=== PATIENT | female | born 1955 | race Caucasian/White ===

== ENCOUNTER 2017-12-15 14:13 | Inpatient (IN) | payer MEDICAID, OTHER ==
[~2017-12-15] VITALS: Ht 162.6 cm; Wt 129.8 kg
[~2017-12-15 14:13] MED LIST: ALBUPOW26 XX; CARI-316 PO; CELE200C PO; GLIP-115 PO; MEDR10TA9 PO; RABE20TA5 PO; SITA25TA3 PO; TRAM50TA2 PO; propranolol PO
[2017-12-15 15:11] LABS: Basophils # (auto) 0 uL; Basophils % (auto) 0.3 % (0.0-2.0); Eosinophils # (auto) 0.2 uL; Eosinophils % (auto) 1.8 % (0.0-7.0); Hematocrit 36.6 % (36.0-46.0); Hemoglobin 11.7 g/dL (12.2-16.2); Lymphocytes # (auto) 1.9 uL; Mean Corpuscular Hemoglobin 28.4 pg (28.0-32.0); Mean Corpuscular Hgb Conc. 31.8 g/dL (32.0-36.0); Mean Corpuscular Volume 89.2 fL (80.0-100.0); Monocytes # (auto) 0.6 uL; Monocytes % (auto) 4.8 % (0.0-12.0); Neutrophils # (auto) 10.1 uL; Neutrophils % (auto) 78.1 % (37.0-80.0); Platelet Count (auto) 350 10^3/uL (140-450); Red Cell Distribution Width 14.6 % (11.8-14.3)
[2017-12-15 15:23] LABS: Alanine Aminotransferase 27 U/L (13-56); Albumin 3.4 g/dL (3.4-5.0); Anion Gap 9 (5-15); Aspartate Aminotransferase 19 U/L (15-37); BUN/Creatinine Ratio 21.9; Blood Urea Nitrogen 23 mg/dL (7-18); Calcium 8.8 mg/dL (8.5-10.1); Carbon Dioxide 28 mmol/L (21-32); Chloride 104 mmol/L (98-107); GFR African American 69 mL/min; GFR Non-African American 57 mL/min; Glucose 236 mg/dL (74-106); INR 0.94 (0.9-1.15); Magnesium 2.2 mg/dL (1.6-2.6); Partial Thromboplastin Time 24.4 sec (23.78-33.04); Potassium 3.9 mmol/L (3.5-5.1); Prothrombin Time 10.1 sec (9.27-12.13); Sodium 141 mmol/L (136-145)
[2017-12-15 15:28] LABS: Alkaline Phosphatase 90 U/L (45-117); Bilirubin, Total 0.5 mg/dL (0.2-1.0); Total Protein 7.6 g/dL (6.4-8.2)
[2017-12-15] MEDS ORDERED: LORazepam 0.5 MG TAB PO PRN (16:15)
[2017-12-15] MEDS ORDERED: SPIRONOLACTONE 25 MG TAB PO ONE (16:15)
[2017-12-15] MEDS ORDERED: TEMAZEPAM 15 MG CAP PO PRN (16:15)
[2017-12-15] MEDS ORDERED: NITROGLYCERIN 0.4 MG SL TAB SL PRN (16:15)
[2017-12-15] MEDS ORDERED: ALBUTEROL SULF 2.5 MG/0.5ML(0.5%) NEB SOLN NEB PRN (16:15)
[2017-12-15] MEDS ORDERED: PROMETHAZINE HCL 25 MG/ML 1ML IV PRN (16:15)
[2017-12-15] MEDS ORDERED: LACTULOSE 20Gm/30ML SOLN PO PRN (16:15)
[2017-12-15] MEDS ORDERED: ACETAMINOPHEN 500 MG TAB PO PRN (16:15)
[2017-12-15] MEDS ORDERED: CARVEDILOL 3.125 MG TAB PO ONE (16:15)
[2017-12-15] MEDS ORDERED: DEXTROSE (50%) 50ML SYRG IV PRN (16:15)
[2017-12-15 16:27] LABS: Urine Bacteria FEW /hpf (None Seen); Urine Blood Negative /uL (Negative); Urine Mucus FEW (None Seen); Urine Specific Gravity 1.026 (1.001-1.035); Urine WBC 5 /hpf (0 - 5)
[2017-12-15] MEDS ORDERED: ENOXAPARIN SOD 40 MG/0.4 ML SYRINGE SC ONE ×2 (16:39→16:40)
[2017-12-15] MEDS: cefTRIAXone 1GM/10ml IVPUSH 10 ML IV SCH (16:55)
[2017-12-15] MEDS: FUROSEMIDE 40 MG/4 ML VIAL IV SCH (16:56)
[2017-12-15] MEDS ORDERED: ENALAPRIL MALEATE 2.5 MG TAB PO ONE (17:00)
[2017-12-15] MEDS: InsuLIN REG 1unit/0.01ml Soln (100units/ml) SC SCH ×2 (17:02→23:43)
[2017-12-15] MEDS: ACCU-CHEK COMFORT CURVE STRIP VI SCH ×2 (17:02→23:41)
[2017-12-15] MEDS: glipiZIDE 5 MG TAB PO SCH (17:02)
[2017-12-15 17:07] LABS: Alcohol, Urine < 3.0 mg/dL (0-5); Amphetamine Screen, Urine NEGATIVE (NEGATIVE); Barbiturate Scree,Urine NEGATIVE (NEGATIVE); Benzodiazephine Screen, Urine NEGATIVE (NEGATIVE); Cannabinoid Screen, Urine NEGATIVE (NEGATIVE); Cocaine Screen, Urine NEGATIVE (NEGATIVE); Opiate Scree,Urine POSITIVE (NEGATIVE); Phencyclidine Screen, Urine NEGATIVE (NEGATIVE)
[2017-12-15] MEDS ORDERED: medroxyPROGESTERone ACETATE 5 MG TAB PO ONE (17:15)
[2017-12-15] MEDS: ASPirin 81 mg TAB PO SCH (17:29)
[2017-12-15] MEDS: ALBUTEROL SULF 2.5 MG/0.5ML(0.5%) NEB SOLN NEB SCH (18:00)
[2017-12-15] MEDS: IPRATROPIUM BROM 0.5 MG/2.5ML INH SOL NEB SCH (18:00)
[2017-12-15] MEDS ORDERED: ASPI81TA27 PO (18:20)
[2017-12-15] MEDS ORDERED: HYDR-531 PO (18:20)
[2017-12-15] MEDS ORDERED: DIGO0.1262 PO (18:20)
[2017-12-15] MEDS ORDERED: FURO40TA PO (18:20)
[2017-12-15] MEDS ORDERED: LISI-275 PO (18:20)
[2017-12-15] MEDS ORDERED: OME20GT GT (18:20)
[2017-12-15] MEDS ORDERED: OME20T PO (18:20)
[2017-12-15] MEDS ORDERED: TICA90TA PO (18:20)
[2017-12-15] MEDS ORDERED: ALBU2TAB4 INH (18:20)
[2017-12-15] MEDS ORDERED: MET50T PO (18:20)
[2017-12-15] MEDS ORDERED: OLOP1DRO2 OP (18:20)
[2017-12-15] MEDS ORDERED: INSLANTI SC (18:20)
[2017-12-15] MEDS ORDERED: AMIO100T3 PO (18:20)
[2017-12-15] MEDS ORDERED: ATOR40TA52 PO (18:20)
[2017-12-15] MEDS ORDERED: NITR0.4S29 SL (18:20)
[2017-12-15] MEDS ORDERED: TIZA4TAB9 PO (18:20)
[2017-12-15] MEDS ORDERED: GABA600T PO (18:20)
[2017-12-15] MEDS ORDERED: CELE100C82 PO (18:20)
[2017-12-15] MEDS ORDERED: LEV100T PO (18:20)
[2017-12-15] MEDS ORDERED: INSUINJ7 IJ (18:20)
[2017-12-15] MEDS ORDERED: POTA10TA51 PO (18:20)
[2017-12-15] MEDS ORDERED: Tizanidine Hydrochloride (Zanaflex) 4 MG PO PRN (18:30)
[2017-12-15] MEDS: HYDROmorphone HCL 2 MG/ML VL IV PRN (21:01)
[2017-12-15 21:14] VITALS: BP 93/59
[2017-12-15 22:00] VITALS: BP 100/61
[2017-12-15] MEDS ORDERED: traMADol HCL 50 MG TAB PO SCH (22:00)
[2017-12-15] MEDS: CARVEDILOL 12.5 MG TAB PO SCH (22:00)
[2017-12-15] MEDS: TICAGRELOR 90 MG TAB PO SCH (22:21)
[2017-12-15] MEDS: GABAPENTIN 300 MG CAP PO SCH (22:21)
[2017-12-15] MEDS: HYDROcodone-ACET 5/325MG TAB PO PRN (22:21)
[2017-12-15 23:00] VITALS: BP 100/61
[2017-12-15] MEDS: SODIUM CHLOR 0.9% PF (SALINE LOCK) 10ML VIAL/SYR IV SCH (23:38)
[2017-12-15] MEDS: AMIODARONE HCL 200 MG TAB PO SCH (23:39)
[2017-12-15] MEDS: INSULIN LANTUS (GLARGINE) 1 /0.01ml (100units/ml) SC SCH (23:42)
[2017-12-16] VITALS (7 sets, daily range): BP systolic 104–118; BP diastolic 49–63
[2017-12-16] MEDS: IPRATROPIUM BROM 0.5 MG/2.5ML INH SOL NEB SCH ×4 (00:08→19:09)
[2017-12-16] MEDS: ALBUTEROL SULF 2.5 MG/0.5ML(0.5%) NEB SOLN NEB SCH ×4 (00:08→19:09)
[2017-12-16] MEDS: FUROSEMIDE 40 MG/4 ML VIAL IV SCH ×2 (05:33→22:30)
[2017-12-16] MEDS: GABAPENTIN 300 MG CAP PO SCH ×3 (05:34→22:32)
[2017-12-16] MEDS: HYDROcodone-ACET 5/325MG TAB PO PRN ×2 (05:34→13:47)
[2017-12-16] MEDS: SODIUM CHLOR 0.9% PF (SALINE LOCK) 10ML VIAL/SYR IV SCH ×3 (05:35→22:35)
[2017-12-16] MEDS: ACCU-CHEK COMFORT CURVE STRIP VI SCH ×4 (05:35→22:00)
[2017-12-16 05:47] LABS: Basophils # (auto) 0 uL; Basophils % (auto) 0.6 % (0.0-2.0); Eosinophils # (auto) 0.2 uL; Eosinophils % (auto) 2.1 % (0.0-7.0); Hemoglobin 10.2 g/dL (12.2-16.2); Lymphocytes # (auto) 2.2 uL; Lymphocytes % (auto) 25.3 % (10.0-50.0); Mean Corpuscular Hemoglobin 28.4 pg (28.0-32.0); Mean Corpuscular Volume 88.5 fL (80.0-100.0); Monocytes # (auto) 0.6 uL; Monocytes % (auto) 6.9 % (0.0-12.0); Neutrophils # (auto) 5.6 uL; Neutrophils % (auto) 65.1 % (37.0-80.0); Platelet Count (auto) 268 10^3/uL (140-450); Red Blood Cells 3.61 10^6/uL (4.0-5.20); Red Cell Distribution Width 14.5 % (11.8-14.3); White Blood Cell 8.6 10^3/uL (4.4-10.8)
[2017-12-16 06:06] LABS: Albumin 2.9 g/dL (3.4-5.0); BUN/Creatinine Ratio 22.2; Bilirubin, Total 0.7 mg/dL (0.2-1.0); Calcium 8.7 mg/dL (8.5-10.1); Potassium 3.8 mmol/L (3.5-5.1); Total Protein 6.4 g/dL (6.4-8.2)
[2017-12-16] MEDS: InsuLIN REG 1unit/0.01ml Soln (100units/ml) SC SCH ×4 (06:53→22:00)
[2017-12-16] MEDS ORDERED: OPTISON 3ml Vial for INJ IV ONE ×2 (09:00)
[2017-12-16] MEDS: cefTRIAXone 1GM/10ml IVPUSH 10 ML IV SCH (09:53)
[2017-12-16] MEDS: ENOXAPARIN SOD 40 MG/0.4 ML SYRINGE SC SCH (09:53)
[2017-12-16] MEDS: LEVOTHYROXINE SODIUM 50 MCG TAB PO SCH (09:55)
[2017-12-16] MEDS: LISINOPRIL 5 MG TAB PO SCH (09:56)
[2017-12-16] MEDS: glipiZIDE 5 MG TAB PO SCH ×2 (09:56→17:39)
[2017-12-16] MEDS: SPIRONOLACTONE 25 MG TAB PO SCH (09:56)
[2017-12-16] MEDS: PANTOPRAZOLE 40 MG TAB PO SCH (09:56)
[2017-12-16] MEDS: ASPirin 81 mg TAB PO SCH (09:56)
[2017-12-16] MEDS: CARVEDILOL 12.5 MG TAB PO SCH ×2 (09:56→22:33)
[2017-12-16] MEDS: AMIODARONE HCL 200 MG TAB PO SCH ×2 (09:57→22:32)
[2017-12-16] MEDS: POTASSIUM CHL 20 Meq TABLET PO SCH (09:57)
[2017-12-16] MEDS: DIGOXIN 0.125 MG TAB PO SCH (09:57)
[2017-12-16] MEDS ORDERED: Sitagliptin Phosphate (Januvia) 25 MG TABLET PO SCH (10:00)
[2017-12-16] MEDS ORDERED: CARISOPRODOL 350 MG TAB PO SCH (10:00)
[2017-12-16] MEDS ORDERED: ENALAPRIL MALEATE 2.5 MG TAB PO SCH (10:00)
[2017-12-16] MEDS: OLOPATADINE HCL 0.1% OP SCH (10:00)
[2017-12-16] MEDS ORDERED: medroxyPROGESTERone ACETATE 5 MG TAB PO SCH (10:00)
[2017-12-16] MEDS: TICAGRELOR 90 MG TAB PO SCH ×2 (10:00→22:43)
[2017-12-16] MEDS ORDERED: METOLAZONE 5 MG TAB PO ONE (15:30)
[2017-12-16] MEDS: ATORVASTATIN 20 MG TAB PO SCH ×2 (17:40→22:33)
[2017-12-16] MEDS ORDERED: CELECOXIB 100 MG CAP PO SCH (22:00)
[2017-12-16] MEDS: INSULIN LANTUS (GLARGINE) 1 /0.01ml (100units/ml) SC SCH (22:00)
[2017-12-17] MEDS: ALBUTEROL SULF 2.5 MG/0.5ML(0.5%) NEB SOLN NEB SCH ×3 (00:32→11:28)
[2017-12-17] MEDS: IPRATROPIUM BROM 0.5 MG/2.5ML INH SOL NEB SCH ×3 (00:32→11:28)
[2017-12-17] MEDS: HYDROmorphone HCL 2 MG/ML VL IV PRN (04:16)
[2017-12-17 06:21] LABS: Basophils # (auto) 0 uL; Basophils % (auto) 0.4 % (0.0-2.0); Eosinophils # (auto) 0.1 uL; Eosinophils % (auto) 1.8 % (0.0-7.0); Hematocrit 30.8 % (36.0-46.0); Hemoglobin 10.2 g/dL (12.2-16.2); Lymphocytes # (auto) 1.4 uL; Lymphocytes % (auto) 17.7 % (10.0-50.0); Mean Corpuscular Hemoglobin 29.1 pg (28.0-32.0); Mean Corpuscular Hgb Conc. 33.1 g/dL (32.0-36.0); Mean Corpuscular Volume 87.9 fL (80.0-100.0); Monocytes # (auto) 0.5 uL; Monocytes % (auto) 6.8 % (0.0-12.0); Neutrophils # (auto) 5.9 uL; Neutrophils % (auto) 73.3 % (37.0-80.0); Platelet Count (auto) 275 10^3/uL (140-450); Red Cell Distribution Width 14.5 % (11.8-14.3); White Blood Cell 8.1 10^3/uL (4.4-10.8)
[2017-12-17] MEDS: ACCU-CHEK COMFORT CURVE STRIP VI SCH ×2 (06:27→11:30)
[2017-12-17] MEDS: SODIUM CHLOR 0.9% PF (SALINE LOCK) 10ML VIAL/SYR IV SCH ×2 (06:29→14:11)
[2017-12-17] MEDS: GABAPENTIN 300 MG CAP PO SCH ×2 (06:40→14:11)
[2017-12-17 06:41] LABS: Albumin 2.8 g/dL (3.4-5.0); Calcium 8.5 mg/dL (8.5-10.1); Potassium 3.5 mmol/L (3.5-5.1)
[2017-12-17] MEDS: FUROSEMIDE 40 MG/4 ML VIAL IV SCH ×2 (06:42→14:11)
[2017-12-17 06:44] LABS: Bilirubin, Total 0.7 mg/dL (0.2-1.0); Total Protein 6.6 g/dL (6.4-8.2)
[2017-12-17] MEDS: InsuLIN REG 1unit/0.01ml Soln (100units/ml) SC SCH ×2 (06:45→11:30)
[2017-12-17] MEDS: LEVOTHYROXINE SODIUM 50 MCG TAB PO SCH (06:49)
[2017-12-17 08:43] VITALS: BP 111/66
[2017-12-17] MEDS: glipiZIDE 5 MG TAB PO SCH (08:53)
[2017-12-17] MEDS: cefTRIAXone 1GM/10ml IVPUSH 10 ML IV SCH (08:53)
[2017-12-17] MEDS: OLOPATADINE HCL 0.1% OP SCH (10:00)
[2017-12-17] MEDS: TICAGRELOR 90 MG TAB PO SCH (10:09)
[2017-12-17] MEDS: DIGOXIN 0.125 MG TAB PO SCH (10:09)
[2017-12-17] MEDS: AMIODARONE HCL 200 MG TAB PO SCH (10:09)
[2017-12-17] MEDS: POTASSIUM CHL 20 Meq TABLET PO SCH (10:10)
[2017-12-17] MEDS: ENOXAPARIN SOD 40 MG/0.4 ML SYRINGE SC SCH (10:10)
[2017-12-17] MEDS: SPIRONOLACTONE 25 MG TAB PO SCH (10:10)
[2017-12-17] MEDS: PANTOPRAZOLE 40 MG TAB PO SCH (10:10)
[2017-12-17] MEDS: ASPirin 81 mg TAB PO SCH (10:10)
[2017-12-17] MEDS: CARVEDILOL 12.5 MG TAB PO SCH (10:11)
[2017-12-17] MEDS: LISINOPRIL 5 MG TAB PO SCH (10:11)
[2017-12-17 12:00] VITALS: BP 104/64
[2017-12-17 13:00] VITALS: BP 104/64
[2017-12-17] MEDS: HYDROcodone-ACET 5/325MG TAB PO PRN (14:28)
== END 2017-12-17 14:52 | disposition home or self-care (01) | DRG 194 ==
LOC: ER 14:13 → TELE 14:14 → TELE-EAST 21:24
PROVIDERS: ADMIT Internal Medicine; ATTEND Internal Medicine
DX: I11.0 Hypertensive heart disease with heart failure (principal); J80 Acute respiratory distress syndrome; R65.10 Systemic inflammatory response syndrome (SIRS) of non-infectious origin without acute organ dysfunction; Z99.81 Dependence on supplemental oxygen; E11.65 Type 2 diabetes mellitus with hyperglycemia; Z68.42 Body mass index [BMI] 45.0-49.9, adult; J44.1 Chronic obstructive pulmonary disease with (acute) exacerbation; I50.43 Acute on chronic combined systolic (congestive) and diastolic (congestive) heart failure; E66.01 Morbid (severe) obesity due to excess calories; K59.00 Constipation, unspecified; G47.00 Insomnia, unspecified; D72.829 Elevated white blood cell count, unspecified; F41.9 Anxiety disorder, unspecified; I25.10 Atherosclerotic heart disease of native coronary artery without angina pectoris; E78.5 Hyperlipidemia, unspecified; M06.9 Rheumatoid arthritis, unspecified; D64.9 Anemia, unspecified; Z82.49 Family history of ischemic heart disease and other diseases of the circulatory system; Z95.5 Presence of coronary angioplasty implant and graft; Z88.6 Allergy status to analgesic agent; Z91.041 Radiographic dye allergy status; Z88.5 Allergy status to narcotic agent; Z88.8 Allergy status to other drugs, medicaments and biological substances; Z91.018 Allergy to other foods; Z79.899 Other long term (current) drug therapy
CPT/HCPCS: 36415; 71045; 80053; 80061; 80307; 81001; 82550; 82962; 83036; 83735; 83880; 84443; 84484; 85025; 85379; 85610; 85652; 85730; 86141; 93005; 93306; 94640; 94761; 96372; 96374; 96375; J1815; Q9956

== ENCOUNTER 2017-12-20 00:14 | Emergency (ER) | payer MEDICAID ==
[~2017-12-20] VITALS: Ht 160 cm; Wt 95.3 kg
[~2017-12-20 00:14] MED LIST changes: +ALBU2TAB4 INH; -ALBUPOW26 XX; +AMIO100T3 PO; +ASPI81TA27 PO; +ATOR40TA52 PO; -CARI-316 PO; +CELE100C82 PO; -CELE200C PO; +DIGO0.1262 PO; +FURO40TA PO; +GABA600T PO; -GLIP-115 PO; +HYDR-531 PO; +INSLANTI SC; +INSUINJ7 IJ; +LEV100T PO; +LISI-275 PO; -MEDR10TA9 PO; +MET50T PO; +NITR0.4S29 SL; +OLOP1DRO2 OP; +OME20GT GT; +OME20T PO; +POTA10TA51 PO; -RABE20TA5 PO; -SITA25TA3 PO; +TICA90TA PO; +TIZA4TAB9 PO; -TRAM50TA2 PO; -propranolol PO
[2017-12-20 01:51] LABS: Alanine Aminotransferase 27 U/L (13-56); Albumin 3.3 g/dL (3.4-5.0); Anion Gap 14 (5-15); Aspartate Aminotransferase 24 U/L (15-37); BUN/Creatinine Ratio 14.2; Blood Urea Nitrogen 24 mg/dL (7-18); Calcium 8.9 mg/dL (8.5-10.1); Carbon Dioxide 27 mmol/L (21-32); Chloride 93 mmol/L (98-107); GFR African American 40 mL/min; GFR Non-African American 33 mL/min; Glucose 183 mg/dL (74-106); Sodium 134 mmol/L (136-145)
[2017-12-20 01:53] LABS: Basophils # (auto) 0.1 uL; Basophils % (auto) 0.5 % (0.0-2.0); Eosinophils # (auto) 0.2 uL; Eosinophils % (auto) 1.8 % (0.0-7.0); Hemoglobin 11.1 g/dL (12.2-16.2); Lymphocytes # (auto) 2.2 uL; Lymphocytes % (auto) 19.3 % (10.0-50.0); Mean Corpuscular Hemoglobin 28.5 pg (28.0-32.0); Mean Corpuscular Hgb Conc. 32.8 g/dL (32.0-36.0); Mean Corpuscular Volume 86.9 fL (80.0-100.0); Monocytes # (auto) 0.9 uL; Monocytes % (auto) 7.5 % (0.0-12.0); Neutrophils # (auto) 8.1 uL; Neutrophils % (auto) 70.9 % (37.0-80.0); Platelet Count (auto) 344 10^3/uL (140-450); Red Blood Cells 3.91 10^6/uL (4.0-5.20); Red Cell Distribution Width 14.4 % (11.8-14.3); White Blood Cell 11.5 10^3/uL (4.4-10.8)
[2017-12-20 01:56] LABS: Alkaline Phosphatase 72 U/L (45-117); Bilirubin, Total 0.6 mg/dL (0.2-1.0); Total Protein 7.1 g/dL (6.4-8.2)
[2017-12-20 01:57] LABS: INR 0.99 (0.9-1.15); Prothrombin Time 10.6 sec (9.27-12.13)
[2017-12-20] MEDS ORDERED: KETOROLAC TROMETH 30 MG/ML 1ML VIAL IV ONE (02:30)
[2017-12-20 05:58] VITALS: BP 98/59
== END 2017-12-20 06:30 | disposition home or self-care (01) ==
LOC: EDBD 00:14 → ER 00:14
DX: S43.402A Unspecified sprain of left shoulder joint, initial encounter (principal); S00.03XA Contusion of scalp, initial encounter; R55 Syncope and collapse; E11.9 Type 2 diabetes mellitus without complications; I11.0 Hypertensive heart disease with heart failure; I50.9 Heart failure, unspecified; I25.10 Atherosclerotic heart disease of native coronary artery without angina pectoris; Z95.0 Presence of cardiac pacemaker; W19.XXXA Unspecified fall, initial encounter; Y93.01 Activity, walking, marching and hiking; Y92.89 Other specified places as the place of occurrence of the external cause; Y99.8 Other external cause status
CPT/HCPCS: 36415; 70450; 71045; 73030; 80053; 83880; 84484; 85025; 85379; 85610; 85730; 96374; 99285; J1885; 93005

== ENCOUNTER 2018-04-07 16:38 | Inpatient (IN) | payer MEDICAID ==
[~2018-04-07] VITALS: Ht 162.6 cm; Wt 136.4 kg
[2018-04-07] MEDS: FUROSEMIDE 40 MG/4 ML VIAL IV ONE ×2 (17:15→18:52)
[2018-04-07 18:47] LABS: Basophils # (auto) 0 uL; Basophils % (auto) 0.5 % (0.0-2.0); Eosinophils # (auto) 0.1 uL; Eosinophils % (auto) 1.7 % (0.0-7.0); Hematocrit 33.6 % (36.0-46.0); Hemoglobin 10.4 g/dL (12.2-16.2); Lymphocytes # (auto) 1.4 uL; Lymphocytes % (auto) 15.9 % (10.0-50.0); Mean Corpuscular Hemoglobin 22.9 pg (28.0-32.0); Mean Corpuscular Volume 73.9 fL (80.0-100.0); Monocytes # (auto) 0.7 uL; Monocytes % (auto) 8.5 % (0.0-12.0); Neutrophils # (auto) 6.4 uL; Neutrophils % (auto) 73.4 % (37.0-80.0); Platelet Count (auto) 386 10^3/uL (140-450); Red Blood Cells 4.55 10^6/uL (4.0-5.20); Red Cell Distribution Width 17.7 % (11.8-14.3); White Blood Cell 8.7 10^3/uL (4.4-10.8)
[2018-04-07 18:55] LABS: Urine Bacteria FEW /hpf (None Seen); Urine Blood Negative /uL (Negative); Urine Hyaline Cast FEW /lpf (0 - 2); Urine Specific Gravity 1.011 (1.001-1.035); Urine WBC 1 /hpf (0 - 5)
[2018-04-07 18:56] LABS: INR 1.1 (0.9-1.15); Prothrombin Time 11.7 sec (9.27-12.13)
[2018-04-07 19:03] LABS: Alanine Aminotransferase 15 U/L (13-56); Albumin 3.3 g/dL (3.4-5.0); Anion Gap 8 (5-15); Aspartate Aminotransferase 10 U/L (15-37); BUN/Creatinine Ratio 9.8; Blood Urea Nitrogen 10 mg/dL (7-18); Calcium 8.4 mg/dL (8.5-10.1); Carbon Dioxide 33 mmol/L (21-32); Chloride 98 mmol/L (98-107); GFR African American 71 mL/min; GFR Non-African American 59 mL/min; Glucose 147 mg/dL (74-106); Magnesium 2.4 mg/dL (1.6-2.6); Potassium 3.3 mmol/L (3.5-5.1); Sodium 139 mmol/L (136-145)
[2018-04-07 19:10] LABS: Alkaline Phosphatase 88 U/L (45-117); Bilirubin, Total 0.6 mg/dL (0.2-1.0); Total Protein 7.4 g/dL (6.4-8.2)
[2018-04-07] MEDS ORDERED: FUROSEMIDE 40 MG/4 ML VIAL IV ONE (19:30)
[2018-04-07] MEDS ORDERED: POTASSIUM CHL 20 Meq TABLET PO ONE (19:45)
[2018-04-07] MEDS ORDERED: ACETAMINOPHEN 500 MG TAB PO PRN (22:30)
[2018-04-07] MEDS ORDERED: SPIRONOLACTONE 25 MG TAB PO ONE (22:30)
[2018-04-07] MEDS ORDERED: ONDANSETRON HCL 4 MG/2 ML VIAL IV PRN (22:30)
[2018-04-07] MEDS ORDERED: FUROSEMIDE 20 MG/2 ML VIAL IV ONE (22:30)
[2018-04-07] MEDS ORDERED: LORazepam 0.5 MG TAB PO PRN (22:45)
[2018-04-07] MEDS ORDERED: DEXTROSE (50%) 50ML SYRG IV PRN (23:00)
[2018-04-07] MEDS ORDERED: cefTRIAXone 1GM/10ml IVPUSH 10 ML IV ONE (23:00)
[2018-04-07 23:57] VITALS: BP 110/82
[2018-04-08] VITALS (10 sets, daily range): BP systolic 99–131; BP diastolic 62–82
[2018-04-08] MEDS: ALBUTEROL SULF 2.5 MG/0.5ML(0.5%) NEB SOLN NEB PRN ×3 (00:25→22:23)
[2018-04-08] MEDS: IPRATROPIUM BROM 0.5 MG/2.5ML INH SOL NEB PRN ×3 (00:25→22:23)
[2018-04-08] MEDS: HYDROcodone-ACET 5/325MG TAB PO PRN ×2 (01:12→12:30)
[2018-04-08 06:01] LABS: Lymphocytes # (auto) 1.4 uL; Monocytes # (auto) 0.7 uL
[2018-04-08 06:04] LABS: Basophils # (auto) 0.1 uL; Basophils % (auto) 1.2 % (0.0-2.0); Eosinophils # (auto) 0.2 uL; Eosinophils % (auto) 1.9 % (0.0-7.0); Hematocrit 33.4 % (36.0-46.0); Hemoglobin 10.3 g/dL (12.2-16.2); Lymphocytes % (auto) 15.9 % (10.0-50.0); Mean Corpuscular Hgb Conc. 30.8 g/dL (32.0-36.0); Mean Corpuscular Volume 74.3 fL (80.0-100.0); Monocytes % (auto) 8.4 % (0.0-12.0); Neutrophils # (auto) 6.4 uL; Neutrophils % (auto) 72.6 % (37.0-80.0); Platelet Count (auto) 380 10^3/uL (140-450); Red Cell Distribution Width 18.1 % (11.8-14.3); White Blood Cell 8.8 10^3/uL (4.4-10.8)
[2018-04-08 06:09] LABS: Mean Corpuscular Hemoglobin 23.2 pg (28.0-32.0)
[2018-04-08 06:17] LABS: BUN/Creatinine Ratio 9.6; Calcium 8.6 mg/dL (8.5-10.1); Potassium 3.4 mmol/L (3.5-5.1)
[2018-04-08] MEDS: InsuLIN REG 1unit/0.01ml Soln (100units/ml) SC SCH ×4 (06:22→21:40)
[2018-04-08] MEDS: LEVOTHYROXINE SODIUM 50 MCG TAB PO SCH (06:22)
[2018-04-08] MEDS: ACCU-CHEK COMFORT CURVE STRIP VI SCH ×4 (06:22→21:40)
[2018-04-08] MEDS: FUROSEMIDE 40 MG/4 ML VIAL IV SCH ×3 (06:22→21:22)
[2018-04-08] MEDS: GABAPENTIN 300 MG CAP PO SCH ×2 (09:24→21:22)
[2018-04-08] MEDS: CLOPIDOGREL BISULFATE 75 MG TAB PO SCH (09:24)
[2018-04-08] MEDS: ASPirin-EC 81 mg tab PO SCH (09:24)
[2018-04-08] MEDS: SPIRONOLACTONE 25 MG TAB PO SCH (09:25)
[2018-04-08] MEDS: cefTRIAXone 1GM/10ml IVPUSH 10 ML IV SCH (09:27)
[2018-04-08] MEDS: AZITHROMYCIN 500MG/ 250ML 250 ML IV SCH (09:28)
[2018-04-08] MEDS ORDERED: MAGNESIUM CITRATE SOLUTION 300 ML BTL PO ONE (16:15)
[2018-04-08] MEDS: traMADol HCL 50 MG TAB PO PRN (18:18)
[2018-04-08] MEDS: LIDOCAINE 5% TOPICAL PATCH TOP SCH (18:18)
[2018-04-08] MEDS ORDERED: ATORVASTATIN 20 MG TAB PO SCH (22:00)
[2018-04-09] MEDS: HYDROcodone-ACET 5/325MG TAB PO PRN ×2 (00:10→07:00)
[2018-04-09 05:31] VITALS: BP 125/80
[2018-04-09] MEDS: FUROSEMIDE 40 MG/4 ML VIAL IV SCH ×3 (06:00→14:00)
[2018-04-09] MEDS: ACCU-CHEK COMFORT CURVE STRIP VI SCH ×3 (06:17→18:31)
[2018-04-09] MEDS: LEVOTHYROXINE SODIUM 50 MCG TAB PO SCH (06:17)
[2018-04-09] MEDS: InsuLIN REG 1unit/0.01ml Soln (100units/ml) SC SCH ×3 (07:00→18:31)
[2018-04-09 08:56] VITALS: BP 132/83
[2018-04-09] MEDS: cefTRIAXone 1GM/10ml IVPUSH 10 ML IV SCH (09:00)
[2018-04-09] MEDS: CLOPIDOGREL BISULFATE 75 MG TAB PO SCH (09:42)
[2018-04-09] MEDS: SPIRONOLACTONE 25 MG TAB PO SCH (09:43)
[2018-04-09] MEDS: ASPirin-EC 81 mg tab PO SCH (09:43)
[2018-04-09] MEDS: GABAPENTIN 300 MG CAP PO SCH (09:43)
[2018-04-09] MEDS: AZITHROMYCIN 500MG/ 250ML 250 ML IV SCH (10:00)
[2018-04-09] MEDS: traMADol HCL 50 MG TAB PO PRN (11:43)
[2018-04-09 13:00] VITALS: BP 115/77
[2018-04-09 17:10] VITALS: BP 133/76
[2018-04-09 17:40] VITALS: BP 114/72
[2018-04-09] MEDS: LIDOCAINE 5% TOPICAL PATCH TOP SCH (18:00)
== END 2018-04-09 19:03 | disposition home or self-care (01) | DRG 194 ==
LOC: EDBD 16:38 → ER 16:40 → TELE 16:41 → TELE-WESTW 23:11
PROVIDERS: ADMIT Nurse Practitioner Family; ATTEND Internal Medicine
DX: I11.0 Hypertensive heart disease with heart failure (principal); J18.9 Pneumonia, unspecified organism; Z99.81 Dependence on supplemental oxygen; Z68.43 Body mass index [BMI] 50.0-59.9, adult; E44.1 Mild protein-calorie malnutrition; I50.33 Acute on chronic diastolic (congestive) heart failure; J44.9 Chronic obstructive pulmonary disease, unspecified; E11.9 Type 2 diabetes mellitus without complications; E66.9 Obesity, unspecified; F32.9 Major depressive disorder, single episode, unspecified; E87.6 Hypokalemia; F41.9 Anxiety disorder, unspecified; R09.02 Hypoxemia; E78.5 Hyperlipidemia, unspecified; I25.10 Atherosclerotic heart disease of native coronary artery without angina pectoris; Z79.4 Long term (current) use of insulin; Z82.49 Family history of ischemic heart disease and other diseases of the circulatory system; Z80.1 Family history of malignant neoplasm of trachea, bronchus and lung; Z88.5 Allergy status to narcotic agent; Z88.8 Allergy status to other drugs, medicaments and biological substances; Z91.018 Allergy to other foods
CPT/HCPCS: 36415; 71045; 80048; 80053; 81001; 82962; 83036; 83735; 83880; 84443; 84484; 85025; 85379; 85610; 85730; 93005; 94640; 94761; 96365; 96375; 96376; J0696; J1815; J2405

== ENCOUNTER 2019-05-27 17:09 | Emergency (ER) | payer MEDICARE, MEDICAID ==
[~2019-05-27] VITALS: Ht 172.7 cm; Wt 99.8 kg
[~2019-05-27 17:09] MED LIST changes: +ASPI-404 PO; -ASPI81TA27 PO; +FURO1TAB31 PO; -FURO40TA PO; -OLOP1DRO2 OP; +OLOP1DRO5 OP
[2019-05-27 17:20] VITALS: BP 149/68
[2019-05-27 18:02] LABS: Basophils # (auto) 0 uL; Basophils % (auto) 0.3 % (0.0-2.0); Eosinophils % (auto) 8.4 % (0.0-7.0); Hematocrit 37.9 % (36.0-46.0); Hemoglobin 12.6 g/dL (12.2-16.2); Lymphocytes # (auto) 1.7 uL; Lymphocytes % (auto) 13.5 % (10.0-50.0); Mean Corpuscular Hemoglobin 28.7 pg (28.0-32.0); Mean Corpuscular Hgb Conc. 33.2 g/dL (32.0-36.0); Mean Corpuscular Volume 86.5 fL (80.0-100.0); Monocytes # (auto) 0.3 uL; Monocytes % (auto) 2.7 % (0.0-12.0); Neutrophils # (auto) 9.2 uL; Neutrophils % (auto) 75.1 % (37.0-80.0); Platelet Count (auto) 396 10^3/uL (140-450); Red Blood Cells 4.39 10^6/uL (4.0-5.20); Red Cell Distribution Width 15.1 % (11.8-14.3); White Blood Cell 12.2 10^3/uL (4.4-10.8)
[2019-05-27 18:08] LABS: Albumin 3.3 g/dL (3.4-5.0); BUN/Creatinine Ratio 16.5; Calcium 9.3 mg/dL (8.5-10.1); Potassium 3.7 mmol/L (3.5-5.1)
[2019-05-27 18:10] LABS: Bilirubin, Total 0.4 mg/dL (0.2-1.0); Total Protein 7.9 g/dL (6.4-8.2)
[2019-05-27 20:20] LABS: INR 1.03 (0.9-1.15); Partial Thromboplastin Time 27.4 sec (23.64-32.05)
[2019-05-27 20:24] LABS: Urine Bacteria NONE SEEN /hpf (None Seen); Urine Blood Negative /uL (Negative); Urine Hyaline Cast MOD /lpf (0 - 2); Urine Mucus FEW (None Seen); Urine Specific Gravity 1.011 (1.001-1.035); Urine WBC 4 /hpf (0 - 5)
== END 2019-05-27 21:34 | disposition home or self-care (01) ==
LOC: EDBD 17:09 → ER 17:34
DX: N39.0 Urinary tract infection, site not specified (principal); K59.00 Constipation, unspecified; I11.0 Hypertensive heart disease with heart failure; I50.9 Heart failure, unspecified; J44.9 Chronic obstructive pulmonary disease, unspecified; E11.9 Type 2 diabetes mellitus without complications; E78.5 Hyperlipidemia, unspecified; I25.2 Old myocardial infarction; Z95.0 Presence of cardiac pacemaker; Z88.6 Allergy status to analgesic agent; Z88.8 Allergy status to other drugs, medicaments and biological substances; Z79.82 Long term (current) use of aspirin; Z79.4 Long term (current) use of insulin; Z79.899 Other long term (current) drug therapy
CPT/HCPCS: 36415; 71045; 74176; 80053; 81001; 85025; 85610; 85730; 93005

== ENCOUNTER 2019-07-04 12:14 | Emergency (ER) | payer MEDICARE, MEDICAID ==
[~2019-07-04] VITALS: Ht 162.6 cm; Wt 110.2 kg
[2019-07-04] MEDS ORDERED: SODIUM CHLORIDE 0.9% 1,000 ML IV ONE (13:32)
[2019-07-04 14:02] LABS: Basophils # (auto) 0.1 uL; Eosinophils # (auto) 0.3 uL; Eosinophils % (auto) 3.1 % (0.0-7.0); Hematocrit 35.1 % (36.0-46.0); Hemoglobin 11.4 g/dL (12.2-16.2); Lymphocytes # (auto) 1.9 uL; Lymphocytes % (auto) 21.4 % (10.0-50.0); Mean Corpuscular Hemoglobin 28.6 pg (28.0-32.0); Mean Corpuscular Hgb Conc. 32.5 g/dL (32.0-36.0); Monocytes # (auto) 0.7 uL; Monocytes % (auto) 7.9 % (0.0-12.0); Neutrophils # (auto) 5.8 uL; Neutrophils % (auto) 66.6 % (37.0-80.0); Platelet Count (auto) 365 10^3/uL (140-450); Red Blood Cells 3.99 10^6/uL (4.0-5.20); Red Cell Distribution Width 15.4 % (11.8-14.3); White Blood Cell 8.7 10^3/uL (4.4-10.8)
[2019-07-04 14:09] LABS: Albumin 3.6 g/dL (3.4-5.0); BUN/Creatinine Ratio 19.7; Calcium 8.6 mg/dL (8.5-10.1); Potassium 4.9 mmol/L (3.5-5.1)
[2019-07-04 14:19] LABS: Bilirubin, Total 0.5 mg/dL (0.2-1.0); Total Protein 7.7 g/dL (6.4-8.2)
[2019-07-04 14:35] VITALS: BP 90/52
[2019-07-04 15:14] LABS: Urine Bacteria FEW /hpf (None Seen); Urine Blood Negative /uL (Negative); Urine Mucus FEW (None Seen); Urine Specific Gravity 1.008 (1.001-1.035); Urine WBC 4 /hpf (0 - 5)
== END 2019-07-04 17:58 | disposition home or self-care (01) ==
LOC: ER 12:19
DX: G43.909 Migraine, unspecified, not intractable, without status migrainosus (principal); E11.21 Type 2 diabetes mellitus with diabetic nephropathy; E11.65 Type 2 diabetes mellitus with hyperglycemia; N39.0 Urinary tract infection, site not specified; Z98.61 Coronary angioplasty status; I48.91 Unspecified atrial fibrillation; I11.0 Hypertensive heart disease with heart failure; I50.9 Heart failure, unspecified; J44.9 Chronic obstructive pulmonary disease, unspecified; K21.9 Gastro-esophageal reflux disease without esophagitis; E78.5 Hyperlipidemia, unspecified; I25.2 Old myocardial infarction; E07.9 Disorder of thyroid, unspecified
CPT/HCPCS: 36415; 70450; 71046; 80053; 81001; 82962; 83735; 83880; 84443; 85025; 96360; 96361; 99284; J7030

== ENCOUNTER 2019-11-24 14:00 | Inpatient (IN) | payer MEDICARE, MEDICAID ==
[~2019-11-24] VITALS: Ht 162.6 cm; Wt 116.1 kg
[~2019-11-24 14:00] MED LIST changes: +DIGO0.12 PO; -DIGO0.1262 PO
[2019-11-24] MEDS ORDERED: SODIUM CHLORIDE 0.9% 1,000 ML IV ONE (14:08)
[2019-11-24] MEDS ORDERED: ASPirin 81 mg TAB PO ONE (14:15)
[2019-11-24 14:26] LABS: Basophils # (auto) 0 10 ^3/uL (0-0.2); Basophils % (auto) 0.4 % (0.0-2.0); Eosinophils # (auto) 0.1 10 ^3/uL (0-0.8); Eosinophils % (auto) 1.5 % (0.0-7.0); Hematocrit 38.6 % (36.0-46.0); Hemoglobin 12.3 g/dL (12.2-16.2); Lymphocytes # (auto) 1.7 10 ^3/uL (0.4-5.4); Lymphocytes % (auto) 17.3 % (10.0-50.0); Mean Corpuscular Hemoglobin 26.4 pg (28.0-32.0); Mean Corpuscular Hgb Conc. 31.8 g/dL (32.0-36.0); Mean Corpuscular Volume 83.2 fL (80.0-100.0); Monocytes # (auto) 0.8 10 ^3/uL (0-1.3); Monocytes % (auto) 7.8 % (0.0-12.0); Neutrophils # (auto) 7.1 10 ^3/uL (1.6-8.6); Nucleated Red Blood Cells % 0.1 %; Platelet Count (auto) 351 10^3/uL (140-450); Red Blood Cells 4.64 10^6/uL (4.0-5.20); Red Cell Distribution Width 15.5 % (11.8-14.3); White Blood Cell 9.7 10^3/uL (4.4-10.8)
[2019-11-24 14:46] LABS: Albumin 3.4 g/dL (3.4-5.0); Anion Gap 7 (5-15); Blood Urea Nitrogen 24 mg/dL (7-18); Calcium 8.8 mg/dL (8.5-10.1); Carbon Dioxide 32 mmol/L (21-32); Chloride 98 mmol/L (98-107); Glucose 365 mg/dL (74-106); Magnesium 2.2 mg/dL (1.6-2.6); Potassium 4.1 mmol/L (3.5-5.1); Sodium 137 mmol/L (136-145)
[2019-11-24 14:52] LABS: Alanine Aminotransferase 17 U/L (13-56); Alkaline Phosphatase 117 U/L (45-117); Aspartate Aminotransferase 12 U/L (15-37); BUN/Creatinine Ratio 19.2; Bilirubin, Total 0.6 mg/dL (0.2-1.0); GFR African American 56 mL/min; GFR Non-African American 46 mL/min; Total Protein 7.9 g/dL (6.4-8.2)
[2019-11-24] MEDS ORDERED: NITROGLYCERIN 0.4 MG SL TAB SL PRN ×2 (15:30→16:15)
[2019-11-24] MEDS ORDERED: MORPHINE SULF INJ 2 MG/ML SYRINGE 1ML IV PRN ×3 (15:30→16:15)
[2019-11-24] MEDS ORDERED: DEXTROSE (50%) 50ML SYRG IV PRN (16:15)
[2019-11-24] MEDS ORDERED: LORazepam 0.5 MG TAB PO PRN (16:15)
[2019-11-24] MEDS ORDERED: DOCUSATE SOD 100 MG CAP PO PRN (16:15)
[2019-11-24] MEDS ORDERED: ALUM & MAG HYDROX-SIMETH LIQ(MAALOX) 30 ML PO PRN (16:15)
[2019-11-24] MEDS ORDERED: FUROSEMIDE 20 MG/2 ML VIAL IV ONE (16:15)
[2019-11-24] MEDS ORDERED: METOCLOPRAMIDE HCL 5MG/ml INJ 2ml VIAL IV PRN (16:15)
[2019-11-24] MEDS ORDERED: IPRATROPIUM BROM 0.5 MG/2.5ML INH SOL NEB ONE (16:30)
[2019-11-24] MEDS ORDERED: ALBUTEROL SULF 2.5 MG/0.5ML(0.5%) NEB SOLN NEB ONE (16:30)
[2019-11-24] MEDS ORDERED: IPRATROPIUM BROM 0.5 MG/2.5ML INH SOL NEB PRN (16:30)
[2019-11-24] MEDS ORDERED: ALBUTEROL SULF 2.5 MG/0.5ML(0.5%) NEB SOLN NEB PRN (16:30)
[2019-11-24 16:49] LABS: Cholesterol 115 mg/dL (< 200)
[2019-11-24 16:52] LABS: HDL Cholesterol 32 mg/dL (40-59); LDL Cholesterol 54 mg/dL (< 100); Triglycerides 256 mg/dL (< 150)
--- NOTE | 2019-11-24 17:06 | NUR ---
RECEIVED REPORT FROM ROBEL SANTOS RN
[2019-11-24] MEDS: InsuLIN REG 1unit/0.01ml Soln (100units/ml) SC SCH (17:17)
[2019-11-24] MEDS: INSULIN LISPRO (HUMAN) 100 UNITS/ML ML SC SCH (17:18)
[2019-11-24] MEDS: ACCU-CHEK COMFORT CURVE STRIP VI SCH ×2 (17:18→22:13)
[2019-11-24] MEDS: LACTATED RINGER'S 1,000 ML IV SCH (17:23)
[2019-11-24] MEDS ORDERED: FURO40TA4 PO (18:47)
[2019-11-24] MEDS ORDERED: LEVEMIR SC (18:47)
[2019-11-24] MEDS ORDERED: GABA300C10 PO (18:47)
[2019-11-24] MEDS ORDERED: BACL10TA PO (18:47)
[2019-11-24] MEDS ORDERED: SPIR25TA8 PO (18:47)
[2019-11-24] MEDS ORDERED: INSRTEST IV (18:47)
[2019-11-24] MEDS ORDERED: CARV6.25 PO (18:47)
[2019-11-24] MEDS ORDERED: BIOT50006 PO (18:47)
[2019-11-24] MEDS ORDERED: BUME2TAB5 PO (18:47)
[2019-11-24] MEDS ORDERED: DOCU-94 PO (18:47)
[2019-11-24 18:48] VITALS: BP 112/68
--- NOTE | 2019-11-24 19:22 | NUR ---
ASSESSED PT @ THIS TIME FOR PRN MED NEB TX. PT IS AWAKE AND ALERT AND SITTING UP IN BED. SHE STATES HER BREATHING IS DOING FINE. NO DISTRESS NOTED. CURRENTLY ON 2.5L PER HOME USE, SPO2 96%, HR 95, RR 18 AND BS ARE DIMINISHED T/O. SHE IS AWARE TO CALL IF SHE FEELS SOB.
--- NOTE | 2019-11-24 19:42 | NUR ---
RECEIVED PT FROM DAY RN POC REVIEWED
[2019-11-24 20:26] VITALS: BP 112/68
[2019-11-24] MEDS: HYDROcodone-ACET 10/325MG TAB PO PRN (21:00)
--- NOTE | 2019-11-24 21:30 | NUR ---
pt ambulated to bathroom with walker, pain relieved with med given
[2019-11-24 22:00] VITALS: BP 123/74
[2019-11-24] MEDS ORDERED: INSULIN LANTUS (GLARGINE) 1 /0.01ml (100units/ml) SC SCH (22:00)
[2019-11-24] MEDS ORDERED: InsuLIN REG 1unit/0.01ml Soln (100units/ml) SC SCH (22:00)
[2019-11-24] MEDS: TICAGRELOR 90 MG TAB PO SCH (22:12)
--- NOTE | 2019-11-25 01:03 | NUR ---
pt awoke c/o discomfort, med for pain prior given, will continue to monitor
--- NOTE | 2019-11-25 04:00 | NUR ---
awoke amb to bathroom c/o pain 01/05 in her legs will medicate as ordered
[2019-11-25 05:00] VITALS: BP 129/77
[2019-11-25] MEDS: HYDROcodone-ACET 10/325MG TAB PO PRN (05:00)
[2019-11-25] MEDS: INSULIN LISPRO (HUMAN) 100 UNITS/ML ML SC SCH ×3 (05:43→17:00)
[2019-11-25] MEDS ORDERED: FUROSEMIDE 20 MG/2 ML VIAL IV SCH ×2 (06:00→18:00)
[2019-11-25] MEDS: LACTATED RINGER'S 1,000 ML IV SCH (06:10)
[2019-11-25] MEDS: ACCU-CHEK COMFORT CURVE STRIP VI SCH ×3 (06:15→17:20)
[2019-11-25] MEDS: InsuLIN REG 1unit/0.01ml Soln (100units/ml) SC SCH ×3 (06:17→17:00)
[2019-11-25 06:46] LABS: INR 1.01 (0.9-1.15); Partial Thromboplastin Time 22.7 sec (23.64-32.05)
[2019-11-25 06:52] LABS: Potassium 3.6 mmol/L (3.5-5.1)
--- NOTE | 2019-11-25 06:53 | NUR ---
report given to am nurse poc reviewed
[2019-11-25] MEDS ORDERED: LEVOTHYROXINE SODIUM 25 MCG TAB PO SCH (07:00)
[2019-11-25] MEDS ORDERED: LEVOTHYROXINE SODIUM 100 MCG TAB PO SCH (07:00)
[2019-11-25 07:08] LABS: Albumin 3.4 g/dL (3.4-5.0); BUN/Creatinine Ratio 18.4; Bilirubin, Total 0.7 mg/dL (0.2-1.0); CRP High Sensitivity 0.65 mg/dL (< 0.3); Calcium 9.2 mg/dL (8.5-10.1); Magnesium 2.2 mg/dL (1.6-2.6); Phosphorus 3.2 mg/dL (2.5-4.90); Total Protein 7.8 g/dL (6.4-8.2); Uric Acid 9.3 mg/dL (2.6-6.0)
[2019-11-25 07:09] LABS: Basophils # (auto) 0.1 10 ^3/uL (0-0.2); Basophils % (auto) 0.5 % (0.0-2.0); Eosinophils # (auto) 0.2 10 ^3/uL (0-0.8); Eosinophils % (auto) 1.7 % (0.0-7.0); Hematocrit 36.8 % (36.0-46.0); Hemoglobin 11.9 g/dL (12.2-16.2); Lymphocytes # (auto) 2.4 10 ^3/uL (0.4-5.4); Lymphocytes % (auto) 20.7 % (10.0-50.0); Mean Corpuscular Hgb Conc. 32.4 g/dL (32.0-36.0); Mean Corpuscular Volume 83.4 fL (80.0-100.0); Monocytes # (auto) 0.7 10 ^3/uL (0-1.3); Monocytes % (auto) 5.9 % (0.0-12.0); Neutrophils # (auto) 8.1 10 ^3/uL (1.6-8.6); Neutrophils % (auto) 71.2 % (37.0-80.0); Nucleated Red Blood Cells % 0.1 %; Platelet Count (auto) 327 10^3/uL (140-450); Red Blood Cells 4.41 10^6/uL (4.0-5.20); Red Cell Distribution Width 15.5 % (11.8-14.3); White Blood Cell 11.3 10^3/uL (4.4-10.8)
[2019-11-25 08:00] VITALS: BP 111/58
[2019-11-25] MEDS ORDERED: cefTRIAXone 1GM/50ML D5W 50 ML IV SCH (09:00)
[2019-11-25] MEDS ORDERED: METOPROLOL SUCCINATE XL 50 MG TAB PO SCH (10:00)
[2019-11-25] MEDS ORDERED: OMEPRAZOLE 20MG/10ML ORAL SUSP PO SCH (10:00)
[2019-11-25] MEDS ORDERED: AZITHROMYCIN 500MG/ 250ML 250 ML IV SCH (10:00)
[2019-11-25] MEDS ORDERED: ENOXAPARIN SOD 40 MG/0.4 ML SYRINGE SC SCH (10:00)
[2019-11-25] MEDS ORDERED: LISINOPRIL 5 MG TAB PO SCH (10:00)
[2019-11-25] MEDS ORDERED: ASPirin-EC 81 mg tab PO SCH (10:00)
[2019-11-25] MEDS ORDERED: DIGOXIN 0.125 MG TAB PO SCH (10:00)
[2019-11-25] MEDS: TICAGRELOR 90 MG TAB PO SCH (10:01)
[2019-11-25] MEDS ORDERED: POTASSIUM CHL 20 Meq TABLET PO ONE (10:45)
[2019-11-25] MEDS ORDERED: SPIRONOLACTONE 25 MG TAB PO ONE (10:45)
[2019-11-25] MEDS ORDERED: FUROSEMIDE 40 MG/4 ML VIAL IV ONE (10:45)
[2019-11-25 12:00] VITALS: BP 110/54
--- NOTE | 2019-11-25 13:24 | NUR ---
PATIENT REFUSED BLOOD PRESSURE MEDICATIONS AND DR JOYA NOTIFIED.
[2019-11-25] MEDS ORDERED: GABAPENTIN 300 MG CAP PO SCH (14:00)
[2019-11-25 16:51] VITALS: BP 132/80
--- NOTE | 2019-11-25 18:25 | NUR ---
AMA Note EDUARDO CONDON states they want to leave the hospital Against Medical Advice (AMA). Patient encouraged to stay for further treatment/stabilization. FRANK [employer] notified of patient's wishes. Patient advised of the risks and benefits of leaving AMA. Patient verbalized understanding. Patient encouraged to return to the ER if symptoms do not improve or worsen.
[2019-11-25] MEDS ORDERED: POTASSIUM CHL 20 Meq TABLET PO SCH (22:00)
[2019-11-25] MEDS ORDERED: CARVEDILOL 3.125 MG TAB PO SCH (22:00)
[2019-11-26] MEDS ORDERED: AZITHROMYCIN 250 MG TAB PO SCH (10:00)
[2019-11-26] MEDS ORDERED: SPIRONOLACTONE 25 MG TAB PO SCH (10:00)
[2019-11-26] MEDS ORDERED: SACUBITRIL-VALSARTAN 24mg/26mg TAB PO SCH (10:00)
== END 2019-11-25 18:25 | disposition left against medical advice (07) | DRG 291 ==
LOC: ER 14:00 → TELE 14:01 → TELE-CENTR 17:32
PROVIDERS: ADMIT Hospitalist; ATTEND Hospitalist
DX: I13.0 Hypertensive heart and chronic kidney disease with heart failure and stage 1 through stage 4 chronic kidney disease, or unspecified chronic kidney disease (principal); J18.9 Pneumonia, unspecified organism; N17.0 Acute kidney failure with tubular necrosis; J96.20 Acute and chronic respiratory failure, unspecified whether with hypoxia or hypercapnia; I50.43 Acute on chronic combined systolic (congestive) and diastolic (congestive) heart failure; J44.1 Chronic obstructive pulmonary disease with (acute) exacerbation; J44.0 Chronic obstructive pulmonary disease with (acute) lower respiratory infection; Z68.41 Body mass index [BMI] 40.0-44.9, adult; I24.9 Acute ischemic heart disease, unspecified; I42.9 Cardiomyopathy, unspecified; E66.01 Morbid (severe) obesity due to excess calories; M19.90 Unspecified osteoarthritis, unspecified site; N18.9 Chronic kidney disease, unspecified; Z53.29 Procedure and treatment not carried out because of patient's decision for other reasons; E03.9 Hypothyroidism, unspecified; E11.22 Type 2 diabetes mellitus with diabetic chronic kidney disease; E11.65 Type 2 diabetes mellitus with hyperglycemia; I25.10 Atherosclerotic heart disease of native coronary artery without angina pectoris; I49.5 Sick sinus syndrome; K59.00 Constipation, unspecified; Z79.02 Long term (current) use of antithrombotics/antiplatelets; Z79.4 Long term (current) use of insulin; Z79.82 Long term (current) use of aspirin; Z79.899 Other long term (current) drug therapy; Z80.1 Family history of malignant neoplasm of trachea, bronchus and lung; Z82.49 Family history of ischemic heart disease and other diseases of the circulatory system; Z91.19 Patient's noncompliance with other medical treatment and regimen; Z85.118 Personal history of other malignant neoplasm of bronchus and lung; Z95.0 Presence of cardiac pacemaker; Z95.5 Presence of coronary angioplasty implant and graft; Z96.653 Presence of artificial knee joint, bilateral; G89.29 Other chronic pain; I25.2 Old myocardial infarction
CPT/HCPCS: 36415; 71045; 80053; 80061; 82728; 82962; 83036; 83615; 83735; 83880; 84100; 84484; 84550; 85025; 85045; 85610; 85730; 86141; 87040; 93306; 94640; 96360; 96361; G0378; J0696; J1815

== ENCOUNTER 2021-05-01 14:34 | Inpatient (IN) | payer MEDICARE, MEDICAID ==
[~2021-05-01] VITALS: Ht 162.6 cm; Wt 121.8 kg
[~2021-05-01 14:34] MED LIST changes: -ASPI-404 PO; +ASPI-543 PO; +BACL10TA PO; +BIOT50006 PO; +BUME2TAB5 PO; +CARV6.25 PO; +DOCU-94 PO; -FURO1TAB31 PO; +FURO40TA4 PO; +GABA300C10 PO; -GABA600T PO; -INSLANTI SC; +INSRTEST IV; -INSUINJ7 IJ; +LEVEMIR SC; -LISI-275 PO; -MET50T PO; -OLOP1DRO5 OP; -OME20GT GT; +SPIR25TA8 PO; -TIZA4TAB9 PO
[2021-05-01 15:48] LABS: Basophils # (auto) 0 10 ^3/uL (0-0.2); Basophils % (auto) 0.2 % (0.0-2.0); Eosinophils # (auto) 0 10 ^3/uL (0-0.8); Eosinophils % (auto) 0.3 % (0.0-7.0); Hematocrit 40.9 % (36.0-46.0); Hemoglobin 13.3 g/dL (12.2-16.2); Lymphocytes # (auto) 1.1 10 ^3/uL (0.4-5.4); Lymphocytes % (auto) 6.2 % (10.0-50.0); Mean Corpuscular Hemoglobin 26.3 pg (28.0-32.0); Mean Corpuscular Hgb Conc. 32.5 g/dL (32.0-36.0); Mean Corpuscular Volume 80.8 fL (80.0-100.0); Monocytes # (auto) 1.1 10 ^3/uL (0-1.3); Monocytes % (auto) 6.2 % (0.0-12.0); Neutrophils # (auto) 15.1 10 ^3/uL (1.6-8.6); Neutrophils % (auto) 87.1 % (37.0-80.0); Nucleated Red Blood Cells % 0.1 %; Red Blood Cells 5.06 10^6/uL (4.0-5.20); Red Cell Distribution Width 15.5 % (11.8-14.3); White Blood Cell 17.3 10^3/uL (4.4-10.8)
[2021-05-01 16:19] LABS: INR 1.02 (0.9-1.15); Partial Thromboplastin Time 25.3 sec (23.6-33.0)
[2021-05-01] MEDS ORDERED: ALBUTEROL SULF 2.5 MG/0.5ML(0.5%) NEB SOLN NEB PRN (16:30)
[2021-05-01] MEDS ORDERED: ACETAMINOPHEN 500 MG TAB PO PRN (16:30)
[2021-05-01] MEDS ORDERED: HYDROmorphone HCL 2 MG/ML VL IV ONE (16:30)
[2021-05-01] MEDS ORDERED: MORPHINE SULFATE INJECTION 2 MG/ML SYRG IV PRN (16:30)
[2021-05-01] MEDS ORDERED: ONDANSETRON HCL 4 MG/2 ML VIAL IV PRN (16:30)
[2021-05-01] MEDS ORDERED: ONDANSETRON HCL 4 MG/2 ML VIAL IV ONE (16:30)
[2021-05-01] MEDS ORDERED: NITROGLYCERIN 0.4 MG SL TAB SL PRN (16:30)
[2021-05-01] MEDS ORDERED: IPRATROPIUM BROM 0.5 MG/2.5ML INH SOL NEB PRN (16:30)
[2021-05-01 16:40] LABS: Albumin 3.6 g/dL (3.4-5.0); Anion Gap 10 (5-15); Blood Urea Nitrogen 61 mg/dL (7-18); Calcium 9.1 mg/dL (8.5-10.1); Carbon Dioxide 39 mmol/L (21-32); Chloride 80 mmol/L (98-107); Potassium 3.3 mmol/L (3.5-5.1); Sodium 129 mmol/L (136-145)
[2021-05-01 16:45] LABS: Alanine Aminotransferase 28 U/L (13-56); Alkaline Phosphatase 89 U/L (45-117); Aspartate Aminotransferase 19 U/L (15-37); BUN/Creatinine Ratio 39.6; Bilirubin, Total 0.9 mg/dL (0.2-1.0); GFR African American 44 mL/min; GFR Non-African American 36 mL/min; Total Protein 7.9 g/dL (6.4-8.2)
[2021-05-01 17:21] LABS: Glucose 407 mg/dL (74-106)
[2021-05-01] MEDS ORDERED: InsuLIN REG 1unit/0.01ml Soln (100units/ml) IV ONE (17:30)
[2021-05-01] MEDS ORDERED: DEXTROSE (50%) 50ML SYRG IV PRN (18:45)
[2021-05-01] MEDS: HYDROmorphone HCL 2 MG/ML VL IV PRN (21:51)
[2021-05-01] MEDS: ACCU-CHEK COMFORT CURVE STRIP VI SCH (23:15)
[2021-05-01] MEDS: InsuLIN REG 1unit/0.01ml Soln (100units/ml) SC SCH (23:30)
[2021-05-02] MEDS: HYDROmorphone HCL 2 MG/ML VL IV PRN ×6 (02:01→21:30)
[2021-05-02 02:51] VITALS: BP 121/68
[2021-05-02 03:23] LABS: Urine Bacteria NONE SEEN /hpf (None Seen); Urine Blood 1+ /uL (Negative); Urine Specific Gravity 1.013 (1.001-1.035); Urine WBC 487 /hpf (0 - 5); Urine WBC Clumps PRESENT /hpf (None Seen)
[2021-05-02] MEDS: ACCU-CHEK COMFORT CURVE STRIP VI SCH ×4 (06:38→23:35)
[2021-05-02] MEDS: InsuLIN REG 1unit/0.01ml Soln (100units/ml) SC SCH ×4 (06:43→23:38)
[2021-05-02] MEDS ORDERED: InsuLIN REG 1unit/0.01ml Soln (100units/ml) IV ONE ×2 (09:00→11:44)
[2021-05-02] MEDS: cefTRIAXone 1GM/50ML D5W 50 ML IV SCH (09:00)
[2021-05-02] MEDS ORDERED: BUPIVACAINE HCL 50 ML ONE (09:03)
[2021-05-02] MEDS ORDERED: MIDAZOLAM HCL 2MG/2ML 2ml VIAL (1mg/ml) ONE (09:10)
[2021-05-02] MEDS ORDERED: fentaNYL CITRATE 100 MCG/2 ML VL ONE ×3 (09:10→10:07)
[2021-05-02] MEDS ORDERED: PROPOFOL 10 MG/ML 20 ML IV ONE ×2 (09:23→11:13)
[2021-05-02] MEDS ORDERED: KETAMINE HCL 10 ML ONE (09:41)
[2021-05-02] MEDS: ASPirin 81 mg TAB PO SCH (10:00)
[2021-05-02] MEDS: ENOXAPARIN SOD 40 MG/0.4 ML SYRINGE SC SCH (10:00)
[2021-05-02] MEDS ORDERED: SUCCINYLCHOLINE CHLORIDE 20 MG/ML 10ML VIAL IV ONE (10:18)
[2021-05-02] MEDS ORDERED: ceFAZolin 1GM/50ML 100 ML IV ONE (10:23)
[2021-05-02] MEDS ORDERED: INSULIN LANTUS (GLARGINE) 1 /0.01ml (100units/ml) SC ONE (11:15)
[2021-05-02] MEDS ORDERED: DEXTROSE (50%) 50ML SYRG IV PRN (11:15)
[2021-05-02] MEDS ORDERED: ONDANSETRON HCL 4 MG/2 ML VIAL IV PRN (11:30)
[2021-05-02] MEDS ORDERED: HYDROmorphone HCL 2 MG/ML VL IV PRN (11:30)
[2021-05-02] MEDS: LACTATED RINGER'S 1,000 ML IV SCH ×2 (14:30→21:30)
[2021-05-02] MEDS: HYDROcodone-ACET 5/325MG TAB PO PRN ×2 (14:52→23:55)
[2021-05-02 16:46] VITALS: BP 127/82
[2021-05-02] MEDS: ceFAZolin 1GM/50ML 50 ML IV SCH ×2 (17:29→21:26)
[2021-05-02] MEDS: DOCUSATE SOD 100 MG CAP PO PRN (21:05)
[2021-05-02] MEDS: INSULIN LANTUS (GLARGINE) 1 /0.01ml (100units/ml) SC SCH (21:26)
[2021-05-02 22:00] VITALS: BP 133/75
[2021-05-03] MEDS: HYDROmorphone HCL 2 MG/ML VL IV PRN ×5 (01:56→20:42)
[2021-05-03] MEDS: ceFAZolin 1GM/50ML 50 ML IV SCH (03:44)
[2021-05-03 05:00] VITALS: BP 126/71
[2021-05-03 05:32] LABS: Basophils # (auto) 0 10 ^3/uL (0-0.2); Basophils % (auto) 0.3 % (0.0-2.0); Eosinophils # (auto) 0.2 10 ^3/uL (0-0.8); Eosinophils % (auto) 2.2 % (0.0-7.0); Hematocrit 36.1 % (36.0-46.0); Hemoglobin 11.9 g/dL (12.2-16.2); Lymphocytes # (auto) 1.2 10 ^3/uL (0.4-5.4); Lymphocytes % (auto) 11.6 % (10.0-50.0); Mean Corpuscular Hgb Conc. 33.1 g/dL (32.0-36.0); Mean Corpuscular Volume 81.8 fL (80.0-100.0); Monocytes % (auto) 9.6 % (0.0-12.0); Neutrophils # (auto) 7.7 10 ^3/uL (1.6-8.6); Neutrophils % (auto) 76.3 % (37.0-80.0); Red Blood Cells 4.42 10^6/uL (4.0-5.20); Red Cell Distribution Width 15.8 % (11.8-14.3); White Blood Cell 10.2 10^3/uL (4.4-10.8)
[2021-05-03] MEDS: ACCU-CHEK COMFORT CURVE STRIP VI SCH ×4 (05:37→23:36)
[2021-05-03] MEDS: InsuLIN REG 1unit/0.01ml Soln (100units/ml) SC SCH ×4 (05:39→23:37)
[2021-05-03 05:53] LABS: Potassium 3.4 mmol/L (3.5-5.1)
[2021-05-03 05:59] LABS: Albumin 2.9 g/dL (3.4-5.0); BUN/Creatinine Ratio 27.2; Bilirubin, Total 0.6 mg/dL (0.2-1.0); Total Protein 6.7 g/dL (6.4-8.2)
[2021-05-03] MEDS: INSULIN LANTUS (GLARGINE) 1 /0.01ml (100units/ml) SC SCH ×2 (06:12→21:41)
[2021-05-03 09:00] VITALS: BP 124/64
[2021-05-03] MEDS ORDERED: INSULIN LANTUS (GLARGINE) 1 /0.01ml (100units/ml) SC ONE (10:15)
[2021-05-03] MEDS: ASPirin 81 mg TAB PO SCH (10:26)
[2021-05-03] MEDS: cefTRIAXone 1GM/50ML D5W 50 ML IV SCH (10:26)
[2021-05-03] MEDS: ENOXAPARIN SOD 40 MG/0.4 ML SYRINGE SC SCH (10:27)
[2021-05-03 13:00] VITALS: BP 124/61
[2021-05-03] MEDS: HYDROcodone-ACET 10/325MG TAB PO PRN ×3 (13:04→23:41)
[2021-05-03 16:32] VITALS: BP 122/61
[2021-05-03] MEDS: DOCUSATE SOD 100 MG CAP PO PRN (21:31)
[2021-05-03] MEDS: CARVEDILOL 3.125 MG TAB PO SCH (21:33)
[2021-05-03 22:00] VITALS: BP 119/59
[2021-05-04 05:00] VITALS: BP 113/58
[2021-05-04] MEDS: ACCU-CHEK COMFORT CURVE STRIP VI SCH ×4 (06:07→21:39)
[2021-05-04] MEDS: InsuLIN REG 1unit/0.01ml Soln (100units/ml) SC SCH ×3 (06:17→17:52)
[2021-05-04] MEDS: INSULIN LANTUS (GLARGINE) 1 /0.01ml (100units/ml) SC SCH ×2 (06:31→21:45)
[2021-05-04] MEDS ORDERED: LEVOTHYROXINE SODIUM 50 MCG TAB PO SCH (07:00)
[2021-05-04 07:13] LABS: BUN/Creatinine Ratio 22.6; Calcium 9.2 mg/dL (8.5-10.1); Potassium 3.2 mmol/L (3.5-5.1)
[2021-05-04] MEDS: cefTRIAXone 1GM/50ML D5W 50 ML IV SCH (08:56)
[2021-05-04] MEDS: HYDROmorphone HCL 2 MG/ML VL IV PRN ×3 (08:57→22:18)
[2021-05-04 09:00] VITALS: BP 127/63
[2021-05-04] MEDS ORDERED: POTASSIUM CHL 20 Meq TABLET PO ONE ×2 (09:15→09:30)
[2021-05-04] MEDS ORDERED: acetaZOLAMIDE SODIUM 500 MG VL IV ONE (09:30)
[2021-05-04] MEDS: ENOXAPARIN SOD 40 MG/0.4 ML SYRINGE SC SCH (09:51)
[2021-05-04] MEDS: DOCUSATE SOD 100 MG CAP PO PRN (09:51)
[2021-05-04] MEDS: ASPirin 81 mg TAB PO SCH (09:51)
[2021-05-04] MEDS: AMIODARONE HCL 200 MG TAB PO SCH (09:51)
[2021-05-04] MEDS: CARVEDILOL 3.125 MG TAB PO SCH (09:52)
[2021-05-04] MEDS: HYDROcodone-ACET 10/325MG TAB PO PRN ×2 (11:59→20:30)
[2021-05-04] MEDS ORDERED: LACTULOSE 20Gm/30ML SOLN PO PRN (12:15)
[2021-05-04] MEDS ORDERED: POLYETHYLENE GLYCOL 17 GM PWDR PO ONE (12:15)
[2021-05-04 13:00] VITALS: BP 103/58
[2021-05-04 17:12] VITALS: BP 106/62
[2021-05-04 22:00] VITALS: BP 95/48
[2021-05-04] MEDS ORDERED: ATORVASTATIN 20 MG TAB PO SCH (22:00)
[2021-05-05] MEDS: ACCU-CHEK COMFORT CURVE STRIP VI SCH ×2 (00:11→12:15)
[2021-05-05] MEDS: InsuLIN REG 1unit/0.01ml Soln (100units/ml) SC SCH ×3 (00:12→12:16)
[2021-05-05] MEDS: CARVEDILOL 3.125 MG TAB PO SCH ×2 (00:13→09:52)
[2021-05-05 02:47] VITALS: BP 113/71
[2021-05-05 05:00] VITALS: BP 101/60
[2021-05-05] MEDS: INSULIN LANTUS (GLARGINE) 1 /0.01ml (100units/ml) SC SCH (06:49)
[2021-05-05] MEDS: HYDROmorphone HCL 2 MG/ML VL IV PRN ×2 (06:53→12:05)
[2021-05-05] MEDS ORDERED: LEVOTHYROXINE SODIUM 100 MCG TAB PO SCH (07:00)
[2021-05-05] MEDS ORDERED: LEVOTHYROXINE SODIUM 25 MCG TAB PO SCH (07:00)
[2021-05-05 08:57] VITALS: BP 103/61
[2021-05-05] MEDS: cefTRIAXone 1GM/50ML D5W 50 ML IV SCH (09:51)
[2021-05-05] MEDS: ASPirin 81 mg TAB PO SCH (09:51)
[2021-05-05] MEDS: ENOXAPARIN SOD 40 MG/0.4 ML SYRINGE SC SCH (09:51)
[2021-05-05] MEDS: AMIODARONE HCL 200 MG TAB PO SCH (09:53)
[2021-05-05] MEDS ORDERED: POLYETHYLENE GLYCOL 17 GM PWDR PO SCH (10:00)
[2021-05-05] MEDS ORDERED: DIGOXIN 0.125 MG TAB PO SCH (10:00)
[2021-05-05 12:40] VITALS: BP 131/66
[2021-05-05 13:38] LABS: Potassium 4.2 mmol/L (3.5-5.1)
[2021-05-05 14:02] LABS: Calcium 9.9 mg/dL (8.5-10.1)
[2021-05-05 15:39] VITALS: BP 131/66
[2021-05-05] MEDS: HYDROcodone-ACET 10/325MG TAB PO PRN (16:06)
[2021-05-05 16:35] VITALS: BP 126/89
== END 2021-05-05 16:25 | DRG 492 ==
LOC: ER 14:34 → EDBD 14:34 → TELE 16:38 → CENTRAL 05-02 08:41 → TELE-CENTR 05-02 12:42 → CENTRAL 05-04 12:07
PROVIDERS: ADMIT Nurse Practitioner Acute Care; ATTEND Internal Medicine
PROC: B41F1ZZ Fluoroscopy of Right Lower Extremity Arteries using Low Osmolar Contrast (ICD-10-PCS; 2021-05-02)
PROC: 0QSJ35Z Reposition Right Fibula with External Fixation Device, Percutaneous Approach (ICD-10-PCS; 2021-05-02)
PROC: 0QSG35Z Reposition Right Tibia with External Fixation Device, Percutaneous Approach (ICD-10-PCS; 2021-05-02)
PROC: 0QSL35Z Reposition Right Tarsal with External Fixation Device, Percutaneous Approach (ICD-10-PCS; principal; 2021-05-02 09:24)
DX: S82.851A Displaced trimalleolar fracture of right lower leg, initial encounter for closed fracture (principal); N17.0 Acute kidney failure with tubular necrosis; N39.0 Urinary tract infection, site not specified; Z68.41 Body mass index [BMI] 40.0-44.9, adult; I50.22 Chronic systolic (congestive) heart failure; X50.1XXA Overexertion from prolonged static or awkward postures, initial encounter; I25.10 Atherosclerotic heart disease of native coronary artery without angina pectoris; I25.5 Ischemic cardiomyopathy; J44.9 Chronic obstructive pulmonary disease, unspecified; E66.01 Morbid (severe) obesity due to excess calories; E11.9 Type 2 diabetes mellitus without complications; E78.5 Hyperlipidemia, unspecified; Z20.822 Contact with and (suspected) exposure to COVID-19; I11.0 Hypertensive heart disease with heart failure; Z66 Do not resuscitate; W01.0XXA Fall on same level from slipping, tripping and stumbling without subsequent striking against object, initial encounter; Z79.02 Long term (current) use of antithrombotics/antiplatelets; Z79.899 Other long term (current) drug therapy; Z80.1 Family history of malignant neoplasm of trachea, bronchus and lung; Z82.49 Family history of ischemic heart disease and other diseases of the circulatory system; Z83.3 Family history of diabetes mellitus; Z95.5 Presence of coronary angioplasty implant and graft; Z88.5 Allergy status to narcotic agent; Z88.8 Allergy status to other drugs, medicaments and biological substances; Z91.041 Radiographic dye allergy status; Z91.81 History of falling; Y93.89 Activity, other specified; Y92.89 Other specified places as the place of occurrence of the external cause; S93.439A Sprain of tibiofibular ligament of unspecified ankle, initial encounter
CPT/HCPCS: 36415; 36600; 71045; 73600; 73610; 73700; 76001; 80048; 80053; 81001; 82805; 82962; 83036; 84443; 84484; 85025; 85610; 85730; 86850; 86900; 86901; 87040; 87081; 87086; 87426; 93005; 93306; 96374; 96375; 97110; 97163; 97530; G0378; J0330; J0690; J0696; J1815; J2250; J2405; J2704; J3490

== ENCOUNTER 2021-07-12 05:52 | Inpatient (IN) | payer MEDICARE, MEDICAID ==
[2021-07-11 11:04] LABS: Basophils # (auto) 0.1 10 ^3/uL (0-0.2); Basophils % (auto) 0.7 % (0.0-2.0); Eosinophils # (auto) 0.2 10 ^3/uL (0-0.8); Eosinophils % (auto) 1.8 % (0.0-7.0); Hematocrit 40.3 % (36.0-46.0); Hemoglobin 13.2 g/dL (12.2-16.2); Lymphocytes % (auto) 19.6 % (10.0-50.0); Mean Corpuscular Hemoglobin 27.9 pg (28.0-32.0); Mean Corpuscular Hgb Conc. 32.7 g/dL (32.0-36.0); Mean Corpuscular Volume 85.2 fL (80.0-100.0); Monocytes # (auto) 0.8 10 ^3/uL (0-1.3); Monocytes % (auto) 8.4 % (0.0-12.0); Neutrophils # (auto) 6.9 10 ^3/uL (1.6-8.6); Neutrophils % (auto) 69.5 % (37.0-80.0); Red Blood Cells 4.73 10^6/uL (4.0-5.20); Red Cell Distribution Width 14.4 % (11.8-14.3)
[2021-07-11 11:24] LABS: INR 1.23 (0.9-1.15)
[2021-07-11 11:38] LABS: Urine Bacteria FEW /hpf (None Seen); Urine Blood Negative /uL (Negative); Urine Hyaline Cast FEW /lpf (0 - 2); Urine Specific Gravity 1.015 (1.001-1.035); Urine WBC 2 /hpf (0 - 5)
[2021-07-11 12:03] LABS: Potassium 5.2 mmol/L (3.5-5.1)
[2021-07-11 12:04] LABS: Albumin 3.7 g/dL (3.4-5.0); BUN/Creatinine Ratio 24.8; Bilirubin, Total 0.4 mg/dL (0.2-1.0); Calcium 9.1 mg/dL (8.5-10.1); Total Protein 7.3 g/dL (6.4-8.2)
[~2021-07-12] VITALS: Ht 162.6 cm; Wt 113.0 kg
[~2021-07-12 05:52] MED LIST changes: -ASPI-543 PO; -BACL10TA PO; -BIOT50006 PO; -CELE100C82 PO; -FURO40TA4 PO; -SPIR25TA8 PO; -TICA90TA PO
[2021-07-12] MEDS ORDERED: NEOMYCIN-BACITRACIN-POLYM 15GM TOP OINT TOP ONE (07:04)
[2021-07-12] MEDS ORDERED: CHLORHEXIDINE 4% TOPICAL soln 118ml TOP ONE (07:21)
[2021-07-12] MEDS ORDERED: ceFAZolin 1GM VL ONE (07:26)
[2021-07-12] MEDS ORDERED: InsuLIN REG 1unit/0.01ml Soln (100units/ml) ONE (07:30)
[2021-07-12] MEDS ORDERED: ceFAZolin 1GM/50ML 100 ML IV ONE (07:34)
[2021-07-12] MEDS ORDERED: PROPOFOL 10 MG/ML 20 ML IV ONE ×2 (07:37→08:31)
[2021-07-12] MEDS ORDERED: MIDAZOLAM HCL 2MG/2ML 2ml VIAL (1mg/ml) ONE (07:38)
[2021-07-12] MEDS ORDERED: fentaNYL CITRATE 100 MCG/2 ML VL ONE (07:38)
[2021-07-12] MEDS ORDERED: ONDANSETRON HCL 4 MG/2 ML VIAL ONE (07:47)
[2021-07-12] MEDS ORDERED: LIDOCAINE 2% (LOCAL ANESTH.) PF 5ml SDV ONE (07:47)
[2021-07-12] MEDS ORDERED: ROPIVACAINE 0.5% (5MG/ML) 20ML AMPULE IJ ONE (08:14)
[2021-07-12] MEDS ORDERED: ONDANSETRON HCL 4 MG/2 ML VIAL IV PRN (08:45)
[2021-07-12] MEDS: HYDROmorphone HCL 2 MG/ML VL IV PRN ×4 (09:10→18:19)
[2021-07-12] MEDS ORDERED: DEXTROSE (50%) 50ML SYRG IV PRN ×2 (10:00→13:00)
[2021-07-12] MEDS ORDERED: NITROGLYCERIN 0.4 MG SL TAB SL PRN ×2 (10:00→13:15)
[2021-07-12] MEDS ORDERED: hydrALAZINE HCL 20 MG/ML VL IV PRN (10:00)
[2021-07-12 11:08] LABS: Basophils # (auto) 0 10 ^3/uL (0-0.2); Basophils % (auto) 0.5 % (0.0-2.0); Eosinophils # (auto) 0.1 10 ^3/uL (0-0.8); Eosinophils % (auto) 1.6 % (0.0-7.0); Hematocrit 39.6 % (36.0-46.0); Hemoglobin 12.9 g/dL (12.2-16.2); Mean Corpuscular Hemoglobin 27.7 pg (28.0-32.0); Mean Corpuscular Hgb Conc. 32.6 g/dL (32.0-36.0); Mean Corpuscular Volume 85.2 fL (80.0-100.0); Monocytes # (auto) 0.6 10 ^3/uL (0-1.3); Monocytes % (auto) 8.1 % (0.0-12.0); Neutrophils # (auto) 4.8 10 ^3/uL (1.6-8.6); Neutrophils % (auto) 62.8 % (37.0-80.0); Nucleated Red Blood Cells % 0.1 %; Red Blood Cells 4.65 10^6/uL (4.0-5.20); Red Cell Distribution Width 14.1 % (11.8-14.3); White Blood Cell 7.6 10^3/uL (4.4-10.8)
[2021-07-12 11:29] LABS: INR 1.02 (0.9-1.15); Partial Thromboplastin Time 28.2 sec (23.6-33.0)
[2021-07-12] MEDS ORDERED: InsuLIN REG 1unit/0.01ml Soln (100units/ml) SC SCH ×2 (11:30→22:00)
[2021-07-12] MEDS ORDERED: ACCU-CHEK COMFORT CURVE STRIP VI SCH (11:30)
[2021-07-12 11:48] LABS: Albumin 3.4 g/dL (3.4-5.0); Calcium 9.3 mg/dL (8.5-10.1); Magnesium 3.4 mg/dL (1.6-2.6); Potassium 4.4 mmol/L (3.5-5.1)
[2021-07-12 11:55] LABS: BUN/Creatinine Ratio 24.1; Bilirubin, Total 0.3 mg/dL (0.2-1.0); Phosphorus 4.1 mg/dL (2.5-4.90); Total Protein 7.6 g/dL (6.4-8.2); Uric Acid 8.8 mg/dL (2.6-6.0)
[2021-07-12 13:00] VITALS: BP 123/65
[2021-07-12] MEDS ORDERED: ceFAZolin 1GM/50ML 50 ML IV ONE (13:00)
[2021-07-12] MEDS ORDERED: PANTOPRAZOLE 40 MG/10 ML VIAL INJ IV ONE (13:00)
[2021-07-12] MEDS ORDERED: IPRATROPIUM BROM 0.5 MG/2.5ML INH SOL NEB ONE (13:00)
[2021-07-12] MEDS ORDERED: CALCIUM W/VIT D (600MG/400IU) TAB PO ONE (13:15)
[2021-07-12] MEDS ORDERED: MORPHINE SULFATE INJECTION 2 MG/ML SYRG IV PRN (13:15)
[2021-07-12] MEDS ORDERED: ALUM & MAG HYDROX-SIMETH LIQ(MAALOX) 30 ML PO PRN (13:15)
[2021-07-12] MEDS ORDERED: METOCLOPRAMIDE HCL 5MG/ml INJ 2ml VIAL IV PRN (13:15)
[2021-07-12] MEDS ORDERED: TEMAZEPAM 15 MG CAP PO PRN (13:15)
[2021-07-12] MEDS ORDERED: GABAPENTIN 300 MG CAP PO SCH (14:00)
[2021-07-12 14:05] LABS: Urine Bacteria FEW /hpf (None Seen); Urine Blood Negative /uL (Negative); Urine Hyaline Cast FEW /lpf (0 - 2); Urine Specific Gravity 1.014 (1.001-1.035); Urine WBC 12 /hpf (0 - 5)
[2021-07-12 14:17] LABS: Alcohol, Urine < 3.0 mg/dL (0-10); Amphetamine Screen, Urine NEGATIVE (NEGATIVE); Barbiturate Scree,Urine NEGATIVE (NEGATIVE); Benzodiazephine Screen, Urine POSITIVE (NEGATIVE); Cannabinoid Screen, Urine NEGATIVE (NEGATIVE); Cocaine Screen, Urine NEGATIVE (NEGATIVE); Phencyclidine Screen, Urine NEGATIVE (NEGATIVE)
[2021-07-12] MEDS: DOCUSATE SOD 100 MG CAP PO PRN (14:19)
[2021-07-12] MEDS: HYDROcodone-ACET 5/325MG TAB PO PRN ×2 (14:20→21:16)
[2021-07-12 14:25] LABS: Opiate Scree,Urine POSITIVE (NEGATIVE)
[2021-07-12] MEDS: GABAPENTIN 300 MG CAP PO SCH ×2 (14:31→21:14)
[2021-07-12 17:00] VITALS: BP 120/68
[2021-07-12] MEDS ORDERED: IPRATROPIUM BROM 0.5 MG/2.5ML INH SOL NEB SCH (18:00)
[2021-07-12] MEDS: CALCIUM W/VIT D (600MG/400IU) TAB PO SCH (18:18)
[2021-07-12] MEDS: FUROSEMIDE 40 MG/4 ML VIAL IV SCH (18:18)
[2021-07-12] MEDS: ACCU-CHEK COMFORT CURVE STRIP VI SCH (18:18)
[2021-07-12] MEDS: InsuLIN REG 1unit/0.01ml Soln (100units/ml) SC SCH (18:24)
[2021-07-12] MEDS: ceFAZolin 1GM/50ML 50 ML IV SCH (21:14)
[2021-07-12] MEDS: POTASSIUM CHL 20 Meq TABLET PO SCH (21:14)
[2021-07-12] MEDS ORDERED: ATORVASTATIN 20 MG TAB PO SCH (22:00)
[2021-07-12] MEDS: CARVEDILOL 3.125 MG TAB PO SCH (22:42)
[2021-07-12] MEDS: INSULIN LANTUS (GLARGINE) 1 /0.01ml (100units/ml) SC SCH (22:55)
[2021-07-13] MEDS: ACCU-CHEK COMFORT CURVE STRIP VI SCH ×4 (00:21→18:53)
[2021-07-13] MEDS: HYDROmorphone HCL 2 MG/ML VL IV PRN ×3 (00:34→14:06)
[2021-07-13] MEDS: InsuLIN REG 1unit/0.01ml Soln (100units/ml) SC SCH ×4 (00:35→18:35)
[2021-07-13] MEDS ORDERED: IPRATROPIUM BROM 0.5 MG/2.5ML INH SOL NEB PRN (02:00)
[2021-07-13] MEDS: HYDROcodone-ACET 5/325MG TAB PO PRN ×2 (05:18→11:40)
[2021-07-13] MEDS ORDERED: LEVOTHYROXINE SODIUM 25 MCG TAB PO SCH (07:00)
[2021-07-13] MEDS ORDERED: LEVOTHYROXINE SODIUM 112 MCG TAB PO SCH (07:00)
[2021-07-13] MEDS: ceFAZolin 1GM/50ML 50 ML IV SCH ×2 (07:12→14:04)
[2021-07-13] MEDS: FUROSEMIDE 40 MG/4 ML VIAL IV SCH (07:14)
[2021-07-13] MEDS: INSULIN LANTUS (GLARGINE) 1 /0.01ml (100units/ml) SC SCH (07:36)
[2021-07-13 08:00] VITALS: BP 119/63
[2021-07-13] MEDS: CALCIUM W/VIT D (600MG/400IU) TAB PO SCH ×2 (08:00→18:00)
[2021-07-13] MEDS: CARVEDILOL 3.125 MG TAB PO SCH (09:43)
[2021-07-13] MEDS: GABAPENTIN 300 MG CAP PO SCH (09:45)
[2021-07-13] MEDS: POTASSIUM CHL 20 Meq TABLET PO SCH (09:46)
[2021-07-13] MEDS ORDERED: DIGOXIN 0.125 MG TAB PO SCH (10:00)
[2021-07-13] MEDS ORDERED: SPIRONOLACTONE 25 MG TAB PO SCH (10:00)
[2021-07-13] MEDS ORDERED: ASPirin 81 mg TAB PO SCH (10:00)
[2021-07-13] MEDS ORDERED: PANTOPRAZOLE 40 MG/10 ML VIAL INJ IV SCH (10:00)
[2021-07-13] MEDS ORDERED: ALLOPURINOL 100 MG TAB PO SCH (10:00)
[2021-07-13] MEDS ORDERED: AMIODARONE HCL 200 MG TAB PO SCH (10:00)
[2021-07-13] MEDS ORDERED: CHOLECALCIFEROL (VITD3) 2,000 UNIT CAP/TAB PO SCH (10:00)
[2021-07-13] MEDS ORDERED: BENAZEPRIL HCL 10 MG TAB PO SCH (10:00)
[2021-07-13 10:05] LABS: Basophils # (auto) 0 10 ^3/uL (0-0.2); Basophils % (auto) 0.6 % (0.0-2.0); Eosinophils # (auto) 0.2 10 ^3/uL (0-0.8); Eosinophils % (auto) 2.7 % (0.0-7.0); Hematocrit 37.2 % (36.0-46.0); Hemoglobin 12.3 g/dL (12.2-16.2); Lymphocytes % (auto) 30.1 % (10.0-50.0); Mean Corpuscular Hemoglobin 28.2 pg (28.0-32.0); Mean Corpuscular Volume 85.5 fL (80.0-100.0); Monocytes # (auto) 0.6 10 ^3/uL (0-1.3); Monocytes % (auto) 9.4 % (0.0-12.0); Neutrophils # (auto) 3.9 10 ^3/uL (1.6-8.6); Neutrophils % (auto) 57.2 % (37.0-80.0); Nucleated Red Blood Cells % 0.1 %; Red Blood Cells 4.35 10^6/uL (4.0-5.20); Red Cell Distribution Width 14.1 % (11.8-14.3); White Blood Cell 6.8 10^3/uL (4.4-10.8)
[2021-07-13 10:19] LABS: Partial Thromboplastin Time 26.4 sec (23.6-33.0)
[2021-07-13 10:22] LABS: Albumin 3.2 g/dL (3.4-5.0); Calcium 9.3 mg/dL (8.5-10.1)
[2021-07-13 10:27] LABS: BUN/Creatinine Ratio 21.2; Bilirubin, Total 0.3 mg/dL (0.2-1.0); Total Protein 7.1 g/dL (6.4-8.2)
[2021-07-13] MEDS: DOCUSATE SOD 100 MG CAP PO PRN (11:40)
[2021-07-13 13:00] VITALS: BP 110/59
[2021-07-13 17:55] VITALS: BP 108/60
[2021-07-13] MEDS ORDERED: RIVAROXABAN 10 MG TAB PO SCH (18:00)
== END 2021-07-13 19:07 | DRG 559 ==
LOC: SUR 05:52 → TELE 09:52 → TELE-WESTW 13:09
PROVIDERS: ADMIT Hospitalist; ATTEND Internal Medicine
PROC: 0SPFX5Z Removal of External Fixation Device from Right Ankle Joint, External Approach (ICD-10-PCS; principal; 2021-07-12 07:42)
DX: T84.84XA Pain due to internal orthopedic prosthetic devices, implants and grafts, initial encounter (principal); N17.0 Acute kidney failure with tubular necrosis; I50.43 Acute on chronic combined systolic (congestive) and diastolic (congestive) heart failure; I13.0 Hypertensive heart and chronic kidney disease with heart failure and stage 1 through stage 4 chronic kidney disease, or unspecified chronic kidney disease; N39.0 Urinary tract infection, site not specified; Z68.41 Body mass index [BMI] 40.0-44.9, adult; S82.851A Displaced trimalleolar fracture of right lower leg, initial encounter for closed fracture; N18.31 Chronic kidney disease, stage 3a; E11.40 Type 2 diabetes mellitus with diabetic neuropathy, unspecified; I25.5 Ischemic cardiomyopathy; E66.01 Morbid (severe) obesity due to excess calories; Z20.822 Contact with and (suspected) exposure to COVID-19; L71.9 Rosacea, unspecified; M85.80 Other specified disorders of bone density and structure, unspecified site; E79.0 Hyperuricemia without signs of inflammatory arthritis and tophaceous disease; E03.9 Hypothyroidism, unspecified; E11.22 Type 2 diabetes mellitus with diabetic chronic kidney disease; W18.39XA Other fall on same level, initial encounter; E11.21 Type 2 diabetes mellitus with diabetic nephropathy; E78.5 Hyperlipidemia, unspecified; E87.5 Hyperkalemia; J44.9 Chronic obstructive pulmonary disease, unspecified; Z79.4 Long term (current) use of insulin; Z79.899 Other long term (current) drug therapy; Z80.1 Family history of malignant neoplasm of trachea, bronchus and lung; Z83.3 Family history of diabetes mellitus; Z87.891 Personal history of nicotine dependence; Z95.0 Presence of cardiac pacemaker; Y93.89 Activity, other specified; Y92.89 Other specified places as the place of occurrence of the external cause; Y99.8 Other external cause status
CPT/HCPCS: 36415; 71045; 80053; 80307; 81001; 82306; 82962; 83036; 83735; 83880; 84100; 84443; 84484; 84550; 85025; 85379; 85610; 85730; 87040; 87070; 87075; 87077; 87086; 87186; 87205; 93005; 94640; C9113; G0378; J0690; J1815; J2001; J2250; J2405; J2704

== ENCOUNTER 2021-10-30 15:13 | Inpatient (IN) | payer OTHER, MEDICARE, MEDICAID ==
[~2021-10-30] VITALS: Ht 162.6 cm; Wt 120.5 kg
[2021-10-30 16:58] LABS: Basophils # (auto) 0 10 ^3/uL (0-0.2); Basophils % (auto) 0.3 % (0.0-2.0); Eosinophils # (auto) 0.1 10 ^3/uL (0-0.8); Eosinophils % (auto) 1.1 % (0.0-7.0); Hematocrit 33.7 % (36.0-46.0); Hemoglobin 10.4 g/dL (12.2-16.2); Lymphocytes # (auto) 0.9 10 ^3/uL (0.4-5.4); Mean Corpuscular Hemoglobin 23.4 pg (28.0-32.0); Mean Corpuscular Hgb Conc. 30.8 g/dL (32.0-36.0); Mean Corpuscular Volume 75.9 fL (80.0-100.0); Monocytes # (auto) 0.9 10 ^3/uL (0-1.3); Monocytes % (auto) 7.8 % (0.0-12.0); Neutrophils % (auto) 82.8 % (37.0-80.0); Nucleated Red Blood Cells % 0.1 %; Red Blood Cells 4.44 10^6/uL (4.0-5.20); Red Cell Distribution Width 18.9 % (11.8-14.3); White Blood Cell 10.9 10^3/uL (4.4-10.8)
[2021-10-30 17:12] LABS: INR 1.21 (0.9-1.15); Partial Thromboplastin Time 25.1 sec (23.6-33.0)
[2021-10-30 17:32] LABS: Albumin 3.5 g/dL (3.4-5.0); BUN/Creatinine Ratio 24.1; Calcium 8.9 mg/dL (8.5-10.1); Potassium 3.7 mmol/L (3.5-5.1)
[2021-10-30 17:37] LABS: Bilirubin, Total 0.7 mg/dL (0.2-1.0)
[2021-10-30] MEDS ORDERED: MORPHINE SULFATE 4 MG/ML SYR/VIAL IV PRN (18:00)
[2021-10-30] MEDS ORDERED: AZITHROMYCIN 500MG/ 250ML 250 ML IV ONE (18:15)
[2021-10-30] MEDS ORDERED: cefTRIAXone 1GM/50ML D5W 50 ML IV ONE (18:15)
[2021-10-30] MEDS ORDERED: DEXTROSE (50%) 50ML SYRG IV PRN (18:30)
[2021-10-30 22:00] VITALS: BP 109/74
[2021-10-30] MEDS: CARVEDILOL 3.125 MG TAB PO SCH (22:00)
[2021-10-30] MEDS: InsuLIN REG 1unit/0.01ml Soln (100units/ml) SC SCH (22:00)
[2021-10-30] MEDS: POTASSIUM CHL 10 Meq TABLET PO SCH (23:53)
[2021-10-30] MEDS: ATORVASTATIN 20 MG TAB PO SCH (23:53)
[2021-10-30] MEDS: GABAPENTIN 300 MG CAP PO SCH (23:54)
[2021-10-30] MEDS: ACCU-CHEK COMFORT CURVE STRIP VI SCH (23:54)
[2021-10-31] MEDS: ALBUTEROL SULF 2.5 MG/0.5ML(0.5%) NEB SOLN NEB PRN (02:03)
[2021-10-31] MEDS: IPRATROPIUM BROM 0.5 MG/2.5ML INH SOL NEB PRN ×2 (02:03→19:05)
[2021-10-31 05:00] VITALS: BP 106/55
[2021-10-31 05:05] VITALS: BP 109/74
[2021-10-31] MEDS ORDERED: PNEUMOCOCCAL VACC POLYS 25 MCG/0.5 ML VIAL IM SCH (05:45)
[2021-10-31 06:12] LABS: Basophils # (auto) 0 10 ^3/uL (0-0.2); Basophils % (auto) 0.5 % (0.0-2.0); Eosinophils # (auto) 0.1 10 ^3/uL (0-0.8); Hemoglobin 9.7 g/dL (12.2-16.2); Mean Corpuscular Hemoglobin 23.7 pg (28.0-32.0); Monocytes # (auto) 0.8 10 ^3/uL (0-1.3)
[2021-10-31 06:15] LABS: Eosinophils % (auto) 1.3 % (0.0-7.0); Hematocrit 30.9 % (36.0-46.0); Lymphocytes % (auto) 11.6 % (10.0-50.0); Mean Corpuscular Hgb Conc. 31.3 g/dL (32.0-36.0); Mean Corpuscular Volume 75.7 fL (80.0-100.0); Monocytes % (auto) 8.5 % (0.0-12.0); Neutrophils # (auto) 7.1 10 ^3/uL (1.6-8.6); Neutrophils % (auto) 78.1 % (37.0-80.0); Nucleated Red Blood Cells % 0.1 %; Red Blood Cells 4.09 10^6/uL (4.0-5.20); Red Cell Distribution Width 18.9 % (11.8-14.3)
[2021-10-31 06:27] LABS: Albumin 3.2 g/dL (3.4-5.0); BUN/Creatinine Ratio 24.6; Calcium 9.3 mg/dL (8.5-10.1); Potassium 3.9 mmol/L (3.5-5.1)
[2021-10-31 06:29] LABS: Bilirubin, Total 0.7 mg/dL (0.2-1.0); Total Protein 6.5 g/dL (6.4-8.2)
[2021-10-31] MEDS: InsuLIN REG 1unit/0.01ml Soln (100units/ml) SC SCH ×4 (07:00→21:57)
[2021-10-31] MEDS: ACCU-CHEK COMFORT CURVE STRIP VI SCH ×4 (07:45→21:57)
[2021-10-31] MEDS: LEVOTHYROXINE SODIUM 100 MCG TAB PO SCH (07:46)
[2021-10-31] MEDS: GABAPENTIN 300 MG CAP PO SCH ×4 (07:46→23:17)
[2021-10-31] MEDS: LEVOTHYROXINE SODIUM 25 MCG TAB PO SCH (07:46)
[2021-10-31 08:00] VITALS: BP 126/51
[2021-10-31] MEDS: cefTRIAXone 1GM/50ML D5W 50 ML IV SCH (09:26)
[2021-10-31] MEDS: HYDROcodone-ACET 10/325MG TAB PO PRN (09:27)
[2021-10-31] MEDS: CARVEDILOL 3.125 MG TAB PO SCH ×2 (10:00→22:00)
[2021-10-31] MEDS ORDERED: INFLUENZA QUAD 2021-2022 0.5 ML SYRG IM SCH (10:00)
[2021-10-31] MEDS ORDERED: ENOXAPARIN SOD 40 MG/0.4 ML SYRINGE SC SCH (10:00)
[2021-10-31] MEDS ORDERED: FUROSEMIDE 40 MG/4 ML VIAL IV SCH (10:00)
[2021-10-31 12:00] VITALS: BP 108/74
[2021-10-31] MEDS ORDERED: LORazepam 2MG/ML-1ML VIAL IV PRN (12:15)
[2021-10-31] MEDS: PANTOPRAZOLE 40 MG/10 ML VIAL INJ IV SCH (12:37)
[2021-10-31] MEDS: POTASSIUM CHL 10 Meq TABLET PO SCH ×2 (12:38→22:12)
[2021-10-31] MEDS ORDERED: AMIODARONE HCL 200 MG TAB PO ONE (14:30)
[2021-10-31] MEDS ORDERED: ASPirin 81 mg TAB PO ONE (14:30)
[2021-10-31] MEDS: DIGOXIN 0.125 MG TAB PO SCH (15:15)
[2021-10-31] MEDS: DOBUTamine 1000MCG/ML 250 ML IV SCH (15:22)
[2021-10-31 17:00] VITALS: BP 105/50
[2021-10-31] MEDS: FUROSEMIDE 40 MG/4 ML VIAL IV SCH (17:42)
[2021-10-31] MEDS ORDERED: AZITHROMYCIN 500MG/ 250ML 250 ML IV SCH (18:00)
[2021-10-31] MEDS: ATORVASTATIN 20 MG TAB PO SCH (22:12)
[2021-10-31] MEDS: DOXYCYCLINE 100MG/250ML 250 ML IV SCH (22:14)
[2021-10-31] MEDS: ENOXAPARIN SOD 40 MG/0.4 ML SYRINGE SC SCH (22:14)
[2021-10-31] MEDS: ONDANSETRON HCL 4 MG/2 ML VIAL IV PRN (23:17)
[2021-10-31 23:29] VITALS: BP 116/33
[2021-11-01] VITALS (7 sets, daily range): BP systolic 90–130; BP diastolic 53–62
[2021-11-01] MEDS: DOBUTamine 1000MCG/ML 250 ML IV SCH (05:32)
[2021-11-01] MEDS: FUROSEMIDE 40 MG/4 ML VIAL IV SCH ×2 (06:07→18:10)
[2021-11-01] MEDS: LEVOTHYROXINE SODIUM 100 MCG TAB PO SCH (06:08)
[2021-11-01] MEDS: GABAPENTIN 300 MG CAP PO SCH ×3 (06:08→18:00)
[2021-11-01] MEDS: LEVOTHYROXINE SODIUM 25 MCG TAB PO SCH (06:09)
[2021-11-01] MEDS: InsuLIN REG 1unit/0.01ml Soln (100units/ml) SC SCH ×4 (06:30→22:15)
[2021-11-01] MEDS: ACCU-CHEK COMFORT CURVE STRIP VI SCH ×4 (06:48→22:16)
[2021-11-01] MEDS: PANTOPRAZOLE 40 MG/10 ML VIAL INJ IV SCH (10:03)
[2021-11-01] MEDS: cefTRIAXone 1GM/50ML D5W 50 ML IV SCH (10:03)
[2021-11-01] MEDS: ENOXAPARIN SOD 40 MG/0.4 ML SYRINGE SC SCH ×2 (10:03→22:14)
[2021-11-01] MEDS: DOXYCYCLINE 100MG/250ML 250 ML IV SCH ×2 (10:03→22:11)
[2021-11-01] MEDS: POTASSIUM CHL 10 Meq TABLET PO SCH ×2 (10:08→22:12)
[2021-11-01] MEDS: AMIODARONE HCL 200 MG TAB PO SCH (10:08)
[2021-11-01] MEDS: ASPirin 81 mg TAB PO SCH (10:08)
[2021-11-01] MEDS: DIGOXIN 0.125 MG TAB PO SCH (10:08)
[2021-11-01] MEDS: CARVEDILOL 3.125 MG TAB PO SCH ×2 (10:09→22:13)
[2021-11-01] MEDS: LISINOPRIL 5 MG TAB PO SCH (10:09)
[2021-11-01 10:27] LABS: BUN/Creatinine Ratio 20.2; Potassium 4.2 mmol/L (3.5-5.1)
[2021-11-01] MEDS ORDERED: DIGOXIN (250MCG/ML) 2 ML AMPULE IV ONE (13:45)
[2021-11-01 17:10] LABS: Urine Bacteria NONE SEEN /hpf (None Seen); Urine Blood 2+ /uL (Negative); Urine Hyaline Cast FEW /lpf (0 - 2); Urine Mucus FEW (None Seen); Urine Specific Gravity 1.015 (1.001-1.035); Urine WBC 23 /hpf (0 - 5)
[2021-11-01] MEDS: ATORVASTATIN 20 MG TAB PO SCH (22:12)
[2021-11-02] MEDS: GABAPENTIN 300 MG CAP PO SCH ×5 (01:01→23:49)
[2021-11-02] MEDS: DOBUTamine 1000MCG/ML 250 ML IV SCH ×4 (04:16→22:36)
[2021-11-02 05:00] VITALS: BP 109/49
[2021-11-02 05:59] LABS: BUN/Creatinine Ratio 21.5; Calcium 8.4 mg/dL (8.5-10.1); Potassium 4.2 mmol/L (3.5-5.1)
[2021-11-02] MEDS: InsuLIN REG 1unit/0.01ml Soln (100units/ml) SC SCH ×4 (06:14→22:20)
[2021-11-02] MEDS: ACCU-CHEK COMFORT CURVE STRIP VI SCH ×4 (06:14→22:33)
[2021-11-02] MEDS: LEVOTHYROXINE SODIUM 100 MCG TAB PO SCH (06:20)
[2021-11-02] MEDS: LEVOTHYROXINE SODIUM 25 MCG TAB PO SCH (06:20)
[2021-11-02] MEDS: FUROSEMIDE 40 MG/4 ML VIAL IV SCH ×2 (06:20→18:30)
[2021-11-02 09:00] VITALS: BP 113/54
[2021-11-02] MEDS: cefTRIAXone 1GM/50ML D5W 50 ML IV SCH (10:24)
[2021-11-02] MEDS: DOXYCYCLINE 100MG/250ML 250 ML IV SCH ×2 (10:24→22:32)
[2021-11-02] MEDS: ASPirin 81 mg TAB PO SCH (10:24)
[2021-11-02] MEDS: AMIODARONE HCL 200 MG TAB PO SCH (10:27)
[2021-11-02] MEDS: CARVEDILOL 3.125 MG TAB PO SCH ×2 (10:28→22:00)
[2021-11-02] MEDS: DIGOXIN 0.125 MG TAB PO SCH (10:30)
[2021-11-02] MEDS: PANTOPRAZOLE 40 MG TAB PO SCH (10:32)
[2021-11-02] MEDS: LISINOPRIL 5 MG TAB PO SCH (10:33)
[2021-11-02] MEDS: ENOXAPARIN SOD 40 MG/0.4 ML SYRINGE SC SCH ×2 (10:33→22:00)
[2021-11-02] MEDS: POTASSIUM CHL 10 Meq TABLET PO SCH ×2 (10:33→22:33)
[2021-11-02 13:00] VITALS: BP 96/51
[2021-11-02] MEDS ORDERED: NITROGLYCERIN 2% OINT 1GM PKG TD ONE (16:15)
[2021-11-02 17:00] VITALS: BP 96/50
[2021-11-02] MEDS ORDERED: DOBUTamine 1000MCG/ML 250 ML IV SCH (18:45)
[2021-11-02] MEDS: ATORVASTATIN 20 MG TAB PO SCH (22:33)
[2021-11-02] MEDS: HYDROcodone-ACET 10/325MG TAB PO PRN (22:55)
[2021-11-02 23:24] VITALS: BP 94/51
[2021-11-03] MEDS: GABAPENTIN 300 MG CAP PO SCH ×4 (06:00→23:54)
[2021-11-03 06:19] LABS: Basophils % (auto) 0.6 % (0.0-2.0); Hemoglobin 9.4 g/dL (12.2-16.2); Nucleated Red Blood Cells % 0.1 %; White Blood Cell 8.6 10^3/uL (4.4-10.8)
[2021-11-03] MEDS: LEVOTHYROXINE SODIUM 25 MCG TAB PO SCH (06:20)
[2021-11-03] MEDS: InsuLIN REG 1unit/0.01ml Soln (100units/ml) SC SCH ×4 (06:20→21:45)
[2021-11-03] MEDS: ACCU-CHEK COMFORT CURVE STRIP VI SCH ×4 (06:20→21:47)
[2021-11-03] MEDS: FUROSEMIDE 40 MG/4 ML VIAL IV SCH ×2 (06:20→18:00)
[2021-11-03] MEDS: LEVOTHYROXINE SODIUM 100 MCG TAB PO SCH (06:20)
[2021-11-03 06:21] LABS: BUN/Creatinine Ratio 18.9; Basophils # (auto) 0 10 ^3/uL (0-0.2); Calcium 8.7 mg/dL (8.5-10.1); Eosinophils # (auto) 0 10 ^3/uL (0-0.8); Eosinophils % (auto) 0.5 % (0.0-7.0); Hematocrit 30.8 % (36.0-46.0); Lymphocytes # (auto) 1.1 10 ^3/uL (0.4-5.4); Lymphocytes % (auto) 13.4 % (10.0-50.0); Mean Corpuscular Hemoglobin 23.3 pg (28.0-32.0); Mean Corpuscular Hgb Conc. 30.5 g/dL (32.0-36.0); Mean Corpuscular Volume 76.2 fL (80.0-100.0); Neutrophils # (auto) 6.3 10 ^3/uL (1.6-8.6); Neutrophils % (auto) 73.5 % (37.0-80.0); Potassium 4.5 mmol/L (3.5-5.1); Red Blood Cells 4.04 10^6/uL (4.0-5.20); Red Cell Distribution Width 18.7 % (11.8-14.3)
[2021-11-03 06:27] LABS: INR 1.21 (0.9-1.15); Partial Thromboplastin Time 27.3 sec (23.6-33.0)
[2021-11-03 08:00] VITALS: BP 122/52
[2021-11-03] MEDS: cefTRIAXone 1GM/50ML D5W 50 ML IV SCH (10:13)
[2021-11-03] MEDS: DOXYCYCLINE 100MG/250ML 250 ML IV SCH ×2 (10:13→21:42)
[2021-11-03] MEDS: AMIODARONE HCL 200 MG TAB PO SCH (10:14)
[2021-11-03] MEDS: ASPirin 81 mg TAB PO SCH (10:14)
[2021-11-03] MEDS: ENOXAPARIN SOD 40 MG/0.4 ML SYRINGE SC SCH ×2 (10:15→21:46)
[2021-11-03] MEDS: DIGOXIN 0.125 MG TAB PO SCH (10:15)
[2021-11-03] MEDS: PANTOPRAZOLE 40 MG TAB PO SCH (10:15)
[2021-11-03] MEDS: CARVEDILOL 3.125 MG TAB PO SCH ×2 (10:16→21:44)
[2021-11-03 11:50] VITALS: BP 103/54
[2021-11-03 16:00] VITALS: BP 97/50
[2021-11-03] MEDS: DOBUTamine 1000MCG/ML 250 ML IV SCH (21:21)
[2021-11-03] MEDS: ATORVASTATIN 20 MG TAB PO SCH (21:44)
[2021-11-03] MEDS: HYDROcodone-ACET 10/325MG TAB PO PRN (21:48)
[2021-11-03] MEDS: ALBUTEROL SULF 2.5 MG/0.5ML(0.5%) NEB SOLN NEB PRN (22:24)
[2021-11-03] MEDS: IPRATROPIUM BROM 0.5 MG/2.5ML INH SOL NEB PRN (22:24)
[2021-11-03 23:55] VITALS: BP 125/61
[2021-11-04 05:00] VITALS: BP 128/65
[2021-11-04] MEDS: FUROSEMIDE 40 MG/4 ML VIAL IV SCH ×2 (05:52→17:47)
[2021-11-04] MEDS: GABAPENTIN 300 MG CAP PO SCH ×4 (05:52→23:00)
[2021-11-04] MEDS: LEVOTHYROXINE SODIUM 25 MCG TAB PO SCH (06:02)
[2021-11-04] MEDS: LEVOTHYROXINE SODIUM 100 MCG TAB PO SCH (06:02)
[2021-11-04] MEDS: InsuLIN REG 1unit/0.01ml Soln (100units/ml) SC SCH ×4 (06:03→21:14)
[2021-11-04] MEDS: ACCU-CHEK COMFORT CURVE STRIP VI SCH ×4 (06:03→21:13)
[2021-11-04 06:18] LABS: Calcium 8.9 mg/dL (8.5-10.1); Potassium 4.1 mmol/L (3.5-5.1)
[2021-11-04 06:20] LABS: BUN/Creatinine Ratio 22.1
[2021-11-04] MEDS: DOBUTamine 1000MCG/ML 250 ML IV SCH ×3 (07:34→21:14)
[2021-11-04 07:55] VITALS: BP 116/63
[2021-11-04] MEDS: cefTRIAXone 1GM/50ML D5W 50 ML IV SCH (09:03)
[2021-11-04] MEDS: HYDROcodone-ACET 10/325MG TAB PO PRN (09:03)
[2021-11-04] MEDS: PANTOPRAZOLE 40 MG TAB PO SCH (09:04)
[2021-11-04] MEDS: CARVEDILOL 3.125 MG TAB PO SCH ×2 (09:05→21:12)
[2021-11-04] MEDS: DIGOXIN 0.125 MG TAB PO SCH (09:05)
[2021-11-04] MEDS: AMIODARONE HCL 200 MG TAB PO SCH (09:06)
[2021-11-04] MEDS: ENOXAPARIN SOD 40 MG/0.4 ML SYRINGE SC SCH ×2 (09:06→21:13)
[2021-11-04] MEDS: ASPirin 81 mg TAB PO SCH (09:06)
[2021-11-04] MEDS: DOXYCYCLINE 100MG/250ML 250 ML IV SCH ×2 (10:00→21:12)
[2021-11-04] MEDS: ONDANSETRON HCL 4 MG/2 ML VIAL IV PRN (11:45)
[2021-11-04 11:50] VITALS: BP 110/60
[2021-11-04] MEDS: ALBUTEROL SULF 2.5 MG/0.5ML(0.5%) NEB SOLN NEB PRN (14:47)
[2021-11-04] MEDS: IPRATROPIUM BROM 0.5 MG/2.5ML INH SOL NEB PRN (14:47)
[2021-11-04 16:05] VITALS: BP 100/61
[2021-11-04] MEDS: ATORVASTATIN 20 MG TAB PO SCH (21:12)
[2021-11-04 22:00] VITALS: BP 118/66
[2021-11-05 05:00] VITALS: BP 123/61
[2021-11-05] MEDS: FUROSEMIDE 40 MG/4 ML VIAL IV SCH ×2 (06:02→17:49)
[2021-11-05] MEDS: GABAPENTIN 300 MG CAP PO SCH ×3 (06:02→17:49)
[2021-11-05] MEDS: LEVOTHYROXINE SODIUM 25 MCG TAB PO SCH (06:06)
[2021-11-05] MEDS: ACCU-CHEK COMFORT CURVE STRIP VI SCH ×4 (06:06→22:11)
[2021-11-05] MEDS: LEVOTHYROXINE SODIUM 100 MCG TAB PO SCH (06:06)
[2021-11-05] MEDS: InsuLIN REG 1unit/0.01ml Soln (100units/ml) SC SCH ×4 (06:08→22:30)
[2021-11-05] MEDS: cefTRIAXone 1GM/50ML D5W 50 ML IV SCH (09:45)
[2021-11-05] MEDS: ASPirin 81 mg TAB PO SCH (09:45)
[2021-11-05] MEDS: DIGOXIN 0.125 MG TAB PO SCH (09:46)
[2021-11-05] MEDS: CARVEDILOL 3.125 MG TAB PO SCH ×2 (09:46→22:04)
[2021-11-05] MEDS: HYDROcodone-ACET 10/325MG TAB PO PRN (09:47)
[2021-11-05] MEDS: AMIODARONE HCL 200 MG TAB PO SCH (09:47)
[2021-11-05] MEDS: PANTOPRAZOLE 40 MG TAB PO SCH (09:53)
[2021-11-05] MEDS: ENOXAPARIN SOD 40 MG/0.4 ML SYRINGE SC SCH ×2 (09:53→22:04)
[2021-11-05] MEDS: DOBUTamine 1000MCG/ML 250 ML IV SCH ×2 (09:55→22:23)
[2021-11-05] MEDS: DOXYCYCLINE 100MG/250ML 250 ML IV SCH ×2 (10:00→22:03)
[2021-11-05] MEDS ORDERED: LACTULOSE 20Gm/30ML SOLN PO ONE (16:30)
[2021-11-05 17:00] VITALS: BP 105/53
[2021-11-05 17:21] VITALS: BP 110/55
[2021-11-05 22:00] VITALS: BP 114/61
[2021-11-05] MEDS: ATORVASTATIN 20 MG TAB PO SCH (22:03)
[2021-11-06] VITALS (15 sets, daily range): BP systolic 108–142; BP diastolic 60–77
[2021-11-06] MEDS: GABAPENTIN 300 MG CAP PO SCH ×4 (00:09→17:36)
[2021-11-06 05:15] LABS: Basophils # (auto) 0 10 ^3/uL (0-0.2); Eosinophils # (auto) 0.2 10 ^3/uL (0-0.8); Hemoglobin 9.3 g/dL (12.2-16.2); Monocytes # (auto) 0.8 10 ^3/uL (0-1.3); Neutrophils # (auto) 6.1 10 ^3/uL (1.6-8.6); Nucleated Red Blood Cells % 0.1 %
[2021-11-06 05:17] LABS: Basophils % (auto) 0.4 % (0.0-2.0); Eosinophils % (auto) 2.5 % (0.0-7.0); Lymphocytes # (auto) 0.8 10 ^3/uL (0.4-5.4); Lymphocytes % (auto) 9.6 % (10.0-50.0); Mean Corpuscular Hemoglobin 23.1 pg (28.0-32.0); Mean Corpuscular Hgb Conc. 31.1 g/dL (32.0-36.0); Mean Corpuscular Volume 74.4 fL (80.0-100.0); Monocytes % (auto) 10.3 % (0.0-12.0); Neutrophils % (auto) 77.2 % (37.0-80.0); Red Blood Cells 4.03 10^6/uL (4.0-5.20); Red Cell Distribution Width 18.8 % (11.8-14.3)
[2021-11-06 05:47] LABS: Potassium 3.8 mmol/L (3.5-5.1)
[2021-11-06 05:54] LABS: BUN/Creatinine Ratio 17.3; Calcium 8.4 mg/dL (8.5-10.1)
[2021-11-06] MEDS: LEVOTHYROXINE SODIUM 25 MCG TAB PO SCH (06:02)
[2021-11-06] MEDS: LEVOTHYROXINE SODIUM 100 MCG TAB PO SCH (06:02)
[2021-11-06] MEDS: FUROSEMIDE 40 MG/4 ML VIAL IV SCH ×2 (06:04→17:36)
[2021-11-06] MEDS: InsuLIN REG 1unit/0.01ml Soln (100units/ml) SC SCH ×4 (06:43→22:45)
[2021-11-06] MEDS: ACCU-CHEK COMFORT CURVE STRIP VI SCH ×4 (06:43→22:00)
[2021-11-06] MEDS ORDERED: PROMETHAZINE HCL 25 MG/ML 1ML IV ONE (08:30)
[2021-11-06] MEDS: cefTRIAXone 1GM/50ML D5W 50 ML IV SCH (08:34)
[2021-11-06] MEDS: CARVEDILOL 3.125 MG TAB PO SCH ×2 (09:43→22:34)
[2021-11-06] MEDS: AMIODARONE HCL 200 MG TAB PO SCH (09:43)
[2021-11-06] MEDS: ASPirin 81 mg TAB PO SCH (09:43)
[2021-11-06] MEDS: DIGOXIN 0.125 MG TAB PO SCH (09:44)
[2021-11-06 09:45] LABS: INR 1.21 (0.9-1.15); Partial Thromboplastin Time 25.4 sec (23.6-33.0)
[2021-11-06] MEDS: ENOXAPARIN SOD 40 MG/0.4 ML SYRINGE SC SCH ×2 (10:00→22:00)
[2021-11-06] MEDS ORDERED: LIDOCAINE 2%HCL (LOCAL ANESTH.) INJ 10ml MDV ONE (10:08)
[2021-11-06] MEDS ORDERED: IOHEXOL 350 MG/ML 100ML IJ ONE (10:08)
[2021-11-06] MEDS ORDERED: methylPREDNISolone SOD SUCC 125 MG/2 ML VL ONE (10:10)
[2021-11-06] MEDS ORDERED: diphenhdrAMINE HCL 50 MG/1 ML VL ONE (10:10)
[2021-11-06] MEDS ORDERED: ANGIOMAX 250 MG VIAL IV ONE (10:10)
[2021-11-06] MEDS ORDERED: HEPARIN SODIUM (PORCINE) 5000 UNITS/ML 1ML VIAL ONE (10:10)
[2021-11-06] MEDS ORDERED: VERAPAMIL 2.5MG/ML INJ 2ML VIAL IV ONE (10:10)
[2021-11-06] MEDS ORDERED: fentaNYL CITRATE 100 MCG/2 ML VL ONE (10:11)
[2021-11-06] MEDS ORDERED: MIDAZOLAM HCL 2MG/2ML 2ml VIAL (1mg/ml) ONE (10:11)
[2021-11-06] MEDS ORDERED: FAMOTIDINE (10MG/ML) 2ML VL IV ONE (10:11)
[2021-11-06] MEDS ORDERED: SODIUM CHL 0.9% 0 ML ONE (10:11)
[2021-11-06] MEDS: PANTOPRAZOLE 40 MG TAB PO SCH (12:42)
[2021-11-06] MEDS: DOXYCYCLINE 100MG/250ML 250 ML IV SCH ×2 (12:43→22:38)
[2021-11-06] MEDS: DOBUTamine 1000MCG/ML 250 ML IV SCH (16:00)
[2021-11-06] MEDS: ATORVASTATIN 20 MG TAB PO SCH (22:32)
[2021-11-07] MEDS: GABAPENTIN 300 MG CAP PO SCH ×4 (00:10→18:01)
[2021-11-07] MEDS: HYDROcodone-ACET 10/325MG TAB PO PRN ×3 (00:11→22:08)
[2021-11-07 04:31] VITALS: BP 104/52
[2021-11-07] MEDS: DOBUTamine 1000MCG/ML 250 ML IV SCH ×2 (04:33→16:17)
[2021-11-07] MEDS: FUROSEMIDE 40 MG/4 ML VIAL IV SCH ×2 (06:02→18:01)
[2021-11-07 06:58] LABS: Potassium 4.2 mmol/L (3.5-5.1)
[2021-11-07 07:11] LABS: BUN/Creatinine Ratio 17.4; Calcium 9.1 mg/dL (8.5-10.1)
[2021-11-07] MEDS: LEVOTHYROXINE SODIUM 100 MCG TAB PO SCH (07:15)
[2021-11-07] MEDS: ACCU-CHEK COMFORT CURVE STRIP VI SCH ×4 (07:16→22:08)
[2021-11-07] MEDS: LEVOTHYROXINE SODIUM 25 MCG TAB PO SCH (07:16)
[2021-11-07] MEDS: InsuLIN REG 1unit/0.01ml Soln (100units/ml) SC SCH ×4 (07:17→22:10)
[2021-11-07 08:20] VITALS: BP 115/71
[2021-11-07] MEDS: cefTRIAXone 1GM/50ML D5W 50 ML IV SCH (08:20)
[2021-11-07 08:46] VITALS: BP 115/71
[2021-11-07] MEDS: AMIODARONE HCL 200 MG TAB PO SCH (10:20)
[2021-11-07] MEDS: DIGOXIN 0.125 MG TAB PO SCH (10:20)
[2021-11-07] MEDS: ASPirin 81 mg TAB PO SCH (10:21)
[2021-11-07] MEDS: ENOXAPARIN SOD 40 MG/0.4 ML SYRINGE SC SCH ×2 (10:21→22:07)
[2021-11-07] MEDS: DOXYCYCLINE 100MG/250ML 250 ML IV SCH ×2 (10:21→22:09)
[2021-11-07] MEDS: PANTOPRAZOLE 40 MG TAB PO SCH (10:21)
[2021-11-07] MEDS: CARVEDILOL 3.125 MG TAB PO SCH ×2 (10:21→22:09)
[2021-11-07 12:35] VITALS: BP 112/66
[2021-11-07] MEDS ORDERED: metOLazone 5 MG TAB PO ONE (13:15)
[2021-11-07 16:34] VITALS: BP 129/68
[2021-11-07 21:36] VITALS: BP 125/70
[2021-11-07] MEDS: ATORVASTATIN 20 MG TAB PO SCH (22:09)
[2021-11-07] MEDS: IPRATROPIUM BROM 0.5 MG/2.5ML INH SOL NEB PRN (22:40)
[2021-11-07] MEDS: ALBUTEROL SULF 2.5 MG/0.5ML(0.5%) NEB SOLN NEB PRN (22:40)
[2021-11-08] VITALS (7 sets, daily range): BP systolic 100–114; BP diastolic 54–62
[2021-11-08] MEDS: DOBUTamine 1000MCG/ML 250 ML IV SCH ×2 (04:30→18:00)
[2021-11-08] MEDS: FUROSEMIDE 40 MG/4 ML VIAL IV SCH ×2 (06:37→18:11)
[2021-11-08] MEDS: GABAPENTIN 300 MG CAP PO SCH ×5 (06:37→23:34)
[2021-11-08] MEDS: HYDROcodone-ACET 10/325MG TAB PO PRN (06:38)
[2021-11-08] MEDS: LEVOTHYROXINE SODIUM 100 MCG TAB PO SCH (06:38)
[2021-11-08] MEDS: LEVOTHYROXINE SODIUM 25 MCG TAB PO SCH (06:38)
[2021-11-08] MEDS: ACCU-CHEK COMFORT CURVE STRIP VI SCH ×4 (06:38→22:44)
[2021-11-08] MEDS: InsuLIN REG 1unit/0.01ml Soln (100units/ml) SC SCH ×4 (06:39→22:44)
[2021-11-08] MEDS: cefTRIAXone 1GM/50ML D5W 50 ML IV SCH (08:07)
[2021-11-08] MEDS: DOXYCYCLINE 100MG/250ML 250 ML IV SCH ×2 (09:59→22:37)
[2021-11-08] MEDS: ENOXAPARIN SOD 40 MG/0.4 ML SYRINGE SC SCH ×2 (09:59→22:37)
[2021-11-08] MEDS: ASPirin 81 mg TAB PO SCH (09:59)
[2021-11-08] MEDS: PANTOPRAZOLE 40 MG TAB PO SCH (09:59)
[2021-11-08] MEDS: CARVEDILOL 3.125 MG TAB PO SCH ×2 (10:00→23:25)
[2021-11-08] MEDS: DIGOXIN 0.125 MG TAB PO SCH (10:00)
[2021-11-08] MEDS: AMIODARONE HCL 200 MG TAB PO SCH (10:00)
[2021-11-08] MEDS: IPRATROPIUM BROM 0.5 MG/2.5ML INH SOL NEB PRN (10:29)
[2021-11-08] MEDS: ALBUTEROL SULF 2.5 MG/0.5ML(0.5%) NEB SOLN NEB PRN (10:29)
[2021-11-08] MEDS ORDERED: metOLazone 5 MG TAB PO ONE (11:15)
[2021-11-08] MEDS ORDERED: POTASSIUM CHL 20 Meq TABLET PO ONE (11:15)
[2021-11-08] MEDS: ATORVASTATIN 20 MG TAB PO SCH (22:42)
[2021-11-08] MEDS: INSULIN LANTUS (GLARGINE) 1 /0.01ml (100units/ml) SC SCH (22:44)
[2021-11-09] MEDS: HYDROcodone-ACET 10/325MG TAB PO PRN ×2 (03:43→22:35)
[2021-11-09 04:41] VITALS: BP 107/58
[2021-11-09] MEDS: FUROSEMIDE 40 MG/4 ML VIAL IV SCH (06:00)
[2021-11-09] MEDS: DOBUTamine 1000MCG/ML 250 ML IV SCH ×4 (06:02→21:12)
[2021-11-09] MEDS: InsuLIN REG 1unit/0.01ml Soln (100units/ml) SC SCH ×4 (06:29→22:35)
[2021-11-09] MEDS: ACCU-CHEK COMFORT CURVE STRIP VI SCH ×4 (06:29→22:35)
[2021-11-09] MEDS: GABAPENTIN 300 MG CAP PO SCH ×3 (06:29→17:51)
[2021-11-09] MEDS: LEVOTHYROXINE SODIUM 25 MCG TAB PO SCH (06:29)
[2021-11-09] MEDS: LEVOTHYROXINE SODIUM 100 MCG TAB PO SCH (06:29)
[2021-11-09 06:33] LABS: Calcium 9.3 mg/dL (8.5-10.1); Potassium 3.7 mmol/L (3.5-5.1)
[2021-11-09 06:36] LABS: BUN/Creatinine Ratio 21.1
[2021-11-09] MEDS: ENOXAPARIN SOD 40 MG/0.4 ML SYRINGE SC SCH ×2 (08:54→22:35)
[2021-11-09] MEDS: ASPirin 81 mg TAB PO SCH (08:56)
[2021-11-09] MEDS: AMIODARONE HCL 200 MG TAB PO SCH (08:57)
[2021-11-09] MEDS: PANTOPRAZOLE 40 MG TAB PO SCH (08:57)
[2021-11-09] MEDS: cefTRIAXone 1GM/50ML D5W 50 ML IV SCH (09:00)
[2021-11-09] MEDS: DIGOXIN 0.125 MG TAB PO SCH (09:00)
[2021-11-09] MEDS: DOXYCYCLINE 100MG/250ML 250 ML IV SCH ×2 (10:00→22:35)
[2021-11-09] MEDS ORDERED: POTASSIUM CHL 20 Meq TABLET PO SCH (10:00)
[2021-11-09] MEDS: INSULIN LANTUS (GLARGINE) 1 /0.01ml (100units/ml) SC SCH ×2 (10:24→22:35)
[2021-11-09] MEDS: CARVEDILOL 3.125 MG TAB PO SCH ×2 (10:29→22:00)
[2021-11-09 13:00] VITALS: BP 112/56
[2021-11-09] MEDS: ALBUTEROL SULF 2.5 MG/0.5ML(0.5%) NEB SOLN NEB PRN (14:29)
[2021-11-09] MEDS: IPRATROPIUM BROM 0.5 MG/2.5ML INH SOL NEB PRN (14:29)
[2021-11-09 17:00] VITALS: BP 119/67
[2021-11-09 21:41] VITALS: BP 106/49
[2021-11-09] MEDS: ATORVASTATIN 20 MG TAB PO SCH (22:35)
[2021-11-10] MEDS: GABAPENTIN 300 MG CAP PO SCH ×5 (00:36→23:31)
[2021-11-10 04:41] VITALS: BP 115/60
[2021-11-10 05:31] LABS: Hemoglobin 10.5 g/dL (12.2-16.2)
[2021-11-10 05:34] LABS: Hematocrit 34.2 % (36.0-46.0)
[2021-11-10 05:55] LABS: BUN/Creatinine Ratio 18.4; Calcium 9.2 mg/dL (8.5-10.1); Potassium 3.6 mmol/L (3.5-5.1)
[2021-11-10] MEDS: LEVOTHYROXINE SODIUM 100 MCG TAB PO SCH (06:32)
[2021-11-10] MEDS: LEVOTHYROXINE SODIUM 25 MCG TAB PO SCH (06:32)
[2021-11-10] MEDS: ACCU-CHEK COMFORT CURVE STRIP VI SCH ×4 (06:37→21:51)
[2021-11-10] MEDS: InsuLIN REG 1unit/0.01ml Soln (100units/ml) SC SCH ×4 (06:38→22:12)
[2021-11-10 08:46] VITALS: BP 117/59
[2021-11-10] MEDS: DIGOXIN 0.125 MG TAB PO SCH (08:49)
[2021-11-10] MEDS: ASPirin 81 mg TAB PO SCH (08:49)
[2021-11-10] MEDS: PANTOPRAZOLE 40 MG TAB PO SCH (08:49)
[2021-11-10] MEDS: ENOXAPARIN SOD 40 MG/0.4 ML SYRINGE SC SCH ×2 (08:50→22:11)
[2021-11-10] MEDS: AMIODARONE HCL 200 MG TAB PO SCH (08:50)
[2021-11-10] MEDS: cefTRIAXone 1GM/50ML D5W 50 ML IV SCH (08:51)
[2021-11-10] MEDS ORDERED: acetaZOLAMIDE SODIUM 500 MG VL IV ONE (09:15)
[2021-11-10] MEDS: CARVEDILOL 3.125 MG TAB PO SCH ×2 (09:25→22:00)
[2021-11-10] MEDS: INSULIN LANTUS (GLARGINE) 1 /0.01ml (100units/ml) SC SCH ×2 (09:26→22:11)
[2021-11-10] MEDS: DOXYCYCLINE 100MG/250ML 250 ML IV SCH ×2 (11:04→22:03)
[2021-11-10] MEDS ORDERED: LACTULOSE 20Gm/30ML SOLN PO PRN (12:15)
[2021-11-10 12:24] VITALS: BP 102/56
[2021-11-10 16:44] VITALS: BP 107/64
[2021-11-10] MEDS: HYDROcodone-ACET 10/325MG TAB PO PRN (22:00)
[2021-11-10] MEDS: ATORVASTATIN 20 MG TAB PO SCH (22:00)
[2021-11-10 22:02] VITALS: BP 116/60
[2021-11-10] MEDS: IPRATROPIUM BROM 0.5 MG/2.5ML INH SOL NEB PRN (22:07)
[2021-11-10] MEDS: ALBUTEROL SULF 2.5 MG/0.5ML(0.5%) NEB SOLN NEB PRN (22:07)
[2021-11-11 04:55] VITALS: BP 103/55
[2021-11-11] MEDS: GABAPENTIN 300 MG CAP PO SCH ×2 (06:30→11:44)
[2021-11-11] MEDS: ACCU-CHEK COMFORT CURVE STRIP VI SCH ×2 (06:39→11:34)
[2021-11-11] MEDS: InsuLIN REG 1unit/0.01ml Soln (100units/ml) SC SCH ×2 (06:39→11:35)
[2021-11-11] MEDS: LEVOTHYROXINE SODIUM 100 MCG TAB PO SCH (06:50)
[2021-11-11] MEDS: LEVOTHYROXINE SODIUM 25 MCG TAB PO SCH (06:50)
[2021-11-11 07:34] LABS: BUN/Creatinine Ratio 15.2; Calcium 9.2 mg/dL (8.5-10.1); Potassium 3.9 mmol/L (3.5-5.1)
[2021-11-11 09:00] VITALS: BP 104/59
[2021-11-11] MEDS: DIGOXIN 0.125 MG TAB PO SCH (10:00)
[2021-11-11] MEDS: AMIODARONE HCL 200 MG TAB PO SCH (10:00)
[2021-11-11] MEDS ORDERED: SPIRONOLACTONE 25 MG TAB PO SCH (10:00)
[2021-11-11] MEDS: CARVEDILOL 3.125 MG TAB PO SCH (10:00)
[2021-11-11] MEDS: ASPirin 81 mg TAB PO SCH (11:13)
[2021-11-11] MEDS: DOXYCYCLINE 100MG/250ML 250 ML IV SCH (11:13)
[2021-11-11] MEDS: PANTOPRAZOLE 40 MG TAB PO SCH (11:14)
[2021-11-11] MEDS: ENOXAPARIN SOD 40 MG/0.4 ML SYRINGE SC SCH (11:15)
[2021-11-11] MEDS: INSULIN LANTUS (GLARGINE) 1 /0.01ml (100units/ml) SC SCH (11:21)
== END 2021-11-11 15:45 | DRG 286 ==
LOC: EDBD 15:13 → ER 15:13 → OVERFLOW 17:47 → WEST WING 21:30 → TELE-WESTW 10-31 12:04
PROVIDERS: ADMIT Registered Nurse; ATTEND Internal Medicine
PROC: 05HC33Z Insertion of Infusion Device into Left Basilic Vein, Percutaneous Approach (ICD-10-PCS; 2021-11-02)
PROC: B54NZZA Ultrasonography of Left Upper Extremity Veins, Guidance (ICD-10-PCS; 2021-11-02)
PROC: 4A023N7 Measurement of Cardiac Sampling and Pressure, Left Heart, Percutaneous Approach (ICD-10-PCS; principal; 2021-11-06)
PROC: B211YZZ Fluoroscopy of Multiple Coronary Arteries using Other Contrast (ICD-10-PCS; 2021-11-06)
PROC: B215YZZ Fluoroscopy of Left Heart using Other Contrast (ICD-10-PCS; 2021-11-06)
PROC: 4A033BC Measurement of Arterial Pressure, Coronary, Percutaneous Approach (ICD-10-PCS; 2021-11-06)
DX: I13.0 Hypertensive heart and chronic kidney disease with heart failure and stage 1 through stage 4 chronic kidney disease, or unspecified chronic kidney disease (principal); I50.43 Acute on chronic combined systolic (congestive) and diastolic (congestive) heart failure; R57.0 Cardiogenic shock; J44.1 Chronic obstructive pulmonary disease with (acute) exacerbation; J91.8 Pleural effusion in other conditions classified elsewhere; I82.612 Acute embolism and thrombosis of superficial veins of left upper extremity; Z68.42 Body mass index [BMI] 45.0-49.9, adult; I25.10 Atherosclerotic heart disease of native coronary artery without angina pectoris; I25.5 Ischemic cardiomyopathy; E11.22 Type 2 diabetes mellitus with diabetic chronic kidney disease; E66.01 Morbid (severe) obesity due to excess calories; E78.5 Hyperlipidemia, unspecified; F41.9 Anxiety disorder, unspecified; N18.31 Chronic kidney disease, stage 3a; E07.9 Disorder of thyroid, unspecified; Z53.29 Procedure and treatment not carried out because of patient's decision for other reasons; M79.602 Pain in left arm; Z20.822 Contact with and (suspected) exposure to COVID-19; Z66 Do not resuscitate; Z95.0 Presence of cardiac pacemaker; Z98.61 Coronary angioplasty status; Z80.1 Family history of malignant neoplasm of trachea, bronchus and lung; Z82.49 Family history of ischemic heart disease and other diseases of the circulatory system; Z83.3 Family history of diabetes mellitus; Z99.81 Dependence on supplemental oxygen; Z79.4 Long term (current) use of insulin; Z88.5 Allergy status to narcotic agent; Z88.8 Allergy status to other drugs, medicaments and biological substances; Z91.041 Radiographic dye allergy status
CPT/HCPCS: 36415; 71045; 76604; 80048; 80053; 80162; 81001; 82962; 83735; 83880; 84443; 84484; 85014; 85018; 85025; 85610; 85730; 86850; 86900; 86901; 87040; 87077; 87086; 87186; 93005; 93306; 93458; 93571; 93970; 93971; 94640; 97110; 97163; 97530; 99152; 99153; C9113; G0378; J0696; J1815; J2001; J2250; J2405; J3490

== ENCOUNTER 2022-03-04 20:20 | Inpatient (IN) | payer OTHER, MEDICARE, MEDICAID ==
[~2022-03-04] VITALS: Ht 162.6 cm; Wt 203.5 kg
[~2022-03-04 20:20] MED LIST changes: -ALBU2TAB4 INH; +ALBU2TAB4 PO; +ALLO100T PO; +LATA0.0019 EACHEYE
[2022-03-04 21:33] LABS: Basophils # (auto) 0.1 10 ^3/uL (0-0.2); Eosinophils # (auto) 0.1 10 ^3/uL (0-0.8); Monocytes # (auto) 0.8 10 ^3/uL (0-1.3); Neutrophils # (auto) 8.1 10 ^3/uL (1.6-8.6); Neutrophils % (auto) 76.7 % (37.0-80.0); White Blood Cell 10.6 10^3/uL (4.4-10.8)
[2022-03-04 21:35] LABS: Basophils % (auto) 0.8 % (0.0-2.0); Eosinophils % (auto) 1.4 % (0.0-7.0); Hematocrit 41.4 % (36.0-46.0); Hemoglobin 13.1 g/dL (12.2-16.2); Lymphocytes # (auto) 1.4 10 ^3/uL (0.4-5.4); Lymphocytes % (auto) 13.6 % (10.0-50.0); Mean Corpuscular Hemoglobin 24.1 pg (28.0-32.0); Mean Corpuscular Hgb Conc. 31.6 g/dL (32.0-36.0); Mean Corpuscular Volume 76.3 fL (80.0-100.0); Monocytes % (auto) 7.5 % (0.0-12.0); Red Blood Cells 5.43 10^6/uL (4.0-5.20)
[2022-03-04 21:36] LABS: Red Cell Distribution Width 23.4 % (11.8-14.3)
[2022-03-04 21:58] LABS: Albumin 3.8 g/dL (3.4-5.0); BUN/Creatinine Ratio 26.8; Calcium 9.1 mg/dL (8.5-10.1); Magnesium 2.8 mg/dL (1.6-2.6); Potassium 3.3 mmol/L (3.5-5.1)
[2022-03-04 22:00] LABS: Bilirubin, Total 0.5 mg/dL (0.2-1.0); Total Protein 7.9 g/dL (6.4-8.2)
[2022-03-04 22:01] LABS: INR 0.97 (0.9-1.15); Partial Thromboplastin Time 28.4 sec (24.6-33.4)
[2022-03-04] MEDS ORDERED: ALBUTEROL SULF 2.5 MG/0.5ML(0.5%) NEB SOLN NEB ONE (22:45)
[2022-03-04] MEDS ORDERED: IPRATROPIUM BROM 0.5 MG/2.5ML INH SOL NEB ONE (22:45)
[2022-03-04] MEDS ORDERED: SODIUM CHLORIDE 0.9% 500 ML IV ONE (23:45)
[2022-03-04] MEDS ORDERED: methylPREDNISolone SOD SUCC 125 MG/2 ML VL IV ONE (23:45)
[2022-03-04] MEDS ORDERED: AZITHROMYCIN 500MG/ 250ML 250 ML IV ONE (23:45)
[2022-03-04] MEDS ORDERED: POTASSIUM EFFERVESENT TAB 25 MEQ PO ONE (23:45)
[2022-03-04] MEDS ORDERED: cefTRIAXone 1GM/50ML D5W 50 ML IV ONE (23:45)
[2022-03-05 00:17] LABS: Urine Bacteria NONE SEEN /hpf (None Seen); Urine Blood Negative /uL (Negative); Urine Hyaline Cast MOD /lpf (0 - 2); Urine Mucus FEW (None Seen); Urine Specific Gravity 1.011 (1.001-1.035); Urine WBC 1 /hpf (0 - 5)
[2022-03-05] MEDS ORDERED: ALBUTEROL SULF 2.5 MG/0.5ML(0.5%) NEB SOLN NEB PRN (05:30)
[2022-03-05] MEDS ORDERED: ONDANSETRON HCL 4 MG/2 ML VIAL IV PRN (05:30)
[2022-03-05] MEDS ORDERED: MORPHINE SULFATE INJ 2 MG/ml SYRG IV PRN (05:30)
[2022-03-05] MEDS ORDERED: IPRATROPIUM BROM 0.5 MG/2.5ML INH SOL NEB PRN (05:30)
[2022-03-05] MEDS ORDERED: DEXTROSE (50%) 50ML SYRG IV PRN ×2 (05:30→13:00)
[2022-03-05] MEDS ORDERED: NITROGLYCERIN 0.4 MG SL TAB SL PRN (05:30)
[2022-03-05] MEDS: ACCU-CHEK COMFORT CURVE STRIP VI SCH ×3 (06:00→16:43)
[2022-03-05] MEDS: BUMETANIDE 1 MG TAB PO SCH ×2 (06:39→16:44)
[2022-03-05] MEDS: LEVOTHYROXINE SODIUM 50 MCG TAB PO SCH (06:40)
[2022-03-05] MEDS: InsuLIN REG 1unit/0.01ml Soln (100units/ml) SC SCH ×4 (06:41→16:43)
[2022-03-05] MEDS: AMIODARONE HCL 200 MG TAB PO SCH ×2 (09:45→21:45)
[2022-03-05] MEDS: PANTOPRAZOLE 40 MG TAB PO SCH (09:45)
[2022-03-05] MEDS ORDERED: INSULIN LANTUS (GLARGINE) 1 /0.01ml (100units/ml) SC SCH (12:30)
[2022-03-05 13:38] VITALS: BP 90/31
[2022-03-05 13:39] LABS: BUN/Creatinine Ratio 31.2; Calcium 9.6 mg/dL (8.5-10.1); Potassium 3.6 mmol/L (3.5-5.1)
[2022-03-05] MEDS ORDERED: InsuLIN REG 1unit/0.01ml Soln (100units/ml) SC SCH (18:00)
[2022-03-05] MEDS ORDERED: HYDROcodone-ACET 5/325MG TAB PO ONE (21:30)
[2022-03-05 22:00] VITALS: BP 113/58
[2022-03-05] MEDS ORDERED: ATORVASTATIN 20 MG TAB PO SCH (22:00)
[2022-03-05] MEDS ORDERED: InsuLIN REG 1unit/0.01ml Soln (100units/ml) IV ONE (22:15)
[2022-03-06] MEDS ORDERED: GABAPENTIN 100 MG CAP PO ONE (00:30)
[2022-03-06] MEDS: ACCU-CHEK COMFORT CURVE STRIP VI SCH ×5 (00:33→23:05)
[2022-03-06] MEDS: InsuLIN REG 1unit/0.01ml Soln (100units/ml) SC SCH ×5 (00:33→23:07)
[2022-03-06] MEDS: ACETAMINOPHEN 325 MG TAB PO PRN ×2 (03:40→23:05)
[2022-03-06 05:10] LABS: Basophils # (auto) 0.1 10 ^3/uL (0-0.2); Basophils % (auto) 0.3 % (0.0-2.0); Eosinophils # (auto) 0 10 ^3/uL (0-0.8); Neutrophils # (auto) 13.1 10 ^3/uL (1.6-8.6); White Blood Cell 16.1 10^3/uL (4.4-10.8)
[2022-03-06 05:14] LABS: Eosinophils % (auto) 0.2 % (0.0-7.0); Hematocrit 38.5 % (36.0-46.0); Lymphocytes # (auto) 1.9 10 ^3/uL (0.4-5.4); Lymphocytes % (auto) 11.6 % (10.0-50.0); Mean Corpuscular Hemoglobin 23.7 pg (28.0-32.0); Mean Corpuscular Hgb Conc. 31.3 g/dL (32.0-36.0); Mean Corpuscular Volume 75.7 fL (80.0-100.0); Monocytes % (auto) 6.4 % (0.0-12.0); Neutrophils % (auto) 81.5 % (37.0-80.0); Red Blood Cells 5.09 10^6/uL (4.0-5.20)
[2022-03-06 05:22] LABS: Red Cell Distribution Width 23.2 % (11.8-14.3)
[2022-03-06 05:37] LABS: Albumin 3.6 g/dL (3.4-5.0)
[2022-03-06 05:40] LABS: BUN/Creatinine Ratio 42.6; Bilirubin, Total 0.7 mg/dL (0.2-1.0); Total Protein 7.8 g/dL (6.4-8.2)
[2022-03-06 05:42] VITALS: BP 98/51
[2022-03-06] MEDS: INSULIN LANTUS (GLARGINE) 1 /0.01ml (100units/ml) SC SCH ×2 (06:24→23:06)
[2022-03-06] MEDS: LEVOTHYROXINE SODIUM 50 MCG TAB PO SCH (06:25)
[2022-03-06] MEDS: BUMETANIDE 1 MG TAB PO SCH ×2 (06:25→17:14)
[2022-03-06] MEDS: PANTOPRAZOLE 40 MG TAB PO SCH (08:34)
[2022-03-06] MEDS: AMIODARONE HCL 200 MG TAB PO SCH ×2 (08:35→22:00)
[2022-03-06 09:00] VITALS: BP 101/55
[2022-03-06] MEDS ORDERED: POTASSIUM CHLORIDE 60 MEQ, LIDOCAINE 1% (LOCAL ANESTH.) 6 ML in SODIUM CHL 0.9% 500 ML IV ONE (10:30)
[2022-03-06] MEDS: HYDROcodone-ACET 10/325MG TAB PO PRN ×2 (11:40→19:54)
[2022-03-06] MEDS: GABAPENTIN 300 MG CAP PO SCH ×3 (11:40→23:05)
[2022-03-06] MEDS ORDERED: LEVO150T10 PO (11:42)
[2022-03-06 13:00] VITALS: BP 103/54
[2022-03-06 16:36] VITALS: BP 101/60
[2022-03-06] MEDS ORDERED: PATIENTS OWN MEDICATION (Atorvastatin Calcium 1 TAB) PO SCH (18:00)
[2022-03-06] MEDS: CARVEDILOL 3.125 MG TAB PO SCH (21:44)
[2022-03-06 22:00] VITALS: BP 93/52
[2022-03-06] MEDS: ATORVASTATIN 20 MG TAB PO SCH (22:00)
[2022-03-06] MEDS ORDERED: PATIENTS OWN MEDICATION (Carvedilol (Coreg) 1 TAB) PO SCH (22:00)
[2022-03-07] MEDS: HYDROcodone-ACET 10/325MG TAB PO PRN ×4 (04:05→20:22)
[2022-03-07 05:00] VITALS: BP 110/64
[2022-03-07] MEDS: BUMETANIDE 1 MG TAB PO SCH ×2 (05:19→17:23)
[2022-03-07] MEDS: GABAPENTIN 300 MG CAP PO SCH ×4 (05:19→23:20)
[2022-03-07] MEDS: ACCU-CHEK COMFORT CURVE STRIP VI SCH ×4 (05:20→23:21)
[2022-03-07] MEDS: INSULIN LANTUS (GLARGINE) 1 /0.01ml (100units/ml) SC SCH ×2 (06:47→23:26)
[2022-03-07] MEDS: InsuLIN REG 1unit/0.01ml Soln (100units/ml) SC SCH ×4 (06:47→23:24)
[2022-03-07 07:06] LABS: Basophils # (auto) 0.1 10 ^3/uL (0-0.2); Basophils % (auto) 0.8 % (0.0-2.0); Eosinophils # (auto) 0.1 10 ^3/uL (0-0.8); Eosinophils % (auto) 1.6 % (0.0-7.0); Hemoglobin 12.4 g/dL (12.2-16.2); Lymphocytes # (auto) 2.4 10 ^3/uL (0.4-5.4); Lymphocytes % (auto) 27.7 % (10.0-50.0); Mean Corpuscular Hemoglobin 23.5 pg (28.0-32.0); Monocytes # (auto) 0.8 10 ^3/uL (0-1.3); Monocytes % (auto) 9.4 % (0.0-12.0); Neutrophils # (auto) 5.2 10 ^3/uL (1.6-8.6); Neutrophils % (auto) 60.5 % (37.0-80.0); Nucleated Red Blood Cells % 0.1 %; Red Blood Cells 5.27 10^6/uL (4.0-5.20); White Blood Cell 8.6 10^3/uL (4.4-10.8)
[2022-03-07 07:09] LABS: Red Cell Distribution Width 23.3 % (11.8-14.3)
[2022-03-07 07:13] LABS: BUN/Creatinine Ratio 49.6; Calcium 9.8 mg/dL (8.5-10.1); Potassium 3.3 mmol/L (3.5-5.1)
[2022-03-07] MEDS: LEVOTHYROXINE SODIUM 100 MCG TAB PO SCH (08:37)
[2022-03-07] MEDS: PANTOPRAZOLE 40 MG TAB PO SCH (08:37)
[2022-03-07] MEDS: ALLOPURINOL 100 MG TAB PO SCH (08:38)
[2022-03-07] MEDS: LEVOTHYROXINE SODIUM 25 MCG TAB PO SCH (08:38)
[2022-03-07] MEDS: DIGOXIN 0.125 MG TAB PO SCH (08:39)
[2022-03-07] MEDS: AMIODARONE HCL 200 MG TAB PO SCH ×2 (08:39→21:42)
[2022-03-07 09:00] VITALS: BP 105/62
[2022-03-07] MEDS: CARVEDILOL 3.125 MG TAB PO SCH ×2 (09:10→21:42)
[2022-03-07] MEDS ORDERED: LEVOTHYROXINE SODIUM 100 MCG TAB PO SCH (10:00)
[2022-03-07] MEDS ORDERED: ALLOPURINOL 100 MG TAB PO SCH (10:00)
[2022-03-07] MEDS: DOCUSATE SOD 100 MG CAP PO PRN ×2 (12:23→20:22)
[2022-03-07] MEDS: LACTULOSE 20Gm/30ML SOLN PO PRN ×2 (12:23→20:22)
[2022-03-07 13:00] VITALS: BP 115/67
[2022-03-07] MEDS ORDERED: POTASSIUM EFFERVESENT TAB 25 MEQ GT ONE (13:15)
[2022-03-07] MEDS ORDERED: AZITHROMYCIN 250 MG TAB PO ONE (15:45)
[2022-03-07 17:00] VITALS: BP 106/69
[2022-03-07] MEDS: ACETAMINOPHEN 325 MG TAB PO PRN (17:26)
[2022-03-07] MEDS: ATORVASTATIN 20 MG TAB PO SCH (21:42)
[2022-03-07 22:11] VITALS: BP 121/79
[2022-03-08 05:00] VITALS: BP 106/66
[2022-03-08] MEDS: GABAPENTIN 300 MG CAP PO SCH ×2 (05:09→12:00)
[2022-03-08] MEDS: ACCU-CHEK COMFORT CURVE STRIP VI SCH ×2 (05:09→08:47)
[2022-03-08] MEDS: BUMETANIDE 1 MG TAB PO SCH (05:09)
[2022-03-08] MEDS: HYDROcodone-ACET 10/325MG TAB PO PRN ×2 (05:10→13:22)
[2022-03-08 05:31] LABS: Basophils # (auto) 0.1 10 ^3/uL (0-0.2); Basophils % (auto) 0.9 % (0.0-2.0); Eosinophils # (auto) 0.2 10 ^3/uL (0-0.8); Lymphocytes # (auto) 2.5 10 ^3/uL (0.4-5.4); Monocytes # (auto) 0.8 10 ^3/uL (0-1.3); Red Blood Cells 5.34 10^6/uL (4.0-5.20)
[2022-03-08 05:34] LABS: Eosinophils % (auto) 2.1 % (0.0-7.0); Hematocrit 40.7 % (36.0-46.0); Hemoglobin 13.2 g/dL (12.2-16.2); Lymphocytes % (auto) 30.7 % (10.0-50.0); Mean Corpuscular Hemoglobin 24.7 pg (28.0-32.0); Mean Corpuscular Hgb Conc. 32.5 g/dL (32.0-36.0); Mean Corpuscular Volume 76.2 fL (80.0-100.0); Monocytes % (auto) 10.3 % (0.0-12.0); Neutrophils # (auto) 4.6 10 ^3/uL (1.6-8.6); Nucleated Red Blood Cells % 0.1 %; White Blood Cell 8.2 10^3/uL (4.4-10.8)
[2022-03-08 05:36] LABS: Red Cell Distribution Width 23.7 % (11.8-14.3)
[2022-03-08 05:48] LABS: BUN/Creatinine Ratio 41.8; Potassium 3.2 mmol/L (3.5-5.1)
[2022-03-08] MEDS: InsuLIN REG 1unit/0.01ml Soln (100units/ml) SC SCH ×2 (06:19→11:34)
[2022-03-08] MEDS: INSULIN LANTUS (GLARGINE) 1 /0.01ml (100units/ml) SC SCH (06:19)
[2022-03-08 07:47] VITALS: BP 106/66
[2022-03-08] MEDS ORDERED: POTASSIUM EFFERVESENT TAB 25 MEQ PO ONE (08:15)
[2022-03-08] MEDS: LEVOTHYROXINE SODIUM 25 MCG TAB PO SCH (08:54)
[2022-03-08] MEDS: LEVOTHYROXINE SODIUM 100 MCG TAB PO SCH (08:54)
[2022-03-08] MEDS: AMIODARONE HCL 200 MG TAB PO SCH (08:54)
[2022-03-08] MEDS: PANTOPRAZOLE 40 MG TAB PO SCH (08:54)
[2022-03-08] MEDS: DIGOXIN 0.125 MG TAB PO SCH (08:55)
[2022-03-08] MEDS: ALLOPURINOL 100 MG TAB PO SCH (08:55)
[2022-03-08] MEDS: CARVEDILOL 3.125 MG TAB PO SCH (08:55)
[2022-03-08 09:00] VITALS: BP 105/64
[2022-03-08] MEDS ORDERED: AZITHROMYCIN 250 MG TAB PO SCH (10:00)
[2022-03-08] MEDS ORDERED: AZIT500T66 PO (10:44)
[2022-03-08] MEDS: ACETAMINOPHEN 325 MG TAB PO PRN (11:12)
[2022-03-08 12:38] VITALS: BP 105/64
== END 2022-03-08 15:11 | disposition hospice, home (50) | DRG 682 ==
LOC: EDBD 20:20 → ER 20:20 → EDUNIT# 20:20 → TELE 03-05 05:27 → TELE-WESTW 03-05 21:09
PROVIDERS: ADMIT Nurse Practitioner; ATTEND Internal Medicine Pulmonary Disease
DX: N17.9 Acute kidney failure, unspecified (principal); G93.41 Metabolic encephalopathy; J44.1 Chronic obstructive pulmonary disease with (acute) exacerbation; I13.0 Hypertensive heart and chronic kidney disease with heart failure and stage 1 through stage 4 chronic kidney disease, or unspecified chronic kidney disease; J96.11 Chronic respiratory failure with hypoxia; I50.22 Chronic systolic (congestive) heart failure; E86.0 Dehydration; E87.6 Hypokalemia; E66.01 Morbid (severe) obesity due to excess calories; E11.22 Type 2 diabetes mellitus with diabetic chronic kidney disease; E11.65 Type 2 diabetes mellitus with hyperglycemia; E78.5 Hyperlipidemia, unspecified; E87.5 Hyperkalemia; Z20.822 Contact with and (suspected) exposure to COVID-19; I95.9 Hypotension, unspecified; I25.10 Atherosclerotic heart disease of native coronary artery without angina pectoris; I48.91 Unspecified atrial fibrillation; N18.9 Chronic kidney disease, unspecified; R29.6 Repeated falls; Z80.1 Family history of malignant neoplasm of trachea, bronchus and lung; Z82.49 Family history of ischemic heart disease and other diseases of the circulatory system; Z83.3 Family history of diabetes mellitus; Z91.041 Radiographic dye allergy status; Z88.5 Allergy status to narcotic agent; Z88.8 Allergy status to other drugs, medicaments and biological substances; Z91.018 Allergy to other foods; Z68.35 Body mass index [BMI] 35.0-35.9, adult
CPT/HCPCS: 36415; 36600; 70450; 71045; 72125; 80048; 80053; 81001; 82805; 82962; 83735; 84443; 84484; 85025; 85610; 85730; 87081; 94640; 96365; 96366; 96368; 96372; 96375; G0378; J0696; J1815; J2001

== ENCOUNTER 2022-03-13 14:30 | Inpatient (IN) | payer MEDICARE, MEDICAID ==
[~2022-03-13] VITALS: Ht 162.6 cm; Wt 91.2 kg
[~2022-03-13 14:30] MED LIST changes: +AZIT500T66 PO; -DOCU-94 PO; -INSRTEST IV; -LEV100T PO; -LEVEMIR SC; +LEVO150T10 PO
[2022-03-13] MEDS ORDERED: SODIUM CHLORIDE 0.9% 1,000 ML IV ONE (15:00)
[2022-03-13] MEDS ORDERED: cefTRIAXone 1GM/50ML D5W 50 ML IV ONE (15:00)
[2022-03-13 16:03] LABS: Basophils # (auto) 0.1 10 ^3/uL (0-0.2); Basophils % (auto) 0.7 % (0.0-2.0); Eosinophils # (auto) 0.1 10 ^3/uL (0-0.8); Eosinophils % (auto) 1.3 % (0.0-7.0); Hematocrit 40.2 % (36.0-46.0); Hemoglobin 12.7 g/dL (12.2-16.2); Lymphocytes % (auto) 11.7 % (10.0-50.0); Mean Corpuscular Hemoglobin 24.2 pg (28.0-32.0); Mean Corpuscular Hgb Conc. 31.5 g/dL (32.0-36.0); Mean Corpuscular Volume 76.7 fL (80.0-100.0); Monocytes # (auto) 0.6 10 ^3/uL (0-1.3); Monocytes % (auto) 7.7 % (0.0-12.0); Neutrophils # (auto) 6.6 10 ^3/uL (1.6-8.6); Neutrophils % (auto) 78.6 % (37.0-80.0); Red Blood Cells 5.25 10^6/uL (4.0-5.20); White Blood Cell 8.4 10^3/uL (4.4-10.8)
[2022-03-13 16:04] LABS: Red Cell Distribution Width 24.7 % (11.8-14.3)
[2022-03-13 16:20] LABS: Alanine Aminotransferase 24 U/L (13-56); Albumin 3.8 g/dL (3.4-5.0); Anion Gap 11 (5-15); Aspartate Aminotransferase 27 U/L (15-37); BUN/Creatinine Ratio 43.3; Blood Alcohol < 3.0 mg/dL (0-5); Calcium 10.3 mg/dL (8.5-10.1); Carbon Dioxide 39 mmol/L (21-32); Chloride 88 mmol/L (98-107); GFR African American 29 mL/min; GFR Non-African American 24 mL/min; Glucose 294 mg/dL (74-106); Sodium 138 mmol/L (136-145)
[2022-03-13 16:23] LABS: Alkaline Phosphatase 108 U/L (45-117); Bilirubin, Total 0.7 mg/dL (0.2-1.0); Total Protein 8.1 g/dL (6.4-8.2)
[2022-03-13 16:26] LABS: Blood Urea Nitrogen 94 mg/dL (7-18)
[2022-03-13 16:32] LABS: INR 0.94 (0.9-1.15); Partial Thromboplastin Time 26.1 sec (24.6-33.4)
[2022-03-13] MEDS ORDERED: POTASSIUM CHL 20MEQ/100ML 100 ML IV ONE (17:30)
[2022-03-13] MEDS ORDERED: NITROGLYCERIN 0.4 MG SL TAB SL PRN (18:45)
[2022-03-13 19:10] LABS: Urine Bacteria NONE SEEN /hpf (None Seen); Urine Blood TRACE /uL (Negative); Urine Hyaline Cast FEW /lpf (0 - 2); Urine Mucus FEW (None Seen); Urine Specific Gravity 1.009 (1.001-1.035); Urine WBC 1 /hpf (0 - 5)
[2022-03-14 05:17] LABS: Basophils # (auto) 0.1 10 ^3/uL (0-0.2); Eosinophils # (auto) 0.1 10 ^3/uL (0-0.8); Neutrophils # (auto) 5.3 10 ^3/uL (1.6-8.6)
[2022-03-14 05:19] LABS: Basophils % (auto) 1.1 % (0.0-2.0); Eosinophils % (auto) 1.8 % (0.0-7.0); Hematocrit 37.4 % (36.0-46.0); Hemoglobin 11.8 g/dL (12.2-16.2); Lymphocytes # (auto) 1.1 10 ^3/uL (0.4-5.4); Lymphocytes % (auto) 14.4 % (10.0-50.0); Mean Corpuscular Hemoglobin 24.2 pg (28.0-32.0); Mean Corpuscular Hgb Conc. 31.5 g/dL (32.0-36.0); Mean Corpuscular Volume 76.8 fL (80.0-100.0); Monocytes # (auto) 0.8 10 ^3/uL (0-1.3); Monocytes % (auto) 10.2 % (0.0-12.0); Neutrophils % (auto) 72.5 % (37.0-80.0); Red Blood Cells 4.87 10^6/uL (4.0-5.20); White Blood Cell 7.4 10^3/uL (4.4-10.8)
[2022-03-14 05:22] LABS: Red Cell Distribution Width 23.9 % (11.8-14.3)
[2022-03-14 05:31] LABS: Albumin 3.4 g/dL (3.4-5.0); Calcium 9.4 mg/dL (8.5-10.1)
[2022-03-14 05:35] LABS: BUN/Creatinine Ratio 51.4; Bilirubin, Total 0.6 mg/dL (0.2-1.0); Total Protein 7.5 g/dL (6.4-8.2)
[2022-03-14 06:06] LABS: Potassium 2.8 mmol/L (3.5-5.1)
[2022-03-14] MEDS ORDERED: POTASSIUM CHL 20 Meq TABLET PO ONE (06:15)
[2022-03-14] MEDS: ENOXAPARIN SOD 40 MG/0.4 ML SYRINGE SC SCH (09:59)
[2022-03-14] MEDS ORDERED: POTASSIUM EFFERVESENT TAB 25 MEQ PO ONE (10:15)
[2022-03-14] MEDS ORDERED: SODIUM CHLORIDE 0.9% 1,000 ML IV ONE (12:45)
[2022-03-14 14:35] LABS: BUN/Creatinine Ratio 47.1; Calcium 9.7 mg/dL (8.5-10.1); Potassium 3.7 mmol/L (3.5-5.1)
[2022-03-14] MEDS: HYDROcodone-ACET 10/325MG TAB PO PRN (15:31)
[2022-03-14 17:05] LABS: Amphetamine Screen, Urine NEGATIVE (NEGATIVE); Barbiturate Scree,Urine NEGATIVE (NEGATIVE); Benzodiazephine Screen, Urine NEGATIVE (NEGATIVE); Cannabinoid Screen, Urine NEGATIVE (NEGATIVE); Cocaine Screen, Urine NEGATIVE (NEGATIVE); Opiate Scree,Urine NEGATIVE (NEGATIVE); Phencyclidine Screen, Urine NEGATIVE (NEGATIVE)
[2022-03-14 17:30] VITALS: BP 94/48
[2022-03-14 20:00] VITALS: BP 117/65
[2022-03-14 22:00] VITALS: BP 117/65
[2022-03-14] MEDS: ACETAMINOPHEN 325 MG TAB PO PRN (23:33)
[2022-03-15] VITALS (7 sets, daily range): BP systolic 99–124; BP diastolic 54–73
[2022-03-15] MEDS: HYDROcodone-ACET 10/325MG TAB PO PRN (01:13)
[2022-03-15] MEDS: ENOXAPARIN SOD 40 MG/0.4 ML SYRINGE SC SCH (10:35)
[2022-03-15] MEDS ORDERED: LACTULOSE 20Gm/30ML SOLN PO ONE ×2 (12:00→12:45)
[2022-03-15] MEDS: LACTULOSE 20Gm/30ML SOLN PO SCH ×3 (14:00→21:29)
[2022-03-16] MEDS: LACTULOSE 20Gm/30ML SOLN PO SCH ×6 (02:00→20:06)
[2022-03-16] MEDS: HYDROcodone-ACET 10/325MG TAB PO PRN ×2 (02:42→20:08)
[2022-03-16 04:52] VITALS: BP 125/62
[2022-03-16 09:00] VITALS: BP 124/71
[2022-03-16] MEDS ORDERED: LACTULOSE 20Gm/30ML SOLN PO SCH (10:00)
[2022-03-16] MEDS: ENOXAPARIN SOD 40 MG/0.4 ML SYRINGE SC SCH (10:14)
[2022-03-16 13:00] VITALS: BP 117/68
[2022-03-16] MEDS ORDERED: DEXTROSE (50%) 50ML SYRG IV PRN ×2 (14:00→16:30)
[2022-03-16] MEDS: ACCU-CHEK COMFORT CURVE STRIP VI SCH ×2 (16:37→21:27)
[2022-03-16] MEDS: InsuLIN REG 1unit/0.01ml Soln (100units/ml) SC SCH ×2 (16:41→21:28)
[2022-03-16 17:00] VITALS: BP 105/58
[2022-03-16] MEDS ORDERED: InsuLIN REG 1unit/0.01ml Soln (100units/ml) SC SCH (17:00)
[2022-03-16] MEDS ORDERED: ACCU-CHEK COMFORT CURVE STRIP VI SCH (17:00)
[2022-03-16 21:38] VITALS: BP 111/68
[2022-03-16] MEDS: ACETAMINOPHEN 325 MG TAB PO PRN (23:52)
[2022-03-17] MEDS: LACTULOSE 20Gm/30ML SOLN PO SCH ×6 (02:00→22:00)
[2022-03-17 04:40] VITALS: BP 123/66
[2022-03-17] MEDS: ACCU-CHEK COMFORT CURVE STRIP VI SCH ×4 (06:18→22:12)
[2022-03-17] MEDS: InsuLIN REG 1unit/0.01ml Soln (100units/ml) SC SCH ×4 (06:25→22:15)
[2022-03-17 08:00] VITALS: BP 116/66
[2022-03-17 08:16] VITALS: BP 116/66
[2022-03-17 10:28] LABS: Basophils # (auto) 0.1 10 ^3/uL (0-0.2); Eosinophils # (auto) 0.2 10 ^3/uL (0-0.8); Monocytes # (auto) 0.6 10 ^3/uL (0-1.3)
[2022-03-17 10:29] LABS: Albumin 3.5 g/dL (3.4-5.0); Calcium 9.9 mg/dL (8.5-10.1); Potassium 3.4 mmol/L (3.5-5.1)
[2022-03-17 10:30] LABS: Basophils % (auto) 0.9 % (0.0-2.0); Eosinophils % (auto) 1.8 % (0.0-7.0); Hematocrit 40.9 % (36.0-46.0); Hemoglobin 12.9 g/dL (12.2-16.2); Lymphocytes # (auto) 1.5 10 ^3/uL (0.4-5.4); Lymphocytes % (auto) 16.9 % (10.0-50.0); Mean Corpuscular Hemoglobin 24.5 pg (28.0-32.0); Mean Corpuscular Hgb Conc. 31.6 g/dL (32.0-36.0); Mean Corpuscular Volume 77.6 fL (80.0-100.0); Neutrophils # (auto) 6.3 10 ^3/uL (1.6-8.6); Neutrophils % (auto) 73.4 % (37.0-80.0); Nucleated Red Blood Cells % 0.1 %; Red Blood Cells 5.28 10^6/uL (4.0-5.20); White Blood Cell 8.6 10^3/uL (4.4-10.8)
[2022-03-17 10:33] LABS: BUN/Creatinine Ratio 20.7; Bilirubin, Total 0.9 mg/dL (0.2-1.0); Total Protein 7.7 g/dL (6.4-8.2)
[2022-03-17 10:47] LABS: Red Cell Distribution Width 25.1 % (11.8-14.3)
[2022-03-17 11:52] VITALS: BP 127/93
[2022-03-17] MEDS: ENOXAPARIN SOD 40 MG/0.4 ML SYRINGE SC SCH (11:52)
[2022-03-17] MEDS: HYDROcodone-ACET 10/325MG TAB PO PRN ×2 (15:12→22:13)
[2022-03-17 17:07] VITALS: BP 116/68
[2022-03-17 22:00] VITALS: BP 124/68
[2022-03-18] MEDS: LACTULOSE 20Gm/30ML SOLN PO SCH ×4 (02:00→13:41)
[2022-03-18 05:00] VITALS: BP 128/67
[2022-03-18] MEDS: ACCU-CHEK COMFORT CURVE STRIP VI SCH ×2 (06:14→12:05)
[2022-03-18] MEDS: HYDROcodone-ACET 10/325MG TAB PO PRN ×2 (06:14→14:11)
[2022-03-18] MEDS: InsuLIN REG 1unit/0.01ml Soln (100units/ml) SC SCH ×2 (06:16→12:06)
[2022-03-18 07:13] LABS: Potassium 3.2 mmol/L (3.5-5.1)
[2022-03-18 07:17] LABS: BUN/Creatinine Ratio 24.8; Calcium 9.4 mg/dL (8.5-10.1); Phosphorus 3.6 mg/dL (2.5-4.90)
[2022-03-18 08:25] VITALS: BP 103/61
[2022-03-18] MEDS: ENOXAPARIN SOD 40 MG/0.4 ML SYRINGE SC SCH (08:27)
[2022-03-18 10:15] VITALS: BP 103/61
[2022-03-18 12:25] VITALS: BP 98/59
== END 2022-03-18 15:16 | DRG 682 ==
LOC: EDBD 14:30 → ER 14:30 → TELE 18:56 → TELE-EAST 03-14 11:55
PROVIDERS: ADMIT Registered Nurse; ATTEND Family Medicine
DX: N17.9 Acute kidney failure, unspecified (principal); G92.8 Other toxic encephalopathy; I50.21 Acute systolic (congestive) heart failure; J44.1 Chronic obstructive pulmonary disease with (acute) exacerbation; E87.3 Alkalosis; I95.9 Hypotension, unspecified; E87.6 Hypokalemia; E66.01 Morbid (severe) obesity due to excess calories; I11.0 Hypertensive heart disease with heart failure; Z66 Do not resuscitate; I48.91 Unspecified atrial fibrillation; Z20.822 Contact with and (suspected) exposure to COVID-19; I25.10 Atherosclerotic heart disease of native coronary artery without angina pectoris; E11.9 Type 2 diabetes mellitus without complications; R29.6 Repeated falls; Z79.4 Long term (current) use of insulin; Z83.3 Family history of diabetes mellitus; Z91.81 History of falling; Z68.35 Body mass index [BMI] 35.0-35.9, adult; Z80.1 Family history of malignant neoplasm of trachea, bronchus and lung; Z82.49 Family history of ischemic heart disease and other diseases of the circulatory system; Z91.041 Radiographic dye allergy status; Z88.5 Allergy status to narcotic agent; Z91.018 Allergy to other foods; Z51.5 Encounter for palliative care
CPT/HCPCS: 36415; 70450; 71045; 74018; 80048; 80053; 80307; 80320; 81001; 82962; 83605; 84100; 84443; 84484; 84550; 85025; 85610; 85730; 86850; 86900; 86901; 87040; 93005; 96365; 99291; G0378; J0696; J1815; J3480

== ENCOUNTER 2022-09-11 10:01 | Emergency (ER) | payer MEDICARE, MEDICAID ==
[~2022-09-11] VITALS: Ht 165.1 cm; Wt 113.6 kg
[2022-09-11 13:19] LABS: Albumin 3.5 g/dL (3.4-5.0); Calcium 9.3 mg/dL (8.5-10.1); Potassium 4.8 mmol/L (3.5-5.1)
[2022-09-11 13:22] LABS: BUN/Creatinine Ratio 38.3; Bilirubin, Total 0.5 mg/dL (0.2-1.0); Total Protein 7.3 g/dL (6.4-8.2)
[2022-09-11 13:27] LABS: Basophils # (auto) 0 10 ^3/uL (0-0.2); Basophils % (auto) 0.6 % (0.0-2.0); Eosinophils # (auto) 0.1 10 ^3/uL (0-0.8); Eosinophils % (auto) 1.5 % (0.0-7.0); Hematocrit 39.6 % (36.0-46.0); Hemoglobin 12.9 g/dL (12.2-16.2); Lymphocytes # (auto) 1.4 10 ^3/uL (0.4-5.4); Lymphocytes % (auto) 17.6 % (10.0-50.0); Mean Corpuscular Hemoglobin 29.2 pg (28.0-32.0); Mean Corpuscular Hgb Conc. 32.5 g/dL (32.0-36.0); Mean Corpuscular Volume 89.9 fL (80.0-100.0); Monocytes # (auto) 0.3 10 ^3/uL (0-1.3); Monocytes % (auto) 4.3 % (0.0-12.0); Neutrophils # (auto) 6.2 10 ^3/uL (1.6-8.6); Nucleated Red Blood Cells % 0.2 %; Red Blood Cells 4.41 10^6/uL (4.0-5.20); Red Cell Distribution Width 15.2 % (11.8-14.3); White Blood Cell 8.2 10^3/uL (4.4-10.8)
[2022-09-11 17:00] VITALS: BP 120/58
== END 2022-09-11 17:26 | disposition home or self-care (01) ==
LOC: EDBD 10:01 → ER 10:01
DX: S09.90XA Unspecified injury of head, initial encounter (principal); M54.2 Cervicalgia; I50.9 Heart failure, unspecified; I48.91 Unspecified atrial fibrillation; I25.10 Atherosclerotic heart disease of native coronary artery without angina pectoris; I25.2 Old myocardial infarction; J44.9 Chronic obstructive pulmonary disease, unspecified; E11.9 Type 2 diabetes mellitus without complications; E78.5 Hyperlipidemia, unspecified; E03.9 Hypothyroidism, unspecified; Z95.0 Presence of cardiac pacemaker; X58.XXXA Exposure to other specified factors, initial encounter; Y93.89 Activity, other specified; Y92.89 Other specified places as the place of occurrence of the external cause; Y99.8 Other external cause status
CPT/HCPCS: 36415; 70450; 71045; 72125; 80053; 84484; 85025

== ENCOUNTER 2022-09-13 11:40 | Inpatient (IN) | payer MEDICARE, MEDICAID ==
[~2022-09-13] VITALS: Ht 165.1 cm; Wt 101.6 kg
[2022-09-13 13:10] LABS: Basophils # (auto) 0 10 ^3/uL (0-0.2); Basophils % (auto) 0.1 % (0.0-2.0); Eosinophils # (auto) 0.1 10 ^3/uL (0-0.8); Eosinophils % (auto) 1.2 % (0.0-7.0); Hematocrit 42.3 % (36.0-46.0); Hemoglobin 13.3 g/dL (12.2-16.2); Lymphocytes # (auto) 1.3 10 ^3/uL (0.4-5.4); Lymphocytes % (auto) 11.6 % (10.0-50.0); Mean Corpuscular Hgb Conc. 31.4 g/dL (32.0-36.0); Mean Corpuscular Volume 92.2 fL (80.0-100.0); Monocytes # (auto) 0.8 10 ^3/uL (0-1.3); Monocytes % (auto) 6.6 % (0.0-12.0); Neutrophils # (auto) 9.4 10 ^3/uL (1.6-8.6); Neutrophils % (auto) 80.5 % (37.0-80.0); Nucleated Red Blood Cells % 0.1 %; Red Blood Cells 4.59 10^6/uL (4.0-5.20); Red Cell Distribution Width 15.6 % (11.8-14.3); White Blood Cell 11.6 10^3/uL (4.4-10.8)
[2022-09-13 14:38] LABS: Alanine Aminotransferase 22 U/L (13-56); Albumin 3.5 g/dL (3.4-5.0); Anion Gap 13 (5-15); Aspartate Aminotransferase 19 U/L (15-37); BUN/Creatinine Ratio 36.2; Blood Alcohol < 3.0 mg/dL (0-5); Blood Urea Nitrogen 55 mg/dL (7-18); Calcium 9.5 mg/dL (8.5-10.1); Carbon Dioxide 23 mmol/L (21-32); Chloride 106 mmol/L (98-107); GFR African American 44 mL/min; GFR Non-African American 36 mL/min; Glucose 236 mg/dL (74-106); Magnesium 2.7 mg/dL (1.6-2.6); Potassium 4.5 mmol/L (3.5-5.1); Sodium 142 mmol/L (136-145)
[2022-09-13 14:41] LABS: Alkaline Phosphatase 93 U/L (45-117); Bilirubin, Total 0.5 mg/dL (0.2-1.0); Total Protein 6.8 g/dL (6.4-8.2)
[2022-09-13] MEDS ORDERED: cefTRIAXone 1GM/50ML D5W 50 ML IV ONE (15:15)
[2022-09-13] MEDS ORDERED: PANTOPRAZOLE 40 MG/10 ML VIAL INJ IV ONE (15:45)
[2022-09-13] MEDS ORDERED: ALBUTEROL SULF 2.5 MG/0.5ML(0.5%) NEB SOLN NEB PRN (15:45)
[2022-09-13] MEDS ORDERED: DEXTROSE (50%) 50ML SYRG IV PRN (15:45)
[2022-09-13 15:49] LABS: Cholesterol 151 mg/dL (< 200); Triglycerides 287 mg/dL (< 150)
[2022-09-13 15:52] LABS: HDL Cholesterol 45 mg/dL (40-59); LDL Cholesterol 82 mg/dL (< 100)
[2022-09-13] MEDS: ACCU-CHEK COMFORT CURVE STRIP VI SCH ×2 (20:28→23:59)
[2022-09-13] MEDS: InsuLIN REG 1unit/0.01ml Soln (100units/ml) SC SCH ×2 (20:34→23:55)
[2022-09-13] MEDS: ATORVASTATIN 20 MG TAB PO SCH (22:00)
[2022-09-13] MEDS: AMIODARONE HCL 200 MG TAB PO SCH (22:00)
[2022-09-13] MEDS: POTASSIUM CHL 10 Meq TABLET PO SCH (22:00)
[2022-09-13] MEDS: ALLOPURINOL 100 MG TAB PO SCH (22:00)
[2022-09-13] MEDS: CARVEDILOL 3.125 MG TAB PO SCH (22:00)
[2022-09-13] MEDS: BUMETANIDE 1 MG TAB PO SCH (22:00)
[2022-09-13 23:43] VITALS: BP 120/52
[2022-09-14] MEDS: SODIUM CHLORIDE 0.9% 1,000 ML IV SCH ×2 (00:18→07:55)
[2022-09-14 01:33] VITALS: BP 120/52
[2022-09-14] MEDS: GABAPENTIN 300 MG CAP PO SCH ×3 (02:08→18:03)
[2022-09-14 05:00] VITALS: BP 103/61
[2022-09-14] MEDS: ACCU-CHEK COMFORT CURVE STRIP VI SCH ×4 (06:04→22:16)
[2022-09-14] MEDS: InsuLIN REG 1unit/0.01ml Soln (100units/ml) SC SCH ×4 (06:04→22:17)
[2022-09-14 07:38] LABS: Basophils # (auto) 0 10 ^3/uL (0-0.2); Basophils % (auto) 0.2 % (0.0-2.0); Eosinophils # (auto) 0 10 ^3/uL (0-0.8); Eosinophils % (auto) 0.2 % (0.0-7.0); Hematocrit 37.4 % (36.0-46.0); Hemoglobin 12.4 g/dL (12.2-16.2); Lymphocytes # (auto) 1.3 10 ^3/uL (0.4-5.4); Lymphocytes % (auto) 13.5 % (10.0-50.0); Mean Corpuscular Hemoglobin 29.1 pg (28.0-32.0); Mean Corpuscular Hgb Conc. 33.2 g/dL (32.0-36.0); Mean Corpuscular Volume 87.6 fL (80.0-100.0); Monocytes # (auto) 0.6 10 ^3/uL (0-1.3); Neutrophils # (auto) 7.6 10 ^3/uL (1.6-8.6); Neutrophils % (auto) 80.1 % (37.0-80.0); Nucleated Red Blood Cells % 0.1 %; Red Blood Cells 4.27 10^6/uL (4.0-5.20); Red Cell Distribution Width 15.6 % (11.8-14.3); White Blood Cell 9.5 10^3/uL (4.4-10.8)
[2022-09-14 07:53] LABS: Albumin 3.4 g/dL (3.4-5.0); Calcium 9.4 mg/dL (8.5-10.1); Potassium 4.1 mmol/L (3.5-5.1)
[2022-09-14 07:56] LABS: BUN/Creatinine Ratio 36.7; Bilirubin, Total 0.6 mg/dL (0.2-1.0); Total Protein 6.7 g/dL (6.4-8.2)
[2022-09-14 09:00] VITALS: BP 107/59
[2022-09-14] MEDS: cefTRIAXone 1GM/50ML D5W 50 ML IV SCH (09:16)
[2022-09-14] MEDS: BUMETANIDE 1 MG TAB PO SCH ×2 (09:17→22:15)
[2022-09-14] MEDS: ALLOPURINOL 100 MG TAB PO SCH ×2 (09:17→22:16)
[2022-09-14] MEDS: ENOXAPARIN SOD 40 MG/0.4 ML SYRINGE SC SCH (09:17)
[2022-09-14] MEDS: POTASSIUM CHL 10 Meq TABLET PO SCH ×2 (09:18→22:16)
[2022-09-14] MEDS: CARVEDILOL 3.125 MG TAB PO SCH ×2 (09:19→22:16)
[2022-09-14] MEDS: DIGOXIN 0.125 MG TAB PO SCH (09:20)
[2022-09-14] MEDS: AMIODARONE HCL 200 MG TAB PO SCH ×2 (09:21→22:15)
[2022-09-14] MEDS: PANTOPRAZOLE 40 MG/10 ML VIAL INJ IV SCH (09:22)
[2022-09-14] MEDS ORDERED: PATIENTS OWN MEDICATION (Levothyroxine Sodium 300 MCG) PO SCH (10:00)
[2022-09-14 13:00] VITALS: BP 104/61
[2022-09-14 16:51] VITALS: BP 113/63
[2022-09-14] MEDS: HYDROcodone-ACET 5/325MG TAB PO PRN ×2 (18:03→22:18)
[2022-09-14] MEDS: LATANOPROST 0.005 % OPTH(EYE) SOL 2.5ML EACHEYE SCH ×2 (18:07)
[2022-09-14] MEDS: ATORVASTATIN 20 MG TAB PO SCH (22:16)
[2022-09-15] MEDS: SODIUM CHLORIDE 0.9% 1,000 ML IV SCH ×2 (00:43→17:10)
[2022-09-15 05:00] VITALS: BP 117/66
[2022-09-15] MEDS: GABAPENTIN 300 MG CAP PO SCH ×2 (06:35→17:20)
[2022-09-15] MEDS: ACCU-CHEK COMFORT CURVE STRIP VI SCH ×4 (06:35→22:29)
[2022-09-15] MEDS: InsuLIN REG 1unit/0.01ml Soln (100units/ml) SC SCH ×4 (06:39→22:32)
[2022-09-15] MEDS: PANTOPRAZOLE 40 MG/10 ML VIAL INJ IV SCH (08:36)
[2022-09-15] MEDS: cefTRIAXone 1GM/50ML D5W 50 ML IV SCH (08:36)
[2022-09-15] MEDS: CARVEDILOL 3.125 MG TAB PO SCH ×2 (08:37→22:29)
[2022-09-15] MEDS: POTASSIUM CHL 10 Meq TABLET PO SCH ×2 (08:37→22:29)
[2022-09-15] MEDS: AMIODARONE HCL 200 MG TAB PO SCH ×2 (08:37→22:30)
[2022-09-15] MEDS: BUMETANIDE 1 MG TAB PO SCH ×2 (08:37→22:28)
[2022-09-15] MEDS: ALLOPURINOL 100 MG TAB PO SCH ×2 (08:38→22:29)
[2022-09-15] MEDS: DIGOXIN 0.125 MG TAB PO SCH (08:38)
[2022-09-15] MEDS: ENOXAPARIN SOD 40 MG/0.4 ML SYRINGE SC SCH (08:38)
[2022-09-15 09:00] VITALS: BP 123/67
[2022-09-15 13:00] VITALS: BP 115/68
[2022-09-15 14:39] LABS: Amphetamine Screen, Urine NEGATIVE (NEGATIVE); Barbiturate Scree,Urine NEGATIVE (NEGATIVE); Benzodiazephine Screen, Urine NEGATIVE (NEGATIVE); Cannabinoid Screen, Urine NEGATIVE (NEGATIVE); Cocaine Screen, Urine NEGATIVE (NEGATIVE); Opiate Scree,Urine NEGATIVE (NEGATIVE); Phencyclidine Screen, Urine NEGATIVE (NEGATIVE)
[2022-09-15 14:40] LABS: Urine Bacteria NONE SEEN /hpf (None Seen); Urine Blood 1+ /uL (Negative); Urine Hyaline Cast FEW /lpf (0 - 2); Urine Mucus FEW (None Seen); Urine WBC 73 /hpf (0 - 5)
[2022-09-15 17:00] VITALS: BP 114/72
[2022-09-15] MEDS: LATANOPROST 0.005 % OPTH(EYE) SOL 2.5ML EACHEYE SCH (17:19)
[2022-09-15 22:00] VITALS: BP 131/68
[2022-09-15] MEDS: ATORVASTATIN 20 MG TAB PO SCH (22:29)
[2022-09-15] MEDS: HYDROcodone-ACET 5/325MG TAB PO PRN (22:30)
[2022-09-16] MEDS: HYDROcodone-ACET 5/325MG TAB PO PRN ×2 (03:36→22:26)
[2022-09-16 05:00] VITALS: BP 127/71
[2022-09-16] MEDS: GABAPENTIN 300 MG CAP PO SCH ×2 (05:12→17:03)
[2022-09-16] MEDS: ACCU-CHEK COMFORT CURVE STRIP VI SCH ×4 (06:08→22:08)
[2022-09-16] MEDS: InsuLIN REG 1unit/0.01ml Soln (100units/ml) SC SCH ×4 (06:09→22:15)
[2022-09-16] MEDS: PANTOPRAZOLE 40 MG/10 ML VIAL INJ IV SCH (08:40)
[2022-09-16] MEDS: cefTRIAXone 1GM/50ML D5W 50 ML IV SCH (08:40)
[2022-09-16] MEDS: ALLOPURINOL 100 MG TAB PO SCH ×2 (08:41→22:08)
[2022-09-16] MEDS: POTASSIUM CHL 10 Meq TABLET PO SCH ×2 (08:41→22:08)
[2022-09-16] MEDS: AMIODARONE HCL 200 MG TAB PO SCH ×2 (08:44→22:08)
[2022-09-16] MEDS: BUMETANIDE 1 MG TAB PO SCH ×2 (08:44→22:07)
[2022-09-16] MEDS: CARVEDILOL 3.125 MG TAB PO SCH ×2 (08:44→22:59)
[2022-09-16] MEDS: DIGOXIN 0.125 MG TAB PO SCH (08:45)
[2022-09-16] MEDS: SODIUM CHLORIDE 0.9% 1,000 ML IV SCH (08:46)
[2022-09-16] MEDS: ENOXAPARIN SOD 40 MG/0.4 ML SYRINGE SC SCH (08:46)
[2022-09-16 09:00] VITALS: BP 114/70
[2022-09-16 13:00] VITALS: BP_SYST 110; BP_SYST 118; BP_DIAS 56; BP_DIAS 71
[2022-09-16] MEDS: LATANOPROST 0.005 % OPTH(EYE) SOL 2.5ML EACHEYE SCH (16:42)
[2022-09-16 16:54] VITALS: BP 113/75
[2022-09-16 22:00] VITALS: BP 126/91
[2022-09-16] MEDS: ATORVASTATIN 20 MG TAB PO SCH (22:08)
[2022-09-17] MEDS: HYDROcodone-ACET 5/325MG TAB PO PRN ×3 (02:26→13:53)
[2022-09-17] MEDS: SODIUM CHLORIDE 0.9% 1,000 ML IV SCH ×2 (04:48→23:59)
[2022-09-17 05:00] VITALS: BP 123/74
[2022-09-17] MEDS: ACCU-CHEK COMFORT CURVE STRIP VI SCH ×4 (06:10→22:35)
[2022-09-17] MEDS: GABAPENTIN 300 MG CAP PO SCH ×2 (06:10→17:58)
[2022-09-17] MEDS: InsuLIN REG 1unit/0.01ml Soln (100units/ml) SC SCH ×4 (06:27→22:34)
[2022-09-17 08:02] VITALS: BP 122/95
[2022-09-17 08:54] VITALS: BP 118/75
[2022-09-17] MEDS: cefTRIAXone 1GM/50ML D5W 50 ML IV SCH (10:14)
[2022-09-17] MEDS: ENOXAPARIN SOD 40 MG/0.4 ML SYRINGE SC SCH (10:16)
[2022-09-17] MEDS: ALLOPURINOL 100 MG TAB PO SCH (10:16)
[2022-09-17] MEDS: PANTOPRAZOLE 40 MG/10 ML VIAL INJ IV SCH (10:16)
[2022-09-17] MEDS: POTASSIUM CHL 10 Meq TABLET PO SCH (10:16)
[2022-09-17] MEDS: DIGOXIN 0.125 MG TAB PO SCH (10:17)
[2022-09-17] MEDS: BUMETANIDE 1 MG TAB PO SCH (10:17)
[2022-09-17] MEDS: AMIODARONE HCL 200 MG TAB PO SCH (10:18)
[2022-09-17] MEDS: CARVEDILOL 3.125 MG TAB PO SCH (10:19)
[2022-09-17 13:00] VITALS: BP 113/73
[2022-09-17 16:25] VITALS: BP 115/70
[2022-09-17] MEDS: LATANOPROST 0.005 % OPTH(EYE) SOL 2.5ML EACHEYE SCH (18:27)
[2022-09-17 21:43] VITALS: BP 137/84
[2022-09-18] MEDS: POTASSIUM CHL 10 Meq TABLET PO SCH ×3 (00:01→22:25)
[2022-09-18] MEDS: ATORVASTATIN 20 MG TAB PO SCH ×2 (00:02→22:25)
[2022-09-18] MEDS: ALLOPURINOL 100 MG TAB PO SCH ×3 (00:02→22:25)
[2022-09-18] MEDS: HYDROcodone-ACET 5/325MG TAB PO PRN ×3 (00:03→22:28)
[2022-09-18] MEDS: GABAPENTIN 300 MG CAP PO SCH ×5 (05:23→22:25)
[2022-09-18 05:40] VITALS: BP 105/67
[2022-09-18] MEDS: InsuLIN REG 1unit/0.01ml Soln (100units/ml) SC SCH ×4 (06:07→22:42)
[2022-09-18] MEDS: ACCU-CHEK COMFORT CURVE STRIP VI SCH ×4 (06:24→22:26)
[2022-09-18 08:16] VITALS: BP 122/95
[2022-09-18 08:51] VITALS: BP 118/72
[2022-09-18] MEDS: cefTRIAXone 1GM/50ML D5W 50 ML IV SCH (09:04)
[2022-09-18] MEDS: PANTOPRAZOLE 40 MG/10 ML VIAL INJ IV SCH (09:05)
[2022-09-18] MEDS: BUMETANIDE 1 MG TAB PO SCH ×3 (09:07→22:00)
[2022-09-18] MEDS: AMIODARONE HCL 200 MG TAB PO SCH ×3 (09:08→22:24)
[2022-09-18] MEDS: DIGOXIN 0.125 MG TAB PO SCH (09:08)
[2022-09-18] MEDS: ENOXAPARIN SOD 40 MG/0.4 ML SYRINGE SC SCH (09:09)
[2022-09-18] MEDS: CARVEDILOL 3.125 MG TAB PO SCH ×3 (09:09→22:25)
[2022-09-18] MEDS ORDERED: LORazepam 2MG/ML-1ML VIAL IV PRN ×2 (10:15)
[2022-09-18] MEDS: SODIUM CHLORIDE 0.9% 1,000 ML IV SCH (11:55)
[2022-09-18 17:34] VITALS: BP 123/72
[2022-09-18] MEDS: LATANOPROST 0.005 % OPTH(EYE) SOL 2.5ML EACHEYE SCH (18:42)
[2022-09-18 22:00] VITALS: BP 104/80
[2022-09-19 05:00] VITALS: BP 118/62
[2022-09-19] MEDS: SODIUM CHLORIDE 0.9% 1,000 ML IV SCH ×2 (06:15→21:15)
[2022-09-19] MEDS: GABAPENTIN 300 MG CAP PO SCH ×4 (06:45→22:00)
[2022-09-19] MEDS: ACCU-CHEK COMFORT CURVE STRIP VI SCH ×4 (06:45→22:24)
[2022-09-19] MEDS: InsuLIN REG 1unit/0.01ml Soln (100units/ml) SC SCH ×4 (06:46→22:22)
[2022-09-19] MEDS: HYDROcodone-ACET 5/325MG TAB PO PRN ×3 (06:47→22:20)
[2022-09-19 09:00] VITALS: BP 99/67
[2022-09-19] MEDS: cefTRIAXone 1GM/50ML D5W 50 ML IV SCH (09:23)
[2022-09-19] MEDS: PANTOPRAZOLE 40 MG/10 ML VIAL INJ IV SCH (09:25)
[2022-09-19] MEDS: ALLOPURINOL 100 MG TAB PO SCH ×2 (09:27→22:20)
[2022-09-19] MEDS: POTASSIUM CHL 10 Meq TABLET PO SCH ×2 (09:28→22:01)
[2022-09-19] MEDS: DIGOXIN 0.125 MG TAB PO SCH (09:29)
[2022-09-19] MEDS: AMIODARONE HCL 200 MG TAB PO SCH ×2 (09:29→21:56)
[2022-09-19] MEDS: ENOXAPARIN SOD 40 MG/0.4 ML SYRINGE SC SCH (09:31)
[2022-09-19] MEDS: BUMETANIDE 1 MG TAB PO SCH ×2 (09:42→22:00)
[2022-09-19] MEDS: CARVEDILOL 3.125 MG TAB PO SCH ×2 (09:42→21:55)
[2022-09-19 12:40] VITALS: BP 110/66
[2022-09-19 16:40] VITALS: BP 110/62
[2022-09-19] MEDS: LATANOPROST 0.005 % OPTH(EYE) SOL 2.5ML EACHEYE SCH (17:57)
[2022-09-19 22:00] VITALS: BP 123/62
[2022-09-19] MEDS: ATORVASTATIN 20 MG TAB PO SCH (22:02)
[2022-09-20 05:00] VITALS: BP 112/68
[2022-09-20] MEDS: GABAPENTIN 300 MG CAP PO SCH ×4 (06:31→21:49)
[2022-09-20] MEDS: ACCU-CHEK COMFORT CURVE STRIP VI SCH ×4 (06:33→21:52)
[2022-09-20] MEDS: InsuLIN REG 1unit/0.01ml Soln (100units/ml) SC SCH ×4 (06:38→22:36)
[2022-09-20 07:39] LABS: Albumin 3.8 g/dL (3.4-5.0); BUN/Creatinine Ratio 33.8; Bilirubin, Total 0.6 mg/dL (0.2-1.0); Calcium 9.5 mg/dL (8.5-10.1); Potassium 4.1 mmol/L (3.5-5.1); Total Protein 7.1 g/dL (6.4-8.2)
[2022-09-20 09:00] VITALS: BP 109/68
[2022-09-20] MEDS: cefTRIAXone 1GM/50ML D5W 50 ML IV SCH (09:33)
[2022-09-20] MEDS: PANTOPRAZOLE 40 MG/10 ML VIAL INJ IV SCH (09:37)
[2022-09-20] MEDS: CARVEDILOL 3.125 MG TAB PO SCH ×2 (09:38→10:38)
[2022-09-20] MEDS: POTASSIUM CHL 10 Meq TABLET PO SCH ×2 (09:38→21:49)
[2022-09-20] MEDS: ALLOPURINOL 100 MG TAB PO SCH ×2 (09:39→21:48)
[2022-09-20] MEDS: DIGOXIN 0.125 MG TAB PO SCH (09:39)
[2022-09-20] MEDS: BUMETANIDE 1 MG TAB PO SCH ×2 (09:40→21:52)
[2022-09-20] MEDS: AMIODARONE HCL 200 MG TAB PO SCH ×2 (09:40→21:49)
[2022-09-20] MEDS: HYDROcodone-ACET 5/325MG TAB PO PRN ×3 (09:41→21:51)
[2022-09-20] MEDS: ENOXAPARIN SOD 40 MG/0.4 ML SYRINGE SC SCH (09:42)
[2022-09-20 13:00] VITALS: BP 106/58
[2022-09-20] MEDS: SODIUM CHLORIDE 0.9% 1,000 ML IV SCH (13:55)
[2022-09-20 17:00] VITALS: BP 108/65
[2022-09-20] MEDS: LATANOPROST 0.005 % OPTH(EYE) SOL 2.5ML EACHEYE SCH (17:20)
[2022-09-20] MEDS: ATORVASTATIN 20 MG TAB PO SCH (21:48)
[2022-09-20 22:14] VITALS: BP 125/73
[2022-09-21 05:00] VITALS: BP 114/68
[2022-09-21] MEDS: SODIUM CHLORIDE 0.9% 1,000 ML IV SCH ×2 (06:35→23:15)
[2022-09-21] MEDS: GABAPENTIN 300 MG CAP PO SCH ×4 (06:58→21:33)
[2022-09-21] MEDS: ACCU-CHEK COMFORT CURVE STRIP VI SCH ×4 (06:58→21:46)
[2022-09-21] MEDS: InsuLIN REG 1unit/0.01ml Soln (100units/ml) SC SCH ×4 (06:59→21:57)
[2022-09-21 09:00] VITALS: BP 117/60
[2022-09-21] MEDS: cefTRIAXone 1GM/50ML D5W 50 ML IV SCH (09:12)
[2022-09-21] MEDS: HYDROcodone-ACET 5/325MG TAB PO PRN ×3 (09:19→19:51)
[2022-09-21] MEDS: PANTOPRAZOLE 40 MG/10 ML VIAL INJ IV SCH (09:20)
[2022-09-21] MEDS: BUMETANIDE 1 MG TAB PO SCH ×2 (09:21→21:41)
[2022-09-21] MEDS: ALLOPURINOL 100 MG TAB PO SCH ×2 (09:21→21:35)
[2022-09-21] MEDS: AMIODARONE HCL 200 MG TAB PO SCH ×2 (09:22→21:34)
[2022-09-21] MEDS: DIGOXIN 0.125 MG TAB PO SCH (09:22)
[2022-09-21] MEDS: POTASSIUM CHL 10 Meq TABLET PO SCH ×2 (09:22→21:36)
[2022-09-21] MEDS: ENOXAPARIN SOD 40 MG/0.4 ML SYRINGE SC SCH (09:45)
[2022-09-21 12:58] VITALS: BP 103/69
[2022-09-21] MEDS: LEVOTHYROXINE SODIUM 50 MCG TAB PO SCH (13:39)
[2022-09-21] MEDS: LACTULOSE 20Gm/30ML SOLN PO PRN ×2 (13:41→21:40)
[2022-09-21 17:00] VITALS: BP 115/76
[2022-09-21] MEDS: LATANOPROST 0.005 % OPTH(EYE) SOL 2.5ML EACHEYE SCH (17:45)
[2022-09-21] MEDS ORDERED: LACTULOSE 20Gm/30ML SOLN PO SCH (18:00)
[2022-09-21] MEDS: ATORVASTATIN 20 MG TAB PO SCH (21:33)
[2022-09-21] MEDS: CARVEDILOL 3.125 MG TAB PO SCH (21:35)
[2022-09-21 22:00] VITALS: BP 113/58
[2022-09-21] MEDS: ACETAMINOPHEN 325 MG TAB PO PRN (23:20)
[2022-09-22 05:00] VITALS: BP 106/52
[2022-09-22] MEDS: GABAPENTIN 300 MG CAP PO SCH ×4 (06:35→22:13)
[2022-09-22] MEDS: LEVOTHYROXINE SODIUM 50 MCG TAB PO SCH (06:36)
[2022-09-22] MEDS: ACCU-CHEK COMFORT CURVE STRIP VI SCH ×4 (06:37→22:27)
[2022-09-22] MEDS: InsuLIN REG 1unit/0.01ml Soln (100units/ml) SC SCH ×4 (06:39→22:28)
[2022-09-22 08:00] VITALS: BP 106/60
[2022-09-22 08:38] VITALS: BP_SYST 106; BP_SYST 111; BP_DIAS 60; BP_DIAS 64
[2022-09-22] MEDS: cefTRIAXone 1GM/50ML D5W 50 ML IV SCH (09:28)
[2022-09-22] MEDS: ENOXAPARIN SOD 40 MG/0.4 ML SYRINGE SC SCH (09:28)
[2022-09-22] MEDS: PANTOPRAZOLE 40 MG/10 ML VIAL INJ IV SCH (09:29)
[2022-09-22] MEDS: HYDROcodone-ACET 5/325MG TAB PO PRN ×3 (09:31→23:34)
[2022-09-22] MEDS: AMIODARONE HCL 200 MG TAB PO SCH ×2 (09:32→22:16)
[2022-09-22] MEDS: CARVEDILOL 3.125 MG TAB PO SCH ×2 (09:36→22:14)
[2022-09-22] MEDS: BUMETANIDE 1 MG TAB PO SCH ×2 (09:37→22:15)
[2022-09-22] MEDS: POTASSIUM CHL 10 Meq TABLET PO SCH ×2 (09:37→22:15)
[2022-09-22] MEDS: ALLOPURINOL 100 MG TAB PO SCH ×2 (09:38→22:19)
[2022-09-22] MEDS: DIGOXIN 0.125 MG TAB PO SCH ×2 (10:50→12:49)
[2022-09-22 12:47] VITALS: BP 119/64
[2022-09-22] MEDS: SODIUM CHLORIDE 0.9% 1,000 ML IV SCH (15:42)
[2022-09-22 16:00] VITALS: BP 109/64
[2022-09-22] MEDS: LATANOPROST 0.005 % OPTH(EYE) SOL 2.5ML EACHEYE SCH (19:06)
[2022-09-22] MEDS: ACETAMINOPHEN 325 MG TAB PO PRN (20:06)
[2022-09-22 22:00] VITALS: BP 113/64
[2022-09-22] MEDS: ATORVASTATIN 20 MG TAB PO SCH (22:13)
[2022-09-23 05:00] VITALS: BP 112/64
[2022-09-23] MEDS: GABAPENTIN 300 MG CAP PO SCH ×4 (06:38→22:17)
[2022-09-23] MEDS: LEVOTHYROXINE SODIUM 50 MCG TAB PO SCH (06:39)
[2022-09-23] MEDS: ACCU-CHEK COMFORT CURVE STRIP VI SCH ×4 (06:39→22:18)
[2022-09-23] MEDS: HYDROcodone-ACET 5/325MG TAB PO PRN ×2 (06:40→17:33)
[2022-09-23] MEDS: InsuLIN REG 1unit/0.01ml Soln (100units/ml) SC SCH ×4 (06:40→22:18)
[2022-09-23 08:00] VITALS: BP 103/67
[2022-09-23] MEDS: SODIUM CHLORIDE 0.9% 1,000 ML IV SCH (08:35)
[2022-09-23 08:47] VITALS: BP 103/67
[2022-09-23] MEDS: BUMETANIDE 1 MG TAB PO SCH ×2 (09:16→22:16)
[2022-09-23] MEDS: AMIODARONE HCL 200 MG TAB PO SCH ×2 (09:18→22:16)
[2022-09-23] MEDS: CARVEDILOL 3.125 MG TAB PO SCH ×2 (09:19→22:17)
[2022-09-23] MEDS: DIGOXIN 0.125 MG TAB PO SCH (09:20)
[2022-09-23] MEDS: ALLOPURINOL 100 MG TAB PO SCH ×2 (09:21→22:18)
[2022-09-23] MEDS: POTASSIUM CHL 10 Meq TABLET PO SCH ×2 (09:21→22:17)
[2022-09-23] MEDS: ENOXAPARIN SOD 40 MG/0.4 ML SYRINGE SC SCH (09:22)
[2022-09-23] MEDS: cefTRIAXone 1GM/50ML D5W 50 ML IV SCH (09:27)
[2022-09-23] MEDS: PANTOPRAZOLE 40 MG/10 ML VIAL INJ IV SCH (09:28)
[2022-09-23 13:01] VITALS: BP 114/72
[2022-09-23 17:05] VITALS: BP 113/72
[2022-09-23] MEDS: LATANOPROST 0.005 % OPTH(EYE) SOL 2.5ML EACHEYE SCH (17:33)
[2022-09-23 22:00] VITALS: BP 121/63
[2022-09-23] MEDS: ATORVASTATIN 20 MG TAB PO SCH (22:17)
[2022-09-24 05:00] VITALS: BP 103/53
[2022-09-24] MEDS: HYDROcodone-ACET 5/325MG TAB PO PRN ×2 (05:06→19:47)
[2022-09-24] MEDS: GABAPENTIN 300 MG CAP PO SCH ×4 (06:29→20:54)
[2022-09-24] MEDS: LEVOTHYROXINE SODIUM 50 MCG TAB PO SCH (06:30)
[2022-09-24] MEDS: InsuLIN REG 1unit/0.01ml Soln (100units/ml) SC SCH ×4 (06:30→21:01)
[2022-09-24] MEDS: ACCU-CHEK COMFORT CURVE STRIP VI SCH ×4 (06:30→21:12)
[2022-09-24 08:30] VITALS: BP 120/58
[2022-09-24] MEDS: ENOXAPARIN SOD 40 MG/0.4 ML SYRINGE SC SCH (10:43)
[2022-09-24] MEDS: BUMETANIDE 1 MG TAB PO SCH ×2 (10:44→22:00)
[2022-09-24] MEDS: POTASSIUM CHL 10 Meq TABLET PO SCH ×2 (10:44→20:54)
[2022-09-24] MEDS: ALLOPURINOL 100 MG TAB PO SCH ×2 (10:44→22:46)
[2022-09-24] MEDS: CARVEDILOL 3.125 MG TAB PO SCH ×2 (10:45→20:55)
[2022-09-24] MEDS: AMIODARONE HCL 200 MG TAB PO SCH ×2 (10:45→20:57)
[2022-09-24] MEDS: PANTOPRAZOLE 40 MG/10 ML VIAL INJ IV SCH (10:45)
[2022-09-24] MEDS: cefTRIAXone 1GM/50ML D5W 50 ML IV SCH (10:48)
[2022-09-24] MEDS: DIGOXIN 0.125 MG TAB PO SCH (11:16)
[2022-09-24 12:30] VITALS: BP 104/59
[2022-09-24 17:00] VITALS: BP 125/78
[2022-09-24] MEDS: LATANOPROST 0.005 % OPTH(EYE) SOL 2.5ML EACHEYE SCH ×2 (17:04→18:00)
[2022-09-24] MEDS: ATORVASTATIN 20 MG TAB PO SCH (20:56)
[2022-09-24] MEDS: LACTULOSE 20Gm/30ML SOLN PO PRN (21:02)
[2022-09-24 22:00] VITALS: BP 139/68
[2022-09-25 05:00] VITALS: BP 111/65
[2022-09-25] MEDS: GABAPENTIN 300 MG CAP PO SCH ×3 (06:06→16:55)
[2022-09-25] MEDS: LEVOTHYROXINE SODIUM 50 MCG TAB PO SCH (06:07)
[2022-09-25] MEDS: ACCU-CHEK COMFORT CURVE STRIP VI SCH ×3 (06:07→17:00)
[2022-09-25] MEDS: InsuLIN REG 1unit/0.01ml Soln (100units/ml) SC SCH ×3 (06:12→17:04)
[2022-09-25] MEDS: HYDROcodone-ACET 5/325MG TAB PO PRN (06:55)
[2022-09-25 08:30] VITALS: BP 103/57
[2022-09-25] MEDS: DIGOXIN 0.125 MG TAB PO SCH (08:38)
[2022-09-25] MEDS: ENOXAPARIN SOD 40 MG/0.4 ML SYRINGE SC SCH (08:38)
[2022-09-25] MEDS: ALLOPURINOL 100 MG TAB PO SCH (08:38)
[2022-09-25] MEDS: PANTOPRAZOLE 40 MG/10 ML VIAL INJ IV SCH (08:38)
[2022-09-25] MEDS: POTASSIUM CHL 10 Meq TABLET PO SCH (08:38)
[2022-09-25] MEDS: CARVEDILOL 3.125 MG TAB PO SCH (08:39)
[2022-09-25] MEDS: AMIODARONE HCL 200 MG TAB PO SCH (08:39)
[2022-09-25] MEDS: BUMETANIDE 1 MG TAB PO SCH (08:40)
[2022-09-25] MEDS: cefTRIAXone 1GM/50ML D5W 50 ML IV SCH (09:01)
[2022-09-25] MEDS: LACTULOSE 20Gm/30ML SOLN PO PRN (09:02)
[2022-09-25] MEDS ORDERED: MECL12.514 PO (11:09)
[2022-09-25] MEDS: ACETAMINOPHEN 325 MG TAB PO PRN (15:11)
== END 2022-09-25 18:43 | disposition home or self-care (01) | DRG 92 ==
LOC: ER 11:40 → EDBD 11:40 → OVERFLOW 15:09 → WEST WING 22:58
PROVIDERS: ADMIT Nurse Practitioner Family; ATTEND Internal Medicine
DX: G92.8 Other toxic encephalopathy (principal); N39.0 Urinary tract infection, site not specified; D72.829 Elevated white blood cell count, unspecified; E11.9 Type 2 diabetes mellitus without complications; E66.01 Morbid (severe) obesity due to excess calories; E78.5 Hyperlipidemia, unspecified; Z20.822 Contact with and (suspected) exposure to COVID-19; I11.0 Hypertensive heart disease with heart failure; I25.10 Atherosclerotic heart disease of native coronary artery without angina pectoris; I48.91 Unspecified atrial fibrillation; I50.9 Heart failure, unspecified; J44.9 Chronic obstructive pulmonary disease, unspecified; E03.9 Hypothyroidism, unspecified; E11.40 Type 2 diabetes mellitus with diabetic neuropathy, unspecified; F17.200 Nicotine dependence, unspecified, uncomplicated; F41.9 Anxiety disorder, unspecified; G40.909 Epilepsy, unspecified, not intractable, without status epilepticus; I25.2 Old myocardial infarction; Z79.899 Other long term (current) drug therapy; Z83.3 Family history of diabetes mellitus; Z88.8 Allergy status to other drugs, medicaments and biological substances
CPT/HCPCS: 36415; 36600; 70450; 70551; 71045; 72125; 73600; 80053; 80061; 80162; 80307; 80320; 80329; 81001; 82140; 82805; 82962; 83036; 83735; 83880; 83930; 84443; 84484; 85025; 87040; 87081; 87086; 87088; 87426; 93005; 95819; 96365; 96372; 97110; 97116; 97163; 97530; C9113; G0378; J0696; J1815

== ENCOUNTER 2022-10-18 20:07 | Inpatient (IN) | payer MEDICARE, MEDICAID ==
[~2022-10-18] VITALS: Ht 163.8 cm; Wt 104.0 kg
[~2022-10-18 20:07] MED LIST changes: -AZIT500T66 PO; +MECL12.514 PO
[2022-10-18] MEDS ORDERED: SODIUM CHLORIDE 0.9% 500 ML IV ONE (20:30)
[2022-10-18 22:28] LABS: Basophils # (auto) 0.1 10 ^3/uL (0-0.2); Basophils % (auto) 0.6 % (0.0-2.0); Eosinophils # (auto) 0.1 10 ^3/uL (0-0.8); Eosinophils % (auto) 1.6 % (0.0-7.0); Hematocrit 40.4 % (36.0-46.0); Hemoglobin 13.3 g/dL (12.2-16.2); Lymphocytes # (auto) 1.6 10 ^3/uL (0.4-5.4); Lymphocytes % (auto) 18.7 % (10.0-50.0); Mean Corpuscular Hemoglobin 29.7 pg (28.0-32.0); Mean Corpuscular Hgb Conc. 32.9 g/dL (32.0-36.0); Mean Corpuscular Volume 90.3 fL (80.0-100.0); Monocytes # (auto) 0.8 10 ^3/uL (0-1.3); Monocytes % (auto) 9.2 % (0.0-12.0); Neutrophils # (auto) 5.9 10 ^3/uL (1.6-8.6); Neutrophils % (auto) 69.9 % (37.0-80.0); Nucleated Red Blood Cells % 0.1 %; Red Blood Cells 4.47 10^6/uL (4.0-5.20); Red Cell Distribution Width 16.9 % (11.8-14.3); White Blood Cell 8.4 10^3/uL (4.4-10.8)
[2022-10-18 22:51] LABS: INR 1.28 (0.9-1.15); Partial Thromboplastin Time 39.2 sec (24.6-33.4)
[2022-10-18 22:52] LABS: Albumin 3.6 g/dL (3.4-5.0); BUN/Creatinine Ratio 29.6 (10.0-20.0); Calcium 9.4 mg/dL (8.5-10.1); Potassium 4.4 mmol/L (3.5-5.1)
[2022-10-18 22:54] LABS: Bilirubin, Total 0.4 mg/dL (0.2-1.0); Total Protein 6.9 g/dL (6.4-8.2)
[2022-10-18 23:12] LABS: Urine Bacteria NONE SEEN /hpf (None Seen); Urine Blood Negative /uL (Negative); Urine Hyaline Cast FEW /lpf (0 - 2); Urine WBC <1 /hpf (0 - 5)
[2022-10-19] MEDS ORDERED: NITROGLYCERIN 0.4 MG SL TAB SL PRN (04:00)
[2022-10-19] MEDS ORDERED: ONDANSETRON HCL 4 MG/2 ML VIAL IV PRN (04:00)
[2022-10-19] MEDS ORDERED: DEXTROSE (50%) 50ML SYRG IV PRN (04:00)
[2022-10-19 04:32] LABS: Alcohol, Urine < 3.0 mg/dL (0-10); Amphetamine Screen, Urine NEGATIVE (NEGATIVE); Barbiturate Scree,Urine NEGATIVE (NEGATIVE); Benzodiazephine Screen, Urine NEGATIVE (NEGATIVE); Cannabinoid Screen, Urine NEGATIVE (NEGATIVE); Cocaine Screen, Urine NEGATIVE (NEGATIVE); Phencyclidine Screen, Urine NEGATIVE (NEGATIVE)
[2022-10-19 04:42] LABS: Opiate Scree,Urine POSITIVE (NEGATIVE)
[2022-10-19] MEDS: ACCU-CHEK COMFORT CURVE STRIP VI SCH ×4 (06:58→21:56)
[2022-10-19] MEDS: LEVOTHYROXINE SODIUM 100 MCG TAB PO SCH (07:00)
[2022-10-19] MEDS: InsuLIN REG 1unit/0.01ml Soln (100units/ml) SC SCH ×4 (07:08→22:27)
[2022-10-19] MEDS: cefTRIAXone 1GM/50ML D5W 50 ML IV SCH (09:42)
[2022-10-19] MEDS ORDERED: CARVEDILOL 3.125 MG TAB PO SCH (10:00)
[2022-10-19] MEDS: PANTOPRAZOLE 40 MG TAB PO SCH (11:18)
[2022-10-19] MEDS: AZITHROMYCIN 500MG/ 250ML 250 ML IV SCH (11:18)
[2022-10-19] MEDS: AMIODARONE HCL 200 MG TAB PO SCH ×2 (11:18→22:26)
[2022-10-19] MEDS ORDERED: HYDROcodone-ACET 5/325MG TAB PO ONE (14:00)
[2022-10-19] MEDS: GABAPENTIN 300 MG CAP PO SCH ×2 (18:22→23:27)
[2022-10-19] MEDS: DOBUTamine 1000MCG/ML 250 ML IV SCH (18:53)
[2022-10-19 20:00] VITALS: BP 108/56
[2022-10-19] MEDS: ATORVASTATIN 20 MG TAB PO SCH (22:26)
[2022-10-19] MEDS: INSULIN LANTUS (GLARGINE) 1 /0.01ml (100units/ml) SC SCH (22:29)
[2022-10-20] MEDS: ACETAMINOPHEN 325 MG TAB PO PRN ×2 (03:46→23:51)
[2022-10-20 05:00] VITALS: BP 107/49
[2022-10-20] MEDS ORDERED: LACTULOSE 20Gm/30ML SOLN PO PRN (06:00)
[2022-10-20] MEDS: LEVOTHYROXINE SODIUM 100 MCG TAB PO SCH (06:07)
[2022-10-20] MEDS: GABAPENTIN 300 MG CAP PO SCH ×4 (06:07→23:51)
[2022-10-20] MEDS: INSULIN LANTUS (GLARGINE) 1 /0.01ml (100units/ml) SC SCH ×2 (06:08→21:47)
[2022-10-20] MEDS: InsuLIN REG 1unit/0.01ml Soln (100units/ml) SC SCH ×4 (06:09→21:46)
[2022-10-20] MEDS: ACCU-CHEK COMFORT CURVE STRIP VI SCH ×4 (06:09→21:46)
[2022-10-20 06:11] LABS: Basophils # (auto) 0.1 10 ^3/uL (0-0.2); Basophils % (auto) 0.7 % (0.0-2.0); Eosinophils # (auto) 0.1 10 ^3/uL (0-0.8); Eosinophils % (auto) 1.7 % (0.0-7.0); Hematocrit 35.9 % (36.0-46.0); Hemoglobin 12.2 g/dL (12.2-16.2); Lymphocytes # (auto) 1.9 10 ^3/uL (0.4-5.4); Lymphocytes % (auto) 24.8 % (10.0-50.0); Mean Corpuscular Hemoglobin 30.2 pg (28.0-32.0); Mean Corpuscular Volume 88.7 fL (80.0-100.0); Monocytes # (auto) 0.6 10 ^3/uL (0-1.3); Monocytes % (auto) 7.8 % (0.0-12.0); Neutrophils # (auto) 5.1 10 ^3/uL (1.6-8.6); Red Blood Cells 4.05 10^6/uL (4.0-5.20); White Blood Cell 7.9 10^3/uL (4.4-10.8)
[2022-10-20 06:24] LABS: Potassium 3.7 mmol/L (3.5-5.1)
[2022-10-20 06:40] LABS: Albumin 3.2 g/dL (3.4-5.0); BUN/Creatinine Ratio 24.4 (10.0-20.0); Calcium 9.5 mg/dL (8.5-10.1); Cholesterol 132 mg/dL (< 200); Triglycerides 225 mg/dL (< 150)
[2022-10-20 06:42] LABS: HDL Cholesterol 38 mg/dL (40-59); LDL Cholesterol 68 mg/dL (< 100)
[2022-10-20 06:53] LABS: Bilirubin, Total 0.6 mg/dL (0.2-1.0); Total Protein 6.6 g/dL (6.4-8.2)
[2022-10-20 08:46] VITALS: BP 108/63
[2022-10-20] MEDS: cefTRIAXone 1GM/50ML D5W 50 ML IV SCH (09:23)
[2022-10-20] MEDS: DOBUTamine 1000MCG/ML 250 ML IV SCH (10:33)
[2022-10-20] MEDS: PANTOPRAZOLE 40 MG TAB PO SCH (10:39)
[2022-10-20] MEDS: AMIODARONE HCL 200 MG TAB PO SCH ×2 (10:39→21:45)
[2022-10-20] MEDS: AZITHROMYCIN 500MG/ 250ML 250 ML IV SCH (11:23)
[2022-10-20 12:45] VITALS: BP 94/53
[2022-10-20] MEDS: APIXABAN 5 MG TAB PO SCH ×2 (14:19→21:44)
[2022-10-20 16:47] VITALS: BP 124/77
[2022-10-20] MEDS: ATORVASTATIN 20 MG TAB PO SCH (21:44)
[2022-10-20 22:00] VITALS: BP 112/40
[2022-10-21] MEDS: DOBUTamine 1000MCG/ML 250 ML IV SCH ×2 (02:41→16:13)
[2022-10-21 05:00] VITALS: BP 114/58
[2022-10-21] MEDS: GABAPENTIN 300 MG CAP PO SCH ×4 (05:25→23:50)
[2022-10-21] MEDS: ACCU-CHEK COMFORT CURVE STRIP VI SCH ×4 (06:06→21:48)
[2022-10-21] MEDS: LEVOTHYROXINE SODIUM 100 MCG TAB PO SCH (06:06)
[2022-10-21] MEDS: INSULIN LANTUS (GLARGINE) 1 /0.01ml (100units/ml) SC SCH ×2 (06:07→22:16)
[2022-10-21] MEDS: InsuLIN REG 1unit/0.01ml Soln (100units/ml) SC SCH ×4 (06:07→22:17)
[2022-10-21 06:08] LABS: BUN/Creatinine Ratio 22.6 (10.0-20.0); Calcium 9.3 mg/dL (8.5-10.1); Potassium 3.4 mmol/L (3.5-5.1)
[2022-10-21 06:31] LABS: Basophils # (auto) 0 10 ^3/uL (0-0.2); Basophils % (auto) 0.6 % (0.0-2.0); Eosinophils # (auto) 0.2 10 ^3/uL (0-0.8); Hematocrit 36.1 % (36.0-46.0); Hemoglobin 12.2 g/dL (12.2-16.2); Lymphocytes # (auto) 2.3 10 ^3/uL (0.4-5.4); Lymphocytes % (auto) 28.5 % (10.0-50.0); Mean Corpuscular Hgb Conc. 33.8 g/dL (32.0-36.0); Mean Corpuscular Volume 88.6 fL (80.0-100.0); Monocytes # (auto) 0.7 10 ^3/uL (0-1.3); Monocytes % (auto) 8.3 % (0.0-12.0); Neutrophils # (auto) 4.8 10 ^3/uL (1.6-8.6); Neutrophils % (auto) 60.6 % (37.0-80.0); Nucleated Red Blood Cells % 0.1 %; Red Blood Cells 4.08 10^6/uL (4.0-5.20); Red Cell Distribution Width 16.7 % (11.8-14.3); White Blood Cell 7.9 10^3/uL (4.4-10.8)
[2022-10-21] MEDS: ACETAMINOPHEN 325 MG TAB PO PRN (07:20)
[2022-10-21 08:30] VITALS: BP 121/73
[2022-10-21] MEDS: PANTOPRAZOLE 40 MG TAB PO SCH (08:55)
[2022-10-21] MEDS: cefTRIAXone 1GM/50ML D5W 50 ML IV SCH (08:55)
[2022-10-21] MEDS: APIXABAN 5 MG TAB PO SCH ×2 (08:55→21:47)
[2022-10-21] MEDS: AMIODARONE HCL 200 MG TAB PO SCH ×2 (08:56→21:47)
[2022-10-21] MEDS: HYDROcodone-ACET 5/325MG TAB PO PRN ×2 (09:53→21:47)
[2022-10-21] MEDS: AZITHROMYCIN 500MG/ 250ML 250 ML IV SCH (09:54)
[2022-10-21 12:30] VITALS: BP 105/57
[2022-10-21] MEDS ORDERED: POTASSIUM EFFERVESENT TAB 25 MEQ GT ONE (12:45)
[2022-10-21] MEDS ORDERED: POTASSIUM EFFERVESENT TAB 25 MEQ PO ONE (16:30)
[2022-10-21 16:47] VITALS: BP 122/67
[2022-10-21] MEDS: ATORVASTATIN 20 MG TAB PO SCH (21:47)
[2022-10-21 22:00] VITALS: BP 115/68
[2022-10-22 05:00] VITALS: BP 117/48
[2022-10-22] MEDS: GABAPENTIN 300 MG CAP PO SCH ×4 (06:00→23:52)
[2022-10-22] MEDS ORDERED: LORazepam 2MG/ML-1ML VIAL ONE (06:15)
[2022-10-22] MEDS ORDERED: LORazepam 2MG/ML-1ML VIAL IV PRN (06:15)
[2022-10-22 06:22] LABS: BUN/Creatinine Ratio 19.4 (10.0-20.0); Calcium 9.3 mg/dL (8.5-10.1); Potassium 3.8 mmol/L (3.5-5.1)
[2022-10-22] MEDS ORDERED: levETIRAcetam 500 MG/5ML INJ IV ONE (06:22)
[2022-10-22] MEDS: INSULIN LANTUS (GLARGINE) 1 /0.01ml (100units/ml) SC SCH ×2 (07:00→21:38)
[2022-10-22] MEDS: InsuLIN REG 1unit/0.01ml Soln (100units/ml) SC SCH ×4 (07:00→21:39)
[2022-10-22] MEDS: LEVOTHYROXINE SODIUM 100 MCG TAB PO SCH (07:00)
[2022-10-22] MEDS: ACCU-CHEK COMFORT CURVE STRIP VI SCH ×4 (07:17→21:37)
[2022-10-22 09:25] VITALS: BP 107/63
[2022-10-22] MEDS: DOBUTamine 1000MCG/ML 250 ML IV SCH ×2 (10:18→11:45)
[2022-10-22] MEDS: cefTRIAXone 1GM/50ML D5W 50 ML IV SCH (10:20)
[2022-10-22] MEDS: AMIODARONE HCL 200 MG TAB PO SCH ×2 (10:20→21:27)
[2022-10-22] MEDS: APIXABAN 5 MG TAB PO SCH ×2 (10:20→21:27)
[2022-10-22] MEDS: PANTOPRAZOLE 40 MG TAB PO SCH (10:20)
[2022-10-22] MEDS: AZITHROMYCIN 500MG/ 250ML 250 ML IV SCH (12:17)
[2022-10-22 12:30] VITALS: BP 106/62
[2022-10-22 16:41] VITALS: BP 109/69
[2022-10-22] MEDS: HYDROcodone-ACET 5/325MG TAB PO PRN (20:23)
[2022-10-22] MEDS: DOXYCYCLINE 100 MG TAB/CAP PO SCH (21:27)
[2022-10-22] MEDS: ATORVASTATIN 20 MG TAB PO SCH (21:27)
[2022-10-22 22:00] VITALS: BP 105/61
[2022-10-23] MEDS: HYDROcodone-ACET 5/325MG TAB PO PRN (01:54)
[2022-10-23 05:00] VITALS: BP 91/50
[2022-10-23 06:20] LABS: Basophils # (auto) 0.1 10 ^3/uL (0-0.2); Basophils % (auto) 0.8 % (0.0-2.0); Eosinophils # (auto) 0.3 10 ^3/uL (0-0.8); Eosinophils % (auto) 3.7 % (0.0-7.0); Hematocrit 36.6 % (36.0-46.0); Hemoglobin 12.3 g/dL (12.2-16.2); Lymphocytes # (auto) 2.7 10 ^3/uL (0.4-5.4); Lymphocytes % (auto) 30.8 % (10.0-50.0); Mean Corpuscular Hemoglobin 30.2 pg (28.0-32.0); Mean Corpuscular Hgb Conc. 33.6 g/dL (32.0-36.0); Mean Corpuscular Volume 89.8 fL (80.0-100.0); Monocytes # (auto) 0.7 10 ^3/uL (0-1.3); Monocytes % (auto) 7.8 % (0.0-12.0); Neutrophils # (auto) 4.9 10 ^3/uL (1.6-8.6); Neutrophils % (auto) 56.9 % (37.0-80.0); Nucleated Red Blood Cells % 0.1 %; Red Blood Cells 4.07 10^6/uL (4.0-5.20); Red Cell Distribution Width 16.5 % (11.8-14.3); White Blood Cell 8.7 10^3/uL (4.4-10.8)
[2022-10-23] MEDS: GABAPENTIN 300 MG CAP PO SCH ×2 (06:21→11:28)
[2022-10-23] MEDS: LEVOTHYROXINE SODIUM 100 MCG TAB PO SCH (06:21)
[2022-10-23] MEDS: InsuLIN REG 1unit/0.01ml Soln (100units/ml) SC SCH ×2 (06:22→11:31)
[2022-10-23] MEDS: ACCU-CHEK COMFORT CURVE STRIP VI SCH ×2 (06:22→11:34)
[2022-10-23] MEDS: INSULIN LANTUS (GLARGINE) 1 /0.01ml (100units/ml) SC SCH (06:22)
[2022-10-23 06:38] LABS: BUN/Creatinine Ratio 17.2 (10.0-20.0); Magnesium 2.3 mg/dL (1.6-2.6); Phosphorus 2.9 mg/dL (2.5-4.90); Potassium 3.7 mmol/L (3.5-5.1)
[2022-10-23 06:54] VITALS: BP 100/60
[2022-10-23 08:55] VITALS: BP 91/51
[2022-10-23] MEDS: AMIODARONE HCL 200 MG TAB PO SCH (09:11)
[2022-10-23] MEDS: APIXABAN 5 MG TAB PO SCH (09:32)
[2022-10-23] MEDS: cefTRIAXone 1GM/50ML D5W 50 ML IV SCH (09:32)
[2022-10-23] MEDS: PANTOPRAZOLE 40 MG TAB PO SCH (09:32)
[2022-10-23] MEDS: DOXYCYCLINE 100 MG TAB/CAP PO SCH (09:32)
[2022-10-23] MEDS: ACETAMINOPHEN 325 MG TAB PO PRN (09:48)
[2022-10-23 13:25] VITALS: BP 120/72
[2022-10-23] MEDS ORDERED: APIX5TAB PO (13:26)
[2022-10-23] MEDS ORDERED: DOX100T PO (13:26)
[2022-10-23 14:12] VITALS: BP 91/49
== END 2022-10-23 15:29 | disposition home or self-care (01) | DRG 291 ==
LOC: EDBD 20:07 → ER 20:07 → TELE 10-19 04:04 → TELE-WESTW 10-19 16:08
PROVIDERS: ADMIT Nurse Practitioner; ATTEND Internal Medicine
DX: I11.0 Hypertensive heart disease with heart failure (principal); G93.41 Metabolic encephalopathy; I50.23 Acute on chronic systolic (congestive) heart failure; N17.9 Acute kidney failure, unspecified; Z20.822 Contact with and (suspected) exposure to COVID-19; E78.5 Hyperlipidemia, unspecified; I25.10 Atherosclerotic heart disease of native coronary artery without angina pectoris; I48.91 Unspecified atrial fibrillation; J44.9 Chronic obstructive pulmonary disease, unspecified; R62.7 Adult failure to thrive; E11.9 Type 2 diabetes mellitus without complications; E03.9 Hypothyroidism, unspecified; Z66 Do not resuscitate; Z80.1 Family history of malignant neoplasm of trachea, bronchus and lung; Z88.6 Allergy status to analgesic agent; Z83.3 Family history of diabetes mellitus; Z74.01 Bed confinement status; Z82.49 Family history of ischemic heart disease and other diseases of the circulatory system; Z91.14 Patient's other noncompliance with medication regimen; I25.2 Old myocardial infarction; Z68.38 Body mass index [BMI] 38.0-38.9, adult
CPT/HCPCS: 36415; 36600; 70450; 71045; 74176; 80048; 80053; 80061; 80307; 81001; 82140; 82306; 82805; 82962; 83605; 83735; 83880; 84100; 84443; 84484; 85025; 85610; 85730; 87040; 87081; 87086; 87426; 93005; 93306; 96360; 99291; G0378; J0696; J1815; J7060

== ENCOUNTER 2022-12-27 16:20 | Inpatient (IN) | payer MEDICARE, MEDICAID ==
[~2022-12-27] VITALS: Ht 172.7 cm; Wt 103.2 kg
[~2022-12-27 16:20] MED LIST changes: +ALBU2TAB11 PO; -ALBU2TAB4 PO; +APIX5TAB PO; -CARV6.25 PO; +DOX100T PO; +GABA-1250 PO; -GABA300C10 PO; -LATA0.0019 EACHEYE; +LATA0.008 EACHEYE; -MECL12.514 PO; +MECL1TAB31 PO
[2022-12-27] MEDS ORDERED: NALOXONE HCL 1MG/ML 2ML SYRINGE IV ONE (17:15)
[2022-12-27 17:17] LABS: Basophils # (auto) 0 10 ^3/uL (0-0.2); Basophils % (auto) 0.6 % (0.0-2.0); Eosinophils # (auto) 0.2 10 ^3/uL (0-0.8); Eosinophils % (auto) 2.2 % (0.0-7.0); Hematocrit 40.3 % (36.0-46.0); Hemoglobin 13.4 g/dL (12.2-16.2); Lymphocytes # (auto) 2.3 10 ^3/uL (0.4-5.4); Lymphocytes % (auto) 29.8 % (10.0-50.0); Mean Corpuscular Hemoglobin 30.3 pg (28.0-32.0); Mean Corpuscular Hgb Conc. 33.3 g/dL (32.0-36.0); Mean Corpuscular Volume 90.9 fL (80.0-100.0); Monocytes # (auto) 0.6 10 ^3/uL (0-1.3); Monocytes % (auto) 7.3 % (0.0-12.0); Neutrophils # (auto) 4.6 10 ^3/uL (1.6-8.6); Neutrophils % (auto) 60.1 % (37.0-80.0); Nucleated Red Blood Cells % 0.1 %; Red Blood Cells 4.43 10^6/uL (4.0-5.20); Red Cell Distribution Width 14.6 % (11.8-14.3); White Blood Cell 7.6 10^3/uL (4.4-10.8)
[2022-12-27] MEDS ORDERED: SODIUM CHLORIDE 0.9% 1,000 ML IVB ONE (17:30)
[2022-12-27 17:36] LABS: Albumin 3.7 g/dL (3.4-5.0); Calcium 8.7 mg/dL (8.5-10.1); Potassium 5.3 mmol/L (3.5-5.1)
[2022-12-27 17:39] LABS: BUN/Creatinine Ratio 22.3 (10.0-20.0); Bilirubin, Total 0.5 mg/dL (0.2-1.0); Total Protein 6.7 g/dL (6.4-8.2)
[2022-12-27 18:00] LABS: INR 1.25 (0.9-1.15)
[2022-12-27 18:23] LABS: Urine Bacteria NONE SEEN /hpf (None Seen); Urine Blood Negative /uL (Negative); Urine Hyaline Cast FEW /lpf (0 - 2); Urine Specific Gravity 1.007 (1.001-1.035); Urine WBC 1 /hpf (0 - 5)
[2022-12-27] MEDS ORDERED: DOCUSATE SOD 100 MG CAP PO PRN (21:45)
[2022-12-27] MEDS ORDERED: ACETAMINOPHEN 325 MG TAB PO PRN (21:45)
[2022-12-27] MEDS ORDERED: SODIUM ZIRCONIUM CYCL 10 GM PAK PO ONE (21:45)
[2022-12-27] MEDS ORDERED: ONDANSETRON HCL 4 MG/2 ML VIAL IV PRN (21:45)
[2022-12-27] MEDS ORDERED: DEXTROSE (50%) 50ML SYRG IV PRN (21:45)
[2022-12-27] MEDS: SODIUM CHLOR 0.9% PF (SALINE LOCK) 10ML VIAL/SYR IV SCH (21:53)
[2022-12-27] MEDS: ACCU-CHEK COMFORT CURVE STRIP VI SCH (22:30)
[2022-12-27] MEDS ORDERED: NITROGLYCERIN 0.4 MG SL TAB SL PRN (23:30)
[2022-12-27] MEDS ORDERED: MORPHINE SULFATE INJ 2 MG/ml SYRG IV PRN (23:30)
[2022-12-27] MEDS: InsuLIN REG 1unit/0.01ml Soln (100units/ml) SC SCH (23:52)
[2022-12-27] MEDS: APIXABAN 5 MG TAB PO SCH (23:53)
[2022-12-27] MEDS: HYDROcodone-ACET 5/325MG TAB PO PRN (23:53)
[2022-12-28] MEDS: HYDROcodone-ACET 5/325MG TAB PO PRN ×5 (05:06→22:29)
[2022-12-28 05:15] LABS: Basophils # (auto) 0 10 ^3/uL (0-0.2); Basophils % (auto) 0.8 % (0.0-2.0); Eosinophils # (auto) 0.1 10 ^3/uL (0-0.8); Eosinophils % (auto) 1.9 % (0.0-7.0); Hematocrit 38.7 % (36.0-46.0); Hemoglobin 13.2 g/dL (12.2-16.2); Mean Corpuscular Hemoglobin 30.8 pg (28.0-32.0); Mean Corpuscular Volume 90.5 fL (80.0-100.0); Monocytes # (auto) 0.4 10 ^3/uL (0-1.3); Neutrophils # (auto) 3.4 10 ^3/uL (1.6-8.6); Neutrophils % (auto) 57.3 % (37.0-80.0); Nucleated Red Blood Cells % 0.1 %; Red Blood Cells 4.28 10^6/uL (4.0-5.20); Red Cell Distribution Width 14.5 % (11.8-14.3)
[2022-12-28 05:36] LABS: Albumin 3.5 g/dL (3.4-5.0); Calcium 8.8 mg/dL (8.5-10.1); Potassium 4.2 mmol/L (3.5-5.1)
[2022-12-28 05:42] LABS: BUN/Creatinine Ratio 25.6 (10.0-20.0); Bilirubin, Total 0.5 mg/dL (0.2-1.0); Total Protein 6.6 g/dL (6.4-8.2)
[2022-12-28] MEDS: SODIUM CHLOR 0.9% PF (SALINE LOCK) 10ML VIAL/SYR IV SCH ×3 (05:57→22:40)
[2022-12-28] MEDS: ACCU-CHEK COMFORT CURVE STRIP VI SCH ×4 (06:53→22:29)
[2022-12-28] MEDS: InsuLIN REG 1unit/0.01ml Soln (100units/ml) SC SCH ×4 (06:57→22:39)
[2022-12-28] MEDS: LEVOTHYROXINE SODIUM 50 MCG TAB PO SCH (07:00)
[2022-12-28] MEDS: APIXABAN 5 MG TAB PO SCH ×2 (10:00→22:28)
[2022-12-28] MEDS: FAMOTIDINE (10MG/ML) 2ML VL IV SCH (10:00)
[2022-12-28 12:16] VITALS: BP 83/45
[2022-12-28] MEDS: SODIUM CHLORIDE 0.9% 1,000 ML IV SCH ×2 (14:07→22:40)
[2022-12-28 14:14] LABS: Protein, Urine 12.8 mg/dL (0.0-11.9)
[2022-12-28] MEDS ORDERED: GABAPENTIN 300 MG CAP PO ONE (16:00)
[2022-12-28 17:00] VITALS: BP 100/48
[2022-12-28] MEDS ORDERED: GABAPENTIN 300 MG CAP PO SCH (18:00)
[2022-12-28 22:00] VITALS: BP 116/60
[2022-12-28] MEDS: GABAPENTIN 300 MG CAP PO SCH (22:27)
[2022-12-28] MEDS: AMIODARONE HCL 200 MG TAB PO SCH (22:27)
[2022-12-28] MEDS: POTASSIUM CHL 10 Meq TABLET PO SCH (22:28)
[2022-12-28] MEDS: ATORVASTATIN 20 MG TAB PO SCH (22:28)
[2022-12-29] MEDS: HYDROcodone-ACET 5/325MG TAB PO PRN ×3 (02:23→22:47)
[2022-12-29 05:00] VITALS: BP 107/63
[2022-12-29] MEDS: GABAPENTIN 300 MG CAP PO SCH ×4 (05:48→22:46)
[2022-12-29] MEDS: SODIUM CHLOR 0.9% PF (SALINE LOCK) 10ML VIAL/SYR IV SCH ×3 (05:48→22:48)
[2022-12-29] MEDS: ACCU-CHEK COMFORT CURVE STRIP VI SCH ×4 (06:28→22:48)
[2022-12-29] MEDS: InsuLIN REG 1unit/0.01ml Soln (100units/ml) SC SCH ×4 (06:30→22:54)
[2022-12-29] MEDS: LEVOTHYROXINE SODIUM 50 MCG TAB PO SCH (06:31)
[2022-12-29 08:30] VITALS: BP 158/101
[2022-12-29] MEDS: SODIUM CHLORIDE 0.9% 1,000 ML IV SCH ×2 (08:43→17:37)
[2022-12-29 09:00] VITALS: BP 105/51
[2022-12-29] MEDS: APIXABAN 5 MG TAB PO SCH ×2 (09:11→22:47)
[2022-12-29] MEDS: AMIODARONE HCL 200 MG TAB PO SCH ×2 (09:11→22:48)
[2022-12-29] MEDS: DIGOXIN 0.125 MG TAB PO SCH (09:11)
[2022-12-29] MEDS: POTASSIUM CHL 10 Meq TABLET PO SCH ×2 (09:11→22:47)
[2022-12-29] MEDS: FAMOTIDINE (10MG/ML) 2ML VL IV SCH (09:12)
[2022-12-29 13:47] VITALS: BP 104/54
[2022-12-29 17:04] VITALS: BP 116/62
[2022-12-29 22:00] VITALS: BP 112/81
[2022-12-29] MEDS: ATORVASTATIN 20 MG TAB PO SCH (22:47)
[2022-12-30] MEDS: SODIUM CHLORIDE 0.9% 1,000 ML IV SCH ×2 (04:45→13:23)
[2022-12-30 05:00] VITALS: BP 102/62
[2022-12-30 06:25] LABS: Potassium 5.5 mmol/L (3.5-5.1)
[2022-12-30 06:31] LABS: BUN/Creatinine Ratio 20.7 (10.0-20.0); Calcium 9.9 mg/dL (8.5-10.1)
[2022-12-30] MEDS: GABAPENTIN 300 MG CAP PO SCH ×3 (06:54→18:00)
[2022-12-30] MEDS: LEVOTHYROXINE SODIUM 50 MCG TAB PO SCH (06:54)
[2022-12-30] MEDS: SODIUM CHLOR 0.9% PF (SALINE LOCK) 10ML VIAL/SYR IV SCH ×2 (06:54→13:23)
[2022-12-30] MEDS: HYDROcodone-ACET 5/325MG TAB PO PRN (06:55)
[2022-12-30] MEDS: ACCU-CHEK COMFORT CURVE STRIP VI SCH ×3 (06:55→16:52)
[2022-12-30] MEDS: InsuLIN REG 1unit/0.01ml Soln (100units/ml) SC SCH ×3 (06:57→16:52)
[2022-12-30 09:00] VITALS: BP 124/78
[2022-12-30] MEDS: FAMOTIDINE (10MG/ML) 2ML VL IV SCH (09:26)
[2022-12-30] MEDS: AMIODARONE HCL 200 MG TAB PO SCH (09:26)
[2022-12-30] MEDS: DIGOXIN 0.125 MG TAB PO SCH (09:26)
[2022-12-30] MEDS: POTASSIUM CHL 10 Meq TABLET PO SCH (09:27)
[2022-12-30] MEDS: APIXABAN 5 MG TAB PO SCH (09:27)
[2022-12-30 10:53] VITALS: BP 124/78
[2022-12-30 17:00] VITALS: BP 117/66
== END 2022-12-30 19:30 | disposition home or self-care (01) | DRG 314 ==
LOC: EDBD 16:20 → ER 16:20 → TELE 23:25 → TELE-WESTW 12-28 12:22
PROVIDERS: ADMIT Nurse Practitioner Family; ATTEND Internal Medicine
DX: I95.9 Hypotension, unspecified (principal); N17.0 Acute kidney failure with tubular necrosis; I48.20 Chronic atrial fibrillation, unspecified; I13.0 Hypertensive heart and chronic kidney disease with heart failure and stage 1 through stage 4 chronic kidney disease, or unspecified chronic kidney disease; E86.0 Dehydration; R41.82 Altered mental status, unspecified; E87.5 Hyperkalemia; M10.9 Gout, unspecified; E78.5 Hyperlipidemia, unspecified; I25.10 Atherosclerotic heart disease of native coronary artery without angina pectoris; M32.9 Systemic lupus erythematosus, unspecified; J44.9 Chronic obstructive pulmonary disease, unspecified; E11.65 Type 2 diabetes mellitus with hyperglycemia; E11.22 Type 2 diabetes mellitus with diabetic chronic kidney disease; N18.9 Chronic kidney disease, unspecified; I50.9 Heart failure, unspecified; Z91.041 Radiographic dye allergy status; Z88.5 Allergy status to narcotic agent; Z91.018 Allergy to other foods; Z88.6 Allergy status to analgesic agent; I25.2 Old myocardial infarction; Z98.61 Coronary angioplasty status; Z82.49 Family history of ischemic heart disease and other diseases of the circulatory system; Z80.1 Family history of malignant neoplasm of trachea, bronchus and lung; Z83.3 Family history of diabetes mellitus
CPT/HCPCS: 36415; 70450; 71045; 74176; 76775; 80048; 80053; 81001; 82570; 82962; 83036; 83605; 83880; 84156; 84300; 84443; 84484; 85025; 85610; 85730; 87040; 93005; 96361; 96374; 96375; 99291; G0378; J1815; J3490

== ENCOUNTER 2023-01-31 16:06 | Inpatient (IN) | payer MEDICARE, MEDICAID ==
[~2023-01-31] VITALS: Ht 162.6 cm; Wt 102.4 kg
[~2023-01-31 16:06] MED LIST changes: -DOX100T PO
[2023-01-31] MEDS ORDERED: SODIUM CHLORIDE 0.9% 1,000 ML IV ONE (17:00)
[2023-01-31 18:27] LABS: Albumin 3.2 g/dL (3.4-5.0); Calcium 8.7 mg/dL (8.5-10.1); Magnesium 2.7 mg/dL (1.6-2.6); Potassium 3.9 mmol/L (3.5-5.1)
[2023-01-31 18:30] LABS: Basophils # (auto) 0 10 ^3/uL (0-0.2); Basophils % (auto) 0.4 % (0.0-2.0); Eosinophils # (auto) 0.1 10 ^3/uL (0-0.8); Eosinophils % (auto) 1.1 % (0.0-7.0); Hematocrit 39.8 % (36.0-46.0); Hemoglobin 13.1 g/dL (12.2-16.2); Lymphocytes % (auto) 24.1 % (10.0-50.0); Mean Corpuscular Hemoglobin 29.5 pg (28.0-32.0); Mean Corpuscular Volume 89.6 fL (80.0-100.0); Monocytes # (auto) 0.7 10 ^3/uL (0-1.3); Monocytes % (auto) 8.3 % (0.0-12.0); Neutrophils # (auto) 5.4 10 ^3/uL (1.6-8.6); Neutrophils % (auto) 66.1 % (37.0-80.0); Nucleated Red Blood Cells % 0.1 %; Red Blood Cells 4.44 10^6/uL (4.0-5.20); Red Cell Distribution Width 14.8 % (11.8-14.3); White Blood Cell 8.2 10^3/uL (4.4-10.8)
[2023-01-31 18:31] LABS: BUN/Creatinine Ratio 37.3 (10.0-20.0); Bilirubin, Total 0.6 mg/dL (0.2-1.0); Total Protein 6.2 g/dL (6.4-8.2)
[2023-01-31 19:03] LABS: Urine Bacteria NONE SEEN /hpf (None Seen); Urine Blood Negative /uL (Negative); Urine Hyaline Cast MOD /lpf (0 - 2); Urine WBC 4 /hpf (0 - 5)
[2023-01-31] MEDS ORDERED: ACETAMINOPHEN 325 MG TAB PO ONE (19:45)
[2023-01-31] MEDS ORDERED: cefTRIAXone 1GM/50ML D5W 50 ML IV ONE (21:00)
[2023-01-31] MEDS ORDERED: traMADol HCL 50 MG TAB PO ONE (21:00)
[2023-01-31] MEDS ORDERED: diphenhdrAMINE HCL 50 MG/1 ML VL IV ONE (21:45)
[2023-01-31] MEDS ORDERED: ONDANSETRON HCL 4 MG/2 ML VIAL IV PRN (22:00)
[2023-01-31] MEDS ORDERED: traMADol HCL 50 MG TAB PO PRN (22:00)
[2023-01-31] MEDS ORDERED: DEXTROSE (50%) 50ML SYRG IV PRN (22:00)
[2023-01-31] MEDS: ACCU-CHEK COMFORT CURVE STRIP VI SCH (22:35)
[2023-01-31] MEDS: InsuLIN REG 1unit/0.01ml Soln (100units/ml) SC SCH (22:42)
[2023-01-31] MEDS: levETIRAcetam 500 MG TAB PO SCH (22:42)
[2023-01-31] MEDS: SACUBITRIL-VALSARTAN 24mg/26mg TAB PO SCH (22:42)
[2023-01-31] MEDS: APIXABAN 5 MG TAB PO SCH (22:42)
[2023-02-01] VITALS (8 sets, daily range): BP systolic 94–129; BP diastolic 49–81
[2023-02-01] MEDS: ACETAMINOPHEN 325 MG TAB PO PRN ×2 (05:43→06:23)
[2023-02-01] MEDS: LEVOTHYROXINE SODIUM 112 MCG TAB PO SCH (06:23)
[2023-02-01 06:31] LABS: Basophils # (auto) 0.1 10 ^3/uL (0-0.2); Basophils % (auto) 0.7 % (0.0-2.0); Eosinophils # (auto) 0.2 10 ^3/uL (0-0.8); Eosinophils % (auto) 2.4 % (0.0-7.0); Hematocrit 40.5 % (36.0-46.0); Hemoglobin 13.3 g/dL (12.2-16.2); Lymphocytes # (auto) 1.8 10 ^3/uL (0.4-5.4); Lymphocytes % (auto) 23.1 % (10.0-50.0); Mean Corpuscular Hemoglobin 30.1 pg (28.0-32.0); Mean Corpuscular Hgb Conc. 32.8 g/dL (32.0-36.0); Mean Corpuscular Volume 91.6 fL (80.0-100.0); Monocytes # (auto) 0.7 10 ^3/uL (0-1.3); Monocytes % (auto) 8.5 % (0.0-12.0); Neutrophils # (auto) 5.1 10 ^3/uL (1.6-8.6); Neutrophils % (auto) 65.3 % (37.0-80.0); Nucleated Red Blood Cells % 0.1 %; Red Blood Cells 4.42 10^6/uL (4.0-5.20); Red Cell Distribution Width 14.6 % (11.8-14.3); White Blood Cell 7.7 10^3/uL (4.4-10.8)
[2023-02-01] MEDS: ACCU-CHEK COMFORT CURVE STRIP VI SCH ×4 (06:33→21:47)
[2023-02-01 06:36] LABS: BUN/Creatinine Ratio 38.2 (10.0-20.0); Calcium 9.1 mg/dL (8.5-10.1); Potassium 3.5 mmol/L (3.5-5.1)
[2023-02-01] MEDS: InsuLIN REG 1unit/0.01ml Soln (100units/ml) SC SCH ×4 (06:38→21:48)
[2023-02-01] MEDS: cefTRIAXone 1GM/50ML D5W 50 ML IV SCH (08:07)
[2023-02-01] MEDS: APIXABAN 5 MG TAB PO SCH ×2 (08:08→21:31)
[2023-02-01] MEDS: levETIRAcetam 500 MG TAB PO SCH ×2 (08:09→21:31)
[2023-02-01] MEDS: PANTOPRAZOLE 40 MG TAB PO SCH (08:09)
[2023-02-01] MEDS: FUROSEMIDE 40 MG TAB PO SCH (08:10)
[2023-02-01] MEDS: SACUBITRIL-VALSARTAN 24mg/26mg TAB PO SCH (08:10)
[2023-02-01 13:21] LABS: Alcohol, Urine < 3.0 mg/dL (0-10); Amphetamine Screen, Urine NEGATIVE (NEGATIVE); Barbiturate Scree,Urine NEGATIVE (NEGATIVE); Benzodiazephine Screen, Urine NEGATIVE (NEGATIVE); Cannabinoid Screen, Urine NEGATIVE (NEGATIVE); Cocaine Screen, Urine NEGATIVE (NEGATIVE); Opiate Scree,Urine POSITIVE (NEGATIVE); Phencyclidine Screen, Urine NEGATIVE (NEGATIVE)
[2023-02-01] MEDS: ALLOPURINOL 100 MG TAB PO SCH ×2 (15:00→21:31)
[2023-02-01] MEDS: GABAPENTIN 300 MG CAP PO SCH ×2 (16:29→17:51)
[2023-02-01 16:53] LABS: Urine Bacteria NONE SEEN /hpf (None Seen); Urine Blood Negative /uL (Negative); Urine Hyaline Cast FEW /lpf (0 - 2); Urine Specific Gravity 1.013 (1.001-1.035); Urine WBC 6 /hpf (0 - 5)
[2023-02-01] MEDS ORDERED: GABAPENTIN 300 MG CAP PO SCH ×2 (19:00→22:00)
[2023-02-01] MEDS ORDERED: PNEUMOCOCCAL VACC POLYS 25 MCG/0.5 ML VIAL IM SCH (22:00)
[2023-02-02] MEDS: ACETAMINOPHEN 325 MG TAB PO PRN ×2 (00:24→08:45)
[2023-02-02] MEDS: GABAPENTIN 300 MG CAP PO SCH ×4 (00:24→17:44)
[2023-02-02 05:00] VITALS: BP 108/63
[2023-02-02] MEDS: LEVOTHYROXINE SODIUM 112 MCG TAB PO SCH (06:33)
[2023-02-02] MEDS: ACCU-CHEK COMFORT CURVE STRIP VI SCH ×3 (06:35→17:00)
[2023-02-02] MEDS: InsuLIN REG 1unit/0.01ml Soln (100units/ml) SC SCH ×3 (06:43→17:00)
[2023-02-02 08:00] VITALS: BP 117/66
[2023-02-02] MEDS: levETIRAcetam 500 MG TAB PO SCH (08:44)
[2023-02-02] MEDS: PANTOPRAZOLE 40 MG TAB PO SCH (08:45)
[2023-02-02] MEDS: ALLOPURINOL 100 MG TAB PO SCH (08:46)
[2023-02-02] MEDS: APIXABAN 5 MG TAB PO SCH (08:46)
[2023-02-02] MEDS: FUROSEMIDE 40 MG TAB PO SCH (08:49)
[2023-02-02] MEDS: cefTRIAXone 1GM/50ML D5W 50 ML IV SCH (08:51)
[2023-02-02 09:00] VITALS: BP 117/66
[2023-02-02 13:00] VITALS: BP 118/69
[2023-02-02 15:04] LABS: BUN/Creatinine Ratio 29.3 (10.0-20.0); Calcium 9.4 mg/dL (8.5-10.1); Potassium 4.6 mmol/L (3.5-5.1)
[2023-02-02 16:30] VITALS: BP 117/66
[2023-02-02 16:39] VITALS: BP 129/64
[2023-02-02] MEDS ORDERED: PNEUMOCOCCAL VACC POLYS 25 MCG/0.5 ML VIAL IM ONE (17:00)
[2023-02-04 12:31] LABS: Hepatitis C Antibody Negative (Negative)
== END 2023-02-02 18:00 | disposition home or self-care (01) | DRG 682 ==
LOC: EDBD 16:06 → ER 16:06 → EDUNIT# 16:06 → OVERFLOW 22:03 → WEST WING 23:38
PROVIDERS: ADMIT Nurse Practitioner; ATTEND Family Medicine
DX: N17.9 Acute kidney failure, unspecified (principal); G93.41 Metabolic encephalopathy; I50.43 Acute on chronic combined systolic (congestive) and diastolic (congestive) heart failure; N39.0 Urinary tract infection, site not specified; J44.1 Chronic obstructive pulmonary disease with (acute) exacerbation; I13.0 Hypertensive heart and chronic kidney disease with heart failure and stage 1 through stage 4 chronic kidney disease, or unspecified chronic kidney disease; T50.915A Adverse effect of multiple unspecified drugs, medicaments and biological substances, initial encounter; E03.9 Hypothyroidism, unspecified; E78.00 Pure hypercholesterolemia, unspecified; M10.9 Gout, unspecified; I25.10 Atherosclerotic heart disease of native coronary artery without angina pectoris; E11.9 Type 2 diabetes mellitus without complications; Z23 Encounter for immunization; R55 Syncope and collapse; I48.91 Unspecified atrial fibrillation; Z88.5 Allergy status to narcotic agent; I25.2 Old myocardial infarction; Z80.1 Family history of malignant neoplasm of trachea, bronchus and lung; Z83.3 Family history of diabetes mellitus; Z91.041 Radiographic dye allergy status; Z91.018 Allergy to other foods; I95.2 Hypotension due to drugs; E11.22 Type 2 diabetes mellitus with diabetic chronic kidney disease; N18.31 Chronic kidney disease, stage 3a; E11.65 Type 2 diabetes mellitus with hyperglycemia
CPT/HCPCS: 36415; 70450; 71045; 71250; 72125; 74176; 80048; 80053; 80307; 81001; 82962; 83605; 83690; 83735; 83880; 84484; 84550; 85025; 85379; 86803; 87040; 87081; 87086; 87340; 93005; G0378; J0696; J1815

== ENCOUNTER 2023-02-13 20:19 | Inpatient (IN) | payer MEDICARE, MEDICAID ==
[~2023-02-13] VITALS: Ht 162.6 cm; Wt 55.7 kg
[2023-02-13 20:41] VITALS: PULSE 73; RESP 12; O2SAT 98
[2023-02-13] MEDS ORDERED: SODIUM CHLORIDE 0.9% 1,000 ML IV ONE (20:45)
[2023-02-13 21:31] LABS: Basophils # (auto) 0 10 ^3/uL (0-0.2); Basophils % (auto) 0.4 % (0.0-2.0); Eosinophils # (auto) 0.1 10 ^3/uL (0-0.8); Eosinophils % (auto) 0.8 % (0.0-7.0); Hematocrit 38.7 % (36.0-46.0); Hemoglobin 12.5 g/dL (12.2-16.2); Lymphocytes % (auto) 19.4 % (10.0-50.0); Mean Corpuscular Hemoglobin 29.6 pg (28.0-32.0); Mean Corpuscular Hgb Conc. 32.4 g/dL (32.0-36.0); Mean Corpuscular Volume 91.4 fL (80.0-100.0); Monocytes # (auto) 0.9 10 ^3/uL (0-1.3); Monocytes % (auto) 8.4 % (0.0-12.0); Neutrophils # (auto) 7.2 10 ^3/uL (1.6-8.6); Nucleated Red Blood Cells % 0.3 %; Red Blood Cells 4.24 10^6/uL (4.0-5.20); Red Cell Distribution Width 15.2 % (11.8-14.3); White Blood Cell 10.2 10^3/uL (4.4-10.8)
[2023-02-13 21:46] LABS: Albumin 3.3 g/dL (3.4-5.0); BUN/Creatinine Ratio 29.2 (10.0-20.0); Calcium 8.4 mg/dL (8.5-10.1); Potassium 5.2 mmol/L (3.5-5.1)
[2023-02-13 21:48] LABS: Bilirubin, Total 0.3 mg/dL (0.2-1.0); Total Protein 6.6 g/dL (6.4-8.2)
[2023-02-13] MEDS: NOREPINEPHRINE 8 MG/250ML KIT 250 ML IV SCH (22:16)
[2023-02-14] VITALS (44 sets, daily range): BP systolic 88–151; BP diastolic 41–70; PULSE 68–156; RESP 10–87; TEMP 97.7–98; O2SAT 93–100
[2023-02-14] MEDS ORDERED: NALOXONE HCL 1MG/ML 2ML SYRINGE IV ONE ×2 (00:30→02:45)
[2023-02-14] MEDS ORDERED: LACTATED RINGER'S 2,750 ML IV ONE (00:30)
[2023-02-14] MEDS ORDERED: ALBUMIN 25% 100 ML IV ONE ×2 (00:30→02:45)
[2023-02-14] MEDS ORDERED: DEXTROSE (50%) 50ML SYRG IV ONE (02:45)
[2023-02-14] MEDS ORDERED: CALCIUM CHL 100MG/ML 1,000 MG in D5W 5% 100 ML IV ONE (02:45)
[2023-02-14] MEDS ORDERED: InsuLIN REG 1unit/0.01ml Soln (100units/ml) IV ONE (02:45)
[2023-02-14 02:55] LABS: Urine Bacteria FEW /hpf (None Seen); Urine Blood Negative /uL (Negative); Urine Specific Gravity 1.006 (1.001-1.035); Urine WBC <1 /hpf (0 - 5)
[2023-02-14] MEDS ORDERED: CALCIUM GLUC 1,000mg/50ml-NS 50 ML IV ONE (04:00)
[2023-02-14] MEDS ORDERED: MORPHINE SULFATE INJ 2 MG/ml SYRG IV PRN (05:45)
[2023-02-14] MEDS ORDERED: NITROGLYCERIN 0.4 MG SL TAB SL PRN (05:45)
[2023-02-14] MEDS ORDERED: ONDANSETRON HCL 4 MG/2 ML VIAL IV PRN (05:45)
[2023-02-14] MEDS ORDERED: DEXTROSE (50%) 50ML SYRG IV PRN (05:45)
[2023-02-14] MEDS: GABAPENTIN 300 MG CAP PO SCH ×3 (06:41→22:32)
[2023-02-14] MEDS: InsuLIN REG 1unit/0.01ml Soln (100units/ml) SC SCH ×4 (06:42→22:36)
[2023-02-14] MEDS: LEVOTHYROXINE SODIUM 112 MCG TAB PO SCH (06:42)
[2023-02-14] MEDS: ACCU-CHEK COMFORT CURVE STRIP VI SCH ×4 (06:43→22:32)
[2023-02-14 08:03] LABS: BUN/Creatinine Ratio 30.6 (10.0-20.0); Calcium 8.5 mg/dL (8.5-10.1)
[2023-02-14] MEDS: levETIRAcetam 500 MG TAB PO SCH ×2 (09:47→22:32)
[2023-02-14] MEDS ORDERED: PANTOPRAZOLE 40 MG TAB PO SCH (10:00)
[2023-02-14] MEDS: NOREPINEPHRINE 8 MG/250ML KIT 250 ML IV SCH (13:28)
[2023-02-14 13:54] LABS: Alcohol, Urine < 3.0 mg/dL (0-10); Amphetamine Screen, Urine NEGATIVE (NEGATIVE); Barbiturate Scree,Urine NEGATIVE (NEGATIVE); Benzodiazephine Screen, Urine NEGATIVE (NEGATIVE); Cannabinoid Screen, Urine NEGATIVE (NEGATIVE); Cocaine Screen, Urine NEGATIVE (NEGATIVE); Opiate Scree,Urine NEGATIVE (NEGATIVE); Phencyclidine Screen, Urine NEGATIVE (NEGATIVE)
[2023-02-14] MEDS: RIVAROXABAN 15 MG TAB PO SCH (18:08)
[2023-02-14] MEDS: DOPamine 1600MCG/ML D5W 250 ML IV SCH (19:57)
[2023-02-14] MEDS: ATORVASTATIN 20 MG TAB PO SCH (22:32)
[2023-02-15] VITALS (65 sets, daily range): BP systolic 89–130; BP diastolic 43–73; PULSE 75–108; RESP 9–22; TEMP 97.7–99.7; O2SAT 92–100
[2023-02-15] MEDS: HYDROcodone-ACET 5/325MG TAB PO PRN ×3 (00:52→16:10)
[2023-02-15] MEDS: ACETAMINOPHEN 325 MG TAB PO PRN (03:51)
[2023-02-15 04:16] LABS: Basophils # (auto) 0 10 ^3/uL (0-0.2); Basophils % (auto) 0.3 % (0.0-2.0); Eosinophils # (auto) 0.2 10 ^3/uL (0-0.8); Eosinophils % (auto) 2.3 % (0.0-7.0); Hematocrit 38.2 % (36.0-46.0); Hemoglobin 12.6 g/dL (12.2-16.2); Lymphocytes # (auto) 1.7 10 ^3/uL (0.4-5.4); Lymphocytes % (auto) 17.5 % (10.0-50.0); Mean Corpuscular Hemoglobin 30.1 pg (28.0-32.0); Mean Corpuscular Volume 91.2 fL (80.0-100.0); Monocytes # (auto) 0.5 10 ^3/uL (0-1.3); Monocytes % (auto) 5.5 % (0.0-12.0); Neutrophils # (auto) 7.2 10 ^3/uL (1.6-8.6); Neutrophils % (auto) 74.4 % (37.0-80.0); Nucleated Red Blood Cells % 0.1 %; Red Blood Cells 4.19 10^6/uL (4.0-5.20); White Blood Cell 9.6 10^3/uL (4.4-10.8)
[2023-02-15 04:26] LABS: Albumin 3.7 g/dL (3.4-5.0); Calcium 9.5 mg/dL (8.5-10.1)
[2023-02-15] MEDS ORDERED: KEP500T PO (04:28)
[2023-02-15 04:29] LABS: BUN/Creatinine Ratio 28.5 (10.0-20.0); Bilirubin, Total 0.7 mg/dL (0.2-1.0); Total Protein 7.1 g/dL (6.4-8.2)
[2023-02-15] MEDS ORDERED: ASPI-543 PO (04:35)
[2023-02-15] MEDS ORDERED: SACU1TAB PO ×2 (04:37→15:10)
[2023-02-15] MEDS ORDERED: FURO1TAB31 PO (04:38)
[2023-02-15] MEDS ORDERED: BACL10TA PO ×2 (04:40→15:11)
[2023-02-15] MEDS ORDERED: TIZA4CAP PO (04:40)
[2023-02-15] MEDS ORDERED: HYDR-4798 PO ×2 (04:47→15:10)
[2023-02-15] MEDS ORDERED: POTA8TAB38 PO (04:47)
[2023-02-15] MEDS ORDERED: ALL300T PO (04:47)
[2023-02-15] MEDS ORDERED: LEVO112T4 PO ×2 (04:48→15:11)
[2023-02-15] MEDS: ACCU-CHEK COMFORT CURVE STRIP VI SCH ×4 (06:19→21:52)
[2023-02-15] MEDS: LEVOTHYROXINE SODIUM 112 MCG TAB PO SCH (06:20)
[2023-02-15] MEDS: GABAPENTIN 300 MG CAP PO SCH ×3 (06:20→21:53)
[2023-02-15] MEDS: InsuLIN REG 1unit/0.01ml Soln (100units/ml) SC SCH ×4 (06:21→22:05)
[2023-02-15] MEDS: levETIRAcetam 500 MG TAB PO SCH ×2 (08:50→21:53)
[2023-02-15] MEDS ORDERED: AMIODARONE HCL 200 MG TAB PO ONE (11:15)
[2023-02-15] MEDS ORDERED: OFL50TS OT (15:10)
[2023-02-15] MEDS ORDERED: PRED1SUS4 OP (15:10)
[2023-02-15] MEDS ORDERED: LEVE500T40 PO (15:11)
[2023-02-15] MEDS ORDERED: RIV15T PO (15:11)
[2023-02-15] MEDS ORDERED: FURO40TA4 PO (15:11)
[2023-02-15] MEDS ORDERED: ATOR10TA PO (15:11)
[2023-02-15] MEDS ORDERED: TIZA4CAP7 PO (15:11)
[2023-02-15] MEDS ORDERED: BUMEX2MG PO (15:11)
[2023-02-15] MEDS ORDERED: CELE200C PO (15:11)
[2023-02-15] MEDS ORDERED: POTA1TAB61 PO (15:11)
[2023-02-15] MEDS ORDERED: ALLO300T2 PO (15:11)
[2023-02-15] MEDS ORDERED: LACTULOSE 20Gm/30ML SOLN ONE (16:09)
[2023-02-15] MEDS: LACTULOSE 20Gm/30ML SOLN PO SCH (16:10)
[2023-02-15] MEDS: DOPamine 1600MCG/ML D5W 250 ML IV SCH (17:33)
[2023-02-15] MEDS: prednisoLONE ACETATE 1% OPTH SUSP 5ML LEFTEYE SCH ×2 (17:33→21:54)
[2023-02-15] MEDS: CIPROFLOXACIN 0.3%OPTH(EYE) SOL 5ML RIGHTEYE SCH ×2 (17:33→21:54)
[2023-02-15] MEDS: RIVAROXABAN 15 MG TAB PO SCH (17:34)
[2023-02-15] MEDS ORDERED: LEVEMIR SC (18:02)
[2023-02-15] MEDS ORDERED: INSU100I28 IJ (18:03)
[2023-02-15] MEDS: AMIODARONE HCL 200 MG TAB PO SCH (21:53)
[2023-02-15] MEDS: ATORVASTATIN 20 MG TAB PO SCH (21:53)
[2023-02-16] VITALS (9 sets, daily range): BP systolic 107–128; BP diastolic 53–71; PULSE 75–85; RESP 11–16; TEMP 97.2–98; O2SAT 98–100
[2023-02-16] MEDS: ACETAMINOPHEN 325 MG TAB PO PRN (04:08)
[2023-02-16 04:48] LABS: Albumin 3.5 g/dL (3.4-5.0); Calcium 9.3 mg/dL (8.5-10.1); Potassium 4.1 mmol/L (3.5-5.1)
[2023-02-16 04:54] LABS: BUN/Creatinine Ratio 22.1 (10.0-20.0); Bilirubin, Total 0.6 mg/dL (0.2-1.0); Total Protein 6.9 g/dL (6.4-8.2)
[2023-02-16] MEDS: prednisoLONE ACETATE 1% OPTH SUSP 5ML LEFTEYE SCH ×4 (05:36→22:03)
[2023-02-16] MEDS: CIPROFLOXACIN 0.3%OPTH(EYE) SOL 5ML RIGHTEYE SCH ×4 (05:36→22:02)
[2023-02-16 05:42] LABS: Basophils # (auto) 0 10 ^3/uL (0-0.2); Basophils % (auto) 0.3 % (0.0-2.0); Eosinophils # (auto) 0.2 10 ^3/uL (0-0.8); Lymphocytes # (auto) 2.2 10 ^3/uL (0.4-5.4); Lymphocytes % (auto) 27.6 % (10.0-50.0); Mean Corpuscular Hemoglobin 29.6 pg (28.0-32.0); Mean Corpuscular Hgb Conc. 33.2 g/dL (32.0-36.0); Mean Corpuscular Volume 89.2 fL (80.0-100.0); Monocytes # (auto) 0.5 10 ^3/uL (0-1.3); Monocytes % (auto) 6.9 % (0.0-12.0); Neutrophils # (auto) 4.9 10 ^3/uL (1.6-8.6); Neutrophils % (auto) 62.2 % (37.0-80.0); Nucleated Red Blood Cells % 0.1 %; Red Blood Cells 4.37 10^6/uL (4.0-5.20); White Blood Cell 7.9 10^3/uL (4.4-10.8)
[2023-02-16] MEDS: ACCU-CHEK COMFORT CURVE STRIP VI SCH ×4 (06:18→22:04)
[2023-02-16] MEDS: LEVOTHYROXINE SODIUM 112 MCG TAB PO SCH (06:18)
[2023-02-16] MEDS: GABAPENTIN 300 MG CAP PO SCH ×3 (06:18→22:01)
[2023-02-16] MEDS: HYDROcodone-ACET 5/325MG TAB PO PRN (06:23)
[2023-02-16] MEDS: InsuLIN REG 1unit/0.01ml Soln (100units/ml) SC SCH ×4 (06:26→22:21)
[2023-02-16] MEDS: levETIRAcetam 500 MG TAB PO SCH ×2 (11:06→22:02)
[2023-02-16] MEDS: AMIODARONE HCL 200 MG TAB PO SCH ×2 (11:06→22:02)
[2023-02-16] MEDS: FUROSEMIDE 20 MG/2 ML VIAL IV SCH (11:07)
[2023-02-16] MEDS ORDERED: RIVAROXABAN 20 MG TAB PO SCH (18:00)
[2023-02-16] MEDS: DOPamine 1600MCG/ML D5W 250 ML IV SCH (20:09)
[2023-02-16] MEDS: ATORVASTATIN 20 MG TAB PO SCH (22:02)
[2023-02-17] MEDS: ACETAMINOPHEN 325 MG TAB PO PRN ×2 (01:43→17:13)
[2023-02-17 05:00] VITALS: BP 100/55; PULSE 79; RESP 16; TEMP 98; O2SAT 99
[2023-02-17] MEDS: GABAPENTIN 300 MG CAP PO SCH ×2 (06:34→13:43)
[2023-02-17] MEDS: LEVOTHYROXINE SODIUM 112 MCG TAB PO SCH (06:34)
[2023-02-17] MEDS: HYDROcodone-ACET 5/325MG TAB PO PRN (06:34)
[2023-02-17] MEDS: prednisoLONE ACETATE 1% OPTH SUSP 5ML LEFTEYE SCH ×3 (06:36→17:35)
[2023-02-17] MEDS: CIPROFLOXACIN 0.3%OPTH(EYE) SOL 5ML RIGHTEYE SCH ×2 (06:36→10:57)
[2023-02-17] MEDS: ACCU-CHEK COMFORT CURVE STRIP VI SCH ×3 (06:41→17:00)
[2023-02-17] MEDS: InsuLIN REG 1unit/0.01ml Soln (100units/ml) SC SCH ×3 (06:41→17:00)
[2023-02-17 08:00] VITALS: BP 103/67; PULSE 100; RESP 16; RESP 18; TEMP 97.5; O2SAT 100; O2SAT 95
[2023-02-17] MEDS: LACTULOSE 20Gm/30ML SOLN PO SCH (10:38)
[2023-02-17] MEDS: AMIODARONE HCL 200 MG TAB PO SCH (10:38)
[2023-02-17] MEDS: levETIRAcetam 500 MG TAB PO SCH (10:38)
[2023-02-17] MEDS: FUROSEMIDE 20 MG/2 ML VIAL IV SCH (10:39)
[2023-02-17 13:00] VITALS: BP 104/52; PULSE 85; RESP 18; TEMP 97.6; O2SAT 93
[2023-02-17] MEDS ORDERED: ATOR20TA50 PO (13:18)
[2023-02-17] MEDS ORDERED: AMIO200T33 PO (13:18)
[2023-02-17] MEDS ORDERED: GABA-1250 PO (13:18)
[2023-02-17] MEDS ORDERED: RIV20T PO (13:18)
[2023-02-17] MEDS ORDERED: LEVEMIR SC (13:18)
[2023-02-17 16:32] VITALS: BP 103/67; TEMP 36.4
[2023-02-17] MEDS ORDERED: MIDODRINE HCL 10 MG TAB PO SCH (18:00)
== END 2023-02-17 17:48 | disposition home or self-care (01) | DRG 291 ==
LOC: EDBD 20:19 → ER 20:19 → TELE 02-14 05:51 → ICU WEST 02-14 13:14 → TELE-WESTW 02-16 05:53
PROVIDERS: ADMIT Nurse Practitioner Acute Care; ATTEND Nurse Practitioner Acute Care
DX: I13.0 Hypertensive heart and chronic kidney disease with heart failure and stage 1 through stage 4 chronic kidney disease, or unspecified chronic kidney disease (principal); G93.41 Metabolic encephalopathy; N17.0 Acute kidney failure with tubular necrosis; I50.21 Acute systolic (congestive) heart failure; J44.1 Chronic obstructive pulmonary disease with (acute) exacerbation; I95.9 Hypotension, unspecified; I25.5 Ischemic cardiomyopathy; E66.01 Morbid (severe) obesity due to excess calories; E11.40 Type 2 diabetes mellitus with diabetic neuropathy, unspecified; E11.65 Type 2 diabetes mellitus with hyperglycemia; E11.22 Type 2 diabetes mellitus with diabetic chronic kidney disease; E86.0 Dehydration; I48.0 Paroxysmal atrial fibrillation; E87.5 Hyperkalemia; Z66 Do not resuscitate; E78.00 Pure hypercholesterolemia, unspecified; E03.9 Hypothyroidism, unspecified; I25.10 Atherosclerotic heart disease of native coronary artery without angina pectoris; M10.9 Gout, unspecified; N18.32 Chronic kidney disease, stage 3b; Z79.01 Long term (current) use of anticoagulants; I25.2 Old myocardial infarction; Z79.4 Long term (current) use of insulin; Z80.1 Family history of malignant neoplasm of trachea, bronchus and lung; Z82.49 Family history of ischemic heart disease and other diseases of the circulatory system; Z83.3 Family history of diabetes mellitus; Z88.6 Allergy status to analgesic agent; Z91.199 Patient's noncompliance with other medical treatment and regimen due to unspecified reason; Z95.0 Presence of cardiac pacemaker; Z98.61 Coronary angioplasty status; Z99.81 Dependence on supplemental oxygen; Z88.5 Allergy status to narcotic agent; Z88.8 Allergy status to other drugs, medicaments and biological substances; Z68.21 Body mass index [BMI] 21.0-21.9, adult
CPT/HCPCS: 36415; 36600; 71045; 80048; 80053; 80307; 81001; 82805; 82962; 83880; 84484; 85025; 87081; 93005; 93306; 96361; 96365; 96375; G0378; J1815; J7060; P9047

== ENCOUNTER 2024-02-04 14:57 | Inpatient (IN) | payer OTHER, MEDICAID ==
[~2024-02-04] VITALS: Ht 162.6 cm; Wt 117.4 kg
[~2024-02-04 14:57] MED LIST changes: -ALBU2TAB11 PO; -ALLO100T PO; +ALLO300T2 PO; -AMIO100T3 PO; +AMIO200T33 PO; -APIX5TAB PO; +ASPI-543 PO; +ATOR20TA50 PO; -ATOR40TA52 PO; +BACL10TA PO; -BUME2TAB5 PO; +BUMEX2MG PO; +CELE200C PO; -DIGO0.12 PO; +FURO40TA4 PO; +HYDR-4798 PO; -HYDR-531 PO; +INSU100I28 IJ; -LATA0.008 EACHEYE; +LEVE500T40 PO; +LEVEMIR SC; +LEVO112T4 PO; -LEVO150T10 PO; +MECL12.586 PO; -MECL1TAB31 PO; +MUPI2OIN2 EX; -NITR0.4S29 SL; +OFL50TS OT; -OME20T PO; +POTA-211 PO; +POTA-215 PO; -POTA10TA51 PO; +PRED1SUS4 OP; +RIV20T PO; +SACU1TAB PO; +SULF1TAB75 PO; +TIZA4CAP7 PO
[2024-02-04 16:44] LABS: Basophils # (auto) 0 10 ^3/uL (0-0.2); Basophils % (auto) 0.5 % (0.0-2.0); Eosinophils # (auto) 0.2 10 ^3/uL (0-0.8); Eosinophils % (auto) 2.3 % (0.0-7.0); Hematocrit 34.7 % (36.0-46.0); Hemoglobin 11.4 g/dL (12.2-16.2); Lymphocytes # (auto) 1.4 10 ^3/uL (0.4-5.4); Lymphocytes % (auto) 20.9 % (10.0-50.0); Mean Corpuscular Hemoglobin 30.2 pg (28.0-32.0); Mean Corpuscular Volume 91.6 fL (80.0-100.0); Monocytes # (auto) 0.5 10 ^3/uL (0-1.3); Monocytes % (auto) 7.7 % (0.0-12.0); Neutrophils # (auto) 4.7 10 ^3/uL (1.6-8.6); Neutrophils % (auto) 68.6 % (37.0-80.0); Red Blood Cells 3.79 10^6/uL (4.0-5.20); Red Cell Distribution Width 17.2 % (11.8-14.3); White Blood Cell 6.9 10^3/uL (4.4-10.8)
[2024-02-04 17:01] LABS: Alanine Aminotransferase 40 U/L (7-40); Albumin 4.3 g/dL (3.2-4.8); Alkaline Phosphatase 90 U/L (46-116); Anion Gap 6 (5-15); Aspartate Aminotransferase 37 U/L (13-40); BUN/Creatinine Ratio 27.8 (10.0-20.0); Bilirubin, Total 0.3 mg/dL (0.2-1.0); Calcium 9.9 mg/dL (8.5-10.1); Carbon Dioxide 30 mmol/L (20-30); Chloride 105 mmol/L (98-107); Glucose 137 mg/dL (74-106); Potassium 5.1 mmol/L (3.5-5.1); Sodium 141 mmol/L (136-145); Total Protein 6.5 g/dL (5.7-8.2)
[2024-02-04 17:05] LABS: Blood Urea Nitrogen 89 mg/dL (9-23)
[2024-02-04 20:30] VITALS: PULSE 76; RESP 13; O2SAT 97
[2024-02-04 20:48] LABS: Urine Bacteria FEW /hpf (None Seen); Urine Blood Negative /uL (Negative); Urine Clarity Clear (Clear); Urine Color Colorless (Yellow); Urine Hyaline Cast MANY /lpf (0 - 2); Urine Protein, UAD Negative (Negative); Urine Urobilinogen Normal (Negative); Urine WBC <1 /hpf (0 - 5)
[2024-02-04] MEDS: cefTRIAXone 1GM/50ML D5W 50 ML IV ONE (22:00)
[2024-02-04] MEDS ORDERED: DOCUSATE SOD 100 MG CAP PO PRN (23:15)
[2024-02-04] MEDS ORDERED: ONDANSETRON HCL 4 MG/2 ML VIAL IV PRN (23:15)
[2024-02-04] MEDS ORDERED: DEXTROSE (50%) 50ML SYRG IV PRN (23:15)
[2024-02-04] MEDS ORDERED: hydrALAZINE HCL 20 MG/ML VL IV PRN (23:15)
[2024-02-04 23:22] VITALS: BP 103/55; PULSE 68; RESP 16; O2SAT 98
[2024-02-04] MEDS ORDERED: MORPHINE SULFATE INJ 2 MG/ml SYRG IV PRN (23:30)
[2024-02-04] MEDS ORDERED: NITROGLYCERIN 0.4 MG SL TAB SL PRN (23:30)
[2024-02-05] VITALS (10 sets, daily range): BP systolic 98–122; BP diastolic 46–65; PULSE 67–76; RESP 15–19; TEMP 97.4–98; O2SAT 90–100
[2024-02-05 06:16] LABS: Basophils # (auto) 0 10 ^3/uL (0-0.2); Basophils % (auto) 0.6 % (0.0-2.0); Eosinophils # (auto) 0.2 10 ^3/uL (0-0.8); Eosinophils % (auto) 2.7 % (0.0-7.0); Hematocrit 32.6 % (36.0-46.0); Hemoglobin 10.8 g/dL (12.2-16.2); Lymphocytes # (auto) 1.6 10 ^3/uL (0.4-5.4); Lymphocytes % (auto) 23.3 % (10.0-50.0); Mean Corpuscular Hemoglobin 30.4 pg (28.0-32.0); Mean Corpuscular Volume 91.9 fL (80.0-100.0); Monocytes # (auto) 0.6 10 ^3/uL (0-1.3); Monocytes % (auto) 9.4 % (0.0-12.0); Neutrophils # (auto) 4.3 10 ^3/uL (1.6-8.6); Red Blood Cells 3.54 10^6/uL (4.0-5.20); Red Cell Distribution Width 17.2 % (11.8-14.3); White Blood Cell 6.7 10^3/uL (4.4-10.8)
[2024-02-05] MEDS: InsuLIN REG 1unit/0.01ml Soln (100units/ml) SC SCH (06:28)
[2024-02-05] MEDS: SODIUM CHLOR 0.9% PF (SALINE LOCK) 10ML VIAL/SYR IV SCH (06:28)
[2024-02-05] MEDS: ACCU-CHEK COMFORT CURVE STRIP VI SCH (06:28)
[2024-02-05] MEDS: LEVOTHYROXINE SODIUM 100 MCG TAB PO SCH (06:35)
[2024-02-05 06:36] LABS: Alanine Aminotransferase 36 U/L (7-40); Albumin 4.2 g/dL (3.2-4.8); Alkaline Phosphatase 76 U/L (46-116); Anion Gap 4 (5-15); Aspartate Aminotransferase 31 U/L (13-40); BUN/Creatinine Ratio 25.6 (10.0-20.0); Calcium 9.6 mg/dL (8.5-10.1); Carbon Dioxide 32 mmol/L (20-30); Chloride 107 mmol/L (98-107); Glucose 92 mg/dL (74-106); Potassium 4.5 mmol/L (3.5-5.1); Sodium 143 mmol/L (136-145)
[2024-02-05 06:37] LABS: Bilirubin, Total 0.4 mg/dL (0.2-1.0); Total Protein 6.6 g/dL (5.7-8.2)
[2024-02-05 06:51] LABS: Blood Urea Nitrogen 76 mg/dL (9-23)
[2024-02-05] MEDS: FAMOTIDINE (10MG/ML) 2ML VL IV SCH (09:00)
[2024-02-05] MEDS: FUROSEMIDE 40 MG/4 ML VIAL IV SCH (09:00)
[2024-02-05] MEDS: B-COMPLEX W/ C & FOLIC ACID(NEPHROVITE TAB) PO SCH (09:01)
[2024-02-05] MEDS: ACETAMINOPHEN 325 MG TAB PO PRN (09:01)
[2024-02-05] MEDS: CARVEDILOL 3.125 MG TAB PO SCH (09:02)
[2024-02-05] MEDS: CLOPIDOGREL BISULFATE 75 MG TAB PO SCH (09:08)
[2024-02-05 09:41] LABS: Protein, Urine 6.7 mg/dL (0.0-11.9)
[2024-02-05 09:44] LABS: Creatinine, Urine 35.5 mg/dL (30.0-125.0)
[2024-02-05] MEDS: RIVAROXABAN 15 MG TAB PO SCH (18:02)
[2024-02-05] MEDS: cefTRIAXone 1GM/50ML D5W 50 ML IV SCH (21:15)
[2024-02-05] MEDS: GABAPENTIN 300 MG CAP PO SCH (21:48)
[2024-02-05] MEDS: ATORVASTATIN 20 MG TAB PO SCH (21:48)
[2024-02-05] MEDS: AMIODARONE HCL 200 MG TAB PO SCH (21:49)
[2024-02-05] MEDS: levETIRAcetam 500 MG TAB PO SCH (21:49)
[2024-02-05] MEDS ORDERED: ATORVASTATIN 20 MG TAB PO SCH (22:00)
[2024-02-06] VITALS (13 sets, daily range): BP systolic 97–125; BP diastolic 58–67; PULSE 69–82; RESP 15–18; TEMP 97.4–97.9; O2SAT 94–98
[2024-02-06] MEDS: LEVOTHYROXINE SODIUM 112 MCG TAB PO SCH (06:00)
[2024-02-06 06:20] LABS: Basophils # (auto) 0 10 ^3/uL (0-0.2); Basophils % (auto) 0.7 % (0.0-2.0); Eosinophils # (auto) 0.2 10 ^3/uL (0-0.8); Eosinophils % (auto) 3.5 % (0.0-7.0); Hematocrit 33.5 % (36.0-46.0); Hemoglobin 10.9 g/dL (12.2-16.2); Lymphocytes # (auto) 1.2 10 ^3/uL (0.4-5.4); Lymphocytes % (auto) 18.4 % (10.0-50.0); Mean Corpuscular Hemoglobin 29.9 pg (28.0-32.0); Mean Corpuscular Hgb Conc. 32.6 g/dL (32.0-36.0); Mean Corpuscular Volume 91.9 fL (80.0-100.0); Monocytes # (auto) 0.6 10 ^3/uL (0-1.3); Monocytes % (auto) 8.6 % (0.0-12.0); Neutrophils # (auto) 4.5 10 ^3/uL (1.6-8.6); Neutrophils % (auto) 68.8 % (37.0-80.0); Nucleated Red Blood Cells % 0.1 %; Red Blood Cells 3.65 10^6/uL (4.0-5.20); Red Cell Distribution Width 17.7 % (11.8-14.3); White Blood Cell 6.6 10^3/uL (4.4-10.8)
[2024-02-06 06:24] LABS: Alanine Aminotransferase 40 U/L (7-40); Albumin 4.3 g/dL (3.2-4.8); Alkaline Phosphatase 77 U/L (46-116); Anion Gap 6 (5-15); Aspartate Aminotransferase 28 U/L (13-40); Calcium 9.9 mg/dL (8.5-10.1); Carbon Dioxide 31 mmol/L (20-30); Chloride 106 mmol/L (98-107); Glucose 135 mg/dL (74-106); Potassium 4.2 mmol/L (3.5-5.1); Sodium 143 mmol/L (136-145)
[2024-02-06 06:25] LABS: Bilirubin, Total 0.6 mg/dL (0.2-1.0); Total Protein 6.8 g/dL (5.7-8.2)
[2024-02-06 06:29] LABS: Blood Urea Nitrogen 60 mg/dL (9-23)
[2024-02-06] MEDS: ALLOPURINOL 100 MG TAB PO SCH (08:56)
[2024-02-06] MEDS: SALINE 0.65 % NASAL SPRAY 45ML BOTTLE EACHNOSTRI SCH (12:00)
[2024-02-06] MEDS ORDERED: LEVEMIR SC (14:25)
[2024-02-06] MEDS ORDERED: GABA-1250 PO (14:25)
[2024-02-06] MEDS: ALBUTEROL SULF 2.5 MG/0.5ML(0.5%) NEB SOLN NEB PRN (18:50)
[2024-02-06] MEDS: FAMOTIDINE 20 MG TAB PO SCH (21:02)
[2024-02-07] VITALS (7 sets, daily range): BP systolic 113–117; BP diastolic 55–71; PULSE 74–86; RESP 16–26; TEMP 36.6; O2SAT 94–99
[2024-02-07 05:23] LABS: Basophils # (auto) 0.1 10 ^3/uL (0-0.2); Basophils % (auto) 0.6 % (0.0-2.0); Eosinophils # (auto) 0.2 10 ^3/uL (0-0.8); Eosinophils % (auto) 2.7 % (0.0-7.0); Hematocrit 35.4 % (36.0-46.0); Hemoglobin 11.6 g/dL (12.2-16.2); Lymphocytes % (auto) 24.1 % (10.0-50.0); Mean Corpuscular Hemoglobin 30.1 pg (28.0-32.0); Mean Corpuscular Hgb Conc. 32.9 g/dL (32.0-36.0); Mean Corpuscular Volume 91.6 fL (80.0-100.0); Monocytes # (auto) 0.6 10 ^3/uL (0-1.3); Monocytes % (auto) 7.6 % (0.0-12.0); Neutrophils # (auto) 5.3 10 ^3/uL (1.6-8.6); Nucleated Red Blood Cells % 0.1 %; Red Blood Cells 3.86 10^6/uL (4.0-5.20); Red Cell Distribution Width 17.4 % (11.8-14.3); White Blood Cell 8.2 10^3/uL (4.4-10.8)
[2024-02-07 05:39] LABS: Alanine Aminotransferase 39 U/L (7-40); Albumin 4.4 g/dL (3.2-4.8); Alkaline Phosphatase 76 U/L (46-116); Anion Gap 7 (5-15); Aspartate Aminotransferase 26 U/L (13-40); BUN/Creatinine Ratio 25.5 (10.0-20.0); Bilirubin, Total 0.7 mg/dL (0.2-1.0); Blood Urea Nitrogen 55 mg/dL (9-23); Carbon Dioxide 32 mmol/L (20-30); Chloride 104 mmol/L (98-107); Glucose 129 mg/dL (74-106); Sodium 143 mmol/L (136-145)
[2024-02-07] MEDS ORDERED: FURO1TAB31 PO (15:49)
[2024-02-07] MEDS ORDERED: DOXY1CAP57 PO (15:49)
[2024-02-07] MEDS ORDERED: BACDST PO (15:49)
[2024-02-16] MEDS ORDERED: BUMEX2MG (08:30)
== END 2024-02-07 16:37 | disposition home or self-care (01) | DRG 682 ==
LOC: EDBD 14:57 → ER 14:57 → TELE 23:25 → TELE-CENTR 23:25
PROVIDERS: ADMIT Internal Medicine; ATTEND Internal Medicine
DX: N17.9 Acute kidney failure, unspecified (principal); I50.43 Acute on chronic combined systolic (congestive) and diastolic (congestive) heart failure; J96.21 Acute and chronic respiratory failure with hypoxia; I13.2 Hypertensive heart and chronic kidney disease with heart failure and with stage 5 chronic kidney disease, or end stage renal disease; Z68.41 Body mass index [BMI] 40.0-44.9, adult; N30.01 Acute cystitis with hematuria; N18.5 Chronic kidney disease, stage 5; E03.9 Hypothyroidism, unspecified; E11.22 Type 2 diabetes mellitus with diabetic chronic kidney disease; E66.01 Morbid (severe) obesity due to excess calories; E87.5 Hyperkalemia; I25.10 Atherosclerotic heart disease of native coronary artery without angina pectoris; I48.91 Unspecified atrial fibrillation; S92.001A Unspecified fracture of right calcaneus, initial encounter for closed fracture; J44.9 Chronic obstructive pulmonary disease, unspecified; G89.29 Other chronic pain; G40.909 Epilepsy, unspecified, not intractable, without status epilepticus; S61.401A Unspecified open wound of right hand, initial encounter; Z87.891 Personal history of nicotine dependence; Z99.81 Dependence on supplemental oxygen; Z88.6 Allergy status to analgesic agent; Z83.3 Family history of diabetes mellitus; Z82.49 Family history of ischemic heart disease and other diseases of the circulatory system; Z80.1 Family history of malignant neoplasm of trachea, bronchus and lung; X58.XXXA Exposure to other specified factors, initial encounter; Y93.89 Activity, other specified; Y92.89 Other specified places as the place of occurrence of the external cause; Y99.8 Other external cause status; I95.9 Hypotension, unspecified
CPT/HCPCS: 36415; 70450; 71045; 76775; 80053; 81001; 82140; 82570; 82962; 83036; 83605; 83735; 83880; 83930; 83935; 84156; 84300; 84443; 84484; 85025; 87086; 93306; 94640; 96365; 96375; 97110; 97163; 99291; G0378; J1815; J3490

== ENCOUNTER 2024-02-15 19:16 | Inpatient (IN) | payer OTHER, MEDICAID ==
[~2024-02-15] VITALS: Ht 162.6 cm; Wt 120.9 kg
[~2024-02-15 19:16] MED LIST changes: +BACDST PO; -BUMEX2MG PO; +DOXY1CAP57 PO; +FURO1TAB31 PO; -POTA-215 PO
[2024-02-15] MEDS: SODIUM CHLORIDE 0.9% 1,000 ML IV ONE (20:07)
[2024-02-15 20:18] LABS: Basophils # (auto) 0 10 ^3/uL (0-0.2); Basophils % (auto) 0.5 % (0.0-2.0); Eosinophils # (auto) 0.1 10 ^3/uL (0-0.8); Eosinophils % (auto) 1.4 % (0.0-7.0); Hematocrit 32.6 % (36.0-46.0); Hemoglobin 10.7 g/dL (12.2-16.2); Lymphocytes % (auto) 14.5 % (10.0-50.0); Mean Corpuscular Hemoglobin 30.6 pg (28.0-32.0); Mean Corpuscular Hgb Conc. 32.8 g/dL (32.0-36.0); Mean Corpuscular Volume 93.2 fL (80.0-100.0); Monocytes # (auto) 0.6 10 ^3/uL (0-1.3); Monocytes % (auto) 8.8 % (0.0-12.0); Neutrophils # (auto) 5.2 10 ^3/uL (1.6-8.6); Neutrophils % (auto) 74.8 % (37.0-80.0); Nucleated Red Blood Cells % 0.1 %; Red Blood Cells 3.49 10^6/uL (4.0-5.20); Red Cell Distribution Width 18.2 % (11.8-14.3); White Blood Cell 6.9 10^3/uL (4.4-10.8)
[2024-02-15 20:38] LABS: Alanine Aminotransferase 34 U/L (7-40); Alkaline Phosphatase 76 U/L (46-116); Anion Gap 8 (5-15); Aspartate Aminotransferase 23 U/L (13-40); BUN/Creatinine Ratio 19.8 (10.0-20.0); Calcium 9.1 mg/dL (8.7-10.4); Carbon Dioxide 27 mmol/L (20-30); Chloride 101 mmol/L (98-107); Glucose 143 mg/dL (74-106); Sodium 136 mmol/L (136-145)
[2024-02-15 20:39] LABS: Albumin 3.9 g/dL (3.2-4.8); Bilirubin, Total 0.4 mg/dL (0.2-1.0); Total Protein 6.3 g/dL (5.7-8.2)
[2024-02-15 21:07] LABS: Blood Urea Nitrogen 89 mg/dL (9-23); Potassium 5.7 mmol/L (3.5-5.1)
[2024-02-15] MEDS: ALBUTEROL SULF 2.5 MG/0.5ML(0.5%) NEB SOLN NEB ONE (21:49)
[2024-02-15] MEDS ORDERED: ALBUTEROL SULF 2.5 MG/0.5ML(0.5%) NEB SOLN NEB PRN (22:30)
[2024-02-15] MEDS ORDERED: DEXTROSE (50%) 50ML SYRG IV PRN (22:30)
[2024-02-15 22:37] VITALS: BP 116/88; PULSE 68; RESP 24; TEMP 98.4; O2SAT 96
[2024-02-15] MEDS: cefTRIAXone 1GM/50ML D5W 50 ML IV ONE (23:42)
[2024-02-15] MEDS: SODIUM ZIRCONIUM CYCL 10 GM PAK PO ONE (23:42)
[2024-02-15] MEDS ORDERED: NITROGLYCERIN 0.4 MG SL TAB SL PRN (23:45)
[2024-02-15] MEDS ORDERED: MORPHINE SULFATE INJ 2 MG/ml SYRG IV PRN (23:45)
[2024-02-15] MEDS: HYDROcodone-ACET 5/325MG TAB PO PRN (23:54)
[2024-02-16] MEDS: InsuLIN REG 1unit/0.01ml Soln (100units/ml) IV ONE (00:31)
[2024-02-16] MEDS: SODIUM BICARB 8.4% 50Meq/50ml SYR Vial IV ONE ×2 (00:38→00:52)
[2024-02-16] MEDS: DEXTROSE (50%) 50ML SYRG IV ONE (00:51)
[2024-02-16] MEDS: CALCIUM CHL 100MG/ML 500 MG in D5W 5% 100 ML IV ONE (00:52)
[2024-02-16] MEDS: CALCIUM CHLOR(10%) 100MG/ML 10ML SYRINGE IV ONE (00:53)
[2024-02-16] MEDS: NOREPINEPHRINE 8 MG/250ML KIT 250 ML IV ONE (01:12)
[2024-02-16] MEDS: NOREPINEPHRINE 8 MG/250ML KIT 250 ML IV SCH (01:50)
[2024-02-16 02:41] LABS: Lactic Acid w/Reflex 2.2 mmol/L (0.4-2.0)
[2024-02-16 04:48] LABS: Alanine Aminotransferase 33 U/L (7-40); Albumin 3.7 g/dL (3.2-4.8); Alkaline Phosphatase 74 U/L (46-116); Anion Gap 11 (5-15); Aspartate Aminotransferase 21 U/L (13-40); BUN/Creatinine Ratio 16.7 (10.0-20.0); Bilirubin, Total 0.3 mg/dL (0.2-1.0); Calcium 9.2 mg/dL (8.7-10.4); Carbon Dioxide 24 mmol/L (20-30); Chloride 103 mmol/L (98-107); Glucose 195 mg/dL (74-106); Potassium 4.5 mmol/L (3.5-5.1); Sodium 138 mmol/L (136-145); Total Protein 6.2 g/dL (5.7-8.2)
[2024-02-16 04:49] LABS: Blood Urea Nitrogen 74 mg/dL (9-23)
[2024-02-16] MEDS: LEVOTHYROXINE SODIUM 112 MCG TAB PO SCH (06:00)
[2024-02-16 06:35] VITALS: O2SAT 97
[2024-02-16] MEDS: SODIUM CHLOR 0.9% PF (SALINE LOCK) 10ML VIAL/SYR IV SCH (06:40)
[2024-02-16] MEDS: SODIUM CHLORIDE 0.9% 250 ML IV ONE (06:46)
[2024-02-16] MEDS: InsuLIN REG 1unit/0.01ml Soln (100units/ml) SC SCH (07:00)
[2024-02-16] MEDS: ACCU-CHEK COMFORT CURVE STRIP VI SCH (07:00)
[2024-02-16 07:31] LABS: Basophils # (auto) 0.1 10 ^3/uL (0-0.2); Basophils % (auto) 0.6 % (0.0-2.0); Eosinophils # (auto) 0.2 10 ^3/uL (0-0.8); Eosinophils % (auto) 1.6 % (0.0-7.0); Hematocrit 34.5 % (36.0-46.0); Hemoglobin 11.4 g/dL (12.2-16.2); Lymphocytes # (auto) 2.2 10 ^3/uL (0.4-5.4); Lymphocytes % (auto) 22.8 % (10.0-50.0); Mean Corpuscular Hemoglobin 30.8 pg (28.0-32.0); Mean Corpuscular Hgb Conc. 33.1 g/dL (32.0-36.0); Monocytes # (auto) 1.2 10 ^3/uL (0-1.3); Monocytes % (auto) 11.9 % (0.0-12.0); Neutrophils # (auto) 6.2 10 ^3/uL (1.6-8.6); Neutrophils % (auto) 63.1 % (37.0-80.0); Red Blood Cells 3.71 10^6/uL (4.0-5.20); Red Cell Distribution Width 18.1 % (11.8-14.3); White Blood Cell 9.8 10^3/uL (4.4-10.8)
[2024-02-16 08:19] LABS: Urine Blood Negative /uL (Negative); Urine Clarity Clear (Clear); Urine Color Light-Yellow (Yellow); Urine Protein, UAD Negative (Negative); Urine Specific Gravity 1.012 (1.001-1.035); Urine Urobilinogen Normal (Negative)
[2024-02-16] MEDS ORDERED: BUMEX2MG PO (08:30)
[2024-02-16] MEDS ORDERED: AMIO200T33 PO (08:30)
[2024-02-16] MEDS ORDERED: LEVO112T4 PO (08:30)
[2024-02-16] MEDS ORDERED: LEVE500T40 PO (08:30)
[2024-02-16] MEDS ORDERED: ATOR40TA52 PO (08:30)
[2024-02-16] MEDS ORDERED: HYDR-4798 PO (08:30)
[2024-02-16 09:00] VITALS: PULSE 64; RESP 16; O2SAT 99
[2024-02-16] MEDS: levETIRAcetam 500 mg/100ml 100 ML IV SCH (10:52)
[2024-02-16] MEDS: ASPirin 81 mg TAB PO SCH (10:52)
[2024-02-16] MEDS: FUROSEMIDE 40 MG/4 ML VIAL IV SCH (10:52)
[2024-02-16] MEDS ORDERED: ARTIFICIAL TEARS 15ml EACHEYE PRN (12:45)
[2024-02-16] MEDS: FUROSEMIDE INJECTION 100 MG in SODIUM CHL 0.9% 100 ML IV SCH (17:03)
[2024-02-16] MEDS: ATORVASTATIN 20 MG TAB PO ONE (18:15)
[2024-02-16] MEDS: ASPirin 81 mg TAB PO ONE (20:00)
[2024-02-16] MEDS: cefTRIAXone 1GM/50ML D5W 50 ML IV SCH (21:33)
[2024-02-16] MEDS: AMIODARONE HCL 200 MG TAB PO SCH (21:46)
[2024-02-16] MEDS: GABAPENTIN 300 MG CAP PO SCH (21:47)
[2024-02-16] MEDS: levETIRAcetam 500 MG TAB PO SCH (21:47)
[2024-02-16] MEDS: ACETAMINOPHEN 325 MG TAB PO PRN (21:47)
[2024-02-16] MEDS: ATORVASTATIN 20 MG TAB PO SCH (21:49)
[2024-02-16] MEDS ORDERED: ATORVASTATIN 20 MG TAB PO SCH (22:00)
[2024-02-16 23:53] VITALS: BP 102/28; PULSE 71; RESP 18; TEMP 98.2; O2SAT 96
[2024-02-17] VITALS (113 sets, daily range): BP systolic 71–117; BP diastolic 19–72; PULSE 8–116; RESP 10–26; TEMP 97.9–99.5; O2SAT 86–100
[2024-02-17] MEDS: ONDANSETRON HCL 4 MG/2 ML VIAL IV PRN (04:54)
[2024-02-17 05:33] LABS: Basophils # (auto) 0.1 10 ^3/uL (0-0.2); Basophils % (auto) 0.7 % (0.0-2.0); Eosinophils # (auto) 0.2 10 ^3/uL (0-0.8); Eosinophils % (auto) 2.1 % (0.0-7.0); Hematocrit 35.4 % (36.0-46.0); Hemoglobin 11.7 g/dL (12.2-16.2); Lymphocytes # (auto) 1.7 10 ^3/uL (0.4-5.4); Lymphocytes % (auto) 14.7 % (10.0-50.0); Mean Corpuscular Hemoglobin 30.5 pg (28.0-32.0); Mean Corpuscular Hgb Conc. 33.1 g/dL (32.0-36.0); Mean Corpuscular Volume 92.2 fL (80.0-100.0); Monocytes # (auto) 0.9 10 ^3/uL (0-1.3); Monocytes % (auto) 8.1 % (0.0-12.0); Neutrophils # (auto) 8.8 10 ^3/uL (1.6-8.6); Neutrophils % (auto) 74.4 % (37.0-80.0); Red Blood Cells 3.84 10^6/uL (4.0-5.20); White Blood Cell 11.8 10^3/uL (4.4-10.8)
[2024-02-17 05:37] LABS: Chloride 103 mmol/L (98-107); Potassium 4.3 mmol/L (3.5-5.1); Sodium 141 mmol/L (136-145)
[2024-02-17 05:38] LABS: Anion Gap 8 (5-15); Carbon Dioxide 30 mmol/L (20-30)
[2024-02-17 05:43] LABS: BUN/Creatinine Ratio 25.3 (10.0-20.0); Blood Urea Nitrogen 79 mg/dL (9-23); Glucose 175 mg/dL (74-106)
[2024-02-17] MEDS: DOCUSATE SOD 100 MG CAP PO PRN (06:08)
[2024-02-17] MEDS: IPRATROPIUM BROM 0.5 MG/2.5ML INH SOL NEB SCH (07:11)
[2024-02-17] MEDS: ALBUTEROL SULF 2.5 MG/0.5ML(0.5%) NEB SOLN NEB SCH (07:11)
[2024-02-17] MEDS ORDERED: ASPirin 81 mg TAB PO SCH (10:00)
[2024-02-17 14:35] LABS: INR 1.17 (0.9-1.15); Prothrombin Time 12.3 sec (9.3-11.8)
[2024-02-17] MEDS: PIPERACILLIN-TAZOB 3.375GM 100 ML IV ONE (17:16)
[2024-02-17] MEDS: AMIODARONE 450mg/250ml AE 250 ML IV ONE (18:09)
[2024-02-17] MEDS: PIPERACILLIN-TAZOB 3.375GM 100 ML IV SCH (21:53)
[2024-02-18] VITALS (92 sets, daily range): BP systolic 78–122; BP diastolic 36–64; PULSE 73–140; RESP 10–20; TEMP 97.8–98.9; O2SAT 76–100
[2024-02-18 05:26] LABS: Hemoglobin 12.4 g/dL (12.2-16.2); Mean Corpuscular Hemoglobin 30.6 pg (28.0-32.0); Mean Corpuscular Hgb Conc. 32.7 g/dL (32.0-36.0); Mean Corpuscular Volume 93.5 fL (80.0-100.0); Red Blood Cells 4.06 10^6/uL (4.0-5.20); Red Cell Distribution Width 18.1 % (11.8-14.3); White Blood Cell 14.3 10^3/uL (4.4-10.8)
[2024-02-18 05:30] LABS: Band Neutrophils % (manual) 0; Basophils % (manual) 0 (0.0-2.0); Blast Cells 0; Metamyelocytes % 0; Myelocytes % 0; Promyelocytes % 0; Reactive Lymphocytes 0
[2024-02-18 05:52] LABS: Chloride 100 mmol/L (98-107); Potassium 3.9 mmol/L (3.5-5.1); Sodium 139 mmol/L (136-145)
[2024-02-18 05:53] LABS: Anion Gap 8 (5-15); Carbon Dioxide 31 mmol/L (20-30)
[2024-02-18 05:54] LABS: Calcium 9.6 mg/dL (8.7-10.4)
[2024-02-18 05:58] LABS: BUN/Creatinine Ratio 21.1 (10.0-20.0); Glucose 167 mg/dL (74-106)
[2024-02-18 05:59] LABS: Blood Urea Nitrogen 48 mg/dL (9-23)
[2024-02-18 06:54] LABS: Anisocytosis Slight; Eosinophils % (manual) 1 (0-7); Lymphocytes % (manual) 20 (10.0-50.0); Monocytes % (manual) 9 (0-12); Platelet Estimate Adequate
[2024-02-18] MEDS: LIDOCAINE 1% (LOCAL ANESTH.) PF 5ml SDV ID ONE (09:10)
[2024-02-18] MEDS: ERTAPENEM SOD INJ 1 GM in SODIUM CHL 0.9% 50 ML IV ONE (12:13)
[2024-02-18] MEDS: FUROSEMIDE 40 MG/4 ML VIAL IV SCH (16:44)
[2024-02-18] MEDS: PANTOPRAZOLE 40 MG TAB PO ONE (17:58)
[2024-02-18] MEDS: Juven Fruit Punch Powder PACKET 28.8gm PO SCH (18:00)
[2024-02-18] MEDS: LACTULOSE 20Gm/30ML SOLN PO SCH (22:06)
[2024-02-19] VITALS (99 sets, daily range): BP systolic 53–133; BP diastolic 22–78; PULSE 59–123; RESP 9–21; TEMP 97.5–98; O2SAT 83–100
[2024-02-19 04:42] LABS: Basophils # (auto) 0 10 ^3/uL (0-0.2); Basophils % (auto) 0.3 % (0.0-2.0); Eosinophils # (auto) 0.3 10 ^3/uL (0-0.8); Eosinophils % (auto) 3.6 % (0.0-7.0); Hematocrit 33.4 % (36.0-46.0); Hemoglobin 11.4 g/dL (12.2-16.2); Lymphocytes # (auto) 1.8 10 ^3/uL (0.4-5.4); Lymphocytes % (auto) 20.1 % (10.0-50.0); Mean Corpuscular Hemoglobin 31.6 pg (28.0-32.0); Mean Corpuscular Hgb Conc. 34.1 g/dL (32.0-36.0); Mean Corpuscular Volume 92.9 fL (80.0-100.0); Monocytes # (auto) 0.9 10 ^3/uL (0-1.3); Monocytes % (auto) 9.9 % (0.0-12.0); Neutrophils % (auto) 66.1 % (37.0-80.0); Red Blood Cells 3.59 10^6/uL (4.0-5.20); White Blood Cell 9.1 10^3/uL (4.4-10.8)
[2024-02-19 04:48] LABS: Anion Gap 6 (5-15); Carbon Dioxide 34 mmol/L (20-30); Chloride 101 mmol/L (98-107); Potassium 3.7 mmol/L (3.5-5.1); Sodium 141 mmol/L (136-145)
[2024-02-19 04:49] LABS: Calcium 9.6 mg/dL (8.7-10.4)
[2024-02-19 04:54] LABS: BUN/Creatinine Ratio 23.3 (10.0-20.0); Blood Urea Nitrogen 51 mg/dL (9-23); Glucose 155 mg/dL (74-106)
[2024-02-19] MEDS: PANTOPRAZOLE 40 MG TAB PO SCH (05:47)
[2024-02-19] MEDS: ERTAPENEM SOD INJ 1 GM in SODIUM CHL 0.9% 50 ML IV SCH (10:18)
[2024-02-19] MEDS: HEPARIN SODIUM (PORCINE) 5000 UNITS/ML 1ML VIAL SC SCH (10:22)
[2024-02-19] MEDS: POTASSIUM CHL 20 Meq TABLET PO ONE (12:43)
[2024-02-19] MEDS: LORazepam 2MG/ML-1ML VIAL ONE (18:04)
[2024-02-19] MEDS: LORazepam 2MG/ML-1ML VIAL IV PRN (18:05)
[2024-02-19] MEDS ORDERED: LORazepam 2MG/ML-1ML VIAL IV PRN (21:15)
[2024-02-20] VITALS (99 sets, daily range): BP systolic 53–131; BP diastolic 30–92; PULSE 72–190; RESP 10–25; TEMP 97.8–98.7; O2SAT 84–100
[2024-02-20 03:55] LABS: Basophils # (auto) 0 10 ^3/uL (0-0.2); Basophils % (auto) 0.3 % (0.0-2.0); Eosinophils # (auto) 0.2 10 ^3/uL (0-0.8); Eosinophils % (auto) 3.1 % (0.0-7.0); Hematocrit 35.7 % (36.0-46.0); Hemoglobin 11.7 g/dL (12.2-16.2); Lymphocytes # (auto) 1.4 10 ^3/uL (0.4-5.4); Mean Corpuscular Hemoglobin 30.9 pg (28.0-32.0); Mean Corpuscular Hgb Conc. 32.8 g/dL (32.0-36.0); Mean Corpuscular Volume 94.3 fL (80.0-100.0); Monocytes # (auto) 0.7 10 ^3/uL (0-1.3); Monocytes % (auto) 9.4 % (0.0-12.0); Neutrophils # (auto) 5.1 10 ^3/uL (1.6-8.6); Neutrophils % (auto) 68.2 % (37.0-80.0); Nucleated Red Blood Cells % 0.1 %; Red Blood Cells 3.79 10^6/uL (4.0-5.20); Red Cell Distribution Width 17.7 % (11.8-14.3); White Blood Cell 7.4 10^3/uL (4.4-10.8)
[2024-02-20 04:12] LABS: Alanine Aminotransferase 49 U/L (7-40); Alkaline Phosphatase 72 U/L (46-116); Anion Gap 9 (5-15); Aspartate Aminotransferase 33 U/L (13-40); BUN/Creatinine Ratio 20.4 (10.0-20.0); Bilirubin, Total 0.7 mg/dL (0.2-1.0); Calcium 9.8 mg/dL (8.7-10.4); Carbon Dioxide 32 mmol/L (20-30); Chloride 103 mmol/L (98-107); Glucose 155 mg/dL (74-106); Potassium 3.9 mmol/L (3.5-5.1); Sodium 144 mmol/L (136-145); Total Protein 6.7 g/dL (5.7-8.2)
[2024-02-20 04:16] LABS: Blood Urea Nitrogen 40 mg/dL (9-23)
[2024-02-20] MEDS ORDERED: BACLOFEN 10 MG TAB PO PRN (15:00)
[2024-02-20] MEDS: NOREPINEPHRINE 8 MG/250ML KIT 250 ML IV SCH (15:45)
[2024-02-21] VITALS (125 sets, daily range): BP systolic 66–125; BP diastolic 23–88; PULSE 68–150; RESP 10–24; TEMP 97.9–99.4; O2SAT 73–100
[2024-02-21 03:54] LABS: Basophils # (auto) 0 10 ^3/uL (0-0.2); Basophils % (auto) 0.6 % (0.0-2.0); Eosinophils # (auto) 0.3 10 ^3/uL (0-0.8); Eosinophils % (auto) 3.9 % (0.0-7.0); Hemoglobin 11.6 g/dL (12.2-16.2); Lymphocytes # (auto) 1.9 10 ^3/uL (0.4-5.4); Lymphocytes % (auto) 23.4 % (10.0-50.0); Mean Corpuscular Hemoglobin 31.3 pg (28.0-32.0); Mean Corpuscular Hgb Conc. 33.1 g/dL (32.0-36.0); Mean Corpuscular Volume 94.6 fL (80.0-100.0); Monocytes # (auto) 0.8 10 ^3/uL (0-1.3); Monocytes % (auto) 9.7 % (0.0-12.0); Neutrophils # (auto) 5.1 10 ^3/uL (1.6-8.6); Neutrophils % (auto) 62.4 % (37.0-80.0); Nucleated Red Blood Cells % 0.2 %; Red Blood Cells 3.69 10^6/uL (4.0-5.20); Red Cell Distribution Width 17.6 % (11.8-14.3); White Blood Cell 8.1 10^3/uL (4.4-10.8)
[2024-02-21 04:15] LABS: Alanine Aminotransferase 42 U/L (7-40); Alkaline Phosphatase 73 U/L (46-116); Anion Gap 8 (5-15); Aspartate Aminotransferase 27 U/L (13-40); BUN/Creatinine Ratio 20.1 (10.0-20.0); Blood Urea Nitrogen 36 mg/dL (9-23); Calcium 9.9 mg/dL (8.7-10.4); Carbon Dioxide 29 mmol/L (20-30); Chloride 105 mmol/L (98-107); Glucose 152 mg/dL (74-106); Potassium 3.7 mmol/L (3.5-5.1); Sodium 142 mmol/L (136-145)
[2024-02-21 04:16] LABS: Albumin 3.9 g/dL (3.2-4.8); Bilirubin, Total 0.6 mg/dL (0.2-1.0); Total Protein 6.6 g/dL (5.7-8.2)
[2024-02-21] MEDS: FUROSEMIDE 40 MG/4 ML VIAL IV SCH (06:07)
[2024-02-21] MEDS ORDERED: PANTOPRAZOLE 40 MG/10 ML VIAL INJ IV ONE (10:15)
[2024-02-22] VITALS (99 sets, daily range): BP systolic 70–110; BP diastolic 30–68; PULSE 70–151; RESP 11–22; TEMP 97.7–98.8; O2SAT 94–100
[2024-02-22 04:04] LABS: Basophils # (auto) 0.1 10 ^3/uL (0-0.2); Basophils % (auto) 0.9 % (0.0-2.0); Eosinophils # (auto) 0.3 10 ^3/uL (0-0.8); Eosinophils % (auto) 4.1 % (0.0-7.0); Hematocrit 33.2 % (36.0-46.0); Hemoglobin 10.9 g/dL (12.2-16.2); Lymphocytes # (auto) 2.1 10 ^3/uL (0.4-5.4); Lymphocytes % (auto) 27.1 % (10.0-50.0); Mean Corpuscular Hemoglobin 30.6 pg (28.0-32.0); Mean Corpuscular Hgb Conc. 32.7 g/dL (32.0-36.0); Mean Corpuscular Volume 93.7 fL (80.0-100.0); Monocytes # (auto) 0.8 10 ^3/uL (0-1.3); Neutrophils # (auto) 4.4 10 ^3/uL (1.6-8.6); Neutrophils % (auto) 57.9 % (37.0-80.0); Nucleated Red Blood Cells % 0.1 %; Red Blood Cells 3.55 10^6/uL (4.0-5.20); Red Cell Distribution Width 17.6 % (11.8-14.3); White Blood Cell 7.6 10^3/uL (4.4-10.8)
[2024-02-22 04:26] LABS: Alanine Aminotransferase 35 U/L (7-40); Albumin 3.6 g/dL (3.2-4.8); Alkaline Phosphatase 68 U/L (46-116); Anion Gap 9 (5-15); Aspartate Aminotransferase 23 U/L (13-40); BUN/Creatinine Ratio 18.6 (10.0-20.0); Blood Urea Nitrogen 31 mg/dL (9-23); Calcium 9.3 mg/dL (8.7-10.4); Carbon Dioxide 30 mmol/L (20-30); Chloride 103 mmol/L (98-107); Glucose 118 mg/dL (74-106); Potassium 3.6 mmol/L (3.5-5.1); Sodium 142 mmol/L (136-145)
[2024-02-22 04:27] LABS: Bilirubin, Total 0.4 mg/dL (0.2-1.0); Total Protein 6.1 g/dL (5.7-8.2)
[2024-02-22] MEDS: PANTOPRAZOLE 40 MG TAB PO SCH (05:52)
[2024-02-22] MEDS: FUROSEMIDE 40 MG TAB PO SCH (09:49)
[2024-02-22] MEDS ORDERED: PANTOPRAZOLE 40 MG/10 ML VIAL INJ IV SCH (10:00)
[2024-02-22] MEDS: Juven Fruit Punch Powder PACKET 28.8gm PO SCH (11:00)
[2024-02-22] MEDS: MIDODRINE HCL 10 MG TAB PO SCH (12:00)
[2024-02-22] MEDS ORDERED: MIDODRINE HCL 10 MG TAB PO SCH (12:00)
[2024-02-22] MEDS: MIDODRINE HCL 10 MG TAB PO ONE (12:05)
[2024-02-22] MEDS: POTASSIUM CHL 10 Meq TABLET PO ONE (12:06)
[2024-02-22] MEDS: NOREPINEPHRINE 8 MG/250ML KIT 250 ML IV SCH (12:06)
[2024-02-22] MEDS: RIVAROXABAN 15 MG TAB PO SCH (17:32)
[2024-02-23] VITALS (101 sets, daily range): BP systolic 59–132; BP diastolic 11–75; PULSE 68–113; RESP 11–27; TEMP 97.2–98.8; O2SAT 71–100
[2024-02-23 03:54] LABS: Chloride 103 mmol/L (98-107); Potassium 3.8 mmol/L (3.5-5.1); Sodium 142 mmol/L (136-145)
[2024-02-23 03:55] LABS: Anion Gap 7 (5-15); Carbon Dioxide 32 mmol/L (20-30)
[2024-02-23 03:56] LABS: Calcium 9.6 mg/dL (8.7-10.4)
[2024-02-23 04:00] LABS: Glucose 181 mg/dL (74-106)
[2024-02-23 04:28] LABS: Blood Urea Nitrogen 45 mg/dL (9-23)
[2024-02-23 11:12] LABS: Basophils # (auto) 0.1 10 ^3/uL (0-0.2); Basophils % (auto) 0.8 % (0.0-2.0); Eosinophils # (auto) 0.4 10 ^3/uL (0-0.8); Eosinophils % (auto) 5.6 % (0.0-7.0); Hematocrit 33.4 % (36.0-46.0); Hemoglobin 10.8 g/dL (12.2-16.2); Lymphocytes % (auto) 29.8 % (10.0-50.0); Mean Corpuscular Hgb Conc. 32.2 g/dL (32.0-36.0); Mean Corpuscular Volume 93.1 fL (80.0-100.0); Monocytes # (auto) 0.6 10 ^3/uL (0-1.3); Monocytes % (auto) 9.6 % (0.0-12.0); Neutrophils # (auto) 3.6 10 ^3/uL (1.6-8.6); Neutrophils % (auto) 54.2 % (37.0-80.0); Red Blood Cells 3.59 10^6/uL (4.0-5.20); Red Cell Distribution Width 17.7 % (11.8-14.3); White Blood Cell 6.6 10^3/uL (4.4-10.8)
[2024-02-23] MEDS: MIDODRINE HCL 10 MG TAB PO SCH (12:15)
[2024-02-23] MEDS: LACTULOSE 20Gm/30ML SOLN PO SCH (13:00)
[2024-02-24] VITALS (101 sets, daily range): BP systolic 75–129; BP diastolic 28–95; PULSE 68–136; RESP 12–22; TEMP 97.7–98.4; O2SAT 93–100
[2024-02-24] MEDS: INSULIN LANTUS (GLARGINE) 1 /0.01ml (100units/ml) SC SCH (08:48)
[2024-02-24 10:03] LABS: Basophils # (auto) 0.1 10 ^3/uL (0-0.2); Basophils % (auto) 1.2 % (0.0-2.0); Eosinophils # (auto) 0.3 10 ^3/uL (0-0.8); Eosinophils % (auto) 4.9 % (0.0-7.0); Hematocrit 33.3 % (36.0-46.0); Hemoglobin 11.1 g/dL (12.2-16.2); Lymphocytes # (auto) 1.9 10 ^3/uL (0.4-5.4); Lymphocytes % (auto) 27.6 % (10.0-50.0); Mean Corpuscular Hemoglobin 31.3 pg (28.0-32.0); Mean Corpuscular Hgb Conc. 33.5 g/dL (32.0-36.0); Mean Corpuscular Volume 93.4 fL (80.0-100.0); Monocytes # (auto) 0.6 10 ^3/uL (0-1.3); Neutrophils # (auto) 4.1 10 ^3/uL (1.6-8.6); Neutrophils % (auto) 58.3 % (37.0-80.0); Nucleated Red Blood Cells % 0.1 %; Red Blood Cells 3.56 10^6/uL (4.0-5.20); Red Cell Distribution Width 18.2 % (11.8-14.3)
[2024-02-24 10:21] LABS: Anion Gap 5 (5-15); Carbon Dioxide 33 mmol/L (20-30); Chloride 104 mmol/L (98-107); Sodium 142 mmol/L (136-145)
[2024-02-24 10:22] LABS: Calcium 9.6 mg/dL (8.7-10.4)
[2024-02-24 10:27] LABS: BUN/Creatinine Ratio 27.5 (10.0-20.0); Blood Urea Nitrogen 39 mg/dL (9-23); Glucose 183 mg/dL (74-106)
[2024-02-24] MEDS: SODIUM CHLORIDE 0.9% 250 ML IV ONE (18:09)
[2024-02-25] VITALS (82 sets, daily range): BP systolic 60–179; BP diastolic 26–156; PULSE 68–144; RESP 11–21; TEMP 97.4–98.5; O2SAT 93–100
[2024-02-25] MEDS: LACTULOSE 20Gm/30ML SOLN PO PRN (08:47)
[2024-02-25 10:03] LABS: Chloride 104 mmol/L (98-107); Sodium 141 mmol/L (136-145)
[2024-02-25 10:04] LABS: Anion Gap 4 (5-15); Carbon Dioxide 33 mmol/L (20-30)
[2024-02-25 10:05] LABS: Calcium 9.8 mg/dL (8.7-10.4)
[2024-02-25 10:10] LABS: BUN/Creatinine Ratio 24.8 (10.0-20.0); Blood Urea Nitrogen 34 mg/dL (9-23); Glucose 163 mg/dL (74-106)
[2024-02-26] VITALS (15 sets, daily range): BP systolic 98–123; BP diastolic 57–70; PULSE 72–86; RESP 16–18; TEMP 96.8–98.1; O2SAT 93–98
[2024-02-26 08:43] LABS: Chloride 104 mmol/L (98-107); Potassium 3.9 mmol/L (3.5-5.1); Sodium 142 mmol/L (136-145)
[2024-02-26 08:44] LABS: Anion Gap 8 (5-15); Carbon Dioxide 30 mmol/L (20-30)
[2024-02-26 08:49] LABS: BUN/Creatinine Ratio 18.2 (10.0-20.0); Glucose 112 mg/dL (74-106)
[2024-02-26 08:50] LABS: Blood Urea Nitrogen 24 mg/dL (9-23)
[2024-02-26 08:54] LABS: Basophils # (auto) 0.1 10 ^3/uL (0-0.2); Basophils % (auto) 0.8 % (0.0-2.0); Eosinophils # (auto) 0.2 10 ^3/uL (0-0.8); Eosinophils % (auto) 3.3 % (0.0-7.0); Hematocrit 33.6 % (36.0-46.0); Hemoglobin 10.8 g/dL (12.2-16.2); Lymphocytes # (auto) 1.9 10 ^3/uL (0.4-5.4); Mean Corpuscular Hemoglobin 30.3 pg (28.0-32.0); Mean Corpuscular Hgb Conc. 32.1 g/dL (32.0-36.0); Mean Corpuscular Volume 94.4 fL (80.0-100.0); Monocytes # (auto) 0.5 10 ^3/uL (0-1.3); Monocytes % (auto) 8.3 % (0.0-12.0); Neutrophils # (auto) 3.5 10 ^3/uL (1.6-8.6); Neutrophils % (auto) 56.6 % (37.0-80.0); Nucleated Red Blood Cells % 0.1 %; Red Blood Cells 3.56 10^6/uL (4.0-5.20); Red Cell Distribution Width 18.7 % (11.8-14.3); White Blood Cell 6.2 10^3/uL (4.4-10.8)
[2024-02-26] MEDS: levETIRAcetam 500 MG TAB PO SCH (11:09)
[2024-02-27] VITALS (13 sets, daily range): BP systolic 102–126; BP diastolic 53–72; PULSE 63–84; RESP 14–20; TEMP 97.3–98.3; O2SAT 95–100
[2024-02-27] MEDS ORDERED: LEVE100012 PO (11:41)
== END 2024-02-27 17:45 | disposition home health service (06) | DRG 871 ==
LOC: ER 19:16 → EDBD 19:16 → TELE 23:32 → UNDOADMIN 23:32 → TELE 02-16 01:21 → ICU CENTRL 02-16 23:52 → ICU WEST 02-18 10:55 → TELE-CENTR 02-25 18:10 → CENTRAL 02-26 13:46
PROVIDERS: ADMIT Internal Medicine; ATTEND Internal Medicine
PROC: B54NZZA Ultrasonography of Left Upper Extremity Veins, Guidance (ICD-10-PCS; 2024-02-18)
PROC: 05HY33Z Insertion of Infusion Device into Upper Vein, Percutaneous Approach (ICD-10-PCS; 2024-02-18)
PROC: 05HB33Z Insertion of Infusion Device into Right Basilic Vein, Percutaneous Approach (ICD-10-PCS; principal; 2024-02-20)
PROC: B54MZZA Ultrasonography of Right Upper Extremity Veins, Guidance (ICD-10-PCS; 2024-02-20)
PROC: 05HF33Z Insertion of Infusion Device into Left Cephalic Vein, Percutaneous Approach (ICD-10-PCS; 2024-02-24)
PROC: B54NZZA Ultrasonography of Left Upper Extremity Veins, Guidance (ICD-10-PCS; 2024-02-24)
DX: A41.51 Sepsis due to Escherichia coli [E. coli] (principal); I50.43 Acute on chronic combined systolic (congestive) and diastolic (congestive) heart failure; J96.21 Acute and chronic respiratory failure with hypoxia; R65.21 Severe sepsis with septic shock; N17.0 Acute kidney failure with tubular necrosis; I13.0 Hypertensive heart and chronic kidney disease with heart failure and stage 1 through stage 4 chronic kidney disease, or unspecified chronic kidney disease; N18.4 Chronic kidney disease, stage 4 (severe); I42.9 Cardiomyopathy, unspecified; Z16.12 Extended spectrum beta lactamase (ESBL) resistance; Z68.41 Body mass index [BMI] 40.0-44.9, adult; E11.22 Type 2 diabetes mellitus with diabetic chronic kidney disease; E87.5 Hyperkalemia; K82.8 Other specified diseases of gallbladder; J44.9 Chronic obstructive pulmonary disease, unspecified; I48.91 Unspecified atrial fibrillation; E66.01 Morbid (severe) obesity due to excess calories; E03.9 Hypothyroidism, unspecified; E11.40 Type 2 diabetes mellitus with diabetic neuropathy, unspecified; G40.909 Epilepsy, unspecified, not intractable, without status epilepticus; G89.29 Other chronic pain; I25.10 Atherosclerotic heart disease of native coronary artery without angina pectoris; K80.20 Calculus of gallbladder without cholecystitis without obstruction; S91.301A Unspecified open wound, right foot, initial encounter; S61.401A Unspecified open wound of right hand, initial encounter; F41.9 Anxiety disorder, unspecified; E78.5 Hyperlipidemia, unspecified; M10.9 Gout, unspecified; Z98.61 Coronary angioplasty status; Z88.6 Allergy status to analgesic agent; Z83.3 Family history of diabetes mellitus; Z82.49 Family history of ischemic heart disease and other diseases of the circulatory system; Z80.1 Family history of malignant neoplasm of trachea, bronchus and lung; I25.2 Old myocardial infarction; Z87.891 Personal history of nicotine dependence; X58.XXXA Exposure to other specified factors, initial encounter; Y93.89 Activity, other specified; Y92.89 Other specified places as the place of occurrence of the external cause; Y99.8 Other external cause status
CPT/HCPCS: 36415; 71045; 73700; 74176; 76705; 80048; 80053; 81003; 82533; 82962; 83605; 83615; 83735; 84443; 84484; 85007; 85025; 85027; 85610; 85730; 87040; 87081; 87086; 87088; 87186; 93005; 94640; 95819; 96361; 96365; 96366; 96367; 96372; 96375; 97110; 97116; 97530; G0378; J1335; J1815; J2405; J2543; J7060

== ENCOUNTER 2024-02-28 20:09 | Emergency (ER) | payer OTHER, MEDICAID ==
[~2024-02-28] VITALS: Ht 165.1 cm; Wt 150.0 kg
[~2024-02-28 20:09] MED LIST changes: -ATOR20TA50 PO; +ATOR40TA52 PO; -BACDST PO; +BUMEX2MG PO; +LEVE100012 PO; -MUPI2OIN2 EX; -SULF1TAB75 PO
[2024-02-28 20:10] VITALS: BP 114/66; PULSE 78; RESP 20; O2SAT 99
[2024-02-28 21:15] LABS: Basophils # (auto) 0.1 10 ^3/uL (0-0.2); Basophils % (auto) 0.5 % (0.0-2.0); Eosinophils # (auto) 0.2 10 ^3/uL (0-0.8); Eosinophils % (auto) 1.5 % (0.0-7.0); Hemoglobin 11.4 g/dL (12.2-16.2); Lymphocytes # (auto) 1.5 10 ^3/uL (0.4-5.4); Mean Corpuscular Hemoglobin 31.8 pg (28.0-32.0); Mean Corpuscular Hgb Conc. 33.4 g/dL (32.0-36.0); Mean Corpuscular Volume 95.2 fL (80.0-100.0); Monocytes # (auto) 0.7 10 ^3/uL (0-1.3); Monocytes % (auto) 6.1 % (0.0-12.0); Neutrophils # (auto) 8.5 10 ^3/uL (1.6-8.6); Neutrophils % (auto) 77.9 % (37.0-80.0); Red Blood Cells 3.57 10^6/uL (4.0-5.20); Red Cell Distribution Width 18.4 % (11.8-14.3)
[2024-02-28 21:41] LABS: Alanine Aminotransferase 34 U/L (7-40); Albumin 4.5 g/dL (3.2-4.8); Alkaline Phosphatase 77 U/L (46-116); Anion Gap 7 (5-15); Aspartate Aminotransferase 24 U/L (13-40); BUN/Creatinine Ratio 19.5 (10.0-20.0); Blood Urea Nitrogen 29 mg/dL (9-23); Calcium 10.1 mg/dL (8.7-10.4); Carbon Dioxide 29 mmol/L (20-30); Chloride 107 mmol/L (98-107); Glucose 146 mg/dL (74-106); Potassium 3.7 mmol/L (3.5-5.1); Sodium 143 mmol/L (136-145)
[2024-02-28 21:42] LABS: Bilirubin, Total 0.9 mg/dL (0.2-1.0)
== END 2024-02-28 23:34 | disposition left against medical advice (07) ==
LOC: EDBD 20:09 → EDSEX 20:09 → ER 20:09
DX: N39.0 Urinary tract infection, site not specified (principal); T82.524A Displacement of infusion catheter, initial encounter; I11.0 Hypertensive heart disease with heart failure; I50.9 Heart failure, unspecified; J44.9 Chronic obstructive pulmonary disease, unspecified; E11.9 Type 2 diabetes mellitus without complications; E78.5 Hyperlipidemia, unspecified; Z88.6 Allergy status to analgesic agent; Z88.8 Allergy status to other drugs, medicaments and biological substances; Z91.041 Radiographic dye allergy status; Z91.02 Food additives allergy status; Z87.891 Personal history of nicotine dependence
CPT/HCPCS: 36415; 80053; 85025

== ENCOUNTER 2024-03-05 11:40 | Inpatient (IN) | payer OTHER, MEDICAID ==
[~2024-03-05] VITALS: Ht 162.6 cm; Wt 117.6 kg
[2024-03-05] MEDS: SODIUM CHLORIDE 0.9% 1,000 ML IV ONE ×2 (12:39→13:26)
[2024-03-05 12:40] LABS: Basophils # (auto) 0 10 ^3/uL (0-0.2); Basophils % (auto) 0.6 % (0.0-2.0); Eosinophils # (auto) 0.2 10 ^3/uL (0-0.8); Eosinophils % (auto) 2.5 % (0.0-7.0); Hematocrit 30.8 % (36.0-46.0); Hemoglobin 9.9 g/dL (12.2-16.2); Lymphocytes # (auto) 1.1 10 ^3/uL (0.4-5.4); Lymphocytes % (auto) 16.6 % (10.0-50.0); Mean Corpuscular Hemoglobin 30.7 pg (28.0-32.0); Mean Corpuscular Hgb Conc. 32.1 g/dL (32.0-36.0); Mean Corpuscular Volume 95.8 fL (80.0-100.0); Monocytes # (auto) 0.7 10 ^3/uL (0-1.3); Monocytes % (auto) 9.5 % (0.0-12.0); Neutrophils # (auto) 4.9 10 ^3/uL (1.6-8.6); Neutrophils % (auto) 70.8 % (37.0-80.0); Red Blood Cells 3.22 10^6/uL (4.0-5.20); Red Cell Distribution Width 18.7 % (11.8-14.3); White Blood Cell 6.9 10^3/uL (4.4-10.8)
[2024-03-05 12:42] VITALS: PULSE 74; RESP 12; O2SAT 96
[2024-03-05 13:01] LABS: INR 1.52 (0.9-1.15); Partial Thromboplastin Time 39.9 SEC (24.5-34.5); Prothrombin Time 15.6 sec (9.3-11.8)
[2024-03-05 13:19] LABS: Alanine Aminotransferase 41 U/L (7-40); Albumin 3.7 g/dL (3.2-4.8); Alkaline Phosphatase 93 U/L (46-116); Anion Gap 7 (5-15); Aspartate Aminotransferase 24 U/L (13-40); Bilirubin, Total 0.3 mg/dL (0.2-1.0); Blood Urea Nitrogen 67 mg/dL (9-23); Calcium 8.9 mg/dL (8.7-10.4); Carbon Dioxide 26 mmol/L (20-30); Chloride 109 mmol/L (98-107); Glucose 128 mg/dL (74-106); Magnesium 2.2 mg/dL (1.6-2.6); Potassium 4.8 mmol/L (3.5-5.1); Sodium 142 mmol/L (136-145); Total Protein 5.5 g/dL (5.7-8.2)
[2024-03-05 16:33] LABS: COVID19 ANTIGEN SOFIA FIA NEGATIVE (NEGATIVE)
[2024-03-05 16:47] LABS: Urine Bacteria None Seen /hpf (None Seen)
[2024-03-05 16:59] LABS: Urine Blood Negative /uL (Negative); Urine Clarity Clear (Clear); Urine Color Colorless (Yellow); Urine Protein, UAD Negative (Negative); Urine Specific Gravity 1.009 (1.001-1.035); Urine Urobilinogen Normal (Negative); Urine WBC <1 /hpf (0 - 5)
[2024-03-05] MEDS ORDERED: DOCUSATE SOD 100 MG CAP PO PRN (19:00)
[2024-03-05 19:35] VITALS: RESP 12; O2SAT 99
[2024-03-05] MEDS: INSULIN DETEMIR SC SCH (22:00)
[2024-03-05] MEDS: SACUBITRIL-VALSARTAN 24mg/26mg TAB PO SCH (22:11)
[2024-03-05] MEDS: SODIUM CHLOR 0.9% PF (SALINE LOCK) 10ML VIAL/SYR IV SCH (22:11)
[2024-03-05] MEDS: levETIRAcetam 500 MG TAB PO SCH (22:12)
[2024-03-05] MEDS: AMIODARONE HCL 200 MG TAB PO SCH (22:12)
[2024-03-05] MEDS: InsuLIN REG 1unit/0.01ml Soln (100units/ml) SC ONE (23:15)
[2024-03-05] MEDS: DEXTROSE (50%) 50ML SYRG IV ONE (23:15)
[2024-03-05] MEDS: ACCU-CHEK COMFORT CURVE STRIP VI ONE (23:15)
[2024-03-06] VITALS (7 sets, daily range): BP systolic 83–101; BP diastolic 44–54; PULSE 64–77; RESP 15–20; TEMP 97.5–98.7; O2SAT 90–100
[2024-03-06] MEDS: LEVOTHYROXINE SODIUM 112 MCG TAB PO SCH (05:46)
[2024-03-06] MEDS: FUROSEMIDE 40 MG TAB PO SCH (05:47)
[2024-03-06] MEDS ORDERED: SODIUM CHLORIDE 0.9% 1,000 ML IV SCH (07:30)
[2024-03-06] MEDS ORDERED: ALLOPURINOL PO SCH (10:00)
[2024-03-06 10:26] LABS: Basophils # (auto) 0.1 10 ^3/uL (0-0.2); Basophils % (auto) 1.2 % (0.0-2.0); Eosinophils # (auto) 0.2 10 ^3/uL (0-0.8); Eosinophils % (auto) 4.3 % (0.0-7.0); Hematocrit 29.2 % (36.0-46.0); Hemoglobin 9.6 g/dL (12.2-16.2); Lymphocytes # (auto) 1.2 10 ^3/uL (0.4-5.4); Lymphocytes % (auto) 23.4 % (10.0-50.0); Mean Corpuscular Hemoglobin 31.6 pg (28.0-32.0); Mean Corpuscular Hgb Conc. 32.7 g/dL (32.0-36.0); Mean Corpuscular Volume 96.5 fL (80.0-100.0); Monocytes # (auto) 0.5 10 ^3/uL (0-1.3); Neutrophils # (auto) 3.2 10 ^3/uL (1.6-8.6); Neutrophils % (auto) 62.1 % (37.0-80.0); Red Blood Cells 3.03 10^6/uL (4.0-5.20); Red Cell Distribution Width 18.6 % (11.8-14.3); White Blood Cell 5.1 10^3/uL (4.4-10.8)
[2024-03-06 10:35] LABS: INR 1.15 (0.9-1.15); Partial Thromboplastin Time 29.1 SEC (24.5-34.5); Prothrombin Time 12.1 sec (9.3-11.8)
[2024-03-06 10:44] LABS: Alanine Aminotransferase 47 U/L (7-40); Albumin 3.8 g/dL (3.2-4.8); Alkaline Phosphatase 70 U/L (46-116); Anion Gap 5 (5-15); Aspartate Aminotransferase 37 U/L (13-40); BUN/Creatinine Ratio 23.2 (10.0-20.0); Calcium 9.5 mg/dL (8.7-10.4); Carbon Dioxide 29 mmol/L (20-30); Chloride 111 mmol/L (98-107); Glucose 139 mg/dL (74-106); LDL Cholesterol 73 mg/dL (< 100); Magnesium 2.2 mg/dL (1.6-2.6); Potassium 4.3 mmol/L (3.5-5.1); Sodium 145 mmol/L (136-145); Triglycerides 148 mg/dL (< 150)
[2024-03-06 10:45] LABS: Bilirubin, Total 0.6 mg/dL (0.2-1.0); Cholesterol 154 mg/dL (< 200); HDL Cholesterol 49 mg/dL (40-59); Phosphorus 3.2 mg/dL (2.4-5.1); Total Protein 5.8 g/dL (5.7-8.2)
[2024-03-06 11:00] LABS: Blood Urea Nitrogen 44 mg/dL (9-23)
[2024-03-06] MEDS: ASPirin-EC 81 mg tab PO SCH (11:21)
[2024-03-06] MEDS: ATORVASTATIN 20 MG TAB PO SCH (11:21)
[2024-03-06] MEDS: SODIUM CHLORIDE 0.9% 1,000 ML IV SCH (11:22)
[2024-03-06 11:23] LABS: Lipase 41 U/L (12-53)
[2024-03-06] MEDS: HYDROcodone-ACET 5/325MG TAB PO PRN (15:11)
[2024-03-06 16:22] LABS: Sodium Urine 107 mmol/L (40-220)
[2024-03-06 16:26] LABS: Protein, Urine < 6.0 mg/dL (0.0-11.9)
[2024-03-06 16:28] LABS: Amphetamine Screen, Urine Neg (NEGATIVE); Barbiturate Scree,Urine Neg (NEGATIVE); Benzodiazephine Screen, Urine Neg (NEGATIVE); Cocaine Screen, Urine Neg (NEGATIVE)
[2024-03-06 16:29] LABS: Cannabinoid Screen, Urine Neg (NEGATIVE); Creatinine, Urine 26.66 mg/dL (30.0-125.0); Opiate Scree,Urine Neg (NEGATIVE); Phencyclidine Screen, Urine Neg (NEGATIVE); Urine Protein/Creatinine Ratio 0.23
[2024-03-06] MEDS: RIVAROXABAN 20 MG TAB PO SCH (17:58)
[2024-03-06] MEDS: ACETAMINOPHEN 325 MG TAB PO PRN (21:39)
[2024-03-07 01:00] VITALS: BP 97/49; PULSE 69; RESP 16; TEMP 97.5; O2SAT 98
[2024-03-07 05:00] VITALS: BP 100/49; PULSE 72; RESP 16; TEMP 97.5; O2SAT 93
[2024-03-07 08:19] VITALS: BP 101/41; PULSE 78; RESP 20; TEMP 97.9; O2SAT 99
[2024-03-07 10:02] LABS: Basophils # (auto) 0 10 ^3/uL (0-0.2); Basophils % (auto) 0.8 % (0.0-2.0); Eosinophils # (auto) 0.2 10 ^3/uL (0-0.8); Hematocrit 31.8 % (36.0-46.0); Hemoglobin 10.3 g/dL (12.2-16.2); Lymphocytes # (auto) 1.1 10 ^3/uL (0.4-5.4); Lymphocytes % (auto) 18.4 % (10.0-50.0); Mean Corpuscular Hemoglobin 31.6 pg (28.0-32.0); Mean Corpuscular Hgb Conc. 32.3 g/dL (32.0-36.0); Mean Corpuscular Volume 97.6 fL (80.0-100.0); Monocytes # (auto) 0.4 10 ^3/uL (0-1.3); Monocytes % (auto) 6.5 % (0.0-12.0); Neutrophils # (auto) 4.2 10 ^3/uL (1.6-8.6); Neutrophils % (auto) 71.3 % (37.0-80.0); Nucleated Red Blood Cells % 0.1 %; Red Blood Cells 3.26 10^6/uL (4.0-5.20); Red Cell Distribution Width 18.4 % (11.8-14.3); White Blood Cell 5.8 10^3/uL (4.4-10.8)
[2024-03-07 10:10] LABS: Chloride 112 mmol/L (98-107); Potassium 4.3 mmol/L (3.5-5.1); Sodium 143 mmol/L (136-145)
[2024-03-07 10:11] LABS: Anion Gap 4 (5-15); Calcium 9.4 mg/dL (8.7-10.4); Carbon Dioxide 27 mmol/L (20-30)
[2024-03-07 10:16] LABS: BUN/Creatinine Ratio 18.3 (10.0-20.0); Glucose 173 mg/dL (74-106)
[2024-03-07] MEDS: GABAPENTIN 300 MG CAP PO SCH (10:31)
[2024-03-07 10:33] LABS: Blood Urea Nitrogen 26 mg/dL (9-23)
[2024-03-07] MEDS ORDERED: GABAPENTIN 300 MG CAP PO SCH (12:00)
[2024-03-07 13:00] VITALS: BP 115/71; PULSE 72; RESP 20; TEMP 97.7; O2SAT 100
[2024-03-07] MEDS ORDERED: POTA-211 PO (15:13)
[2024-03-07] MEDS ORDERED: METO5TAB5 PO (15:13)
[2024-03-07] MEDS ORDERED: FURO40TA4 PO (15:13)
[2024-03-07 15:27] VITALS: BP 101/52; TEMP 36.5
[2024-03-07] MEDS: FUROSEMIDE 20 MG TAB PO ONE (16:30)
[2024-03-07] MEDS: metOLazone 5 MG TAB PO ONE (16:30)
[2024-03-07 17:00] VITALS: BP 122/72; PULSE 73; RESP 20; TEMP 98.2; O2SAT 100
[2024-03-07] MEDS ORDERED: FUROSEMIDE 20 MG TAB PO SCH (18:00)
[2024-03-08] MEDS ORDERED: metOLazone 5 MG TAB PO SCH (10:00)
== END 2024-03-07 17:00 | disposition hospice, home (50) | DRG 312 ==
LOC: EDBD 11:40 → ER 11:40 → OVERFLOW 18:48 → CENTRAL 23:35
PROVIDERS: ADMIT Student in an Organized Health Care Education/Training Program; ATTEND Student in an Organized Health Care Education/Training Program
DX: I95.2 Hypotension due to drugs (principal); N17.9 Acute kidney failure, unspecified; D68.69 Other thrombophilia; I50.22 Chronic systolic (congestive) heart failure; I13.0 Hypertensive heart and chronic kidney disease with heart failure and stage 1 through stage 4 chronic kidney disease, or unspecified chronic kidney disease; N13.30 Unspecified hydronephrosis; Z68.41 Body mass index [BMI] 40.0-44.9, adult; I25.10 Atherosclerotic heart disease of native coronary artery without angina pectoris; Z20.822 Contact with and (suspected) exposure to COVID-19; J44.9 Chronic obstructive pulmonary disease, unspecified; Z66 Do not resuscitate; E78.5 Hyperlipidemia, unspecified; I48.0 Paroxysmal atrial fibrillation; M10.9 Gout, unspecified; D64.9 Anemia, unspecified; G40.909 Epilepsy, unspecified, not intractable, without status epilepticus; E11.22 Type 2 diabetes mellitus with diabetic chronic kidney disease; N18.32 Chronic kidney disease, stage 3b; R62.7 Adult failure to thrive; E03.9 Hypothyroidism, unspecified; I25.2 Old myocardial infarction; Z88.6 Allergy status to analgesic agent; Z91.041 Radiographic dye allergy status; Z91.018 Allergy to other foods; Z82.49 Family history of ischemic heart disease and other diseases of the circulatory system; Z80.1 Family history of malignant neoplasm of trachea, bronchus and lung; Z87.891 Personal history of nicotine dependence; Z82.61 Family history of arthritis; Z81.1 Family history of alcohol abuse and dependence; Z83.3 Family history of diabetes mellitus; Z80.42 Family history of malignant neoplasm of prostate; Z95.0 Presence of cardiac pacemaker
CPT/HCPCS: 36415; 71045; 76775; 80048; 80053; 80061; 80307; 81001; 82043; 82140; 82306; 82570; 82607; 82962; 83605; 83690; 83735; 83880; 83930; 83935; 84100; 84133; 84156; 84300; 84439; 84443; 84484; 85025; 85610; 85730; 87040; 87086; 87426; 93005; G0378; J1815

== ENCOUNTER 2024-03-11 01:21 | Inpatient (IN) | payer OTHER, MEDICAID ==
[~2024-03-11] VITALS: Ht 162.6 cm; Wt 124.8 kg
[~2024-03-11 01:21] MED LIST changes: -BUMEX2MG PO; +METO5TAB5 PO
[2024-03-11 02:39] LABS: Basophils # (auto) 0 10 ^3/uL (0-0.2); Basophils % (auto) 0.4 % (0.0-2.0); Eosinophils # (auto) 0.2 10 ^3/uL (0-0.8); Eosinophils % (auto) 1.6 % (0.0-7.0); Lymphocytes # (auto) 1.1 10 ^3/uL (0.4-5.4); Lymphocytes % (auto) 10.4 % (10.0-50.0); Mean Corpuscular Hemoglobin 32.2 pg (28.0-32.0); Mean Corpuscular Hgb Conc. 33.2 g/dL (32.0-36.0); Mean Corpuscular Volume 96.9 fL (80.0-100.0); Monocytes # (auto) 0.7 10 ^3/uL (0-1.3); Monocytes % (auto) 6.9 % (0.0-12.0); Neutrophils # (auto) 8.4 10 ^3/uL (1.6-8.6); Neutrophils % (auto) 80.7 % (37.0-80.0); White Blood Cell 10.4 10^3/uL (4.4-10.8)
[2024-03-11 02:55] LABS: Alanine Aminotransferase 34 U/L (7-40); Albumin 3.5 g/dL (3.2-4.8); Alkaline Phosphatase 96 U/L (46-116); Anion Gap 3 (5-15); Aspartate Aminotransferase 20 U/L (13-40); BUN/Creatinine Ratio 17.5 (10.0-20.0); Bilirubin, Total 0.4 mg/dL (0.2-1.0); Blood Urea Nitrogen 25 mg/dL (9-23); Carbon Dioxide 31 mmol/L (20-30); Chloride 108 mmol/L (98-107); Glucose 130 mg/dL (74-106); Potassium 4.3 mmol/L (3.5-5.1); Sodium 142 mmol/L (136-145); Total Protein 5.9 g/dL (5.7-8.2)
[2024-03-11 04:00] VITALS: PULSE 73; RESP 16; O2SAT 93
[2024-03-11] MEDS: SODIUM CHLORIDE 0.9% 1,000 ML IV ONE (04:16)
[2024-03-11 06:28] LABS: Urine Bacteria None Seen /hpf (None Seen)
[2024-03-11 07:26] LABS: Urine Blood Negative /uL (Negative); Urine Clarity Clear (Clear); Urine Color Colorless (Yellow); Urine Hyaline Cast FEW /lpf (0 - 2); Urine Protein, UAD Negative (Negative); Urine Specific Gravity 1.009 (1.001-1.035); Urine Urobilinogen Normal (Negative); Urine WBC <1 /hpf (0 - 5)
[2024-03-11 07:32] VITALS: PULSE 69; RESP 15; O2SAT 98
[2024-03-11] MEDS: AMIODARONE HCL 200 MG TAB PO ONE (09:09)
[2024-03-11] MEDS: SPIRONOLACTONE 25 MG TAB PO ONE (09:10)
[2024-03-11] MEDS: FUROSEMIDE 20 MG/2 ML VIAL IV ONE (09:10)
[2024-03-11] MEDS ORDERED: BACLOFEN 10 MG TAB PO PRN (10:15)
[2024-03-11] MEDS ORDERED: NITROGLYCERIN 0.4 MG SL TAB SL PRN (10:15)
[2024-03-11] MEDS ORDERED: MORPHINE SULFATE INJ 2 MG/ml SYRG IV PRN (10:15)
[2024-03-11] MEDS ORDERED: ONDANSETRON HCL 4 MG/2 ML VIAL IV PRN (10:15)
[2024-03-11] MEDS ORDERED: HYDROcodone-ACET 5/325MG TAB PO PRN (10:15)
[2024-03-11] MEDS ORDERED: ACETAMINOPHEN 325 MG TAB PO PRN (10:15)
[2024-03-11] MEDS ORDERED: DEXTROSE (50%) 50ML SYRG IV PRN (10:30)
[2024-03-11] MEDS: SACUBITRIL-VALSARTAN 24mg/26mg TAB PO SCH (10:40)
[2024-03-11] MEDS: levETIRAcetam 500 MG TAB PO SCH (10:40)
[2024-03-11] MEDS: LEVOTHYROXINE SODIUM 112 MCG TAB PO SCH (10:54)
[2024-03-11] MEDS: HYDROcodone-ACET 10/325MG TAB PO PRN (10:54)
[2024-03-11] MEDS: ACCU-CHEK COMFORT CURVE STRIP VI SCH (11:30)
[2024-03-11] MEDS: InsuLIN REG 1unit/0.01ml Soln (100units/ml) SC SCH ×2 (11:30→21:31)
[2024-03-11] MEDS ORDERED: GABAPENTIN 300 MG CAP PO SCH (12:00)
[2024-03-11] MEDS: GABAPENTIN 300 MG CAP PO SCH (12:53)
[2024-03-11] MEDS: SODIUM CHLOR 0.9% PF (SALINE LOCK) 10ML VIAL/SYR IV SCH (14:13)
[2024-03-11 15:43] VITALS: BP 101/54; PULSE 69; RESP 18; TEMP 98.2; O2SAT 99
[2024-03-11 17:10] VITALS: BP 104/61; PULSE 62; RESP 17; TEMP 98.6; O2SAT 99
[2024-03-11] MEDS: RIVAROXABAN 20 MG TAB PO SCH (17:17)
[2024-03-11] MEDS: FUROSEMIDE 20 MG/2 ML VIAL IV SCH (17:17)
[2024-03-11 20:00] VITALS: PULSE 70; PULSE 71; RESP 18; O2SAT 3
[2024-03-11] MEDS: AMIODARONE HCL 200 MG TAB PO SCH (21:24)
[2024-03-11] MEDS: ATORVASTATIN 20 MG TAB PO SCH (21:24)
[2024-03-11] MEDS: INSULIN DETEMIR 40 UNIT SC SCH (21:53)
[2024-03-11 21:56] VITALS: BP 93/42; PULSE 72; RESP 18; TEMP 98; O2SAT 99
[2024-03-12] VITALS (8 sets, daily range): BP systolic 91–114; BP diastolic 46–60; PULSE 67–88; RESP 17–20; TEMP 97.7–98.7; O2SAT 90–100
[2024-03-12 07:35] LABS: Basophils # (auto) 0 10 ^3/uL (0-0.2); Basophils % (auto) 0.3 % (0.0-2.0); Eosinophils # (auto) 0.1 10 ^3/uL (0-0.8); Eosinophils % (auto) 1.6 % (0.0-7.0); Hematocrit 31.5 % (36.0-46.0); Hemoglobin 10.2 g/dL (12.2-16.2); Lymphocytes # (auto) 1.3 10 ^3/uL (0.4-5.4); Lymphocytes % (auto) 16.5 % (10.0-50.0); Mean Corpuscular Hemoglobin 31.7 pg (28.0-32.0); Mean Corpuscular Hgb Conc. 32.4 g/dL (32.0-36.0); Monocytes # (auto) 0.6 10 ^3/uL (0-1.3); Neutrophils % (auto) 74.6 % (37.0-80.0); Nucleated Red Blood Cells % 0.2 %; Red Blood Cells 3.22 10^6/uL (4.0-5.20); Red Cell Distribution Width 17.8 % (11.8-14.3)
[2024-03-12 07:42] LABS: Alanine Aminotransferase 35 U/L (7-40); Alkaline Phosphatase 74 U/L (46-116); Anion Gap 4 (5-15); BUN/Creatinine Ratio 16.3 (10.0-20.0); Blood Urea Nitrogen 20 mg/dL (9-23); Calcium 9.3 mg/dL (8.7-10.4); Carbon Dioxide 31 mmol/L (20-30); Chloride 107 mmol/L (98-107); Glucose 141 mg/dL (74-106); Potassium 4.2 mmol/L (3.5-5.1); Sodium 142 mmol/L (136-145)
[2024-03-12 07:43] LABS: Albumin 3.6 g/dL (3.2-4.8); Aspartate Aminotransferase 28 U/L (13-40); Bilirubin, Total 0.5 mg/dL (0.2-1.0); Total Protein 5.8 g/dL (5.7-8.2)
[2024-03-12] MEDS: ASPirin-EC 81 mg tab PO SCH (09:20)
[2024-03-12] MEDS: DOCUSATE SOD 100 MG CAP PO PRN (11:54)
[2024-03-12] MEDS: AMIODARONE HCL 200 MG TAB PO SCH (18:30)
[2024-03-13 01:00] VITALS: BP 111/60; PULSE 74; RESP 18; TEMP 98.1; O2SAT 99
[2024-03-13 05:00] VITALS: BP 105/60; PULSE 69; RESP 17; TEMP 98.1; O2SAT 98
[2024-03-13 05:44] LABS: Basophils # (auto) 0 10 ^3/uL (0-0.2); Basophils % (auto) 0.5 % (0.0-2.0); Eosinophils # (auto) 0.2 10 ^3/uL (0-0.8); Eosinophils % (auto) 2.5 % (0.0-7.0); Hematocrit 28.3 % (36.0-46.0); Hemoglobin 9.2 g/dL (12.2-16.2); Lymphocytes # (auto) 1.6 10 ^3/uL (0.4-5.4); Lymphocytes % (auto) 26.2 % (10.0-50.0); Mean Corpuscular Hemoglobin 31.6 pg (28.0-32.0); Mean Corpuscular Hgb Conc. 32.6 g/dL (32.0-36.0); Mean Corpuscular Volume 96.9 fL (80.0-100.0); Monocytes # (auto) 0.5 10 ^3/uL (0-1.3); Monocytes % (auto) 8.2 % (0.0-12.0); Neutrophils # (auto) 3.9 10 ^3/uL (1.6-8.6); Neutrophils % (auto) 62.6 % (37.0-80.0); Red Blood Cells 2.92 10^6/uL (4.0-5.20); Red Cell Distribution Width 17.7 % (11.8-14.3); White Blood Cell 6.3 10^3/uL (4.4-10.8)
[2024-03-13 05:52] LABS: Chloride 107 mmol/L (98-107); Potassium 3.9 mmol/L (3.5-5.1); Sodium 143 mmol/L (136-145)
[2024-03-13 05:54] LABS: Anion Gap 5 (5-15); Calcium 9.2 mg/dL (8.7-10.4); Carbon Dioxide 31 mmol/L (20-30)
[2024-03-13 05:59] LABS: BUN/Creatinine Ratio 16.9 (10.0-20.0); Blood Urea Nitrogen 21 mg/dL (9-23); Glucose 132 mg/dL (74-106)
[2024-03-13 08:00] VITALS: PULSE 65; PULSE 68; RESP 16; O2SAT 98
[2024-03-13 08:53] VITALS: BP 96/52; PULSE 68; RESP 16; TEMP 97.5; O2SAT 96
[2024-03-13 13:00] VITALS: BP 96/50; PULSE 66; RESP 18; TEMP 97.6; O2SAT 100
[2024-03-13 14:54] VITALS: BP 96/60; PULSE 66; RESP 18; TEMP 36.4; O2SAT 100
== END 2024-03-13 16:35 | disposition home or self-care (01) | DRG 308 ==
LOC: ER 01:21 → EDBD 01:21 → TELE 10:15 → TELE-CENTR 15:51
PROVIDERS: ADMIT Internal Medicine; ATTEND Emergency Medicine
DX: I48.0 Paroxysmal atrial fibrillation (principal); N17.0 Acute kidney failure with tubular necrosis; D68.69 Other thrombophilia; Z68.42 Body mass index [BMI] 45.0-49.9, adult; I13.0 Hypertensive heart and chronic kidney disease with heart failure and stage 1 through stage 4 chronic kidney disease, or unspecified chronic kidney disease; I50.22 Chronic systolic (congestive) heart failure; E03.9 Hypothyroidism, unspecified; E78.5 Hyperlipidemia, unspecified; R56.9 Unspecified convulsions; I25.10 Atherosclerotic heart disease of native coronary artery without angina pectoris; Z66 Do not resuscitate; E66.01 Morbid (severe) obesity due to excess calories; N18.9 Chronic kidney disease, unspecified; E11.22 Type 2 diabetes mellitus with diabetic chronic kidney disease; I45.10 Unspecified right bundle-branch block; M10.9 Gout, unspecified; Z88.1 Allergy status to other antibiotic agents; Z91.041 Radiographic dye allergy status; Z88.5 Allergy status to narcotic agent; Z91.018 Allergy to other foods; Z79.899 Other long term (current) drug therapy; Z82.49 Family history of ischemic heart disease and other diseases of the circulatory system; Z83.3 Family history of diabetes mellitus; Z80.1 Family history of malignant neoplasm of trachea, bronchus and lung; Z88.6 Allergy status to analgesic agent
CPT/HCPCS: 36415; 71045; 73502; 80048; 80053; 81001; 82962; 83605; 83735; 83880; 84443; 84484; 85025; 87081; 93005; 97163; G0378; J1815; J2405

== ENCOUNTER 2024-03-27 14:42 | Inpatient (IN) | payer OTHER, MEDICAID ==
[~2024-03-27] VITALS: Ht 162.6 cm; Wt 115.9 kg
[~2024-03-27 14:42] MED LIST changes: -DOXY1CAP57 PO; -LEVE500T40 PO; -MECL12.586 PO
[2024-03-27 15:41] VITALS: PULSE 74; O2SAT 93
[2024-03-27] MEDS: DEXTROSE (50%) 50ML SYRG IV ONE (16:00)
[2024-03-27 16:02] LABS: Basophils # (auto) 0 10 ^3/uL (0-0.2); Basophils % (auto) 0.5 % (0.0-2.0); Eosinophils # (auto) 0.2 10 ^3/uL (0-0.8); Hematocrit 33.5 % (36.0-46.0); Hemoglobin 10.6 g/dL (12.2-16.2); Lymphocytes # (auto) 1.4 10 ^3/uL (0.4-5.4); Lymphocytes % (auto) 15.2 % (10.0-50.0); Mean Corpuscular Hgb Conc. 31.5 g/dL (32.0-36.0); Mean Corpuscular Volume 101.7 fL (80.0-100.0); Monocytes # (auto) 0.7 10 ^3/uL (0-1.3); Monocytes % (auto) 7.3 % (0.0-12.0); Neutrophils # (auto) 6.9 10 ^3/uL (1.6-8.6); Platelet Count (auto) 255 10^3/uL (140-450); Red Cell Distribution Width 16.9 % (11.8-14.3); White Blood Cell 9.2 10^3/uL (4.4-10.8)
[2024-03-27 16:17] LABS: Alanine Aminotransferase 50 U/L (7-40); Albumin 4.3 g/dL (3.2-4.8); Alkaline Phosphatase 117 U/L (46-116); Anion Gap 7 (5-15); Aspartate Aminotransferase 34 U/L (13-40); Blood Urea Nitrogen 62 mg/dL (9-23); Calcium 9.3 mg/dL (8.7-10.4); Carbon Dioxide 30 mmol/L (20-30); Chloride 106 mmol/L (98-107); Glucose 175 mg/dL (74-106); Potassium 4.6 mmol/L (3.5-5.1); Sodium 143 mmol/L (136-145)
[2024-03-27 16:18] LABS: Bilirubin, Total 0.4 mg/dL (0.2-1.0); Total Protein 6.5 g/dL (5.7-8.2)
[2024-03-27] MEDS: FUROSEMIDE 100 MG/10ML VIAL IV ONE (16:21)
[2024-03-27] MEDS: ACCU-CHEK COMFORT CURVE STRIP VI ONE (16:45)
[2024-03-27] MEDS: GABAPENTIN 300 MG CAP PO ONE (16:51)
[2024-03-27] MEDS: HYDROcodone-ACET 5/325MG TAB PO ONE (16:51)
[2024-03-27] MEDS: levETIRAcetam 500 MG TAB PO ONE (16:51)
[2024-03-27] MEDS: LEVOTHYROXINE SODIUM 112 MCG TAB PO ONE (16:51)
[2024-03-27] MEDS: InsuLIN REG 1unit/0.01ml Soln (100units/ml) SC ONE (16:52)
[2024-03-27] MEDS: ASPirin 81 mg TAB PO ONE (17:00)
[2024-03-27 17:21] LABS: Amphetamine Screen, Urine Neg (NEGATIVE); Barbiturate Scree,Urine Neg (NEGATIVE); Benzodiazephine Screen, Urine Neg (NEGATIVE)
[2024-03-27 17:22] LABS: Cannabinoid Screen, Urine Neg (NEGATIVE); Cocaine Screen, Urine Neg (NEGATIVE); Opiate Scree,Urine Pos (NEGATIVE); Phencyclidine Screen, Urine Neg (NEGATIVE)
[2024-03-27] MEDS ORDERED: ALBUTEROL SULF 2.5 MG/0.5ML(0.5%) NEB SOLN NEB SCH (18:00)
[2024-03-27 18:06] LABS: Urine Bacteria MANY /hpf (None Seen); Urine Blood TRACE /uL (Negative); Urine Clarity Turbid (Clear); Urine Color Colorless (Yellow); Urine Protein, UAD Negative (Negative); Urine Specific Gravity 1.008 (1.001-1.035); Urine Urobilinogen Normal (Negative); Urine WBC 556 /hpf (0 - 5); Urine WBC Clumps PRESENT /hpf (None Seen)
[2024-03-27] MEDS ORDERED: DOCUSATE SOD 100 MG CAP PO PRN (18:30)
[2024-03-27] MEDS ORDERED: SODIUM CHLORIDE 0.9% 1,000 ML IV SCH (18:30)
[2024-03-27] MEDS ORDERED: NITROGLYCERIN 0.4 MG SL TAB SL PRN ×2 (18:30→18:45)
[2024-03-27] MEDS ORDERED: DEXTROSE (50%) 50ML SYRG IV PRN ×2 (18:30→18:45)
[2024-03-27] MEDS ORDERED: ONDANSETRON HCL 4 MG/2 ML VIAL IV PRN ×2 (18:30→18:45)
[2024-03-27] MEDS: SODIUM CHLORIDE 0.9% 1,000 ML IV SCH (18:45)
[2024-03-27 18:55] VITALS: PULSE 73; RESP 14; O2SAT 96
[2024-03-27] MEDS: ALBUTEROL SULF 2.5 MG/0.5ML(0.5%) NEB SOLN NEB SCH (19:01)
[2024-03-27] MEDS: IPRATROPIUM BROM 0.5 MG/2.5ML INH SOL NEB SCH (19:01)
[2024-03-27 19:03] VITALS: PULSE 77; RESP 16; O2SAT 99
[2024-03-27 20:30] VITALS: BP 103/46; PULSE 71; RESP 18; TEMP 97.4; O2SAT 97
[2024-03-27 21:22] VITALS: BP 103/46; PULSE 61; PULSE 74; RESP 18; TEMP 97.4; O2SAT 96
[2024-03-27] MEDS ORDERED: ACCU-CHEK COMFORT CURVE STRIP VI SCH (22:00)
[2024-03-27] MEDS ORDERED: InsuLIN REG 1unit/0.01ml Soln (100units/ml) SC SCH (22:00)
[2024-03-27] MEDS: InsuLIN REG 1unit/0.01ml Soln (100units/ml) SC SCH (22:00)
[2024-03-27] MEDS: HYDROcodone-ACET 5/325MG TAB PO PRN (22:08)
[2024-03-27] MEDS: ATORVASTATIN 20 MG TAB PO SCH (22:08)
[2024-03-27] MEDS: GABAPENTIN 300 MG CAP PO SCH (22:09)
[2024-03-27] MEDS: levETIRAcetam 500 MG TAB PO SCH (22:09)
[2024-03-27] MEDS: ACCU-CHEK COMFORT CURVE STRIP VI SCH (22:18)
[2024-03-27] MEDS: MEROPENEM 1GM IVPB 50 ML IV SCH (22:18)
[2024-03-28] VITALS (17 sets, daily range): BP systolic 87–124; BP diastolic 43–68; PULSE 63–81; RESP 14–20; TEMP 97.4–98.5; O2SAT 94–100
[2024-03-28 02:13] LABS: COVID19 ANTIGEN SOFIA FIA NEGATIVE (NEGATIVE); Rapid Influenza A Negative (Negative); Rapid Influenza B Negative (Negative)
[2024-03-28] MEDS: LEVOTHYROXINE SODIUM 112 MCG TAB PO SCH (05:36)
[2024-03-28 06:01] LABS: Basophils # (auto) 0 10 ^3/uL (0-0.2); Basophils % (auto) 0.6 % (0.0-2.0); Eosinophils # (auto) 0.2 10 ^3/uL (0-0.8); Eosinophils % (auto) 3.4 % (0.0-7.0); Lymphocytes # (auto) 1.4 10 ^3/uL (0.4-5.4); Lymphocytes % (auto) 20.6 % (10.0-50.0); Mean Corpuscular Hemoglobin 32.6 pg (28.0-32.0); Mean Corpuscular Hgb Conc. 33.5 g/dL (32.0-36.0); Mean Corpuscular Volume 97.2 fL (80.0-100.0); Monocytes # (auto) 0.6 10 ^3/uL (0-1.3); Monocytes % (auto) 9.5 % (0.0-12.0); Neutrophils # (auto) 4.5 10 ^3/uL (1.6-8.6); Neutrophils % (auto) 65.9 % (37.0-80.0); Nucleated Red Blood Cells % 0.1 %; Platelet Count (auto) 228 10^3/uL (140-450); Red Blood Cells 3.09 10^6/uL (4.0-5.20); Red Cell Distribution Width 16.6 % (11.8-14.3); White Blood Cell 6.9 10^3/uL (4.4-10.8)
[2024-03-28 06:18] LABS: Alanine Aminotransferase 41 U/L (7-40); Albumin 3.9 g/dL (3.2-4.8); Alkaline Phosphatase 85 U/L (46-116); Anion Gap 8 (5-15); Aspartate Aminotransferase 32 U/L (13-40); BUN/Creatinine Ratio 28.3 (10.0-20.0); Calcium 9.3 mg/dL (8.7-10.4); Carbon Dioxide 31 mmol/L (20-30); Chloride 105 mmol/L (98-107); Glucose 112 mg/dL (74-106); Potassium 4.2 mmol/L (3.5-5.1); Sodium 144 mmol/L (136-145)
[2024-03-28 06:19] LABS: Bilirubin, Total 0.5 mg/dL (0.2-1.0); Total Protein 6.1 g/dL (5.7-8.2)
[2024-03-28 06:22] LABS: Blood Urea Nitrogen 49 mg/dL (9-23)
[2024-03-28] MEDS ORDERED: DEXTROSE (50%) 50ML SYRG IV PRN (08:15)
[2024-03-28] MEDS: ASPirin 81 mg TAB PO SCH (08:32)
[2024-03-28] MEDS: ACCU-CHEK COMFORT CURVE STRIP VI SCH (12:20)
[2024-03-28] MEDS: InsuLIN REG 1unit/0.01ml Soln (100units/ml) SC SCH (16:00)
[2024-03-28] MEDS: RIVAROXABAN 15 MG TAB PO SCH (17:28)
[2024-03-28] MEDS: FUROSEMIDE 40 MG TAB PO SCH (17:31)
[2024-03-28] MEDS: HYDROcodone-ACET 5/325MG TAB PO PRN (17:32)
[2024-03-28] MEDS ORDERED: RIVAROXABAN 20 MG TAB PO SCH (18:00)
[2024-03-28] MEDS: GABAPENTIN 300 MG CAP PO SCH (18:03)
[2024-03-28] MEDS: SACUBITRIL-VALSARTAN 24mg/26mg TAB PO SCH (22:04)
[2024-03-28] MEDS: AMIODARONE HCL 200 MG TAB PO SCH (22:04)
[2024-03-29] VITALS (14 sets, daily range): BP systolic 104–110; BP diastolic 55–66; PULSE 76–84; RESP 16–20; TEMP 97.6–98.6; O2SAT 93–100
[2024-03-29] MEDS ORDERED: FUROSEMIDE 20 MG TAB PO SCH (10:00)
[2024-03-29] MEDS: metOLazone 5 MG TAB PO SCH (10:08)
[2024-03-30] VITALS (12 sets, daily range): BP systolic 99–118; BP diastolic 39–73; PULSE 64–84; RESP 14–19; TEMP 97.2–97.8; O2SAT 94–100
[2024-03-30] MEDS: ERTAPENEM SOD INJ 1 GM in SODIUM CHL 0.9% 50 ML IV ONE (10:05)
[2024-03-30] MEDS: LORazepam 2MG/ML-1ML VIAL IV PRN (13:15)
[2024-03-30] MEDS: LORazepam 2MG/ML-1ML VIAL ONE (13:37)
[2024-03-31] VITALS (15 sets, daily range): BP systolic 91–109; BP diastolic 48–68; PULSE 63–99; RESP 17–20; TEMP 97.3–97.7; O2SAT 95–100
[2024-03-31 06:24] LABS: Basophils # (auto) 0.1 10 ^3/uL (0-0.2); Basophils % (auto) 0.7 % (0.0-2.0); Eosinophils # (auto) 0.3 10 ^3/uL (0-0.8); Eosinophils % (auto) 4.4 % (0.0-7.0); Hematocrit 33.4 % (36.0-46.0); Hemoglobin 11.3 g/dL (12.2-16.2); Lymphocytes # (auto) 1.7 10 ^3/uL (0.4-5.4); Lymphocytes % (auto) 23.9 % (10.0-50.0); Mean Corpuscular Hemoglobin 32.5 pg (28.0-32.0); Mean Corpuscular Hgb Conc. 33.9 g/dL (32.0-36.0); Mean Corpuscular Volume 95.9 fL (80.0-100.0); Monocytes # (auto) 0.7 10 ^3/uL (0-1.3); Monocytes % (auto) 9.7 % (0.0-12.0); Neutrophils # (auto) 4.5 10 ^3/uL (1.6-8.6); Neutrophils % (auto) 61.3 % (37.0-80.0); Nucleated Red Blood Cells % 0.1 %; Platelet Count (auto) 262 10^3/uL (140-450); Red Blood Cells 3.49 10^6/uL (4.0-5.20); Red Cell Distribution Width 16.2 % (11.8-14.3); White Blood Cell 7.3 10^3/uL (4.4-10.8)
[2024-03-31 06:51] LABS: Chloride 96 mmol/L (98-107); Potassium 3.6 mmol/L (3.5-5.1)
[2024-03-31 06:52] LABS: Anion Gap 4 (5-15); Carbon Dioxide 39 mmol/L (20-30)
[2024-03-31 06:53] LABS: Calcium 10.7 mg/dL (8.7-10.4)
[2024-03-31 06:58] LABS: BUN/Creatinine Ratio 23.1 (10.0-20.0); Blood Urea Nitrogen 34 mg/dL (9-23); Glucose 144 mg/dL (74-106)
[2024-03-31 07:01] LABS: Sodium 139 mmol/L (136-145)
[2024-03-31] MEDS: ERTAPENEM SOD INJ 1 GM in SODIUM CHL 0.9% 50 ML IV SCH (10:34)
[2024-03-31 12:46] LABS: Base Excess 13.2 mmol/L (-2.0-3.0)
[2024-04-01] VITALS (11 sets, daily range): BP systolic 92–95; BP diastolic 54–59; PULSE 75–83; RESP 15–24; TEMP 97.3–98.1; O2SAT 94–100
[2024-04-01 09:38] LABS: Chloride 94 mmol/L (98-107); Potassium 3.7 mmol/L (3.5-5.1); Sodium 137 mmol/L (136-145)
[2024-04-01 09:39] LABS: Anion Gap 5 (5-15); Carbon Dioxide 38 mmol/L (20-30)
[2024-04-01 09:40] LABS: Calcium 10.2 mg/dL (8.7-10.4)
[2024-04-01 09:44] LABS: Glucose 153 mg/dL (74-106)
[2024-04-01 09:45] LABS: BUN/Creatinine Ratio 22.7 (10.0-20.0); Blood Urea Nitrogen 39 mg/dL (9-23)
[2024-04-01 09:47] LABS: Phosphorus 3.8 mg/dL (2.4-5.1)
[2024-04-01] MEDS ORDERED: IPRATROPIUM BROM 0.5 MG/2.5ML INH SOL NEB PRN (10:00)
[2024-04-01] MEDS ORDERED: acetaZOLAMIDE SODIUM 500 MG VL IV SCH (10:00)
[2024-04-01] MEDS ORDERED: ALBUTEROL SULF 2.5 MG/0.5ML(0.5%) NEB SOLN NEB PRN (10:00)
[2024-04-01] MEDS: POTASSIUM EFFERVESENT TAB 25 MEQ PO ONE (12:38)
[2024-04-01] MEDS: DOCUSATE SOD 100 MG CAP PO PRN (12:39)
[2024-04-01] MEDS: ACETAZOLAMIDE IV SCH (18:00)
[2024-04-01] MEDS: SODIUM CHL 0.9% IV SCH (18:00)
[2024-04-02] VITALS (10 sets, daily range): BP systolic 79–100; BP diastolic 49–58; PULSE 68–76; RESP 16–19; TEMP 97.5–98.6; O2SAT 94–99
[2024-04-02 13:19] LABS: Chloride 96 mmol/L (98-107); Potassium 3.7 mmol/L (3.5-5.1); Sodium 138 mmol/L (136-145)
[2024-04-02 13:20] LABS: Anion Gap 7 (5-15); Calcium 10.3 mg/dL (8.7-10.4); Carbon Dioxide 35 mmol/L (20-30)
[2024-04-02 13:25] LABS: BUN/Creatinine Ratio 24.1 (10.0-20.0); Blood Urea Nitrogen 42 mg/dL (9-23); Glucose 148 mg/dL (74-106)
[2024-04-02] MEDS ORDERED: IPRATROPIUM BROM 0.5 MG/2.5ML INH SOL NEB PRN (16:45)
[2024-04-02] MEDS ORDERED: ALBUTEROL SULF 2.5 MG/0.5ML(0.5%) NEB SOLN NEB PRN (16:45)
[2024-04-02] MEDS: MIDODRINE HCL 10 MG TAB PO ONE (17:37)
[2024-04-02] MEDS: GABAPENTIN 300 MG CAP PO SCH (21:45)
[2024-04-03] VITALS (8 sets, daily range): BP systolic 85–100; BP diastolic 36–57; PULSE 63–90; RESP 16–19; TEMP 97.8–98.4; O2SAT 94–98
[2024-04-03] MEDS: MIDODRINE HCL 10 MG TAB PO SCH (05:56)
[2024-04-03 10:36] LABS: Chloride 100 mmol/L (98-107); Potassium 3.7 mmol/L (3.5-5.1); Sodium 136 mmol/L (136-145)
[2024-04-03 10:37] LABS: Anion Gap 5 (5-15); Calcium 9.7 mg/dL (8.7-10.4); Carbon Dioxide 31 mmol/L (20-30)
[2024-04-03 10:42] LABS: BUN/Creatinine Ratio 22.7 (10.0-20.0); Blood Urea Nitrogen 34 mg/dL (9-23); Glucose 141 mg/dL (74-106)
== END 2024-04-03 15:33 | DRG 682 ==
LOC: EDBD 14:42 → ER 14:42 → OVERFLOW 18:37 → ER 18:37 → EAST 20:05 → TELE-EAST 03-28 20:26
PROVIDERS: ADMIT Nurse Practitioner Family; ATTEND Family Medicine
PROC: 05HF33Z Insertion of Infusion Device into Left Cephalic Vein, Percutaneous Approach (ICD-10-PCS; principal; 2024-03-30)
PROC: B548ZZA Ultrasonography of Superior Vena Cava, Guidance (ICD-10-PCS; 2024-03-30)
DX: N17.0 Acute kidney failure with tubular necrosis (principal); I50.23 Acute on chronic systolic (congestive) heart failure; E87.3 Alkalosis; J44.1 Chronic obstructive pulmonary disease with (acute) exacerbation; I48.20 Chronic atrial fibrillation, unspecified; I13.0 Hypertensive heart and chronic kidney disease with heart failure and stage 1 through stage 4 chronic kidney disease, or unspecified chronic kidney disease; L03.115 Cellulitis of right lower limb; L97.419 Non-pressure chronic ulcer of right heel and midfoot with unspecified severity; N39.0 Urinary tract infection, site not specified; Z68.41 Body mass index [BMI] 40.0-44.9, adult; I42.0 Dilated cardiomyopathy; Z16.12 Extended spectrum beta lactamase (ESBL) resistance; Z66 Do not resuscitate; E11.22 Type 2 diabetes mellitus with diabetic chronic kidney disease; E11.621 Type 2 diabetes mellitus with foot ulcer; E78.5 Hyperlipidemia, unspecified; E03.9 Hypothyroidism, unspecified; E66.01 Morbid (severe) obesity due to excess calories; I48.0 Paroxysmal atrial fibrillation; N18.32 Chronic kidney disease, stage 3b; I25.10 Atherosclerotic heart disease of native coronary artery without angina pectoris; D63.8 Anemia in other chronic diseases classified elsewhere; I95.89 Other hypotension; I25.5 Ischemic cardiomyopathy; B96.1 Klebsiella pneumoniae [K. pneumoniae] as the cause of diseases classified elsewhere; Z87.01 Personal history of pneumonia (recurrent); Z91.199 Patient's noncompliance with other medical treatment and regimen due to unspecified reason; Z95.0 Presence of cardiac pacemaker; Z95.5 Presence of coronary angioplasty implant and graft; Z99.81 Dependence on supplemental oxygen; Z87.891 Personal history of nicotine dependence; Z79.4 Long term (current) use of insulin; Z79.01 Long term (current) use of anticoagulants; Z88.6 Allergy status to analgesic agent; Z83.3 Family history of diabetes mellitus; Z82.49 Family history of ischemic heart disease and other diseases of the circulatory system; Z80.1 Family history of malignant neoplasm of trachea, bronchus and lung
CPT/HCPCS: 36415; 36600; 70450; 71045; 73630; 80048; 80053; 80307; 81001; 82010; 82805; 82962; 83605; 83735; 83880; 83970; 84100; 84484; 85025; 87040; 87081; 87086; 87088; 87186; 87426; 87804; 93970; 94640; 97163; 99291; G0378; J1335; J1815; J2185

== ENCOUNTER 2024-06-01 13:00 | Inpatient (IN) | payer OTHER, MEDICAID ==
[~2024-06-01] VITALS: Ht 162.6 cm; Wt 129.9 kg
[~2024-06-01 13:00] MED LIST changes: -FURO1TAB31 PO; -INSU100I28 IJ; +INSU100I28 SC
[2024-06-01] MEDS: SODIUM CHLORIDE 0.9% 1,000 ML IV ONE (13:15)
--- NOTE | 2024-06-01 13:19 | ED.PDOC ---
History of Present Illness HPI Comments 68-year-old female brought in by EMS presents to the ED with a chief complaint of generalized weakness x an unknown amount of time. Per EMS, caregiver called 911 and stated to EMS that patient is "weaker than normal". EMS reports that there was a language barrier between them and caregiver so they were unable to gather further information. Per [facility] medical charts, patient has PMHx of: A-Fib, CAD, CHF, COPD, DM, Gout, HLD, HTN, OR, and Thyroid Disease & a PSHx: Pacemaker, PTCA. Patient is a poor historian and not able to elaborate on symptoms. Chief Complaint: General Weakness Time Seen by MD: 13:11 Primary Care Provider: UNKNOWN Reviewed Notes: Medications, Allergies Allergies: Coded Allergies: Coconut Fatty Acids (Verified Allergy, Unknown, 09/11/22) Ibuprofen (Verified Allergy, Unknown, 09/11/22) Iodine (Verified Allergy, Unknown, 09/11/22) Morphine (Verified Allergy, Unknown, 09/11/22) Spinach (Verified Allergy, Unknown, 09/11/22) Home Meds Active Scripts Metolazone (Metolazone) 5 Mg Tab, 5 MG PO DAILY for 30 Days, #30 TAB Prov:SHARMILA MEDINA MD 03/07/24 Potassium Chloride (Klor-Con 10) 10 Meq Tab, 1 TAB PO DAILY for 30 Days, #30 TAB Prov:SHARMILA MEDINA MD 03/07/24 Levetiracetam (Keppra) 1,000 Mg Tab, 1 TAB PO BID for 30 Days, #60 TAB 3 Refills Prov:CARLEY JOYA MD 02/27/24 Rivaroxaban (Xarelto Tablet) 20 Mg Tb, 20 MG PO QPM for 30 Days, #30 TAB 3 Refills Prov:DUSTY VALDOVINOS DO 02/17/23 Reported Medications Furosemide (Furosemide) 40 Mg Tab, 1 TAB PO BID for 30 Days, #60 03/31/24 Amiodarone Hcl (Amiodarone Hcl) 200 Mg Tab, 1 TAB PO BID 02/16/24 Levothyroxine Sodium (Levothyroxine Sodium) 112 Mcg Tab, 1 TAB PO DAILY, #30 TAB 5 Refills 02/16/24 Atorvastatin Calcium (ATORVASTATIN CALCIUM) 40 Mg Tab, 1 TAB PO DAILY, #30 TAB 5 Refills 02/16/24 Hydrocodone-Acetaminophen (Hydrocodone Bitartrate/AC 10-325 mg) 1 Tab Tab, 1 TAB PO TID PRN 02/16/24 Allopurinol (Allopurinol) 300 Mg Tab, 2 TAB PO DAILY 02/16/24 Gabapentin (Gabapentin) 300 Mg Cap, 2 CAP PO QID, #90 CAP 5 Refills 02/16/24 Insulin Detemir (Levemir) Inj, 40 UNITS SC BID Inject 40 units subcutaneously in the morning, and 40 units subcutaneously in the evening. 02/06/24 Insulin Aspart (Novolog) 100 Unit/Ml Inj, 5 UNIT IJ AC, INJ sliding scale 02/15/23 Tizanidine Hydrochloride (TIZANIDINE HCL) 4 Mg Cap, 4 MG PO Q8HR, CAP 02/15/23 Baclofen (Baclofen) 10 Mg Tab, 1 TAB PO TID PRN 02/15/23 Celecoxib (Celebrex) 200 Mg Cap, 1 CAP PO DAILY PRN for PAIN SCALE 1 THRU 6, #30 CAP 2 Refills 02/15/23 Sacubitril-Valsartan (Entresto 24-26 mg) 1 Tab Tab, 1 TAB PO BID, TAB 02/15/23 Prednisolone Acetate (Ophth) (Pred Forte) 1 % Stacie, 1 % OP QID, ML LEFT EYE 02/15/23 Ofloxacin (Otic) (FLOXIN OTIC) [address], 1 DROP OT QID, DROP RIGHT EYE 02/15/23 Aspirin (Aspir-Low) 81 Mg Tab, 81 MG PO DAILY for 30 Days, MG 02/15/23 Information Source: Patient, Emergency Med Personnel Mode of Arrival: EMS Severity: Moderate Timing: Other (UNKNOWN) Duration: Since onset Prehospital treatment: Oxygen Past Medical History PAST MEDICAL HISTORY: AFIB, CAD, CHF, COPD, DM, Gout, High Lipids, HTN, OR, Thyroid Surgical History: Pacemaker, PTCA 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: 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 Family History Family History: Reviewed,noncontributory to illness, Family hx of heart patricio, Family hx of HTN, Family hx of lung patricio Social History Smoker: Non-Smoker, Quit Greater Than 1 Year Alcohol: Denies ETOH Use Drugs: Denies Drug Use Lives In: Home Constitutional: reports: weakness; denies: chills, diaphoresis, fatigue, fever, malaise, sweats, others EENTM: denies: blurred vision, double vision, ear bleeding, ear discharge, ear drainage, ear pain, ear ringing, eye pain, eye redness, hearing loss, mouth pain, mouth swelling, nasal discharge, nose bleeding, nose congestion, nose pain, photophobia, tearing, throat pain, throat swelling, voice changes, others Respiratory: denies: cough, hemoptysis, orthopnea, SOB at rest, shortness of breath, SOB with excertion, stridor, wheezing, others Cardiovascular: denies: chest pain, dizzy spells, diaphoresis, Dyspnea on exe rtion, edema, irregular heart beat, left arm pain, lightheadedness, palpitations, PND, syncope, others Gastrointestinal: denies: abdomen distended, abdominal pain, blood streaked bowels, constipated, diarrhea, dysphagia, difficulty swallowing, hematemesis, melena, nausea, poor appetite, poor fluid intake, rectal bleeding, rectal pain, vomiting, others Genitourinary: denies: abnormal vagina bleeding, burning, dyspareunia, dysuria, flank pain, frequency, hematuria, incontinence, pain, , vagina discharge, urgency, others Neurological: denies: dizziness, fainting, headache, left sided numbness, left sided weakness, numbness, paresthesia, pre-existing deficit, right sided numbness, right sided weakness, seizure, speech problems, tingling, tremors, weakness, others Musculoskeletal: denies: back pain, gout, joint pain, joint swelling, muscle pain, muscle stiffness, neck pain, others Integumetry: denies: bruises, change in color, change in hair/nails, dryness, laceration, lesions, lumps, rash, wounds, others Allergic/Immunocompromised: denies: Difficulty Healing, Frequent Infections, Hives, Itching, others Hematologic/Lymphatic: denies: anemia, blood clots, easy bleeding, easy bruising, swollen glands, others Endocrine: denies: excessive hunger, excessive sweating, excessive thirst, excessive urination, flushing, intolerance to cold, intolerance to heat, unexplained weight gain, unexplained weight loss, others Psychiatric: denies: anxiety, bipolar disorder, depression, hopeless, panic disorder, schizophrenia, sleepless, suicidal, others All Other Systems: Reviewed and Negative Physical Exam General Appearance: Moderate Distress, Obese, Other (Lethargy and unable to communicate freely) HEENT: Normal ENT Inspection, PERRL/EOMI, TMs Normal Neck: Full Range of Motion, Non-Tender, Normal, Normal Inspection Respiratory: Chest Non-Tender, Lungs Clear, No Accessory Muscle Use, No Respiratory Distress, Normal Breath Sounds Cardiovascular: No Edema, No JVD, No Murmur, No Gallop, Normal Peripheral Pulses, Regular Rate/Rhythm Breast Exam: Deferred Gastrointestinal: Diffuse, Distended, No Pulsatile Mass, Normal Bowel Sounds, Soft, Tenderness, Other (Morbid obesity) Genitalia: Deferred Pelvic: Deferred Rectal: Deferred Extremities: Decreased range of motion, Leg edema, Normal capillary refill, Normal inspection, Non-tender, Pedal edema, Swelling, Tender, Other (Patient bed ridden) Musculoskeletal : Apperance: Normal Neurologic: Depressed Affect, Motor Weakness, Speech Problem Cerebellar Function: Unable to Test Reflexes: NOT DONE Skin: Dry, Normal Color, Warm Peripheral Pulses: 1+ carotid (R), 1+ carotid (L) Lymphatic: No Adenopathy Was a procedure done? Was a procedure done?: No EKG EKG : Pulse Rate (adult): 85 [place]: Normal Cardiac Rhythm: NSR ST: Old, Ant, Infarct Differential Dx Considerations may include: Altered level of consciousness lethargic morbid obesity anasarca altered electrolytes hypothyroidism congestive heart failure seizure disorder X-Ray, Labs, Meds, VS Vital Signs Date Time Temp Pulse Resp B/P (MAP) Pulse Ox O2 Delivery O2 Flow Rate FiO2 06/01/24 15:25 97.9 74 15 114/98 (103) 100 97.9 06/01/24 13:36 85 06/01/24 13:19 85 06/01/24 13:14 98.5 86 24 132/59 (83) 92 Lab Test 06/01/24 14:10 06/01/24 13:32 Range/Units Urine Color Light-yellow Yellow Urine Clarity Clear Clear Urine pH 5.0 5.0-9.0 Urine Specific [place] 1.010 1.001-1.035 Urine Protein Negative Negative Urine Ketones Negative Negative Urine Blood Negative Negative /uL Urine Nitrite Negative Negative Urine Bilirubin Negative Negative Urine Urobilinogen Normal Negative mg/dL Urine Leukocyte Esterase Negative Negative /uL Urine RBC None seen 0 - 4 /hpf Urine WBC None seen 0 - 5 /hpf Urine Squamous Epithelial Cells None seen <5 /hpf Urine Bacteria None seen None Seen /hpf Urine Hyaline Casts Few 0 - 2 /lpf Urine Glucose Normal Normal mg/dL Urine Opiates Screen Neg NEGATIVE Urine Fentanyl Screen Neg NEGATIVE Urine Barbiturates Screen Neg NEGATIVE Urine Phencyclidine Screen Neg NEGATIVE Urine Amphetamines Screen Neg NEGATIVE Urine Benzodiazepines Screen Neg NEGATIVE Urine Cocaine Screen Neg NEGATIVE Urine Cannabinoids Screen Neg NEGATIVE White Blood Count 11.0 H 4.4-10.8 10^3/uL Red Blood Count 3.83 L 4.0-5.20 10^6/uL Hemoglobin 11.3 L 12.2-16.2 g/dL Hematocrit 35.5 L 36.0-46.0 % Mean Corpuscular Volume 92.7 80.0-100.0 fL Mean Corpuscular Hemoglobin 29.6 28.0-32.0 pg Mean Corpuscular Hemoglobin Concent 31.9 L 32.0-36.0 g/dL Red Cell Distribution Width 16.4 H 11.8-14.3 % Platelet Count 331 140-450 10^3/uL Mean Platelet Volume 8.1 6.9-10.8 fL Neutrophils (%) (Auto) 83.3 H 37.0-80.0 % Lymphocytes (%) (Auto) 5.7 L 10.0-50.0 % Monocytes (%) (Auto) 7.1 0.0-12.0 % Eosinophils (%) (Auto) 3.8 0.0-7.0 % Basophils (%) (Auto) 0.1 0.0-2.0 % Neutrophils # (Auto) 9.2 H 1.6-8.6 10 ^3/uL Lymphocytes # (Auto) 0.6 0.4-5.4 10 ^3/uL Monocytes # (Auto) 0.8 0-1.3 10 ^3/uL Eosinophils # (Auto) 0.4 0-0.8 10 ^3/uL Basophils # (Auto) 0 0-0.2 10 ^3/uL Nucleated Red Blood Cells 0.0 % Prothrombin Time 12.4 H 9.3-11.8 sec Prothrombin Time INR 1.18 H 0.9-1.15 Activated Partial Thromboplast Time 29.6 24.5-34.5 SEC D-Dimer, Quantitative 1.78 H 0.0-0.49 mg/L FEU Sodium Level 145 136-145 mmol/L Potassium Level 4.3 3.5-5.1 mmol/L Chloride Level 108 H 98-107 mmol/L Carbon Dioxide Level 28 20-31 mmol/L Anion Gap 9 5-15 Blood Urea Nitrogen 56 H 9-23 mg/dL Creatinine 2.37 H 0.550-1.02 mg/dL Glomerular Filtration Rate Calc 22 >90 mL/min BUN/Creatinine Ratio 23.6 H 10.0-20.0 Serum Glucose 106 74-106 mg/dL Lactic Acid Level 1.4 0.4-2.0 mmol/L Calcium Level 10.0 8.7-10.4 mg/dL Magnesium Level 2.7 H 1.6-2.6 mg/dL Total Bilirubin 0.5 0.2-1.0 mg/dL Aspartate Amino Transferase (AST) 55 H 13-40 U/L Alanine Aminotransferase (ALT) 63 H 7-40 U/L Alkaline Phosphatase 124 H 46-116 U/L Troponin I High Sensitivity 13 </=34 ng/L B-Type Natriuretic Peptide 1072.61 0-100 pg/mL Total Protein 7.4 5.7-8.2 g/dL Albumin 4.5 3.2-4.8 g/dL Thyroid Stimulating Hormone (TSH) 0.59 0.55-4.78 uIU/mL X-Ray, Labs, Meds, VS Comment Course in the emergency department eventful patient came in as a general weakness and lethargy The chest x-ray shows cardiomegaly with pulmonary vascular congestion EKG shows normal sinus rhythm at 85 CT head is normal Troponin at 13 CBC 05375 with 83% neutrophils H&H 11 and 35.5 See eye CMP GFR is 22 BNP 16454, 61 INR 1.18 D-dimer 1.78 elevated Urine negative Magnesium 2.7 Lactic acid 1.4 UDS negative TSH 0.59 Liver enzymes elevated Patient will be admitted for further care Time of 1ST Reevaluation: 13:41 Reevaluation 1ST: Unchanged Time of 2ND Reevaluation: 15:38 Reevaluation 2ND: Unchanged Patient Education/Counseling: Diagnosis, Treatment, Prognosis Family Education/Counseling: Diagnosis, Treatment, Prognosis, No Family Present Departure 1 Departure Time of Disposition: 15:43 Impression: Primary Impression: Generalized weakness Additional Impressions: Lethargy Diabetes mellitus with nephropathy Anemia of chronic disease Pulmonary vascular congestion Elevated liver enzymes Morbid obesity History of seizure disorder Cardiac pacemaker in situ Disposition: 09 ADMITTED INPATIENT Admit to: Tele Condition: Serious Critical Care Note Critical Care Time?: Yes (30 min-critical care time only) Stability Stability form required: Yes Unstable for transfer: Telemetry monitoring (Telemetry monitoring required), Requires medication (Requires Med for stabilization) Heart Score Heart Score: Heart Score Response (Comments) Value History Slightly Suspicious 0 EKG Normal 0 Age >65 2 Risk Factors >3 or Hx ASHD 2 Troponin Normal limit 0 Total 4 I personally scribed for ROBERT CONNORS MD ([email or web address]) on 06/01/24 at 13:19. Electronically submitted by Rolando Mcguire ([email or web address]). ORBERT CONNORS MD Jun 01, 2024 13:19
--- NOTE | 2024-06-01 13:20 | ECG ---
[facility] Test Date: 2024-06-01 Test Time: 13:19:02 Pat Name: EDUARDO CONDON Department: ED Room: 0203 Gender: F Job Placement Specialist: OMAR : [id number] Requested By: ROBERT CONNORS Order Number: [id number] Reading MD: Rufino Daniel Measurements Intervals [place] Rate: 85 P: 24 MA: 263 QRS: -62 QRSD: 109 T: 76 QT: 413 QTc: 492 Interpretive Statements Sinus rhythm Prolonged MA interval Inferior infarct, old Probable anterolateral infarct, old Electronically Signed On 06-04-2024 11:16:39 PST by Rufino Daniel Please click the below link to view image of tracing.
[2024-06-01 13:51] LABS: Basophils # (auto) 0 10 ^3/uL (0-0.2); Basophils % (auto) 0.1 % (0.0-2.0); Eosinophils # (auto) 0.4 10 ^3/uL (0-0.8); Eosinophils % (auto) 3.8 % (0.0-7.0); Hematocrit 35.5 % (36.0-46.0); Hemoglobin 11.3 g/dL (12.2-16.2); Lymphocytes # (auto) 0.6 10 ^3/uL (0.4-5.4); Lymphocytes % (auto) 5.7 % (10.0-50.0); Mean Corpuscular Hemoglobin 29.6 pg (28.0-32.0); Mean Corpuscular Hgb Conc. 31.9 g/dL (32.0-36.0); Mean Corpuscular Volume 92.7 fL (80.0-100.0); Monocytes # (auto) 0.8 10 ^3/uL (0-1.3); Monocytes % (auto) 7.1 % (0.0-12.0); Neutrophils # (auto) 9.2 10 ^3/uL (1.6-8.6); Neutrophils % (auto) 83.3 % (37.0-80.0); Platelet Count (auto) 331 10^3/uL (140-450); Red Blood Cells 3.83 10^6/uL (4.0-5.20); Red Cell Distribution Width 16.4 % (11.8-14.3)
--- NOTE | 2024-06-01 13:53 | DVH ---
EXAM: XY CHEST PORTABLE Indication:chf generalized weakness lethargic Technique: Single frontal view of the chest was obtained Comparison: XY CHEST XRAY 1 VIEW on DOS: 03/28/24, XY CHEST PORTABLE on DOS: 03/27/24, XY CHEST PORTABL E on DOS: 03/11/24, XY CHEST PORTABLE on DOS: 03/05/24, XY CHEST PORTABLE on DOS: 02/26/24 FINDINGS: Lines and Tubes: Cardiac pacemaker projects over left chest wall. Lungs: Left retrocardiac opacity. Pulmonary vascular congestion. Low lung volumes. Pleura: No effusion. No pneumothorax. Cardiomediastinal contours: Cardiomegaly. Bones: No acute osseous abnormality. IMPRESSION: Cardiomegaly with pulmonary vascular congestion. Low lung volumes.
[2024-06-01 14:09] LABS: INR 1.18 (0.9-1.15); Partial Thromboplastin Time 29.6 SEC (24.5-34.5); Prothrombin Time 12.4 sec (9.3-11.8)
--- NOTE | 2024-06-01 14:14 | DVH ---
EXAM: CT HEAD WITHOUT CONTRAST INDICATION: Altered level of consciousness TECHNIQUE: CT of the head without intravenous contrast. Radiation Dose Information: CT Dose: CTDI volume is 68.49 mGy. Dose-length product is 1212.32 mGy*cm The dose indicators for CT are the volume Computed Tomography (CT) Dose Index (CTDIvol) and the Dose Length Product (DLP), and are measured in units of mGy and mGy-cm, respectively. These indicators are not patient dose, but values generated from the CT scanner acquisition factors. The report includes radiation exposure data for exposures received during this examination. COMPARISON: CT HEAD WITHOUT CONTRAST on DOS: 03/27/24, CT HEAD WITHOUT CONTRAST on DOS: 02/04/24 FINDINGS: There is no evidence of acute intracranial hemorrhage, extra-axial collection, mass effect, midline s hift, herniation or hydrocephalus. The ventricles, sulci and cisterns are age appropriate. The luna-white differentiation is intact. Patchy periventricular and subcortical white matter hypoattenuation is nonspecific but may be related to small vessel ischemic disease. The visualized paranasal sinuses and mastoid air cells are clear. The surrounding soft tissues and osseous structures are unremarkable. Hyperostosis frontalis interna. IMPRESSION: 1. No CT evidence of acute intracranial abnormality. HS:Y
[2024-06-01 14:25] LABS: Urine Bacteria None Seen /hpf (None Seen); Urine WBC None Seen /hpf (0 - 5)
[2024-06-01 14:28] LABS: Alanine Aminotransferase 63 U/L (7-40); Albumin 4.5 g/dL (3.2-4.8); Alkaline Phosphatase 124 U/L (46-116); Anion Gap 9 (5-15); Aspartate Aminotransferase 55 U/L (13-40); BUN/Creatinine Ratio 23.6 (10.0-20.0); Bilirubin, Total 0.5 mg/dL (0.2-1.0); Blood Urea Nitrogen 56 mg/dL (9-23); Carbon Dioxide 28 mmol/L (20-31); Chloride 108 mmol/L (98-107); Glucose 106 mg/dL (74-106); Magnesium 2.7 mg/dL (1.6-2.6); Potassium 4.3 mmol/L (3.5-5.1); Sodium 145 mmol/L (136-145); Total Protein 7.4 g/dL (5.7-8.2)
[2024-06-01 14:34] LABS: Urine Blood Negative /uL (Negative); Urine Clarity Clear (Clear); Urine Hyaline Cast FEW /lpf (0 - 2); Urine Protein, UAD Negative (Negative); Urine Urobilinogen Normal (Negative)
[2024-06-01 14:36] LABS: Urine Color Light-Yellow (Yellow)
[2024-06-01 14:45] LABS: Amphetamine Screen, Urine Neg (NEGATIVE); Barbiturate Scree,Urine Neg (NEGATIVE); Benzodiazephine Screen, Urine Neg (NEGATIVE); Cannabinoid Screen, Urine Neg (NEGATIVE); Cocaine Screen, Urine Neg (NEGATIVE); Opiate Scree,Urine Neg (NEGATIVE); Phencyclidine Screen, Urine Neg (NEGATIVE)
[2024-06-01] MEDS: SPIRONOLACTONE 25 MG TAB PO ONE (16:19)
[2024-06-01] MEDS: FUROSEMIDE 20 MG/2 ML VIAL IV ONE (16:19)
[2024-06-01] MEDS ORDERED: NITROGLYCERIN 0.4 MG SL TAB SL PRN (17:15)
[2024-06-01] MEDS: RIVAROXABAN 15 MG TAB PO SCH (18:00)
[2024-06-01] MEDS ORDERED: DEXTROSE (50%) 50ML SYRG IV PRN (18:15)
[2024-06-01] MEDS ORDERED: ALBUTEROL SULF 2.5 MG/0.5ML(0.5%) NEB SOLN NEB PRN (18:15)
[2024-06-01 18:21] VITALS: BP 114/90; PULSE 86; RESP 15; TEMP 97.9; O2SAT 100
--- NOTE | 2024-06-01 18:24 | DVHHP2 ---
History of Present Illness Reason for Visit: Generalized weakness History of Present Illness 68-year-old female brought in by EMS presented to the ED with chief complaint of generalized weakness. Per EMS caregiver called 911 and stated to EMS that patient is weaker than usual. Apparently there was a language barrier between E [facility] staff and the caregivers they were unable together more information. Patient was recently admitted for the same reason in February. Patient sees Dr. Sreedhar Dhaliwal for Cardiology, we will consult. Chronic oxygen use. Patient is on 2 L nasal cannula which is her home baseline. Patient's head CT did not show any acute intracranial abnormalities. Patient denies chest pain, headache, dizziness, diaphoresis, shortness of breath, abdominal pain, no nausea, vomiting, fever, or chills endorsed by the patient. Patient was admitted for further evaluation medical management. Past Medical History AFIB, CAD, CHF, COPD, DM, Gout, High Lipids, HTN, AR, Thyroid (history gathered from chart) Past Surgical History Pacemaker, PTCA(history gathered from chart) Family History , Family hx of heart patricio, Family hx of HTN, Family hx of lung patricio, history gathered from chart Smoke: No ALCOHOL: none Drugs: None Lives: Alone Review of Systems Constitutional: No: Fever, Chills, Sweats, Weakness, Malaise, Other Eyes: No: Pain, Vision change, Conjunctivae inflammation, Eyelid inflammation, Other, Redness ENT: No: Ear pain, Ear discharge, Nose pain, Nose discharge, Nose congestion, Mouth pain, Mouth swelling, Throat pain, Throat swelling, Other Respiratory: No: Cough, Dry, Shortness of breath, SOB with excertion, Wheezing, Hemoptysis, Pleuritic Pain, Sputum, Wheezing, Other Cardiovascular: No: Chest Pain, Palpitations, Orthopnea, Paroxysmal Noc. Dyspnea, Edema, Lt Headedness, Other Gastrointestinal: No: Nausea, Vomiting, Abdominal Pain, Diarrhea, Constipation, Melena, Hematochezia, Other Genitourinary: No Dysuria, No Frequency, No Incontinence, No Hematuria, No Retention, No Other Musculoskeletal: No: other, neck pain, shoulder pain, arm pain, back pain, hand pain, leg pain, foot pain Skin: No: Rash, Lesions, Jaundice, Bruising, Other Neurological: No: Weakness, Numbness, Incoordination, Change in speech, Confusion, Seizures, Other Allergies: Coded Allergies: Coconut Fatty Acids (Verified Allergy, Unknown, 09/11/22) Ibuprofen (Verified Allergy, Unknown, 09/11/22) Iodine (Verified Allergy, Unknown, 09/11/22) Morphine (Verified Allergy, Unknown, 09/11/22) Spinach (Verified Allergy, Unknown, 09/11/22) Medications Current Medications Medications Dose Ordered Sig/Gloria Route Start Time Stop Time Status Last Admin Dose Admin Acetaminophen/ Hydrocodone Bitart 1 tab Q4HP PRN PO 06/01/24 17:15 Ondansetron HCl 4 mg Q4HP PRN IV 06/01/24 17:15 Nitroglycerin 0.4 mg Q5MINP PRN SL 06/01/24 17:15 Furosemide 40 mg BID PO 06/01/24 22:00 UNV Gabapentin 300 mg QID PO 06/01/24 18:00 UNV Levothyroxine Sodium 112 mcg DAILY PO 06/02/24 10:00 UNV Metolazone 5 mg DAILY PO 06/02/24 10:00 UNV Potassium Chloride 10 meq DAILY PO 06/02/24 10:00 UNV Rivaroxaban 20 mg QPM PO 06/01/24 18:00 UNV Sacubitril/ Valsartan 1 tab BID PO 06/01/24 22:00 UNV Allopurinol 300 mg DAILY PO 06/02/24 10:00 UNV Atorvastatin Calcium 40 mg HS PO 06/01/24 22:00 UNV Levetiracetam 1,000 mg BID PO 06/01/24 22:00 UNV Exam Vital Signs Vital Signs Date Time Temp Pulse Resp B/P (MAP) Pulse Ox O2 Delivery O2 Flow Rate FiO2 06/01/24 16:34 Nasal Cannula* 2 28 06/01/24 16:19 114/90 06/01/24 16:00 86 06/01/24 15:25 97.9 15 100 97.9 General Appearance: Alert, Oriented X3, Cooperative, No acute distress, Other (Patient is slow to answer) HEENT: Atraumatic, PERRLA, EOMI, Mucous membr. moist/pink Respiratory: Clear to auscultation, Normal air movement Cardiovascular: Regular rate, Normal S1, Normal S2, No murmurs Abdominal: Normal bowel sounds, Soft, No tenderness, No hepatospenomegaly, No masses Extremities: No clubbing, No cyanosis, Normal pulses, No tenderness/swelling, Other (1+ edema to lower extremities) Skin: No rashes, No breakdown, No significant lesion Neuro: Normal gait, Normal speech, Strength at 5/5 X4 ext, Normal tone, Sensat ion intact, Cranial nerves 3-12 NL, Reflexes 2+ Psych/Mental Status: Mental status NL, Mood NL Labs/Xrays Labs, imaging and ED notes reviewed Labs Test 06/01/24 14:10 06/01/24 13:32 Range/Units Urine Color Light-yellow Yellow Urine Clarity Clear Clear Urine pH 5.0 5.0-9.0 Urine Specific [place] 1.010 1.001-1.035 Urine Protein Negative Negative Urine Ketones Negative Negative Urine Blood Negative Negative /uL Urine Nitrite Negative Negative Urine Bilirubin Negative Negative Urine Urobilinogen Normal Negative mg/dL Urine Leukocyte Esterase Negative Negative /uL Urine RBC None seen 0 - 4 /hpf Urine WBC None seen 0 - 5 /hpf Urine Squamous Epithelial Cells None seen <5 /hpf Urine Bacteria None seen None Seen /hpf Urine Hyaline Casts Few 0 - 2 /lpf Urine Glucose Normal Normal mg/dL Urine Opiates Screen Neg NEGATIVE Urine Fentanyl Screen Neg NEGATIVE Urine Barbiturates Screen Neg NEGATIVE Urine Phencyclidine Screen Neg NEGATIVE Urine Amphetamines Screen Neg NEGATIVE Urine Benzodiazepines Screen Neg NEGATIVE Urine Cocaine Screen Neg NEGATIVE Urine Cannabinoids Screen Neg NEGATIVE White Blood Count 11.0 H 4.4-10.8 10^3/uL Red Blood Count 3.83 L 4.0-5.20 10^6/uL Hemoglobin 11.3 L 12.2-16.2 g/dL Hematocrit 35.5 L 36.0-46.0 % Mean Corpuscular Volume 92.7 80.0-100.0 fL Mean Corpuscular Hemoglobin 29.6 28.0-32.0 pg Mean Corpuscular Hemoglobin Concent 31.9 L 32.0-36.0 g/dL Red Cell Distribution Width 16.4 H 11.8-14.3 % Platelet Count 331 140-450 10^3/uL Mean Platelet Volume 8.1 6.9-10.8 fL Neutrophils (%) (Auto) 83.3 H 37.0-80.0 % Lymphocytes (%) (Auto) 5.7 L 10.0-50.0 % Monocytes (%) (Auto) 7.1 0.0-12.0 % Eosinophils (%) (Auto) 3.8 0.0-7.0 % Basophils (%) (Auto) 0.1 0.0-2.0 % Neutrophils # (Auto) 9.2 H 1.6-8.6 10 ^3/uL Lymphocytes # (Auto) 0.6 0.4-5.4 10 ^3/uL Monocytes # (Auto) 0.8 0-1.3 10 ^3/uL Eosinophils # (Auto) 0.4 0-0.8 10 ^3/uL Basophils # (Auto) 0 0-0.2 10 ^3/uL Nucleated Red Blood Cells 0.0 % Prothrombin Time 12.4 H 9.3-11.8 sec Prothrombin Time INR 1.18 H 0.9-1.15 Activated Partial Thromboplast Time 29.6 24.5-34.5 SEC D-Dimer, Quantitative 1.78 H 0.0-0.49 mg/L FEU Sodium Level 145 136-145 mmol/L Potassium Level 4.3 3.5-5.1 mmol/L Chloride Level 108 H 98-107 mmol/L Carbon Dioxide Level 28 20-31 mmol/L Anion Gap 9 5-15 Blood Urea Nitrogen 56 H 9-23 mg/dL Creatinine 2.37 H 0.550-1.02 mg/dL Glomerular Filtration Rate Calc 22 >90 mL/min BUN/Creatinine Ratio 23.6 H 10.0-20.0 Serum Glucose 106 74-106 mg/dL Lactic Acid Level 1.4 0.4-2.0 mmol/L Calcium Level 10.0 8.7-10.4 mg/dL Magnesium Level 2.7 H 1.6-2.6 mg/dL Total Bilirubin 0.5 0.2-1.0 mg/dL Aspartate Amino Transferase (AST) 55 H 13-40 U/L Alanine Aminotransferase (ALT) 63 H 7-40 U/L Alkaline Phosphatase 124 H 46-116 U/L Troponin I High Sensitivity 13 </=34 ng/L B-Type Natriuretic Peptide 1072.61 0-100 pg/mL Total Protein 7.4 5.7-8.2 g/dL Albumin 4.5 3.2-4.8 g/dL Thyroid Stimulating Hormone (TSH) 0.59 0.55-4.78 uIU/mL Assessment/Plan Assessment/Plan acute generalized weakness unknown etiology Admit to telemetry Recommend PT consult when patient able to participate Head CT - no evidence of acute intracranial abnormality Chest x-ray- cardiomegaly with pulmonary vascular congestion UA negative Social service consult for plan for safe living situation after discharge acute chf with exacerbation shown on cxr ordered home dose of lasix consider echo Cardiology consult patient has Sreedhar Dhaliwal as wardrobe specialty worker Patient was noted to have a 25% EF on last visit Chronic hypoxic respiratory failure, dependent on home oxygen Patient is on 2 L nasal Cannula baseline Supplemental oxygen Titrate SpO2 to maintain greater than 92% chronic COPD/Asthma, ordered albuterol prn sob uncontrolled type 2 Diabetes, Accu-Chek AC and HS with sliding scale uncontrolled benign essential Hypertension, cont home medication chronic Hyperlipidemia, cont home medication chronic Seizures, cont home medication chronic Hypothyroidism, cont home medication chronic anemia monitor for downtrend acute on chronic nirav monitor for uptrend in BUN and creatinine chronic pacemaker monitor for arrythmia History of Chronic AFib Continue home meds In sinus rhythm fen/ppx On Xarelto Consistent carb diet Plan discussed with: Patient My Orders Orders - JOSE EDUARDO PETERS Procedure Category Date Status Time Admit ADMIT 06/01/24 Transmitted 17:12 Code Status CODE 06/01/24 Transmitted 17:12 Vital Signs [place] 06/01/24 In Process 17:12 Review Orders With [place] 06/01/24 In Process Adm.Md 17:12 Maintain Bed Rest [place] 06/01/24 In Process 17:12 Consistent DIET 06/01/24 Transmitted Carb(Ccho)Diabetes Dinner Notify Md Of Changes [place] 06/01/24 In Process From Base 17:12 Advance Directive [place] 06/01/24 In Process 17:12 Basic Metabolic Panel LAB 06/02/24 Verified 04:00 Complete Blood Count LAB 06/02/24 Verified 04:00 Patient Condition ORDERS 06/01/24 Transmitted 17:12 Allergies [place] 06/01/24 In Process 17:12 Hydrocodone-Acet PHA 06/01/24 In Process 5/325mg Tab (Gormania 17:15 Ondansetron Hcl PHA 06/01/24 In Process (Zofran) 17:15 Nitroglycerin PHA 06/01/24 In Process Sublingual (Ntrostat 17:15 Stat Ekg For Chest [place] 06/01/24 In Process Pain 17:12 Notify Md Of Changes [place] 06/01/24 In Process From Base 17:12 Custom Studio Coordinator For [facility] 06/01/24 In Process 24 Hours 17:12 Emergency Dysrhythmia [facility] 06/01/24 In Process Protocol 17:12 Rhythm Strips Once [facility] 06/01/24 In Process Every Shift 17:12 Oxygen By Nasal RT 06/01/24 Transmitted Cannula 17:12 Furosemide Tablet PHA 06/01/24 Logged (Lasix Tablet) 22:00 Gabapentin Capsule PHA 06/01/24 Logged (Neurontin Capsule) 18:00 Levothyroxine Tablet PHA 06/02/24 Logged (Synthroid Tablet) 10:00 Metolazone (Zaroxolyn) PHA 06/02/24 Logged 10:00 Potassium Er Tablet PHA 06/02/24 Logged (Klor-Con Tablet) 10:00 Rivaroxaban Tablet [facility] 06/01/24 Logged (Xarelto Tablet) 18:00 Sacubitril-Valsartan [facility] 06/01/24 Logged (Entresto 24-26 Mg 22:00 Allopurinol Tablet [facility] 06/02/24 Logged (Zyloprim Tablet) 10:00 Atorvastatin (Lipitor) PHA 06/01/24 Logged 22:00 Levetiracetam Tablet PHA 06/01/24 Logged (Keppra Tablet) 22:00 Date of Service: Jun 01, 2024 Billing Provider: JOSE EDUARDO PETERS Common Visit Codes: [id number] INP/OBS CARE (HIGH) JOSE EDUARDO PETERS Jun 01, 2024 18:24
[2024-06-01] MEDS: FUROSEMIDE 40 MG TAB PO SCH (18:26)
[2024-06-01 18:39] VITALS: O2SAT 100
[2024-06-01 19:30] VITALS: PULSE 78; RESP 20; O2SAT 97
--- NOTE | 2024-06-01 19:39 | DVH ---
Bilateral lower extremity venous duplex Clinical History: Lower extremity edema, elevated D-dimer Comparison: US BILAT LOWER DVT on DOS: 03/27/24, BLDVT on DOS: 10/30/21 Technique: Duplex Doppler evaluation of the deep venous systems of both lower extremities from the common femora l veins to the popliteal veins including color Doppler and spectral/pulsed waveform analysis was perf ormed. Findings: RIGHT SIDE: The common femoral vein demonstrates appropriate compressibility and waveform variability. There is compressibility/patency of the great saphenous vein at the proximal thigh. The femoral vein demonstrates appropriate compressibility and waveform variability. The deep femoral vein demonstrates appropriate compressibility and waveform variability. The popliteal vein demonstrates appropriate compressibility and waveform variability. There is normal compressibility at the tibioperoneal trunk. LEFT SIDE: The common femoral vein demonstrates appropriate compressibility and waveform variability. There is compressibility/patency of the great saphenous vein at the proximal thigh. The femoral vein demonstrates appropriate compressibility and waveform variability. The deep femoral vein demonstrates appropriate compressibility and waveform variability. The popliteal vein demonstrates appropriate compressibility and waveform variability. There is normal compressibility at the tibioperoneal trunk. Impression: 1. No right or left femoropopliteal venous thrombosis. HS:Y
[2024-06-01 20:34] VITALS: O2SAT 92
[2024-06-01 21:00] VITALS: BP 110/64; PULSE 87; RESP 20; TEMP 99.6; O2SAT 92
[2024-06-01] MEDS: levETIRAcetam 500 MG TAB PO SCH (21:56)
[2024-06-01] MEDS: SACUBITRIL-VALSARTAN 24mg/26mg TAB PO SCH (21:56)
[2024-06-01] MEDS: GABAPENTIN 300 MG CAP PO SCH (21:57)
[2024-06-01] MEDS: ATORVASTATIN 20 MG TAB PO SCH (21:57)
[2024-06-01] MEDS: ACCU-CHEK COMFORT CURVE STRIP VI SCH (21:57)
[2024-06-01] MEDS: InsuLIN REG 1unit/0.01ml Soln (100units/ml) SC SCH (21:58)
[2024-06-02] VITALS (9 sets, daily range): BP systolic 96–126; BP diastolic 57–101; PULSE 80–87; RESP 17–20; TEMP 97.9–98.5; O2SAT 91–96
[2024-06-02] MEDS: LEVOTHYROXINE SODIUM 112 MCG TAB PO SCH (05:44)
[2024-06-02 07:15] LABS: Basophils # (auto) 0 10 ^3/uL (0-0.2); Basophils % (auto) 0.3 % (0.0-2.0); Eosinophils # (auto) 0.1 10 ^3/uL (0-0.8); Hematocrit 32.1 % (36.0-46.0); Hemoglobin 10.3 g/dL (12.2-16.2); Lymphocytes % (auto) 10.8 % (10.0-50.0); Mean Corpuscular Hemoglobin 29.3 pg (28.0-32.0); Mean Corpuscular Volume 91.7 fL (80.0-100.0); Monocytes # (auto) 1.2 10 ^3/uL (0-1.3); Monocytes % (auto) 12.4 % (0.0-12.0); Neutrophils % (auto) 75.5 % (37.0-80.0); Platelet Count (auto) 315 10^3/uL (140-450); Red Cell Distribution Width 16.3 % (11.8-14.3); White Blood Cell 9.3 10^3/uL (4.4-10.8)
[2024-06-02 07:23] LABS: Anion Gap 10 (5-15); Carbon Dioxide 28 mmol/L (20-31); Chloride 111 mmol/L (98-107); Potassium 4.1 mmol/L (3.5-5.1); Sodium 149 mmol/L (136-145)
[2024-06-02 07:24] LABS: Calcium 9.5 mg/dL (8.7-10.4)
[2024-06-02 07:29] LABS: BUN/Creatinine Ratio 26.1 (10.0-20.0); Blood Urea Nitrogen 52 mg/dL (9-23); Glucose 121 mg/dL (74-106)
[2024-06-02] MEDS: metOLazone 5 MG TAB PO SCH (10:00)
[2024-06-02] MEDS: POTASSIUM CHL 10 Meq TABLET PO SCH (10:07)
[2024-06-02] MEDS: ALLOPURINOL 100 MG TAB PO SCH (10:07)
--- NOTE | 2024-06-02 11:19 | DVHPN2 ---
Progress Note Date Seen: Jun 02, 2024 Medical Necessity Reason Pt with a Central, PICC or Fol: No Subjective Patient reports: No new complaints Review of Systems: HEENT:Normal, CVS:Normal, RESPIRATORY:Normal, GI:Normal, :Normal, MSK:Normal, NEURO:Normal Objective vital signs Vital Sign Date Time Temp Pulse Resp B/P (MAP) Pulse Ox O2 Delivery O2 Flow Rate FiO2 06/02/24 10:00 95 Nasal Cannula 2.0 06/02/24 10:00 98/62 06/02/24 10:00 28 06/02/24 09:00 98.1 80 18 98.1 Total Intake and Output 06/01/24 06/01/24 06/02/24 15:00 23:00 07:00 Intake Total 140 ml Output Total 2250 ml Balance -2110 ml medications Current Medications Medications Dose Ordered Sig/Gloria Route Start Time Stop Time Status Last Admin Dose Admin Acetaminophen/ Hydrocodone Bitart 1 tab Q4HP PRN PO 06/01/24 17:15 Ondansetron HCl 4 mg Q4HP PRN IV 06/01/24 17:15 Nitroglycerin 0.4 mg Q5MINP PRN SL 06/01/24 17:15 Furosemide 40 mg BIDD PO 06/01/24 18:00 06/01/24 18:26 40 MG Gabapentin 300 mg TID PO 06/01/24 22:00 06/02/24 05:44 300 MG Levothyroxine Sodium 112 mcg QAM PO 06/02/24 07:00 06/02/24 05:44 112 MCG Metolazone 5 mg DAILY PO 06/02/24 10:00 Potassium Chloride 10 meq DAILY PO 06/02/24 10:00 06/02/24 10:07 10 MEQ Rivaroxaban 15 mg QPM PO 06/01/24 18:00 Sacubitril/ Valsartan 1 tab BID PO 06/01/24 22:00 06/01/24 21:56 1 TAB Allopurinol 300 mg DAILY PO 06/02/24 10:00 06/02/24 10:07 300 MG Atorvastatin Calcium 40 mg HS PO 06/01/24 22:00 06/01/24 21:57 40 MG Levetiracetam 1,000 mg BID PO 06/01/24 22:00 06/02/24 10:08 1,000 MG Albuterol 2.5 mg Q4HPRN PRN NEB 06/01/24 18:15 Diagnostic Test (Pha) 1 strip ACHS 06/01/24 22:00 06/02/24 05:49 1 STRIP Insulin Human Regular ACHS SC 06/01/24 22:00 Dextrose 50 ml UD PRN IV 06/01/24 18:15 Examination: GENERAL:Normal, HEENT:Normal, NECK:Normal, LUNGS:Normal, LUNGS:Abnormal (on oxygen, rales), CVS:Normal, ABDOMEN:Normal, MSK:Normal, MSK:Abnormal (edema++), SKIN:Normal, NEURO:Normal, :Normal laboratory and microbiology Laboratory Tests 06/02/24 06:43 Test 06/02/24 06:43 Range/Units Serum Glucose 121 H 74-106 mg/dL Problem List/Assessment/Plan Problem List/Assessment/Plan #1 acute on chronic systolic heart failure: lasix, metolazone #2 chronic resp failure #3 ckd stage 3b #4 morbid obesity #5 hypothyroidism: cont meds #5 hyperlipidemia #7 gout #8 cad s/p stents #9 a fib #10 copd #11 dm; ssi #12 seizure disorder: on keppra advance care planning - wishes dnr- time spent 21 mins Plan discussed with: Patient My Orders My Orders Orders - CARLEY JOYA MD Procedure Category Date Status Time Allopurinol Tablet PHA 06/03/24 Transmitted (Zyloprim Tablet) 10:00 Furosemide Injection PHA 06/02/24 Transmitted (Lasix Injection) 11:15 Furosemide Injection PHA 06/02/24 Transmitted (Lasix Injection) 18:00 Amiodarone Tablet PHA 06/02/24 Transmitted (Cordarone Tablet) 22:00 Levetiracetam Tablet PHA 06/02/24 Transmitted (Keppra Tablet) 22:00 Basic Metabolic Panel LAB 06/03/24 Verified 06:00 Complete Blood Count LAB 06/03/24 Verified 06:00 Date of Service: Jun 02, 2024 Billing Provider: CARLEY JOYA MD Common Visit Codes: [id number] INP/OBS CARE(HIGH) Secondary Visit Codes: [id number] CARE PLAN 30 MINUTES CARLEY JOYA MD Jun 02, 2024 11:19
[2024-06-02] MEDS: FUROSEMIDE 40 MG/4 ML VIAL IV ONE (12:04)
[2024-06-02] MEDS: FUROSEMIDE 40 MG/4 ML VIAL IV SCH (17:58)
[2024-06-02] MEDS: HYDROcodone-ACET 5/325MG TAB PO PRN (17:59)
[2024-06-02] MEDS ORDERED: FUROSEMIDE 40 MG/4 ML VIAL IV SCH (18:00)
[2024-06-02] MEDS: levETIRAcetam 500 MG TAB PO SCH (21:18)
[2024-06-02] MEDS: AMIODARONE HCL 200 MG TAB PO SCH (21:18)
--- NOTE | 2024-06-02 23:51 | DVHINCON2 ---
Date of service: Jun 02, 2024 Referring Physician Terrell Reason for Consultation CHF exacerbation History of Present Illness This is a 68 year old female with a PMH of AFIB, CAD, CHF, COPD, DM, Gout, High Lipids, HTN, MO who is brought in by EMS with complaints of generalized weakness x an unknown amount of time. Per EMS, caregiver called 911 and stated to EMS that patient is "weaker than normal". EMS reports that there was a language barrier between them and caregiver so they were unable to gather further information. Patient is a poor historian and not able to elaborate on symptoms. EKG is NSR at 85. CBC 47835 with 83% neutrophils H&H 11 and 35.5. BNP 61543, 61, INR 1.18, D-dimer 1.78, Magnesium 2.7, Lactic acid 1.4, TSH 0.59. Liver enzymes elevated. Troponin 13. Urine negative for infection. UDS negative. CT head is normal. Chest x-ray shows cardiomegaly with pulmonary vascular congestion. Patient was admitted to the hospital. I am asked to consult on this patient. Family History: Alcoholism (ERROR FOR FAMILY H/O ALCOHOLISM) Arthritis GRANDMOM Cardiovascular disease Diabetes mellitus G8 BROTHER GRANDMOM FH: lung cancer G8 MOTHER FH: prostate cancer G8 FATHER FHx: lung cancer G8 MOTHER Hypertension G8 FATHER GRANDMOM Prostate carcinoma G8 FATHER Allergies: Coded Allergies: Coconut Fatty Acids (Verified Allergy, Unknown, 09/11/22) Ibuprofen (Verified Allergy, Unknown, 09/11/22) Iodine (Verified Allergy, Unknown, 09/11/22) Morphine (Verified Allergy, Unknown, 09/11/22) Spinach (Verified Allergy, Unknown, 09/11/22) Home Meds Active Scripts Metolazone (Metolazone) 5 Mg Tab, 5 MG PO DAILY for 30 Days, #30 TAB Prov:SHARMILA MDEINA MD 03/07/24 Potassium Chloride (Klor-Con 10) 10 Meq Tab, 1 TAB PO DAILY for 30 Days, #30 TAB Prov:SHARMILA MEDINA MD 03/07/24 Levetiracetam (Keppra) 1,000 Mg Tab, 1 TAB PO BID for 30 Days, #60 TAB 3 Refills Prov:CARLEY JOYA MD 8/1/24 Rivaroxaban (Xarelto Tablet) 20 Mg Tb, 20 MG PO QPM for 30 Days, #30 TAB 3 Refills Prov:DUSTY VALDOVINOS DO 02/17/23 Reported Medications Furosemide (Furosemide) 40 Mg Tab, 1 TAB PO BID for 30 Days, #60 03/31/24 Amiodarone Hcl (Amiodarone Hcl) 200 Mg Tab, 1 TAB PO BID for 27 Days, #54 02/16/24 Levothyroxine Sodium (Levothyroxine Sodium) 112 Mcg Tab, 1 TAB PO DAILY, #30 TAB 5 Refills 02/16/24 Atorvastatin Calcium (ATORVASTATIN CALCIUM) 40 Mg Tab, 1 TAB PO DAILY, #30 TAB 5 Refills 02/16/24 Hydrocodone-Acetaminophen (Hydrocodone Bitartrate/AC 10-325 mg) 1 Tab Tab, 1 TAB PO TID PRN 02/16/24 Allopurinol (Allopurinol) 300 Mg Tab, 2 TAB PO DAILY 02/16/24 Gabapentin (Gabapentin) 300 Mg Cap, 2 CAP PO QID, #90 CAP 5 Refills 02/16/24 Insulin Detemir (Levemir) Inj, UNITS SC UD for 91 Days, #80 INJECT 45 UNITS SUBCUTANOUSLY IN THE MORNING, AND 42 UNITS SUBCUTANEOUSLY AT BEDTIME. 02/06/24 Insulin Aspart (Novolog) 100 Unit/Ml Inj, 15 UNIT SC TID for 88 Days, #40 sliding scale 02/15/23 Tizanidine Hydrochloride (TIZANIDINE HCL) 4 Mg Cap, 4 MG PO Q8HR, CAP 02/15/23 Baclofen (Baclofen) 10 Mg Tab, 1 TAB PO TID PRN for 30 Days, #90 02/15/23 Celecoxib (Celebrex) 200 Mg Cap, 1 CAP PO DAILY PRN for PAIN SCALE 1 THRU 6, #30 CAP 2 Refills 02/15/23 Sacubitril-Valsartan (Entresto 24-26 mg) 1 Tab Tab, 1 TAB PO BID, TAB 02/15/23 Prednisolone Acetate (Ophth) (Pred Forte) 1 % Stacie, 1 % OP QID, ML LEFT EYE 02/15/23 Ofloxacin (Otic) (FLOXIN OTIC) [address], 1 DROP OT QID, DROP RIGHT EYE 02/15/23 Aspirin (Aspir-Low) 81 Mg Tab, 81 MG PO DAILY for 30 Days, MG 02/15/23 Current Medications Current Medications Medications (Trade) Dose Ordered Sig/Gloria Route PRN Reason Start Time Stop Time Status Last Admin Levothyroxine Sodium (Synthroid Tablet) 112 mcg QAM PO 06/02/24 07:00 06/02/24 05:44 Metolazone (Zaroxolyn) 5 mg DAILY PO 06/02/24 10:00 06/02/24 12:04 Potassium Chloride (Klor-Con Tablet) 10 meq DAILY PO 06/02/24 10:00 06/02/24 10:07 Allopurinol (Zyloprim Tablet) 300 mg DAILY PO 06/02/24 10:00 06/02/24 11:14 DC 06/02/24 10:07 Allopurinol (Zyloprim Tablet) 100 mg DAILY PO 06/03/24 10:00 Furosemide (Lasix Injection) 40 mg BIDD IV 06/02/24 18:00 06/02/24 11:46 DC Amiodarone HCl (Cordarone Tablet) 200 mg Q12HR PO 06/02/24 22:00 06/02/24 21:18 Levetiracetam (Keppra Tablet) 1,000 mg BID PO 06/02/24 22:00 06/02/24 21:18 Furosemide (Lasix Injection) 40 mg BIDD IV 06/02/24 18:00 06/02/24 17:58 Review of Systems Constitutional: reports: weakness; denies: chills, diaphoresis, fatigue, fever, malaise, sweats, others EENTM: denies: blurred vision, double vision, ear bleeding, ear discharge, ear drainage, ear pain, ear ringing, eye pain, eye redness, hearing loss, mouth pain, mouth swelling, nasal discharge, nose bleeding, nose congestion, nose pain, photophobia, tearing, throat pain, throat swelling, voice changes, others Respiratory: denies: cough, hemoptysis, orthopnea, SOB at rest, shortness of breath, SOB with excertion, stridor, wheezing, others Cardiovascular: denies: chest pain, dizzy spells, diaphoresis, Dyspnea on exertion, edema, irregular heart beat, left arm pain, lightheadedness, palpitations, PND, syncope, others Gastrointestinal: denies: abdomen distended, abdominal pain, blood streaked bowels, constipated, diarrhea, dysphagia, difficulty swallowing, hematemesis, melena, nausea, poor appetite, poor fluid intake, rectal bleeding, rectal pain, vomiting, others Genitourinary: denies: abnormal vagina bleeding, burning, dyspareunia, dysuria, flank pain, frequency, hematuria, incontinence, pain, , vagina discha rge, urgency, others Neurological: denies: dizziness, fainting, headache, left sided numbness, left sided weakness, numbness, paresthesia, pre-existing deficit, right sided numbness, right sided weakness, seizure, speech problems, tingling, tremors, weakness, others Musculoskeletal: denies: back pain, gout, joint pain, joint swelling, muscle pain, muscle stiffness, neck pain, others Integumetry: denies: bruises, change in color, change in hair/nails, dryness, laceration, lesions, lumps, rash, wounds, others Allergic/Immunocompromised: denies: Difficulty Healing, Frequent Infections, Hives, Itching, others Hematologic/Lymphatic: denies: anemia, blood clots, easy bleeding, easy bruising, swollen glands, others Endocrine: denies: excessive hunger, excessive sweating, excessive thirst, excessive urination, flushing, intolerance to cold, intolerance to heat, unexplained weight gain, unexplained weight loss, others Psychiatric: denies: anxiety, bipolar disorder, depression, hopeless, panic disorder, schizophrenia, sleepless, suicidal, others All Other Systems: Reviewed and Negative Vital Signs Vital Signs Date Time Temp Pulse Resp B/P (MAP) Pulse Ox O2 Delivery O2 Flow Rate FiO2 06/02/24 21:00 98.5 86 17 106/62 (77) 94 98.5 06/02/24 20:00 Nasal Cannula* 2 28 Physical Exam GENERAL: Awake, alert, oriented. LUNGS: Clear. CARDIOVASCULAR: Heart sounds are good. ABDOMEN: Soft. EXT: 1+ BLE edema. Labs/Diagnostic Data Labs Test 06/02/24 21:22 06/02/24 06:43 06/01/24 14:10 06/01/24 13:32 Range/Units POC Glucose 172 H 70-106 mg/dl White Blood Count 9.3 4.4-10.8 10^3/uL Red Blood Count 3.50 L 4.0-5.20 10^6/uL Hemoglobin 10.3 L 12.2-16.2 g/dL Hematocrit 32.1 L 36.0-46.0 % Mean Corpuscular Volume 91.7 80.0-100.0 fL Mean Corpuscular Hemoglobin 29.3 28.0-32.0 pg Mean Corpuscular Hemoglobin Concent 32.0 32.0-36.0 g/dL Red Cell Distribution Width 16.3 H 11.8-14.3 % Platelet Count 315 140-450 10^3/uL Mean Platelet Volume 8.4 6.9-10.8 fL Neutrophils (%) (Auto) 75.5 37.0-80.0 % Lymphocytes (%) (Auto) 10.8 10.0-50.0 % Monocytes (%) (Auto) 12.4 H 0.0-12.0 % Eosinophils (%) (Auto) 1.0 0.0-7.0 % Basophils (%) (Auto) 0.3 0.0-2.0 % Neutrophils # (Auto) 7.0 1.6-8.6 10 ^3/uL Lymphocytes # (Auto) 1.0 0.4-5.4 10 ^3/uL Monocytes # (Auto) 1.2 0-1.3 10 ^3/uL Eosinophils # (Auto) 0.1 0-0.8 10 ^3/uL Basophils # (Auto) 0 0-0.2 10 ^3/uL Nucleated Red Blood Cells 0.0 % Sodium Level 149 H 136-145 mmol/L Potassium Level 4.1 3.5-5.1 mmol/L Chloride Level 111 H 98-107 mmol/L Carbon Dioxide Level 28 20-31 mmol/L Anion Gap 10 5-15 Blood Urea Nitrogen 52 H 9-23 mg/dL Creatinine 1.99 H 0.550-1.02 mg/dL Glomerular Filtration Rate Calc 27 >90 mL/min BUN/Creatinine Ratio 26.1 H 10.0-20.0 Serum Glucose 121 H 74-106 mg/dL Calcium Level 9.5 8.7-10.4 mg/dL Urine Color Light-yellow Yellow Urine Clarity Clear Clear Urine pH 5.0 5.0-9.0 Urine Specific [place] 1.010 1.001-1.035 Urine Protein Negative Negative Urine Ketones Negative Negative Urine Blood Negative Negative /uL Urine Nitrite Negative Negative Urine Bilirubin Negative Negative Urine Urobilinogen Normal Negative mg/dL Urine Leukocyte Esterase Negative Negative /uL Urine RBC None seen 0 - 4 /hpf Urine WBC None seen 0 - 5 /hpf Urine Squamous Epithelial Cells None seen <5 /hpf Urine Bacteria None seen None Seen /hpf Urine Hyaline Casts Few 0 - 2 /lpf Urine Glucose Normal Normal mg/dL Urine Opiates Screen Neg NEGATIVE Urine Fentanyl Screen Neg NEGATIVE Urine Barbiturates Screen Neg NEGATIVE Urine Phencyclidine Screen Neg NEGATIVE Urine Amphetamines Screen Neg NEGATIVE Urine Benzodiazepines Screen Neg NEGATIVE Urine Cocaine Screen Neg NEGATIVE Urine Cannabinoids Screen Neg NEGATIVE Prothrombin Time 12.4 H 9.3-11.8 sec Prothrombin Time INR 1.18 H 0.9-1.15 Activated Partial Thromboplast Time 29.6 24.5-34.5 SEC D-Dimer, Quantitative 1.78 H 0.0-0.49 mg/L FEU Lactic Acid Level 1.4 0.4-2.0 mmol/L Magnesium Level 2.7 H 1.6-2.6 mg/dL Total Bilirubin 0.5 0.2-1.0 mg/dL Aspartate Amino Transferase (AST) 55 H 13-40 U/L Alanine Aminotransferase (ALT) 63 H 7-40 U/L Alkaline Phosphatase 124 H 46-116 U/L Troponin I High Sensitivity 13 </=34 ng/L B-Type Natriuretic Peptide 1072.61 0-100 pg/mL Total Protein 7.4 5.7-8.2 g/dL Albumin 4.5 3.2-4.8 g/dL Thyroid Stimulating Hormone (TSH) 0.59 0.55-4.78 uIU/mL Microbiology Date/Time Source Procedure Growth Status 06/01/24 23:51 Nose MRSA Screen - Final Complete Assessment CHF exacerbation. Generalized weakness unknown etiology. Chronic hypoxic respiratory failure, dependent on home oxygen. Chronic COPD/Asthma. Uncontrolled type 2 Diabetes. Uncontrolled benign essential Hypertension. Hyperlipidemia. Seizures. Hypothyroidism. Anemia. Acute on chronic JARAD. Pacemaker. History of Chronic AFib Plan/Recommendation I agree with your ongoing assessment and care of plan. [place] for pain management. Allopurinol. Amiodarone. Lipitor. Diuretics with Lasix. Synthroid. Xarelto. Additional plan as per the hospital course. A total of 45 minutes was spent reviewing the patient record, examining the patient, making a diagnostic and therapeutic plan, discussing this plan with medical personnel, following up on diagnostic studies and following the patient for clinical stability excluding any and all procedures. At least 50% of this time was spent in direct, [id number] contact. Plan discussed with: Patient ANABEL RODRIGUEZ MD Jun 02, 2024 23:51
[2024-06-03] VITALS (9 sets, daily range): BP systolic 100–121; BP diastolic 56–68; PULSE 74–86; RESP 8–19; TEMP 97.4–98.6; O2SAT 94–96
[2024-06-03 07:17] LABS: Basophils # (auto) 0 10 ^3/uL (0-0.2); Basophils % (auto) 0.5 % (0.0-2.0); Eosinophils # (auto) 0.5 10 ^3/uL (0-0.8); Eosinophils % (auto) 5.8 % (0.0-7.0); Hematocrit 32.1 % (36.0-46.0); Hemoglobin 10.3 g/dL (12.2-16.2); Lymphocytes # (auto) 1.3 10 ^3/uL (0.4-5.4); Lymphocytes % (auto) 15.8 % (10.0-50.0); Mean Corpuscular Hemoglobin 29.4 pg (28.0-32.0); Mean Corpuscular Hgb Conc. 31.9 g/dL (32.0-36.0); Mean Corpuscular Volume 92.2 fL (80.0-100.0); Monocytes # (auto) 0.9 10 ^3/uL (0-1.3); Monocytes % (auto) 10.8 % (0.0-12.0); Neutrophils # (auto) 5.6 10 ^3/uL (1.6-8.6); Neutrophils % (auto) 67.1 % (37.0-80.0); Nucleated Red Blood Cells % 0.1 %; Platelet Count (auto) 343 10^3/uL (140-450); Red Blood Cells 3.49 10^6/uL (4.0-5.20); Red Cell Distribution Width 16.3 % (11.8-14.3); White Blood Cell 8.3 10^3/uL (4.4-10.8)
[2024-06-03 07:26] LABS: Chloride 110 mmol/L (98-107); Potassium 3.9 mmol/L (3.5-5.1); Sodium 147 mmol/L (136-145)
[2024-06-03 07:27] LABS: Anion Gap 7 (5-15); Carbon Dioxide 30 mmol/L (20-31)
[2024-06-03 07:28] LABS: Calcium 9.1 mg/dL (8.7-10.4)
[2024-06-03 07:32] LABS: BUN/Creatinine Ratio 24.5 (10.0-20.0); Blood Urea Nitrogen 47 mg/dL (9-23); Glucose 138 mg/dL (74-106)
[2024-06-03] MEDS: ALLOPURINOL 100 MG TAB PO SCH (09:17)
--- NOTE | 2024-06-03 10:39 | DVHPN2 ---
Progress Note Date Seen: Jun 03, 2024 Medical Necessity Reason Pt with a Central, PICC or Fol: No Subjective Patient reports: No new complaints Review of Systems: HEENT:Normal, CVS:Normal, RESPIRATORY:Normal, GI:Normal, :Normal, MSK:Normal, NEURO:Normal Objective vital signs Vital Sign Date Time Temp Pulse Resp B/P (MAP) Pulse Ox O2 Delivery O2 Flow Rate FiO2 06/03/24 09:17 102/56 06/03/24 08:39 97.9 75 8 94 97.9 06/02/24 20:00 Nasal Cannula* 2 28 Total Intake and Output 06/02/24 06/02/24 06/03/24 15:00 23:00 07:00 Intake Total 450 ml 400 ml Output Total 850 ml 650 ml Balance -400 ml -250 ml medications Current Medications Medications Dose Ordered Sig/Gloria Route Start Time Stop Time Status Last Admin Dose Admin Acetaminophen/ Hydrocodone Bitart 1 tab Q4HP PRN PO 06/01/24 17:15 06/02/24 23:02 1 TAB Ondansetron HCl 4 mg Q4HP PRN IV 06/01/24 17:15 Nitroglycerin 0.4 mg Q5MINP PRN SL 06/01/24 17:15 Levothyroxine Sodium 112 mcg QAM PO 06/02/24 07:00 06/03/24 06:12 112 MCG Metolazone 5 mg DAILY PO 06/02/24 10:00 06/03/24 09:17 5 MG Potassium Chloride 10 meq DAILY PO 06/02/24 10:00 06/03/24 09:16 10 MEQ Rivaroxaban 15 mg QPM PO 06/01/24 18:00 06/02/24 17:56 15 MG Atorvastatin Calcium 40 mg HS PO 06/01/24 22:00 06/02/24 21:19 40 MG Albuterol 2.5 mg Q4HPRN PRN NEB 06/01/24 18:15 Diagnostic Test (Pha) 1 strip ACHS 06/01/24 22:00 06/03/24 06:19 1 STRIP Insulin Human Regular ACHS SC 06/01/24 22:00 06/03/24 06:19 2 UNITS Dextrose 50 ml UD PRN IV 06/01/24 18:15 Allopurinol 100 mg DAILY PO 06/03/24 10:00 06/03/24 09:17 100 MG Amiodarone HCl 200 mg Q12HR PO 06/02/24 22:00 06/03/24 09:14 200 MG Levetiracetam 1,000 mg BID PO 06/02/24 22:00 06/03/24 09:15 1,000 MG Furosemide 40 mg QAM IV 06/04/24 07:00 UNV Gabapentin 600 mg QID PO 06/03/24 12:00 UNV Examination: GENERAL:Normal, HEENT:Normal, NECK:Normal, LUNGS:Normal, LUNGS:Abnormal (ON OXYGEN), CVS:Normal, ABDOMEN:Normal, MSK:Normal, MSK:Abnormal (edema+), SKIN:Normal, NEURO:Normal, :Normal laboratory and microbiology Laboratory Tests 06/03/24 06:59 Test 06/03/24 06:59 Range/Units Serum Glucose 138 H 74-106 mg/dL Microbiology Date/Time Source Procedure Growth Status 06/01/24 23:51 Nose MRSA Screen - Final Complete Problem List/Assessment/Plan Problem List/Assessment/Plan #1 acute on chronic systolic heart failure: lasix, metolazone #2 chronic resp failure #3 ckd stage 3b #4 morbid obesity #5 hypothyroidism: cont meds #5 hyperlipidemia #7 gout #8 cad s/p stents #9 a fib with secondary hypercoagluable state: on xarelto #10 copd #11 dm; ssi #12 seizure disorder: on keppra #13 chronic pain: increase gabapentin advance care planning - wishes dnr- time spent 21 mins Plan discussed with: Patient My Orders My Orders Orders - CARLEY JOYA MD Procedure Category Date Status Time Allopurinol Tablet PHA 06/03/24 In Process (Zyloprim Tablet) 10:00 Amiodarone Tablet PHA 06/02/24 In Process (Cordarone Tablet) 22:00 Levetiracetam Tablet PHA 06/02/24 In Process (Keppra Tablet) 22:00 DNR [place] 06/02/24 In Process 11:14 Code Status CODE 06/02/24 Transmitted 12:26 * Dietary Consult CONS 06/02/24 Transmitted 12:36 Furosemide Injection PHA 06/04/24 Logged (Lasix Injection) 07:00 Gabapentin Capsule PHA 06/03/24 Logged (Neurontin Capsule) 12:00 Pt Request For Service PT 06/03/24 Logged 10:34 Basic Metabolic Panel LAB 06/04/24 Verified 06:00 Dietary Evaluation Review Comments: Follow the CCHO-60 diet with a renal specific protein restriction of 60g, 2gNa 3K, low phos diet. Expected Outcomes/Goals: Gradual weight loss. controlled DM and healed wounds. Date of Service: Jun 03, 2024 Billing Provider: CARLEY JOYA MD Common Visit Codes: [id number] INP/OBS CARE(HIGH) CARLEY JOYA MD Jun 03, 2024 10:39
[2024-06-03] MEDS: GABAPENTIN 300 MG CAP PO SCH (12:23)
--- NOTE | 2024-06-03 13:37 | DVHPN2 ---
Progress Note - Dictate Date Seen: Jun 03, 2024 Medical Necessity Reason Pt with a Central, PICC or Fol: No Subjective Patient was seen and evaluated in follow up. Patient is complaining of generalized weakness. She is on 2 LPM NC. 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 vital signs Vital Sign Date Time Temp Pulse Resp B/P (MAP) Pulse Ox O2 Delivery O2 Flow Rate FiO2 06/03/24 10:00 96 Nasal Cannula* 2 28 06/03/24 09:17 102/56 06/03/24 08:39 97.9 75 8 97.9 Total Intake and Output 06/02/24 06/02/24 06/03/24 15:00 23:00 07:00 Intake Total 450 ml 400 ml Output Total 850 ml 650 ml Balance -400 ml -250 ml medications Current Medications Medications Dose Ordered Sig/Gloria Route Start Time Stop Time Status Last Admin Dose Admin Acetaminophen/ Hydrocodone Bitart 1 tab Q4HP PRN PO 06/01/24 17:15 06/02/24 23:02 1 TAB Ondansetron HCl 4 mg Q4HP PRN IV 06/01/24 17:15 Nitroglycerin 0.4 mg Q5MINP PRN SL 06/01/24 17:15 Levothyroxine Sodium 112 mcg QAM PO 06/02/24 07:00 06/03/24 06:12 112 MCG Metolazone 5 mg DAILY PO 06/02/24 10:00 06/03/24 09:17 5 MG Potassium Chloride 10 meq DAILY PO 06/02/24 10:00 06/03/24 09:16 10 MEQ Rivaroxaban 15 mg QPM PO 06/01/24 18:00 06/02/24 17:56 15 MG Atorvastatin Calcium 40 mg HS PO 06/01/24 22:00 06/02/24 21:19 40 MG Albuterol 2.5 mg Q4HPRN PRN NEB 06/01/24 18:15 Diagnostic Test (Pha) 1 strip ACHS 06/01/24 22:00 06/03/24 12:23 1 STRIP Insulin Human Regular ACHS SC 06/01/24 22:00 06/03/24 12:27 3 UNITS Dextrose 50 ml UD PRN IV 06/01/24 18:15 Allopurinol 100 mg DAILY PO 06/03/24 10:00 06/03/24 09:17 100 MG Amiodarone HCl 200 mg Q12HR PO 06/02/24 22:00 06/03/24 09:14 200 MG Levetiracetam 1,000 mg BID PO 06/02/24 22:00 06/03/24 09:15 1,000 MG Furosemide 40 mg QAM IV 06/04/24 07:00 Gabapentin 600 mg QID PO 06/03/24 12:00 06/03/24 12:23 600 MG objective GENERAL: Awake, alert, oriented. LUNGS: Clear. CARDIOVASCULAR: Heart sounds are good. ABDOMEN: Soft. EXT: 1+ BLE edema. laboratory and microbiology Laboratory Tests 06/03/24 06:59 Test 06/03/24 06:59 Range/Units Serum Glucose 138 H 74-106 mg/dL Problem List Acute on chronic systolic heart failure with exacerbation. Generalized weakness unknown etiology. Chronic hypoxic respiratory failure, dependent on home oxygen. Chronic COPD/Asthma. Uncontrolled type 2 Diabetes. Uncontrolled benign essential Hypertension. Hyperlipidemia. Seizures. Hypothyroidism. Anemia. CKD stage 3b. Pacemaker. History of Chronic A Fib. Morbid obesity. CAD. Assessment/Plan Continued all current supportive medical care. [place] for pain management. Allopurinol. Amiodarone. Lipitor. Diuretics with Lasix. Synthroid. Xarelto. Additional plan as per the hospital course. Dietary Evaluation Review Comments: Follow the CCHO-60 diet with a renal specific protein restriction of 60g, 2gNa 3K, low phos diet. Expected Outcomes/Goals: Gradual weight loss. controlled DM and healed wounds. Plan discussed with: Patient ANABEL RODRIGUEZ MD Jun 03, 2024 12:59
[2024-06-04] VITALS (9 sets, daily range): BP systolic 104–114; BP diastolic 62–73; PULSE 78–85; RESP 16–20; TEMP 97.4–98.4; O2SAT 93–98
[2024-06-04] MEDS: FUROSEMIDE 40 MG/4 ML VIAL IV SCH (06:14)
--- NOTE | 2024-06-04 11:07 | DVHPN2 ---
Eyes: No Pain, No Vision change, No Conjunctivae inflammation, No Eyelid inflammation, No Other, No Redness ENT: No Ear pain, No Ear discharge, No Nose pain, No Nose discharge, No Nose congestion, No Mouth pain, No Mouth swelling, No Throat pain, No Throat swelling, No Other Cardiovascular: No Chest Pain, No Palpitations, No Orthopnea, No Paroxysmal Noc. Dyspnea, No Edema, No Lt Headedness, No Other Respiratory: No Cough, No Dry, No Shortness of breath, No SOB with excertion, No Wheezing, No Hemoptysis, No Pleuritic Pain, No Sputum, No Other Gastrointestinal: No Nausea, No Vomiting, No Abdominal Pain, No Diarrhea, No Constipation, No Melena, No Hematochezia, No Other Genitourinary: No Dysuria, No Frequency, No Incontinence, No Hematuria, No Retention, No Other Musculoskeletal: No other, No neck pain, No shoulder pain, No arm pain, No back pain, No hand pain, No leg pain, No foot pain Skin: No Rash, No Lesions, No Jaundice, No Bruising, No Other Objective Vitals Vital Signs Date Time Temp Pulse Resp B/P (MAP) Pulse Ox O2 Delivery O2 Flow Rate FiO2 06/04/24 10:12 93 Nasal Cannula* 2 28 06/04/24 09:28 111/64 06/04/24 08:30 97.5 78 18 97.5 Intake/Output Intake and Output 06/04/24 07:00 Intake Total 1300 ml Output Total 2185 ml Balance -885 ml Intake Oral 1300 ml Output Urine Total 2185 ml Medications Current Medications Medications Dose Ordered Sig/Gloria Route Start Time Stop Time Status Last Admin Dose Admin Acetaminophen/ Hydrocodone Bitart 1 tab Q4HP PRN PO 06/01/24 17:15 06/02/24 23:02 1 TAB Ondansetron HCl 4 mg Q4HP PRN IV 06/01/24 17:15 Nitroglycerin 0.4 mg Q5MINP PRN SL 06/01/24 17:15 Levothyroxine Sodium 112 mcg QAM PO 06/02/24 07:00 06/04/24 06:13 112 MCG Metolazone 5 mg DAILY PO 06/02/24 10:00 06/04/24 09:28 5 MG Potassium Chloride 10 meq DAILY PO 06/02/24 10:00 06/04/24 09:28 10 MEQ Rivaroxaban 15 mg QPM PO 06/01/24 18:00 06/03/24 17:39 15 MG Atorvastatin Calcium 40 mg HS PO 06/01/24 22:00 06/03/24 21:27 40 MG Albuterol 2.5 mg Q4HPRN PRN NEB 06/01/24 18:15 Diagnostic Test (Pha) 1 strip ACHS 06/01/24 22:00 06/04/24 06:18 1 STRIP Insulin Human Regular ACHS SC 06/01/24 22:00 06/04/24 06:19 2 UNITS Dextrose 50 ml UD PRN IV 06/01/24 18:15 Allopurinol 100 mg DAILY PO 06/03/24 10:00 06/04/24 09:27 100 MG Amiodarone HCl 200 mg Q12HR PO 06/02/24 22:00 06/04/24 09:28 200 MG Levetiracetam 1,000 mg BID PO 06/02/24 22:00 06/04/24 09:28 1,000 MG Furosemide 40 mg QAM IV 06/04/24 07:00 06/04/24 06:14 40 MG Gabapentin 600 mg QID PO 06/03/24 12:00 06/04/24 06:13 600 MG Laboratory Results Laboratory Tests 06/03/24 06:59 Urinalysis Test 06/01/24 14:10 Urine Color Light-yellow (Yellow) Urine Clarity Clear (Clear) Urine pH 5.0 (5.0-9.0) Urine Specific [place] 1.010 (1.001-1.035) Urine Protein Negative (Negative) Urine Ketones Negative (Negative) Urine Blood Negative /uL (Negative) Urine Nitrite Negative (Negative) Urine Bilirubin Negative (Negative) Urine Urobilinogen Normal mg/dL (Negative) Urine Leukocyte Esterase Negative /uL (Negative) Urine RBC None seen /hpf (0 - 4) Urine WBC None seen /hpf (0 - 5) Urine Squamous Epithelial Cells None seen /hpf (<5) Urine Bacteria None seen /hpf (None Seen) Urine Hyaline Casts Few /lpf (0 - 2) Urine Glucose Normal mg/dL (Normal) Microbiology Microbiology Date/Time Source Procedure Growth Status 06/01/24 23:51 Nose MRSA Screen - Final Complete TOMAS WOMACK MD Jun 04, 2024 11:07
[2024-06-04 11:29] LABS: Anion Gap 4 (5-15); Carbon Dioxide 32 mmol/L (20-31); Chloride 107 mmol/L (98-107); Potassium 4.1 mmol/L (3.5-5.1); Sodium 143 mmol/L (136-145)
[2024-06-04 11:30] LABS: Calcium 9.6 mg/dL (8.7-10.4)
[2024-06-04 11:34] LABS: BUN/Creatinine Ratio 24.4 (10.0-20.0); Blood Urea Nitrogen 42 mg/dL (9-23); Glucose 183 mg/dL (74-106)
--- NOTE | 2024-06-04 16:27 | DVHPN2 ---
Progress Note - Dictate Date Seen: Jun 04, 2024 Medical Necessity Reason Pt with a Central, PICC or Fol: No Subjective Patient was seen and evaluated in follow up. No overnight events. Patient remains with generalized weakness. Patient is stable on 2 LPM NC. CO2 32, BUN 42, DIALYSIS NURSE 1.72. vital signs Vital Sign Date Time Temp Pulse Resp B/P (MAP) Pulse Ox O2 Delivery O2 Flow Rate FiO2 06/04/24 10:12 93 Nasal Cannula* 2 28 06/04/24 09:28 111/64 06/04/24 08:30 97.5 78 18 97.5 Total Intake and Output 06/03/24 06/03/24 06/04/24 15:00 23:00 07:00 Intake Total 1100 ml 200 ml Output Total 675 ml 400 ml 1110 ml Balance -675 ml 700 ml -910 ml medications Current Medications Medications Dose Ordered Sig/Gloria Route Start Time Stop Time Status Last Admin Dose Admin Acetaminophen/ Hydrocodone Bitart 1 tab Q4HP PRN PO 06/01/24 17:15 06/02/24 23:02 1 TAB Ondansetron HCl 4 mg Q4HP PRN IV 06/01/24 17:15 Nitroglycerin 0.4 mg Q5MINP PRN SL 06/01/24 17:15 Levothyroxine Sodium 112 mcg QAM PO 06/02/24 07:00 06/04/24 06:13 112 MCG Metolazone 5 mg DAILY PO 06/02/24 10:00 06/04/24 09:28 5 MG Potassium Chloride 10 meq DAILY PO 06/02/24 10:00 06/04/24 09:28 10 MEQ Rivaroxaban 15 mg QPM PO 06/01/24 18:00 06/03/24 17:39 15 MG Atorvastatin Calcium 40 mg HS PO 06/01/24 22:00 06/03/24 21:27 40 MG Albuterol 2.5 mg Q4HPRN PRN NEB 06/01/24 18:15 Diagnostic Test (Pha) 1 strip ACHS 06/01/24 22:00 06/04/24 11:46 1 STRIP Insulin Human Regular ACHS SC 06/01/24 22:00 06/04/24 06:19 2 UNITS Dextrose 50 ml UD PRN IV 06/01/24 18:15 Allopurinol 100 mg DAILY PO 06/03/24 10:00 06/04/24 09:27 100 MG Amiodarone HCl 200 mg Q12HR PO 06/02/24 22:00 06/04/24 09:28 200 MG Levetiracetam 1,000 mg BID PO 06/02/24 22:00 06/04/24 09:28 1,000 MG Furosemide 40 mg QAM IV 06/04/24 07:00 06/04/24 06:14 40 MG Gabapentin 600 mg QID PO 06/03/24 12:00 06/04/24 06:13 600 MG objective GENERAL: Awake, alert, oriented. LUNGS: Clear. CARDIOVASCULAR: Heart sounds are good. ABDOMEN: Soft. EXT: 1+ BLE edema. laboratory and microbiology Laboratory Tests 06/04/24 10:55 06/03/24 06:59 Test 06/04/24 10:55 Range/Units Serum Glucose 183 H 74-106 mg/dL Problem List Acute on chronic systolic heart failure with exacerbation. Generalized weakness unknown etiology. Chronic hypoxic respiratory failure, dependent on home oxygen. Chronic COPD/Asthma. Uncontrolled type 2 Diabetes. Uncontrolled benign essential Hypertension. Hyperlipidemia. Seizures. Hypothyroidism. Anemia. CKD stage 3b. Pacemaker. History of Chronic A Fib. Morbid obesity. CAD. Assessment/Plan Continued all current supportive medical care. [place] for pain management. Allopurinol. Amiodarone. Lipitor. Diuretics with Lasix. Synthroid. Xarelto. Additional plan as per the hospital course. Dietary Evaluation Review Comments: Follow the CCHO-60 diet with a renal specific protein restriction of 60g, 2gNa 3K, low phos diet. Expected Outcomes/Goals: Gradual weight loss. controlled DM and healed wounds. Plan discussed with: Patient ANABEL RODRIGUEZ MD Jun 04, 2024 11:53
[2024-06-05] VITALS (7 sets, daily range): BP systolic 100–111; BP diastolic 53–69; PULSE 78–84; RESP 14–18; TEMP 97.8–98.3; O2SAT 94–98
[2024-06-05] MEDS: ONDANSETRON HCL 4 MG/2 ML VIAL IV PRN (05:27)
--- NOTE | 2024-06-05 11:51 | DVHPN2 ---
Eyes: No Pain, No Vision change, No Conjunctivae inflammation, No Eyelid inflammation, No Other, No Redness ENT: No Ear pain, No Ear discharge, No Nose pain, No Nose discharge, No Nose congestion, No Mouth pain, No Mouth swelling, No Throat pain, No Throat swelling, No Other Cardiovascular: No Chest Pain, No Palpitations, No Orthopnea, No Paroxysmal Noc. Dyspnea, No Edema, No Lt Headedness, No Other Respiratory: No Cough, No Dry, No Shortness of breath, No SOB with excertion, No Wheezing, No Hemoptysis, No Pleuritic Pain, No Sputum, No Other Gastrointestinal: No Nausea, No Vomiting, No Abdominal Pain, No Diarrhea, No Constipation, No Melena, No Hematochezia, No Other Genitourinary: No Dysuria, No Frequency, No Incontinence, No Hematuria, No Retention, No Other Musculoskeletal: No other, No neck pain, No shoulder pain, No arm pain, No back pain, No hand pain, No leg pain, No foot pain Skin: No Rash, No Lesions, No Jaundice, No Bruising, No Other Objective Vitals Vital Signs Date Time Temp Pulse Resp B/P (MAP) Pulse Ox O2 Delivery O2 Flow Rate FiO2 06/05/24 09:45 110/61 06/05/24 09:00 97.8 84 16 97 97.8 06/04/24 20:00 Nasal Cannula* 2 28 Intake/Output Intake and Output 06/05/24 07:00 Intake Total 1069 ml Output Total 2950 ml Balance -1881 ml Intake Oral 1069 ml Output Urine Total 2950 ml # Bowel Movements 1 Medications Current Medications Medications Dose Ordered Sig/Gloria Route Start Time Stop Time Status Last Admin Dose Admin Acetaminophen/ Hydrocodone Bitart 1 tab Q4HP PRN PO 06/01/24 17:15 06/02/24 23:02 1 TAB Ondansetron HCl 4 mg Q4HP PRN IV 06/01/24 17:15 06/05/24 05:27 4 MG Nitroglycerin 0.4 mg Q5MINP PRN SL 06/01/24 17:15 Levothyroxine Sodium 112 mcg QAM PO 06/02/24 07:00 06/05/24 06:14 112 MCG Metolazone 5 mg DAILY PO 06/02/24 10:00 06/05/24 09:45 5 MG Potassium Chloride 10 meq DAILY PO 06/02/24 10:00 06/05/24 09:46 10 MEQ Rivaroxaban 15 mg QPM PO 06/01/24 18:00 06/04/24 17:16 15 MG Atorvastatin Calcium 40 mg HS PO 06/01/24 22:00 06/04/24 21:11 40 MG Diagnostic Test (Pha) 1 strip ACHS 06/01/24 22:00 06/05/24 06:14 1 STRIP Insulin Human Regular ACHS SC 06/01/24 22:00 06/05/24 06:14 2 UNITS Dextrose 50 ml UD PRN IV 06/01/24 18:15 Allopurinol 100 mg DAILY PO 06/03/24 10:00 06/05/24 09:46 100 MG Amiodarone HCl 200 mg Q12HR PO 06/02/24 22:00 06/05/24 09:45 200 MG Levetiracetam 1,000 mg BID PO 06/02/24 22:00 06/05/24 09:46 1,000 MG Furosemide 40 mg QAM IV 06/04/24 07:00 06/05/24 06:13 40 MG Gabapentin 600 mg QID PO 06/03/24 12:00 06/05/24 06:13 600 MG Laboratory Results Laboratory Tests 06/03/24 06:59 06/04/24 10:55 Urinalysis Test 06/01/24 14:10 Urine Color Light-yellow (Yellow) Urine Clarity Clear (Clear) Urine pH 5.0 (5.0-9.0) Urine Specific [place] 1.010 (1.001-1.035) Urine Protein Negative (Negative) Urine Ketones Negative (Negative) Urine Blood Negative /uL (Negative) Urine Nitrite Negative (Negative) Urine Bilirubin Negative (Negative) Urine Urobilinogen Normal mg/dL (Negative) Urine Leukocyte Esterase Negative /uL (Negative) Urine RBC None seen /hpf (0 - 4) Urine WBC None seen /hpf (0 - 5) Urine Squamous Epithelial Cells None seen /hpf (<5) Urine Bacteria None seen /hpf (None Seen) Urine Hyaline Casts Few /lpf (0 - 2) Urine Glucose Normal mg/dL (Normal) Microbiology Microbiology Date/Time Source Procedure Growth Status 06/01/24 23:51 Nose MRSA Screen - Final Complete TOMAS WOMACK MD Jun 05, 2024 11:51
--- NOTE | 2024-06-05 13:29 | DVHPN2 ---
Progress Note - Dictate Date Seen: Jun 05, 2024 Medical Necessity Reason Pt with a Central, PICC or Fol: No Subjective Patient was seen and evaluated in follow up. Patient denies any new complaints. Patient is on 2 LPM NC. GLUC 135. vital signs Vital Sign Date Time Temp Pulse Resp B/P (MAP) Pulse Ox O2 Delivery O2 Flow Rate FiO2 06/05/24 09:45 110/61 06/05/24 09:00 97.8 84 16 97 97.8 06/04/24 20:00 Nasal Cannula* 2 28 Total Intake and Output 06/04/24 06/04/24 06/05/24 14:59 22:59 06:59 Intake Total 1069 ml Output Total 2100 ml 850 ml Balance -1031 ml -850 ml medications Current Medications Medications Dose Ordered Sig/Gloria Route Start Time Stop Time Status Last Admin Dose Admin Acetaminophen/ Hydrocodone Bitart 1 tab Q4HP PRN PO 06/01/24 17:15 06/02/24 23:02 1 TAB Ondansetron HCl 4 mg Q4HP PRN IV 06/01/24 17:15 06/05/24 05:27 4 MG Nitroglycerin 0.4 mg Q5MINP PRN SL 06/01/24 17:15 Levothyroxine Sodium 112 mcg QAM PO 06/02/24 07:00 06/05/24 06:14 112 MCG Metolazone 5 mg DAILY PO 06/02/24 10:00 06/05/24 09:45 5 MG Potassium Chloride 10 meq DAILY PO 06/02/24 10:00 06/05/24 09:46 10 MEQ Rivaroxaban 15 mg QPM PO 06/01/24 18:00 06/04/24 17:16 15 MG Atorvastatin Calcium 40 mg HS PO 06/01/24 22:00 06/04/24 21:11 40 MG Diagnostic Test (Pha) 1 strip ACHS 06/01/24 22:00 06/05/24 06:14 1 STRIP Insulin Human Regular ACHS SC 06/01/24 22:00 06/05/24 06:14 2 UNITS Dextrose 50 ml UD PRN IV 06/01/24 18:15 Allopurinol 100 mg DAILY PO 06/03/24 10:00 06/05/24 09:46 100 MG Amiodarone HCl 200 mg Q12HR PO 06/02/24 22:00 06/05/24 09:45 200 MG Levetiracetam 1,000 mg BID PO 06/02/24 22:00 06/05/24 09:46 1,000 MG Furosemide 40 mg QAM IV 06/04/24 07:00 06/05/24 06:13 40 MG Gabapentin 600 mg QID PO 06/03/24 12:00 06/05/24 06:13 600 MG objective GENERAL: Awake, alert, oriented. LUNGS: Clear. CARDIOVASCULAR: Heart sounds are good. ABDOMEN: Soft. EXT: 1+ BLE edema. laboratory and microbiology Laboratory Tests 06/04/24 10:55 06/03/24 06:59 Test 06/04/24 10:55 Range/Units Serum Glucose 183 H 74-106 mg/dL Problem List Acute on chronic systolic heart failure with exacerbation. Generalized weakness unknown etiology. Chronic hypoxic respiratory failure, dependent on home oxygen. Chronic COPD/Asthma. Uncontrolled type 2 Diabetes. Uncontrolled benign essential Hypertension. Hyperlipidemia. Seizures. Hypothyroidism. Anemia. CKD stage 3b. Pacemaker. History of Chronic A Fib. Morbid obesity. CAD. Assessment/Plan Continued all current supportive medical care. [place] for pain management. Allopurinol. Amiodarone. Lipitor. Diuretics with Lasix. Synthroid. Xarelto. Additional plan as per the hospital course. Dietary Evaluation Review Comments: Follow the CCHO-60 diet with a renal specific protein restriction of 60g, 2gNa 3K, low phos diet. Expected Outcomes/Goals: Gradual weight loss. controlled DM and healed wounds. Plan discussed with: Patient ANABEL RODRIGUEZ MD Jun 05, 2024 12:22
[2024-06-06] VITALS (9 sets, daily range): BP systolic 92–106; BP diastolic 54–68; PULSE 73–82; RESP 14–19; TEMP 97.4–98.2; O2SAT 94–98
--- NOTE | 2024-06-06 12:26 | DVHPN2 ---
Progress Note - Dictate Date Seen: Jun 06, 2024 Medical Necessity Reason Pt with a Central, PICC or Fol: No Subjective Patient was seen and evaluated in follow up. No overnight events. Patient reports feeling well. Patient is on 2 LPM NC. GLUC 143. Patient is cardiac stable for discharge. vital signs Vital Sign Date Time Temp Pulse Resp B/P (MAP) Pulse Ox O2 Delivery O2 Flow Rate FiO2 06/06/24 10:43 102/64 06/06/24 08:53 97.4 73 14 98 97.4 06/05/24 20:00 Nasal Cannula* 2 28 Total Intake and Output 06/05/24 06/05/24 06/06/24 15:00 23:00 07:00 Intake Total 1200 ml 900 ml Output Total 1600 ml 650 ml Balance -400 ml 250 ml medications Current Medications Medications Dose Ordered Sig/Gloria Route Start Time Stop Time Status Last Admin Dose Admin Acetaminophen/ Hydrocodone Bitart 1 tab Q4HP PRN PO 06/01/24 17:15 06/05/24 23:43 1 TAB Ondansetron HCl 4 mg Q4HP PRN IV 06/01/24 17:15 06/05/24 05:27 4 MG Nitroglycerin 0.4 mg Q5MINP PRN SL 06/01/24 17:15 Levothyroxine Sodium 112 mcg QAM PO 06/02/24 07:00 06/06/24 06:01 112 MCG Metolazone 5 mg DAILY PO 06/02/24 10:00 06/06/24 10:43 5 MG Potassium Chloride 10 meq DAILY PO 06/02/24 10:00 06/06/24 10:43 10 MEQ Rivaroxaban 15 mg QPM PO 06/01/24 18:00 06/05/24 17:26 15 MG Atorvastatin Calcium 40 mg HS PO 06/01/24 22:00 06/05/24 21:13 40 MG Diagnostic Test (Pha) 1 strip ACHS 06/01/24 22:00 06/06/24 06:08 1 STRIP Insulin Human Regular ACHS SC 06/01/24 22:00 06/06/24 06:15 2 UNITS Dextrose 50 ml UD PRN IV 06/01/24 18:15 Allopurinol 100 mg DAILY PO 06/03/24 10:00 06/06/24 10:40 100 MG Amiodarone HCl 200 mg Q12HR PO 06/02/24 22:00 06/06/24 10:42 200 MG Levetiracetam 1,000 mg BID PO 06/02/24 22:00 06/06/24 10:41 1,000 MG Furosemide 40 mg QAM IV 06/04/24 07:00 06/06/24 06:02 40 MG Gabapentin 600 mg QID PO 06/03/24 12:00 06/06/24 06:01 600 MG objective GENERAL: Awake, alert, oriented. LUNGS: Clear. CARDIOVASCULAR: Heart sounds are good. ABDOMEN: Soft. EXT: 1+ BLE edema. laboratory and microbiology Laboratory Tests 06/04/24 10:55 06/03/24 06:59 Test 06/04/24 10:55 Range/Units Serum Glucose 183 H 74-106 mg/dL Problem List Acute on chronic systolic heart failure with exacerbation. Generalized weakness unknown etiology. Chronic hypoxic respiratory failure, dependent on home oxygen. Chronic COPD/Asthma. Uncontrolled type 2 Diabetes. Uncontrolled benign essential Hypertension. Hyperlipidemia. Seizures. Hypothyroidism. Anemia. CKD stage 3b. Pacemaker. History of Chronic A Fib. Morbid obesity. CAD. Assessment/Plan Continued all current supportive medical care. [place] for pain management. Allopurinol. Amiodarone. Lipitor. Diuretics with Lasix. Synthroid. Xarelto. Additional plan as per the hospital course. Dietary Evaluation Review Comments: Follow the CCHO-60 diet with a renal specific protein restriction of 60g, 2gNa 3K, low phos diet. Expected Outcomes/Goals: Gradual weight loss. controlled DM and healed wounds. Plan discussed with: Patient ANABEL RODRIGUEZ MD Jun 06, 2024 11:27
--- NOTE | 2024-06-06 14:10 | DVHPN2 ---
Eyes: No Pain, No Vision change, No Conjunctivae inflammation, No Eyelid inflammation, No Other, No Redness ENT: No Ear pain, No Ear discharge, No Nose pain, No Nose discharge, No Nose congestion, No Mouth pain, No Mouth swelling, No Throat pain, No Throat swelling, No Other Cardiovascular: No Chest Pain, No Palpitations, No Orthopnea, No Paroxysmal Noc. Dyspnea, No Edema, No Lt Headedness, No Other Respiratory: No Cough, No Dry, No Shortness of breath, No SOB with excertion, No Wheezing, No Hemoptysis, No Pleuritic Pain, No Sputum, No Other Gastrointestinal: No Nausea, No Vomiting, No Abdominal Pain, No Diarrhea, No Constipation, No Melena, No Hematochezia, No Other Genitourinary: No Dysuria, No Frequency, No Incontinence, No Hematuria, No Retention, No Other Musculoskeletal: No other, No neck pain, No shoulder pain, No arm pain, No back pain, No hand pain, No leg pain, No foot pain Skin: No Rash, No Lesions, No Jaundice, No Bruising, No Other Objective Vitals Vital Signs Date Time Temp Pulse Resp B/P (MAP) Pulse Ox O2 Delivery O2 Flow Rate FiO2 06/06/24 13:00 98.2 77 14 92/56 (68) 98 98.2 06/05/24 20:00 Nasal Cannula* 2 28 Intake/Output Intake and Output 06/06/24 06:59 Intake Total 2100 ml Output Total 2250 ml Balance -150 ml Intake Oral 2100 ml Output Urine Total 2250 ml Medications Current Medications Medications Dose Ordered Sig/Gloria Route Start Time Stop Time Status Last Admin Dose Admin Acetaminophen/ Hydrocodone Bitart 1 tab Q4HP PRN PO 06/01/24 17:15 06/05/24 23:43 1 TAB Ondansetron HCl 4 mg Q4HP PRN IV 06/01/24 17:15 06/05/24 05:27 4 MG Nitroglycerin 0.4 mg Q5MINP PRN SL 06/01/24 17:15 Levothyroxine Sodium 112 mcg QAM PO 06/02/24 07:00 06/06/24 06:01 112 MCG Metolazone 5 mg DAILY PO 06/02/24 10:00 06/06/24 10:43 5 MG Potassium Chloride 10 meq DAILY PO 06/02/24 10:00 06/06/24 10:43 10 MEQ Rivaroxaban 15 mg QPM PO 06/01/24 18:00 06/05/24 17:26 15 MG Atorvastatin Calcium 40 mg HS PO 06/01/24 22:00 06/05/24 21:13 40 MG Diagnostic Test (Pha) 1 strip ACHS 06/01/24 22:00 06/06/24 11:54 1 STRIP Insulin Human Regular ACHS SC 06/01/24 22:00 06/06/24 12:06 3 UNITS Dextrose 50 ml UD PRN IV 06/01/24 18:15 Allopurinol 100 mg DAILY PO 06/03/24 10:00 06/06/24 10:40 100 MG Amiodarone HCl 200 mg Q12HR PO 06/02/24 22:00 06/06/24 10:42 200 MG Levetiracetam 1,000 mg BID PO 06/02/24 22:00 06/06/24 10:41 1,000 MG Furosemide 40 mg QAM IV 06/04/24 07:00 06/06/24 06:02 40 MG Gabapentin 600 mg QID PO 06/03/24 12:00 06/06/24 12:19 600 MG Laboratory Results Laboratory Tests 06/03/24 06:59 06/04/24 10:55 Urinalysis Test 06/01/24 14:10 Urine Color Light-yellow (Yellow) Urine Clarity Clear (Clear) Urine pH 5.0 (5.0-9.0) Urine Specific [place] 1.010 (1.001-1.035) Urine Protein Negative (Negative) Urine Ketones Negative (Negative) Urine Blood Negative /uL (Negative) Urine Nitrite Negative (Negative) Urine Bilirubin Negative (Negative) Urine Urobilinogen Normal mg/dL (Negative) Urine Leukocyte Esterase Negative /uL (Negative) Urine RBC None seen /hpf (0 - 4) Urine WBC None seen /hpf (0 - 5) Urine Squamous Epithelial Cells None seen /hpf (<5) Urine Bacteria None seen /hpf (None Seen) Urine Hyaline Casts Few /lpf (0 - 2) Urine Glucose Normal mg/dL (Normal) Microbiology Microbiology Date/Time Source Procedure Growth Status 06/01/24 23:51 Nose MRSA Screen - Final Complete TOMAS WOMACK MD Jun 06, 2024 14:10
[2024-06-06] MEDS: BACLOFEN 10 MG TAB PO PRN (17:50)
[2024-06-07] VITALS (7 sets, daily range): BP systolic 92–124; BP diastolic 37–86; PULSE 74–116; RESP 16–18; TEMP 97.4–98.2; O2SAT 94–98
--- NOTE | 2024-06-07 13:06 | DVHPN2 ---
Eyes: No Pain, No Vision change, No Conjunctivae inflammation, No Eyelid inflammation, No Other, No Redness ENT: No Ear pain, No Ear discharge, No Nose pain, No Nose discharge, No Nose congestion, No Mouth pain, No Mouth swelling, No Throat pain, No Throat swelling, No Other Cardiovascular: No Chest Pain, No Palpitations, No Orthopnea, No Paroxysmal Noc. Dyspnea, No Edema, No Lt Headedness, No Other Respiratory: No Cough, No Dry, No Shortness of breath, No SOB with excertion, No Wheezing, No Hemoptysis, No Pleuritic Pain, No Sputum, No Other Gastrointestinal: No Nausea, No Vomiting, No Abdominal Pain, No Diarrhea, No Constipation, No Melena, No Hematochezia, No Other Genitourinary: No Dysuria, No Frequency, No Incontinence, No Hematuria, No Retention, No Other Musculoskeletal: No other, No neck pain, No shoulder pain, No arm pain, No back pain, No hand pain, No leg pain, No foot pain Skin: No Rash, No Lesions, No Jaundice, No Bruising, No Other Objective Vitals Vital Signs Date Time Temp Pulse Resp B/P (MAP) Pulse Ox O2 Delivery O2 Flow Rate FiO2 06/07/24 10:00 92/37 06/07/24 09:00 98.0 76 17 95 98.0 06/06/24 20:00 Nasal Cannula* 2 28 Intake/Output Intake and Output 06/07/24 07:00 Intake Total 1000 ml Output Total 1600 ml Balance -600 ml Intake Oral 1000 ml Output Urine Total 1600 ml Medications Current Medications Medications Dose Ordered Sig/Gloria Route Start Time Stop Time Status Last Admin Dose Admin Acetaminophen/ Hydrocodone Bitart 1 tab Q4HP PRN PO 06/01/24 17:15 06/06/24 21:55 1 TAB Ondansetron HCl 4 mg Q4HP PRN IV 06/01/24 17:15 06/05/24 05:27 4 MG Nitroglycerin 0.4 mg Q5MINP PRN SL 06/01/24 17:15 Levothyroxine Sodium 112 mcg QAM PO 06/02/24 07:00 06/07/24 06:26 112 MCG Metolazone 5 mg DAILY PO 06/02/24 10:00 06/06/24 10:43 5 MG Potassium Chloride 10 meq DAILY PO 06/02/24 10:00 06/06/24 10:43 10 MEQ Rivaroxaban 15 mg QPM PO 06/01/24 18:00 06/06/24 17:48 15 MG Atorvastatin Calcium 40 mg HS PO 06/01/24 22:00 06/06/24 21:54 40 MG Diagnostic Test (Pha) 1 strip ACHS 06/01/24 22:00 06/07/24 11:19 1 STRIP Insulin Human Regular ACHS SC 06/01/24 22:00 06/07/24 11:22 2 UNITS Dextrose 50 ml UD PRN IV 06/01/24 18:15 Allopurinol 100 mg DAILY PO 06/03/24 10:00 06/07/24 08:49 100 MG Amiodarone HCl 200 mg Q12HR PO 06/02/24 22:00 06/07/24 08:48 200 MG Levetiracetam 1,000 mg BID PO 06/02/24 22:00 06/07/24 08:48 1,000 MG Furosemide 40 mg QAM IV 06/04/24 07:00 06/07/24 06:26 40 MG Gabapentin 600 mg QID PO 06/03/24 12:00 06/07/24 06:26 600 MG Baclofen 10 mg Q8HP PRN PO 06/06/24 19:00 06/06/24 17:50 10 MG Laboratory Results Laboratory Tests 06/03/24 06:59 06/04/24 10:55 Urinalysis Test 06/01/24 14:10 Urine Color Light-yellow (Yellow) Urine Clarity Clear (Clear) Urine pH 5.0 (5.0-9.0) Urine Specific [employer] 1.010 (1.001-1.035) Urine Protein Negative (Negative) Urine Ketones Negative (Negative) Urine Blood Negative /uL (Negative) Urine Nitrite Negative (Negative) Urine Bilirubin Negative (Negative) Urine Urobilinogen Normal mg/dL (Negative) Urine Leukocyte Esterase Negative /uL (Negative) Urine RBC None seen /hpf (0 - 4) Urine WBC None seen /hpf (0 - 5) Urine Squamous Epithelial Cells None seen /hpf (<5) Urine Bacteria None seen /hpf (None Seen) Urine Hyaline Casts Few /lpf (0 - 2) Urine Glucose Normal mg/dL (Normal) Microbiology Microbiology Date/Time Source Procedure Growth Status 06/01/24 23:51 Nose MRSA Screen - Final Complete Assessment/Plan My Orders Orders - TOMAS WOMACK MD Procedure Category Date Status Time Baclofen Tablet PHA 06/06/24 In Process (Liorisal Tablet) 19:00 TOMAS WOMACK MD Jun 07, 2024 13:06
--- NOTE | 2024-06-07 13:06 | DVHDS2 ---
Discharge Summary Date of Admission Jun 01, 2024 at 17:12 Labs/Diagnostic Data: Laboratory Results Test 06/07/24 11:15 06/04/24 10:55 06/03/24 06:59 06/01/24 14:10 POC Glucose 148 mg/dl (70-106) Sodium Level 143 mmol/L (136-145) Potassium Level 4.1 mmol/L (3.5-5.1) Chloride Level 107 mmol/L (98-107) Carbon Dioxide Level 32 mmol/L (20-31) Anion Gap 4 (5-15) Blood Urea Nitrogen 42 mg/dL (9-23) Creatinine 1.72 mg/dL (0.550-1.02) Glomerular Filtration Rate Calc 32 mL/min (>90) BUN/Creatinine Ratio 24.4 (10.0-20.0) Serum Glucose 183 mg/dL (74-106) Calcium Level 9.6 mg/dL (8.7-10.4) White Blood Count 8.3 10^3/uL (4.4-10.8) Red Blood Count 3.49 10^6/uL (4.0-5.20) Hemoglobin 10.3 g/dL (12.2-16.2) Hematocrit 32.1 % (36.0-46.0) Mean Corpuscular Volume 92.2 fL (80.0-100.0) Mean Corpuscular Hemoglobin 29.4 pg (28.0-32.0) Mean Corpuscular Hemoglobin Concent 31.9 g/dL (32.0-36.0) Red Cell Distribution Width 16.3 % (11.8-14.3) Platelet Count 343 10^3/uL (140-450) Mean Platelet Volume 7.9 fL (6.9-10.8) Neutrophils (%) (Auto) 67.1 % (37.0-80.0) Lymphocytes (%) (Auto) 15.8 % (10.0-50.0) Monocytes (%) (Auto) 10.8 % (0.0-12.0) Eosinophils (%) (Auto) 5.8 % (0.0-7.0) Basophils (%) (Auto) 0.5 % (0.0-2.0) Neutrophils # (Auto) 5.6 10 ^3/uL (1.6-8.6) Lymphocytes # (Auto) 1.3 10 ^3/uL (0.4-5.4) Monocytes # (Auto) 0.9 10 ^3/uL (0-1.3) Eosinophils # (Auto) 0.5 10 ^3/uL (0-0.8) Basophils # (Auto) 0 10 ^3/uL (0-0.2) Nucleated Red Blood Cells 0.1 % Urine Color Light-yellow (Yellow) Urine Clarity Clear (Clear) Urine pH 5.0 (5.0-9.0) Urine Specific [place] 1.010 (1.001-1.035) Urine Protein Negative (Negative) Urine Ketones Negative (Negative) Urine Blood Negative /uL (Negative) Urine Nitrite Negative (Negative) Urine Bilirubin Negative (Negative) Urine Urobilinogen Normal mg/dL (Negative) Urine Leukocyte Esterase Negative /uL (Negative) Urine RBC None seen /hpf (0 - 4) Urine WBC None seen /hpf (0 - 5) Urine Squamous Epithelial Cells None seen /hpf (<5) Urine Bacteria None seen /hpf (None Seen) Urine Hyaline Casts Few /lpf (0 - 2) Urine Glucose Normal mg/dL (Normal) Urine Opiates Screen Neg (NEGATIVE) Urine Fentanyl Screen Neg (NEGATIVE) Urine Barbiturates Screen Neg (NEGATIVE) Urine Phencyclidine Screen Neg (NEGATIVE) Urine Amphetamines Screen Neg (NEGATIVE) Urine Benzodiazepines Screen Neg (NEGATIVE) Urine Cocaine Screen Neg (NEGATIVE) Urine Cannabinoids Screen Neg (NEGATIVE) Test 06/01/24 13:32 Prothrombin Time 12.4 sec (9.3-11.8) Prothrombin Time INR 1.18 (0.9-1.15) Activated Partial Thromboplast Time 29.6 SEC (24.5-34.5) D-Dimer, Quantitative 1.78 mg/L FEU (0.0-0.49) Lactic Acid Level 1.4 mmol/L (0.4-2.0) Magnesium Level 2.7 mg/dL (1.6-2.6) Total Bilirubin 0.5 mg/dL (0.2-1.0) Aspartate Amino Transferase (AST) 55 U/L (13-40) Alanine Aminotransferase (ALT) 63 U/L (7-40) Alkaline Phosphatase 124 U/L (46-116) Troponin I High Sensitivity 13 ng/L (</=34) B-Type Natriuretic Peptide 1072.61 pg/mL (0-100) Total Protein 7.4 g/dL (5.7-8.2) Albumin 4.5 g/dL (3.2-4.8) Thyroid Stimulating Hormone (TSH) 0.59 uIU/mL (0.55-4.78) Other Laboratory Tests 06/04/24 10:55 06/03/24 06:59 Discharge Statement: "Patient was advised to return to the ER or call 911 if any headaches, dizziness, shortness of breath, chest pain, abdominal pain, bleeding, fevers, or worsening of medical condition. Patient was counseled about treatment plan, medications, possible side effects, patientverbalized understanding. All questions were answered to the best of my ability. This discharge took greater then 30 minutes in planning, reviewing documentation, counseling the patient, and discussing with other team members." ASSESSMENT ASSESSMENT Assessment TOMAS WOMACK MD Jun 07, 2024 13:06
--- NOTE | 2024-06-07 19:59 | DVHPN2 ---
Progress Note - Dictate Date Seen: Jun 07, 2024 Medical Necessity Reason Pt with a Central, PICC or Fol: No Subjective Patient was seen and evaluated in follow up. Patient has no new complaints at this time. Patient denies any cardiac symptoms. Patient is cardiac stable for discharge. vital signs Vital Sign Date Time Temp Pulse Resp B/P (MAP) Pulse Ox O2 Delivery O2 Flow Rate FiO2 06/07/24 10:00 92/37 06/07/24 09:00 98.0 76 17 95 98.0 06/06/24 20:00 Nasal Cannula* 2 28 Total Intake and Output 06/06/24 06/06/24 06/07/24 15:00 23:00 07:00 Intake Total 500 ml 500 ml Output Total 900 ml 700 ml Balance -900 ml 500 ml -200 ml medications Current Medications Medications Dose Ordered Sig/Gloria Route Start Time Stop Time Status Last Admin Dose Admin Acetaminophen/ Hydrocodone Bitart 1 tab Q4HP PRN PO 06/01/24 17:15 06/06/24 21:55 1 TAB Ondansetron HCl 4 mg Q4HP PRN IV 06/01/24 17:15 06/05/24 05:27 4 MG Nitroglycerin 0.4 mg Q5MINP PRN SL 06/01/24 17:15 Levothyroxine Sodium 112 mcg QAM PO 06/02/24 07:00 06/07/24 06:26 112 MCG Metolazone 5 mg DAILY PO 06/02/24 10:00 06/06/24 10:43 5 MG Potassium Chloride 10 meq DAILY PO 06/02/24 10:00 06/06/24 10:43 10 MEQ Rivaroxaban 15 mg QPM PO 06/01/24 18:00 06/06/24 17:48 15 MG Atorvastatin Calcium 40 mg HS PO 06/01/24 22:00 06/06/24 21:54 40 MG Diagnostic Test (Pha) 1 strip ACHS 06/01/24 22:00 06/07/24 11:19 1 STRIP Insulin Human Regular ACHS SC 06/01/24 22:00 06/07/24 11:22 2 UNITS Dextrose 50 ml UD PRN IV 06/01/24 18:15 Allopurinol 100 mg DAILY PO 06/03/24 10:00 06/07/24 08:49 100 MG Amiodarone HCl 200 mg Q12HR PO 06/02/24 22:00 06/07/24 08:48 200 MG Levetiracetam 1,000 mg BID PO 06/02/24 22:00 06/07/24 08:48 1,000 MG Furosemide 40 mg QAM IV 06/04/24 07:00 06/07/24 06:26 40 MG Gabapentin 600 mg QID PO 06/03/24 12:00 06/07/24 06:26 600 MG Baclofen 10 mg Q8HP PRN PO 06/06/24 19:00 06/06/24 17:50 10 MG objective GENERAL: Awake, alert, oriented. LUNGS: Clear. CARDIOVASCULAR: Heart sounds are good. ABDOMEN: Soft. EXT: 1+ BLE edema. laboratory and microbiology Laboratory Tests 06/04/24 10:55 06/03/24 06:59 Test 06/04/24 10:55 Range/Units Serum Glucose 183 H 74-106 mg/dL Problem List Acute on chronic systolic heart failure with exacerbation. Generalized weakness unknown etiology. Chronic hypoxic respiratory failure, dependent on home oxygen. Chronic COPD/Asthma. Uncontrolled type 2 Diabetes. Uncontrolled benign essential Hypertension. Hyperlipidemia. Seizures. Hypothyroidism. Anemia. CKD stage 3b. Pacemaker. History of Chronic A Fib. Morbid obesity. CAD. Assessment/Plan Continued all current supportive medical care. [place] for pain management. Allopurinol. Amiodarone. Lipitor. Diuretics with Lasix. Synthroid. Xarelto. Additional plan as per the hospital course. Dietary Evaluation Review Comments: Follow the CCHO-60 diet with a renal specific protein restriction of 60g, 2gNa 3K, low phos diet. Expected Outcomes/Goals: Gradual weight loss. controlled DM and healed wounds. Plan discussed with: Patient ANABEL RODRIGUEZ MD Jun 07, 2024 13:13
== END 2024-06-07 17:20 | disposition home or self-care (01) | DRG 291 ==
LOC: EDBD 13:00 → ER 13:00 → TELE 17:12 → ER 17:15 → TELE-CENTR 17:27 → CENTRAL 06-03 18:04
PROVIDERS: ADMIT Registered Nurse General Practice; ATTEND Internal Medicine
PROC: 05HF33Z Insertion of Infusion Device into Left Cephalic Vein, Percutaneous Approach (ICD-10-PCS; principal; 2024-06-02)
PROC: B54NZZA Ultrasonography of Left Upper Extremity Veins, Guidance (ICD-10-PCS; 2024-06-02)
DX: I13.0 Hypertensive heart and chronic kidney disease with heart failure and stage 1 through stage 4 chronic kidney disease, or unspecified chronic kidney disease (principal); I50.23 Acute on chronic systolic (congestive) heart failure; J96.11 Chronic respiratory failure with hypoxia; N17.9 Acute kidney failure, unspecified; Z68.42 Body mass index [BMI] 45.0-49.9, adult; I48.20 Chronic atrial fibrillation, unspecified; J44.89 Other specified chronic obstructive pulmonary disease; N18.32 Chronic kidney disease, stage 3b; D63.1 Anemia in chronic kidney disease; E11.22 Type 2 diabetes mellitus with diabetic chronic kidney disease; E11.65 Type 2 diabetes mellitus with hyperglycemia; E03.9 Hypothyroidism, unspecified; I25.10 Atherosclerotic heart disease of native coronary artery without angina pectoris; E66.01 Morbid (severe) obesity due to excess calories; G40.909 Epilepsy, unspecified, not intractable, without status epilepticus; M10.9 Gout, unspecified; E78.5 Hyperlipidemia, unspecified; Z88.6 Allergy status to analgesic agent; Z88.5 Allergy status to narcotic agent; Z91.041 Radiographic dye allergy status; Z79.899 Other long term (current) drug therapy; Z82.49 Family history of ischemic heart disease and other diseases of the circulatory system; Z80.1 Family history of malignant neoplasm of trachea, bronchus and lung; Z98.61 Coronary angioplasty status; Z95.0 Presence of cardiac pacemaker; Z83.3 Family history of diabetes mellitus; Z79.891 Long term (current) use of opiate analgesic; Z79.82 Long term (current) use of aspirin; Z99.81 Dependence on supplemental oxygen
CPT/HCPCS: 36415; 70450; 71045; 80048; 80053; 80307; 81001; 82962; 83605; 83735; 83880; 84443; 84484; 85025; 85379; 85610; 85730; 87081; 93005; 93970; 97110; 97116; 97163; 97530; 99291; G0378; J1815; J2405

== ENCOUNTER 2024-06-10 10:34 | Inpatient (IN) | payer MEDICARE, MEDICAID ==
[~2024-06-10] VITALS: Ht 162.6 cm; Wt 110.4 kg
--- NOTE | 2024-06-10 11:09 | ED.PDOC ---
HPI (NEURO) HPI Comments 68 year old female ALVAREZ presents to the ED with chief complaint of generalized weakness. EMS relays that the patient was found by family to have fallen when walking to the bathroom from her bed this morning. EMS reports that the patient had been complaining of worsening weakness for the past few days with a blood glucose level noting 66 on scene. EMS states that they provided oral glucose to the patient and it had went up to 71. Patient denies any chest pain, abdominal pain, shortness of breath, dizziness, headache, or fever. Chief Complaint: General Weakness Time Seen by MD: 11:05 Primary Care Provider: UNKNOWN Reviewed Notes: Nurses Notes, Meter And Service Line Inspector Notes, Medications, Allergies Information Source: Patient, Emergency Med Personnel Mode of Arrival: EMS Severity: Moderate Dizziness/Weakness Severity: Unable to do activities Headache Severity: None Timing: Hours Duration: Since onset Prehospital treatment: None Weakness Location: Generalized Onset: At rest Circumstances: Spontaneous Symptoms: Weakness Past Medical History PAST MEDICAL HISTORY: AFIB, CAD, CHF, COPD, DM, Gout, High Lipids, HTN, PR, Thyroid Surgical History: Pacemaker, PTCA TUG MASTER History: No Pertinent TUG MASTER History Family History Family History: Reviewed,noncontributory to illness, Family hx of heart patricio, Family hx of HTN, Family hx of lung patricio Social History Smoker: Non-Smoker, Quit Greater Than 1 Year Alcohol: Denies ETOH Use Drugs: Denies Drug Use Lives In: Home Constitutional: denies: chills, diaphoresis, fatigue, fever, malaise, sweats, weakness, others EENTM: denies: blurred vision, double vision, ear bleeding, ear discharge, ear drainage, ear pain, ear ringing, eye pain, eye redness, hearing loss, mouth pain, mouth swelling, nasal discharge, nose bleeding, nose congestion, nose pain, photophobia, tearing, throat pain, throat swelling, voice changes, others Respiratory: denies: cough, hemoptysis, orthopnea, SOB at rest, shortness of breath, SOB with excertion, stridor, wheezing, others Cardiovascular: denies: chest pain, dizzy spells, diaphoresis, Dyspnea on exertion, edema, irregular heart beat, left arm pain, lightheadedness, palpitations, PND, syncope, others Gastrointestinal: denies: abdomen distended, abdominal pain, blood streaked bowels, constipated, diarrhea, dysphagia, difficulty swallowing, hematemesis, melena, nausea, poor appetite, poor fluid intake, rectal bleeding, rectal pain, vomiting, others Genitourinary: denies: abnormal vagina bleeding, burning, dyspareunia, dysuria, flank pain, frequency, hematuria, incontinence, pain, , vagina disc harge, urgency, others Neurological: reports: weakness; denies: dizziness, fainting, headache, left sided numbness, left sided weakness, numbness, paresthesia, pre-existing deficit, right sided numbness, right sided weakness, seizure, speech problems, tingling, tremors, others Musculoskeletal: denies: back pain, gout, joint pain, joint swelling, muscle pain, muscle stiffness, neck pain, others Integumetry: denies: bruises, change in color, change in hair/nails, dryness, laceration, lesions, lumps, rash, wounds, others Allergic/Immunocompromised: denies: Difficulty Healing, Frequent Infections, Hives, Itching, others Hematologic/Lymphatic: denies: anemia, blood clots, easy bleeding, easy bruising, swollen glands, others Endocrine: denies: excessive hunger, excessive sweating, excessive thirst, excessive urination, flushing, intolerance to cold, intolerance to heat, unexplained weight gain, unexplained weight loss, others Psychiatric: denies: anxiety, bipolar disorder, depression, hopeless, panic disorder, schizophrenia, sleepless, suicidal, others All Other Systems: Reviewed and Negative Physical Exam General Appearance: Moderate Distress, Obese HEENT: Normal ENT Inspection, PERRL/EOMI Neck: Full Range of Motion, Non-Tender, Normal, Normal Inspection Respiratory: Chest Non-Tender, Lungs Clear, No Accessory Muscle Use, No Respiratory Distress, Normal Breath Sounds Cardiovascular: No Edema, No JVD, No Murmur, No Gallop, Normal Peripheral Pulses, Regular Rate/Rhythm Breast Exam: Deferred Gastrointestinal: No Organomegaly, Non Tender, No Pulsatile Mass, Normal Bowel Sounds, Soft Genitalia: Deferred Pelvic: Deferred Rectal: Deferred Extremities: No calf tenderness, Normal capillary refill, Normal range of motion, Non-tender, Pedal edema, Swelling (Bilateral lower extremity) Musculoskeletal : Apperance: Normal Neurologic: Alert, retail sales merchandiser development II-XII nml as Tested, No Motor Deficits, Normal Mood, No Sensory Deficits Cerebellar Function: NOT DONE Reflexes: NOT DONE Skin: Dry, Normal Color, Warm Peripheral Pulses: 3+ Radial (R), 3+ Radial (L) Lymphatic: No Adenopathy Was a procedure done? Was a procedure done?: No Differential Diagnosis (SZ) Seizure: Psychogenic Seizure, Closed Head Injury, CVA/TIA X-Ray, Labs, Meds, VS Vital Signs Date Time Temp Pulse Resp B/P (MAP) Pulse Ox O2 Delivery O2 Flow Rate FiO2 06/10/24 13:16 105/58 06/10/24 12:22 85 14 104/83 (90) 94 06/10/24 12:03 71 20 93 Nasal Cannula* 3 32 06/10/24 10:45 74 06/10/24 10:37 97.3 84 18 106/84 (91) 97 Lab Test 06/10/24 11:06 Range/Units White Blood Count 15.6 H 4.4-10.8 10^3/uL Red Blood Count 4.06 4.0-5.20 10^6/uL Hemoglobin 11.6 L 12.2-16.2 g/dL Hematocrit 36.8 36.0-46.0 % Mean Corpuscular Volume 90.6 80.0-100.0 fL Mean Corpuscular Hemoglobin 28.6 28.0-32.0 pg Mean Corpuscular Hemoglobin Concent 31.6 L 32.0-36.0 g/dL Red Cell Distribution Width 16.7 H 11.8-14.3 % Platelet Count 474 H 140-450 10^3/uL Mean Platelet Volume 8.1 6.9-10.8 fL Neutrophils (%) (Auto) 86.2 H 37.0-80.0 % Lymphocytes (%) (Auto) 4.4 L 10.0-50.0 % Monocytes (%) (Auto) 6.9 0.0-12.0 % Eosinophils (%) (Auto) 2.2 0.0-7.0 % Basophils (%) (Auto) 0.3 0.0-2.0 % Neutrophils # (Auto) 13.5 H 1.6-8.6 10 ^3/uL Lymphocytes # (Auto) 0.7 0.4-5.4 10 ^3/uL Monocytes # (Auto) 1.1 0-1.3 10 ^3/uL Eosinophils # (Auto) 0.4 0-0.8 10 ^3/uL Basophils # (Auto) 0 0-0.2 10 ^3/uL Nucleated Red Blood Cells 0.1 % Sodium Level 144 136-145 mmol/L Potassium Level 3.6 3.5-5.1 mmol/L Chloride Level 102 98-107 mmol/L Carbon Dioxide Level 35 H 20-31 mmol/L Anion Gap 7 5-15 Blood Urea Nitrogen 60 H 9-23 mg/dL Creatinine 1.85 H 0.550-1.02 mg/dL Glomerular Filtration Rate Calc 30 >90 mL/min BUN/Creatinine Ratio 32.4 H 10.0-20.0 Serum Glucose 95 74-106 mg/dL Calcium Level 9.1 8.7-10.4 mg/dL Troponin I High Sensitivity 8 </=34 ng/L B-Type Natriuretic Peptide 458.38 0-100 pg/mL Current Medications Medications (Trade) Dose Ordered Sig/Gloria Route Start Time Stop Time Status Last Admin Furosemide (Lasix Injection) 40 mg ONCE ONCE IV 06/10/24 10:45 06/10/24 10:47 DC 06/10/24 13:16 CT Head: FINDINGS: Supratentorial Region: No evidence for large acute territorial ischemia. No intracranial hemorrhage is noted. Posterior Fossa: No acute abnormality. Brainstem: Unremarkable. Sellar/Suprasellar Region: Unremarkable. Ventricles, Cisterns, Sulci: Age-appropriate. Orbits: Unremarkable. Paranasal Sinuses: Unremarkable. Mastoid Air Cells: Unremarkable. Vasculature: Unremarkable. Bones/Soft Tissues: No acute abnormality. Hyperostosis frontalis noted. Other: None. IMPRESSION: 1. No acute intracranial process. Chest XR: FINDINGS: Lines and Tubes: Left chest wall pacemaker Lungs: Congestion Pleura: Small left pleural effusion. No pneumothorax. Cardiomediastinal contours: Cardiomegaly. Bones: Unremarkable IMPRESSION: Pulmonary vascular congestion Patient alert. Status post fall. Vitals stable. Answering questions. Obese pain Pitting edema. EKG reviewed does not show any acute changes. Chest x-ray reviewed shows CHF. Was given Lasix. Reviewed her previous visit. Explained to the patient. Continue cardiac monitoring. Images Reviewed?: Images reviewed and evaluated by me Time of 1ST Reevaluation: 12:05 Reevaluation 1ST: Unchanged Patient Education/Counseling: Diagnosis, Treatment Family Education/Counseling: No Family Present Departure 1 Departure Time of Disposition: 13:53 Impression: Primary Impression: CHF (congestive heart failure) Qualified Codes: I50.43 - Acute on chronic combined systolic (congestive) and diastolic (congestive) heart failure Additional Impressions: Acute kidney injury superimposed on CKD Uncontrolled diabetes mellitus Qualified Codes: E13.65 - Other specified diabetes mellitus with hyperglycemia Disposition: ADMITTED INPATIENT Admit to: Med Surg Condition: Guarded Critical Care Note Critical Care Time?: Yes (45 min-critical care time only) Stability Stability form required: No Heart Score Heart Score: Heart Score Response (Comments) Value History Slightly Suspicious 0 EKG Normal 0 Age >65 2 Risk Factors >3 or Hx ASHD 2 Troponin Normal limit 0 Total 4 I personally scribed for TRAMAINE RIVERO MD ([email or web address]) on 06/10/24 at 11:09. Electronically submitted by Kranthi Fang ([email or web address]). I personally scribed for TRAMAINE RIVERO MD ([email or web address]) on 06/10/24 at 12:03. Electronically submitted by Kranthi Fang ([email or web address]). TRAMAINE RIVERO MD Jun 10, 2024 11:09
--- NOTE | 2024-06-10 11:34 | DVH ---
CHEST RADIOGRAPH Indication:sob Technique: Single frontal view of the chest was obtained COMPARISON: XY CHEST PORTABLE on DOS: 06/01/24, XY CHEST XRAY 1 VIEW on DOS: 03/28/24, XY CHEST PORTABL E on DOS: 03/27/24 FINDINGS: Lines and Tubes: Left chest wall pacemaker Lungs: Congestion Pleura: Small left pleural effusion. No pneumothorax. Cardiomediastinal contours: Cardiomegaly. Bones: Unremarkable IMPRESSION: Pulmonary vascular congestion
[2024-06-10 11:35] LABS: Basophils # (auto) 0 10 ^3/uL (0-0.2); Basophils % (auto) 0.3 % (0.0-2.0); Eosinophils # (auto) 0.4 10 ^3/uL (0-0.8); Eosinophils % (auto) 2.2 % (0.0-7.0); Hematocrit 36.8 % (36.0-46.0); Hemoglobin 11.6 g/dL (12.2-16.2); Lymphocytes # (auto) 0.7 10 ^3/uL (0.4-5.4); Lymphocytes % (auto) 4.4 % (10.0-50.0); Mean Corpuscular Hemoglobin 28.6 pg (28.0-32.0); Mean Corpuscular Hgb Conc. 31.6 g/dL (32.0-36.0); Mean Corpuscular Volume 90.6 fL (80.0-100.0); Monocytes # (auto) 1.1 10 ^3/uL (0-1.3); Monocytes % (auto) 6.9 % (0.0-12.0); Neutrophils # (auto) 13.5 10 ^3/uL (1.6-8.6); Neutrophils % (auto) 86.2 % (37.0-80.0); Nucleated Red Blood Cells % 0.1 %; Platelet Count (auto) 474 10^3/uL (140-450); Red Blood Cells 4.06 10^6/uL (4.0-5.20); Red Cell Distribution Width 16.7 % (11.8-14.3); White Blood Cell 15.6 10^3/uL (4.4-10.8)
--- NOTE | 2024-06-10 11:37 | DVH ---
EXAM: CT HEAD WITHOUT CONTRAST HISTORY: fall COMPARISON: CT HEAD WITHOUT CONTRAST on DOS: 06/01/24, CT HEAD WITHOUT CONTRAST on DOS: 03/27/24, CT HE AD WITHOUT CONTRAST on DOS: 02/04/24 TECHNIQUE: Axial images were obtained and reformatted in coronal and sagittal planes. All CT scans at this medical facility are performed using dose modulation techniques as appropriate t o a performed exam including the following: Automated exposure control was utilized; adjustment of th e MA and/or KV according to patient size; and use of iterative reconstruction technique. CT Dose: CTDI volume is 68.55 mGy. Dose-length product is 1350.62 mGy*cm FINDINGS: Supratentorial Region: No evidence for large acute territorial ischemia. No intracranial hemorrhage is noted. Posterior Fossa: No acute abnormality. Brainstem: Unremarkable. Sellar/Suprasellar Region: Unremarkable. Ventricles, Cisterns, Sulci: Age-appropriate. Orbits: Unremarkable. Paranasal Sinuses: Unremarkable. Mastoid Air Cells: Unremarkable. Vasculature: Unremarkable. Bones/Soft Tissues: No acute abnormality. Hyperostosis frontalis noted. Other: None. IMPRESSION: 1. No acute intracranial process.
[2024-06-10 11:42] LABS: Chloride 102 mmol/L (98-107); Potassium 3.6 mmol/L (3.5-5.1); Sodium 144 mmol/L (136-145)
[2024-06-10 11:43] LABS: Anion Gap 7 (5-15); Calcium 9.1 mg/dL (8.7-10.4); Carbon Dioxide 35 mmol/L (20-31)
[2024-06-10 11:48] LABS: BUN/Creatinine Ratio 32.4 (10.0-20.0); Blood Urea Nitrogen 60 mg/dL (9-23); Glucose 95 mg/dL (74-106)
[2024-06-10 12:03] VITALS: PULSE 71; RESP 20; O2SAT 93
[2024-06-10] MEDS: FUROSEMIDE 40 MG/4 ML VIAL IV ONE (13:16)
[2024-06-10 14:07] LABS: Urine Bacteria None Seen /hpf (None Seen)
[2024-06-10] MEDS ORDERED: DEXTROSE (50%) 50ML SYRG IV PRN (14:15)
[2024-06-10 14:17] LABS: Urine Blood Negative /uL (Negative); Urine Clarity Clear (Clear); Urine Color Light-Yellow (Yellow); Urine Protein, UAD Negative (Negative); Urine Specific Gravity 1.012 (1.001-1.035); Urine Urobilinogen Normal (Negative); Urine WBC 3 /hpf (0 - 5)
[2024-06-10 14:27] LABS: Amphetamine Screen, Urine Neg (NEGATIVE); Barbiturate Scree,Urine Neg (NEGATIVE); Benzodiazephine Screen, Urine Neg (NEGATIVE); Cannabinoid Screen, Urine Neg (NEGATIVE); Cocaine Screen, Urine Neg (NEGATIVE); Opiate Scree,Urine Neg (NEGATIVE); Phencyclidine Screen, Urine Neg (NEGATIVE)
--- NOTE | 2024-06-10 14:33 | DVHHP2 ---
History of Present Illness Reason for Visit: general weakness History of Present Illness 68 yo morbidly obese female with COPD DM CHF CKD AFIB comes to the ED for weakness after stating to be found on the floor at home by family and brought in by ems patiet has shortness of breath and complaints of worsening weakness over the last few days and was stated to be hypoglycemic on initial evaluation Cardiovascular: CAD, HTN Pulmonary: COPD Renal/: Chronic renal failure Review of Systems Constitutional: Yes: Weakness; No: Fever, Chills, Sweats, Malaise, Other Eyes: No: Pain, Vision change, Conjunctivae inflammation, Eyelid inflammation, Other, Redness ENT: No: Ear pain, Ear discharge, Nose pain, Nose discharge, Nose congestion, Mouth pain, Mouth swelling, Throat pain, Throat swelling, Other Respiratory: Shortness of breath, SOB with excertion; No: Cough, Dry, Wheezing, Hemoptysis, Pleuritic Pain, Sputum, Wheezing, Other Cardiovascular: No: Chest Pain, Palpitations, Orthopnea, Paroxysmal Noc. Dyspnea, Edema, Lt Headedness, Other Gastrointestinal: No: Nausea, Vomiting, Abdominal Pain, Diarrhea, Constipation, Melena, Hematochezia, Other Genitourinary: No Dysuria, No Frequency, No Incontinence, No Hematuria, No Retention, No Other Musculoskeletal: No: other, neck pain, shoulder pain, arm pain, back pain, hand pain, leg pain, foot pain Skin: No: Rash, Lesions, Jaundice, Bruising, Other Neurological: Weakness; No: Numbness, Incoordination, Change in speech, Confusion, Seizures, Other Allergies: Coded Allergies: Coconut Fatty Acids (Verified Allergy, Unknown, 09/11/22) Ibuprofen (Verified Allergy, Unknown, 09/11/22) Iodine (Verified Allergy, Unknown, 09/11/22) Morphine (Verified Allergy, Unknown, 09/11/22) Spinach (Verified Allergy, Unknown, 09/11/22) Medications Current Medications Medications Dose Ordered Sig/Gloria Route Start Time Stop Time Status Last Admin Dose Admin Ceftriaxone Sodium 50 ml @ 100 mls/hr DAILY IV 06/10/24 14:15 UNV Azithromycin 250 ml @ 125 mls/hr DAILY IV 06/10/24 14:15 UNV Furosemide 40 mg BID IV 06/10/24 22:00 UNV Diagnostic Test (Pha) 1 strip ACHS 06/10/24 17:00 UNV Insulin Human Regular HS SC 06/10/24 22:00 UNV Insulin Human Regular AC SC 06/10/24 17:00 UNV Dextrose 50 ml UD PRN IV 06/10/24 14:15 UNV Amiodarone HCl 200 mg BID PO 06/10/24 22:00 UNV Gabapentin 300 mg QID PO 06/10/24 18:00 UNV Acetaminophen/ Hydrocodone Bitart 1 tab Q4HP PRN PO 06/10/24 14:15 UNV Levothyroxine Sodium 112 mcg DAILY PO 06/11/24 10:00 UNV Metolazone 5 mg DAILY PO 06/11/24 10:00 UNV Potassium Chloride 10 meq DAILY PO 06/11/24 10:00 UNV Rivaroxaban 20 mg QPM PO 06/10/24 18:00 UNV Patient Own Medication 2 tab DAILY PO 06/11/24 10:00 UNV Patient Own Medication 1 tab DAILY PO 06/11/24 10:00 UNV Patient Own Medication 15 unit TID SC 06/10/24 22:00 UNV Patient Own Medication 1 tab BID PO 06/10/24 22:00 UNV Exam Vital Signs Vital Signs Date Time Temp Pulse Resp B/P (MAP) Pulse Ox O2 Delivery O2 Flow Rate FiO2 06/10/24 13:16 105/58 06/10/24 12:22 85 14 94 06/10/24 12:03 Nasal Cannula* 3 32 06/10/24 10:37 97.3 General Appearance: Alert, Oriented X3 HEENT: Atraumatic, PERRLA Respiratory: Clear to auscultation, Normal air movement Cardiovascular: Regular rate, Normal S1, Normal S2 Abdominal: Normal bowel sounds, Soft, No tenderness Extremities: No clubbing, No cyanosis, No edema Skin: No rashes, No breakdown, No significant lesion Neuro: Normal gait, Normal speech Psych/Mental Status: Mental status NL, Mood NL Labs/Xrays Labs Test 06/10/24 14:06 06/10/24 11:06 Range/Units Urine Color Light-yellow Yellow Urine Clarity Clear Clear Urine pH 5.0 5.0-9.0 Urine Specific [place] 1.012 1.001-1.035 Urine Protein Negative Negative Urine Ketones Negative Negative Urine Blood Negative Negative /uL Urine Nitrite Negative Negative Urine Bilirubin Negative Negative Urine Urobilinogen Normal Negative mg/dL Urine Leukocyte Esterase Negative Negative /uL Urine RBC <1 0 - 4 /hpf Urine WBC 3 0 - 5 /hpf Urine Squamous Epithelial Cells None seen <5 /hpf Urine Bacteria None seen None Seen /hpf Urine Glucose Normal Normal mg/dL White Blood Count 15.6 H 4.4-10.8 10^3/uL Red Blood Count 4.06 4.0-5.20 10^6/uL Hemoglobin 11.6 L 12.2-16.2 g/dL Hematocrit 36.8 36.0-46.0 % Mean Corpuscular Volume 90.6 80.0-100.0 fL Mean Corpuscular Hemoglobin 28.6 28.0-32.0 pg Mean Corpuscular Hemoglobin Concent 31.6 L 32.0-36.0 g/dL Red Cell Distribution Width 16.7 H 11.8-14.3 % Platelet Count 474 H 140-450 10^3/uL Mean Platelet Volume 8.1 6.9-10.8 fL Neutrophils (%) (Auto) 86.2 H 37.0-80.0 % Lymphocytes (%) (Auto) 4.4 L 10.0-50.0 % Monocytes (%) (Auto) 6.9 0.0-12.0 % Eosinophils (%) (Auto) 2.2 0.0-7.0 % Basophils (%) (Auto) 0.3 0.0-2.0 % Neutrophils # (Auto) 13.5 H 1.6-8.6 10 ^3/uL Lymphocytes # (Auto) 0.7 0.4-5.4 10 ^3/uL Monocytes # (Auto) 1.1 0-1.3 10 ^3/uL Eosinophils # (Auto) 0.4 0-0.8 10 ^3/uL Basophils # (Auto) 0 0-0.2 10 ^3/uL Nucleated Red Blood Cells 0.1 % Sodium Level 144 136-145 mmol/L Potassium Level 3.6 3.5-5.1 mmol/L Chloride Level 102 98-107 mmol/L Carbon Dioxide Level 35 H 20-31 mmol/L Anion Gap 7 5-15 Blood Urea Nitrogen 60 H 9-23 mg/dL Creatinine 1.85 H 0.550-1.02 mg/dL Glomerular Filtration Rate Calc 30 >90 mL/min BUN/Creatinine Ratio 32.4 H 10.0-20.0 Serum Glucose 95 74-106 mg/dL Calcium Level 9.1 8.7-10.4 mg/dL Troponin I High Sensitivity 8 </=34 ng/L B-Type Natriuretic Peptide 458.38 0-100 pg/mL Assessment/Plan Assessment/Plan Admit Med/Surge COPD exacerbation IV abx prn breathing treatments DM uncontrolled c/w lispor 15 units tid sliding scale to be adjusted as needed long acting held due to hypoglycemic intial findings CHF mild exacerbation lasix IV bid monitor for jarad vs flid overload JARAD on CKD CR/BUN elevated continue to monitor repeat labs ordered for am Possible Seizures Keppra for possible seizures continued Chronic issues c/w home meds gout thyroid htn Plan discussed with: Patient My Orders Orders - YELENA TERRY MD Procedure Category Date Status Time Ceftriaxone 1gm/50ml PHA 06/10/24 Logged D5w (Rocephin) 14:15 Azithromycin 500mg/ PHA 06/10/24 Logged 250ml (Zithromax 50 14:15 Furosemide Injection PHA 06/10/24 Logged (Lasix Injection) 22:00 Glucose Blood PHA 06/10/24 Logged (Accu-Chek Comfort 17:00 Insulin R (Human) PHA 06/10/24 Logged (Insulin R) 22:00 Insulin R (Human) PHA 06/10/24 Logged (Insulin R) 17:00 Dextrose 50% Syringe PHA 06/10/24 Logged 14:15 Amiodarone Tablet PHA 06/10/24 Logged (Cordarone Tablet) 22:00 Gabapentin Capsule PHA 06/10/24 Logged (Neurontin Capsule) 18:00 Hydrocodone-Acet PHA 06/10/24 Logged 10/325mg Tab ([place] 14:15 Levothyroxine Tablet PHA 06/11/24 Logged (Synthroid Tablet) 10:00 Metolazone (Zaroxolyn) PHA 06/11/24 Logged 10:00 Potassium Er Tablet PHA 06/11/24 Logged (Klor-Con Tablet) 10:00 Rivaroxaban Tablet PHA 06/10/24 Logged (Xarelto Tablet) 18:00 (Nf) Allopurinol PHA 06/11/24 Logged 10:00 (Nf) Atorvastatin PHA 11/14/24 Logged Calcium 10:00 (Nf) Insulin Aspart PHA 06/10/24 Logged (Novolog) 22:00 (Nf) Levetiracetam PHA 06/10/24 Logged (Keppra) 22:00 Problem List: (1) COPD exacerbation (2) COPD (chronic obstructive pulmonary disease) (3) Seizure-like activity (4) Metabolic encephalopathy (5) Repeated falls (6) Diabetes mellitus with hyperglycemia (7) Generalized weakness (8) Chronic kidney disease, stage 5 (9) Failure to thrive (10) Acute on chronic renal failure (11) Weakness (12) Diabetes mellitus with nephropathy Date of Service: Jun 10, 2024 Billing Provider: YELENA TERRY MD Common Visit Codes: [id number] INP/OBS CARE (HIGH) YELENA TERRY MD Jun 10, 2024 14:33
[2024-06-10] MEDS: cefTRIAXone 1GM/50ML D5W 50 ML IV SCH (14:55)
[2024-06-10] MEDS: AZITHROMYCIN 500MG/ 250ML 250 ML IV SCH (14:55)
[2024-06-10] MEDS: InsuLIN REG 1unit/0.01ml Soln (100units/ml) SC SCH ×2 (16:47→22:00)
[2024-06-10] MEDS: ACCU-CHEK COMFORT CURVE STRIP VI SCH (16:57)
[2024-06-10] MEDS: RIVAROXABAN 15 MG TAB PO SCH (17:35)
[2024-06-10] MEDS: GABAPENTIN 300 MG CAP PO SCH (17:35)
[2024-06-10] MEDS ORDERED: MAALOX PLUS or MAALOX 30 ML PO PRN (17:45)
[2024-06-10] MEDS ORDERED: ACETAMINOPHEN 325 MG TAB PO PRN (17:45)
[2024-06-10] MEDS ORDERED: LORazepam 0.5 MG TAB PO PRN (17:45)
[2024-06-10 18:07] VITALS: PULSE 163; RESP 17; O2SAT 96
[2024-06-10] MEDS: IPRATROPIUM BROM 0.5 MG/2.5ML INH SOL ONE (18:07)
[2024-06-10 18:15] VITALS: PULSE 80; RESP 20; O2SAT 94
[2024-06-10] MEDS: ALBUTEROL SULF 2.5 MG/0.5ML(0.5%) NEB SOLN ONE (18:17)
[2024-06-10] MEDS: IPRATROPIUM BROM 0.5 MG/2.5ML INH SOL NEB PRN (18:31)
[2024-06-10] MEDS: ALBUTEROL SULF 2.5 MG/0.5ML(0.5%) NEB SOLN NEB PRN (18:32)
--- NOTE | 2024-06-10 18:47 | ECG ---
[facility] Test Date: 2024-06-10 Test Time: 10:43:00 Pat Name: EDUARDO CONDON Department: ED Room: [facility] Gender: F Assistance Coordinator: TEGAN : 1955 Requested By: TRAMAINE RIVERO Order Number: [id number] Reading MD: Rufino Daniel Measurements Intervals [place] Rate: 74 P: -37 HI: 258 QRS: 254 QRSD: 111 T: 118 QT: 499 QTc: 554 Interpretive Statements Sinus rhythm Prolonged HI interval Low voltage, extremity and precordial leads Consider anterolateral infarct Prolonged QT interval Baseline wander in lead(s) V3 Electronically Signed On 06-18-2024 13:04:34 PST by Rufino Daniel Please click the below link to view image of tracing.
[2024-06-10 19:45] VITALS: BP 116/56; PULSE 163; RESP 17; TEMP 98; O2SAT 96
[2024-06-10] MEDS ORDERED: LEVALBUTEROL HCL 1.25 MG/3 ML NEB NEB PRN (20:00)
[2024-06-10] MEDS ORDERED: IPRATROPIUM BROM 0.5 MG/2.5ML INH SOL NEB PRN (20:00)
[2024-06-10 20:55] VITALS: PULSE 92; RESP 19; O2SAT 92
[2024-06-10] MEDS: ATORVASTATIN 20 MG TAB PO SCH (22:00)
[2024-06-10] MEDS ORDERED: INSULIN ASPART 15 UNIT SC SCH (22:00)
[2024-06-10] MEDS: levETIRAcetam 500 MG TAB PO SCH (22:42)
[2024-06-10] MEDS: AMIODARONE HCL 200 MG TAB PO SCH (22:42)
[2024-06-10] MEDS: FUROSEMIDE 40 MG/4 ML VIAL IV SCH (22:43)
[2024-06-11] MEDS: LEVOTHYROXINE SODIUM 112 MCG TAB PO SCH (06:28)
[2024-06-11 06:35] LABS: Anion Gap 8 (5-15); Carbon Dioxide 38 mmol/L (20-31); Chloride 100 mmol/L (98-107); Potassium 3.2 mmol/L (3.5-5.1); Sodium 146 mmol/L (136-145)
[2024-06-11 06:36] LABS: Calcium 9.4 mg/dL (8.7-10.4)
[2024-06-11 06:38] LABS: Basophils # (auto) 0 10 ^3/uL (0-0.2); Basophils % (auto) 0.3 % (0.0-2.0); Eosinophils # (auto) 0.5 10 ^3/uL (0-0.8); Hemoglobin 11.4 g/dL (12.2-16.2); Monocytes # (auto) 0.8 10 ^3/uL (0-1.3)
[2024-06-11 06:40] LABS: Glucose 122 mg/dL (74-106); Uric Acid 7.1 mg/dL (3.1-7.8)
[2024-06-11 06:41] LABS: BUN/Creatinine Ratio 28.8 (10.0-20.0); Blood Urea Nitrogen 44 mg/dL (9-23)
[2024-06-11 06:42] LABS: Eosinophils % (auto) 4.6 % (0.0-7.0); Hematocrit 35.7 % (36.0-46.0); Lymphocytes % (auto) 8.4 % (10.0-50.0); Mean Corpuscular Hemoglobin 28.4 pg (28.0-32.0); Mean Corpuscular Volume 88.9 fL (80.0-100.0); Neutrophils % (auto) 79.7 % (37.0-80.0); Platelet Count (auto) 502 10^3/uL (140-450); Red Blood Cells 4.01 10^6/uL (4.0-5.20); Red Cell Distribution Width 16.6 % (11.8-14.3); White Blood Cell 11.3 10^3/uL (4.4-10.8)
[2024-06-11] MEDS: ONDANSETRON HCL 4 MG/2 ML VIAL IV PRN (06:44)
[2024-06-11 07:30] VITALS: RESP 18; O2SAT 94
[2024-06-11 08:12] VITALS: O2SAT 94
[2024-06-11] MEDS ORDERED: ALLOPURINOL 300 MG TAB PO SCH (10:00)
[2024-06-11] MEDS: POTASSIUM CHL 10 Meq TABLET PO SCH (10:13)
[2024-06-11] MEDS: HYDROcodone-ACET 10/325MG TAB PO PRN (10:13)
[2024-06-11] MEDS: ALLOPURINOL 100 MG TAB PO SCH (10:14)
[2024-06-11] MEDS: metOLazone 5 MG TAB PO SCH (10:14)
[2024-06-11] MEDS: BACLOFEN 10 MG TAB PO PRN (11:09)
--- NOTE | 2024-06-11 13:10 | DVHPN2 ---
Reviewed: Care Plan, H&P, Labs, Medications, Previous Orders, Radiology Changes from previous H/P or p: No Changes Eyes: No Pain, No Vision change, No Conjunctivae inflammation, No Eyelid inflammation, No Other, No Redness ENT: No Ear pain, No Ear discharge, No Nose pain, No Nose discharge, No Nose congestion, No Mouth pain, No Mouth swelling, No Throat pain, No Throat swelling, No Other Cardiovascular: No Chest Pain, No Palpitations, No Orthopnea, No Paroxysmal Noc. Dyspnea, No Edema, No Lt Headedness, No Other Respiratory: No Cough, No Dry; Shortness of breath, SOB with excertion; No Wheezing, No Hemoptysis, No Pleuritic Pain, No Sputum, No Other Gastrointestinal: No Nausea, No Vomiting, No Abdominal Pain, No Diarrhea, No Constipation, No Melena, No Hematochezia, No Other Genitourinary: No Dysuria, No Frequency, No Incontinence, No Hematuria, No Retention, No Other Musculoskeletal: No other, No neck pain, No shoulder pain, No arm pain, No back pain, No hand pain, No leg pain, No foot pain Skin: No Rash, No Lesions, No Jaundice, No Bruising, No Other Objective Vitals Vital Signs Date Time Temp Pulse Resp B/P (MAP) Pulse Ox O2 Delivery O2 Flow Rate FiO2 06/11/24 12:00 84 18 87/50 (62) 94 06/11/24 08:12 Nasal Cannula 2.0 06/11/24 08:12 28 06/11/24 02:41 98.9 98.9 Intake/Output Intake and Output 06/11/24 07:00 Intake Total 700 ml Output Total 2450 ml Balance -1750 ml Intake Oral 400 ml IV Total 300 ml Output Urine Total 2450 ml Medications Current Medications Medications Dose Ordered Sig/Gloria Route Start Time Stop Time Status Last Admin Dose Admin Ceftriaxone Sodium 50 ml @ 100 mls/hr DAILY IV 06/10/24 14:15 06/11/24 10:12 100 MLS/HR Azithromycin 250 ml @ 125 mls/hr DAILY IV 06/10/24 14:15 06/11/24 10:12 125 MLS/HR Furosemide 40 mg BIDD IV 06/10/24 22:00 06/11/24 06:28 40 MG Diagnostic Test (Pha) 1 strip ACHS 06/10/24 17:00 06/11/24 11:50 1 STRIP Insulin Human Regular HS SC 06/10/24 22:00 Insulin Human Regular AC SC 06/10/24 17:00 06/11/24 11:53 9 UNITS Dextrose 50 ml UD PRN IV 06/10/24 14:15 Amiodarone HCl 200 mg BID PO 06/10/24 22:00 06/11/24 10:14 200 MG Gabapentin 300 mg QID PO 06/10/24 18:00 06/11/24 12:04 300 MG Acetaminophen/ Hydrocodone Bitart 1 tab Q4HP PRN PO 06/10/24 14:15 06/11/24 10:13 1 TAB Levothyroxine Sodium 112 mcg QAM PO 06/11/24 07:00 06/11/24 06:28 112 MCG Metolazone 5 mg DAILY PO 06/11/24 10:00 06/11/24 10:14 5 MG Potassium Chloride 10 meq DAILY PO 06/11/24 10:00 06/11/24 10:13 10 MEQ Rivaroxaban 15 mg QPM PO 06/10/24 18:00 06/10/24 17:35 15 MG Atorvastatin Calcium 40 mg HS PO 06/10/24 22:00 06/10/24 22:00 40 MG Patient Own Medication 15 unit TID SC 06/10/24 22:00 Hold Levetiracetam 1,000 mg BID PO 06/10/24 22:00 06/11/24 10:13 1,000 MG Allopurinol 100 mg DAILY PO 06/11/24 10:00 06/11/24 10:14 100 MG Lorazepam 0.5 mg Q6HP PRN PO 06/10/24 17:45 Al Hydrox/Mg Hydrox/Simethicone 30 ml Q6HP PRN PO 06/10/24 17:45 Docusate Sodium 100 mg BIDPRN PRN PO 06/10/24 17:45 Acetaminophen 650 mg Q6HP PRN PO 06/10/24 17:45 Ondansetron HCl 4 mg Q4HP PRN IV 06/10/24 17:45 06/11/24 06:44 4 MG Levalbuterol HCl 0.625 mg Q4HPRN PRN NEB 06/10/24 20:00 Ipratropium [place] 0.5 mg Q4HPRN PRN NEB 06/10/24 20:00 Baclofen 10 mg Q8HP PRN PO 06/11/24 11:00 06/11/24 11:09 10 MG Laboratory Results Laboratory Tests 06/11/24 05:55 Chemistry Test 06/11/24 05:55 Calcium Level 9.4 mg/dL (8.7-10.4) Urinalysis Test 06/10/24 14:06 Urine Color Light-yellow (Yellow) Urine Clarity Clear (Clear) Urine pH 5.0 (5.0-9.0) Urine Specific [place] 1.012 (1.001-1.035) Urine Protein Negative (Negative) Urine Ketones Negative (Negative) Urine Blood Negative /uL (Negative) Urine Nitrite Negative (Negative) Urine Bilirubin Negative (Negative) Urine Urobilinogen Normal mg/dL (Negative) Urine Leukocyte Esterase Negative /uL (Negative) Urine RBC <1 /hpf (0 - 4) Urine WBC 3 /hpf (0 - 5) Urine Squamous Epithelial Cells None seen /hpf (<5) Urine Bacteria None seen /hpf (None Seen) Urine Glucose Normal mg/dL (Normal) Microbiology Microbiology Date/Time Source Procedure Growth Status 06/10/24 14:06 Urine - [place] Urine Culture - Preliminary Resulted Labs and/or images reviewed: Labs reviewed by me, Image(s) reviewed by me Assessment/Plan Assessment/Plan Acute hypoglycemia Possible syncopal episode Chest x-ray negative CT head negative #1 acute on chronic systolic heart failure #2 chronic resp failure #3 ckd stage 3b #4 morbid obesity #5 hypothyroidism #5 hyperlipidemia #7 gout #8 cad s/p stents #9 a fib #10 copd #11 dm #12 seizure #13 chronic pain Continue medication for comorbid conditions Time spent 65 minutes Advanced care planning time 20 minutes Patient is full code Plan discussed with: Patient My Orders Orders - LUCERO ROSALES MD Procedure Category Date Status Time Baclofen Tablet PHA 06/11/24 In Process (Liorisal Tablet) 11:00 Date of Service: Jun 11, 2024 Billing Provider: LUCERO ROSALES MD Common Visit Codes: [id number] CARE 30-74 MIN LUCERO ROSALES MD Jun 11, 2024 13:10
[2024-06-11 18:55] VITALS: O2SAT 94
[2024-06-11 20:00] VITALS: PULSE 82; RESP 18; O2SAT 96
[2024-06-12] VITALS (7 sets, daily range): BP systolic 90–156; BP diastolic 53–76; PULSE 58–84; RESP 4–18; TEMP 97.6–98.5; O2SAT 93–100
--- NOTE | 2024-06-12 12:18 | DVHPN2 ---
Reviewed: Care Plan, H&P, Labs, Medications, Previous Orders, Radiology Changes from previous H/P or p: No Changes Eyes: No Pain, No Vision change, No Conjunctivae inflammation, No Eyelid inflammation, No Other, No Redness ENT: No Ear pain, No Ear discharge, No Nose pain, No Nose discharge, No Nose congestion, No Mouth pain, No Mouth swelling, No Throat pain, No Throat swelling, No Other Cardiovascular: No Chest Pain, No Palpitations, No Orthopnea, No Paroxysmal Noc. Dyspnea, No Edema, No Lt Headedness, No Other Respiratory: No Cough, No Dry; Shortness of breath, SOB with excertion; No Wheezing, No Hemoptysis, No Pleuritic Pain, No Sputum, No Other Gastrointestinal: No Nausea, No Vomiting, No Abdominal Pain, No Diarrhea, No Constipation, No Melena, No Hematochezia, No Other Genitourinary: No Dysuria, No Frequency, No Incontinence, No Hematuria, No Retention, No Other Musculoskeletal: No other, No neck pain, No shoulder pain, No arm pain, No back pain, No hand pain, No leg pain, No foot pain Skin: No Rash, No Lesions, No Jaundice, No Bruising, No Other Objective Vitals Vital Signs Date Time Temp Pulse Resp B/P (MAP) Pulse Ox O2 Delivery O2 Flow Rate FiO2 06/12/24 10:00 80 15 101/53 (69) 97 06/12/24 08:00 97.7 97.7 06/12/24 07:20 Nasal Cannula* 4 36 Intake/Output Intake and Output 06/12/24 07:00 Intake Total 260 ml Output Total 1850 ml Balance -1590 ml Intake Oral 260 ml Output Urine Total 1850 ml Medications Current Medications Medications Dose Ordered Sig/Gloria Route Start Time Stop Time Status Last Admin Dose Admin Ceftriaxone Sodium 50 ml @ 100 mls/hr DAILY IV 06/10/24 14:15 06/12/24 10:44 100 MLS/HR Azithromycin 250 ml @ 125 mls/hr DAILY IV 06/10/24 14:15 06/12/24 10:00 125 MLS/HR Furosemide 40 mg BIDD IV 06/10/24 22:00 06/11/24 17:06 40 MG Diagnostic Test (Pha) 1 strip ACHS 06/10/24 17:00 06/12/24 12:07 1 STRIP Insulin Human Regular HS SC 06/10/24 22:00 06/11/24 22:18 3 UNITS Insulin Human Regular AC SC 06/10/24 17:00 06/12/24 12:08 6 UNITS Dextrose 50 ml UD PRN IV 06/10/24 14:15 Amiodarone HCl 200 mg BID PO 06/10/24 22:00 06/12/24 10:44 200 MG Gabapentin 300 mg QID PO 06/10/24 18:00 06/12/24 12:10 300 MG Acetaminophen/ Hydrocodone Bitart 1 tab Q4HP PRN PO 06/10/24 14:15 06/12/24 10:42 1 TAB Levothyroxine Sodium 112 mcg QAM PO 06/11/24 07:00 06/12/24 07:11 112 MCG Metolazone 5 mg DAILY PO 06/11/24 10:00 06/11/24 10:14 5 MG Potassium Chloride 10 meq DAILY PO 06/11/24 10:00 06/12/24 10:42 10 MEQ Rivaroxaban 15 mg QPM PO 06/10/24 18:00 06/11/24 17:05 15 MG Atorvastatin Calcium 40 mg HS PO 06/10/24 22:00 06/11/24 21:40 40 MG Patient Own Medication 15 unit TID SC 06/10/24 22:00 Hold Levetiracetam 1,000 mg BID PO 06/10/24 22:00 06/12/24 10:42 1,000 MG Allopurinol 100 mg DAILY PO 06/11/24 10:00 06/12/24 10:43 100 MG Lorazepam 0.5 mg Q6HP PRN PO 06/10/24 17:45 Al Hydrox/Mg Hydrox/Simethicone 30 ml Q6HP PRN PO 06/10/24 17:45 Docusate Sodium 100 mg BIDPRN PRN PO 06/10/24 17:45 Acetaminophen 650 mg Q6HP PRN PO 06/10/24 17:45 Ondansetron HCl 4 mg Q4HP PRN IV 06/10/24 17:45 06/11/24 06:44 4 MG Levalbuterol HCl 0.625 mg Q4HPRN PRN NEB 06/10/24 20:00 Ipratropium [place] 0.5 mg Q4HPRN PRN NEB 06/10/24 20:00 Baclofen 10 mg Q8HP PRN PO 06/11/24 11:00 06/11/24 21:36 10 MG Laboratory Results Laboratory Tests 06/11/24 05:55 Urinalysis Test 06/10/24 14:06 Urine Color Light-yellow (Yellow) Urine Clarity Clear (Clear) Urine pH 5.0 (5.0-9.0) Urine Specific [place] 1.012 (1.001-1.035) Urine Protein Negative (Negative) Urine Ketones Negative (Negative) Urine Blood Negative /uL (Negative) Urine Nitrite Negative (Negative) Urine Bilirubin Negative (Negative) Urine Urobilinogen Normal mg/dL (Negative) Urine Leukocyte Esterase Negative /uL (Negative) Urine RBC <1 /hpf (0 - 4) Urine WBC 3 /hpf (0 - 5) Urine Squamous Epithelial Cells None seen /hpf (<5) Urine Bacteria None seen /hpf (None Seen) Urine Glucose Normal mg/dL (Normal) Microbiology Microbiology Date/Time Source Procedure Growth Status 06/10/24 14:06 Urine - [place] Urine Culture - Final Complete Labs and/or images reviewed: Labs reviewed by me, Image(s) reviewed by me Assessment/Plan Assessment/Plan Acute hypoglycemia Possible syncopal episode Chest x-ray negative CT head negative acute on chronic systolic heart failure chronic resp failure ckd stage 3b morbid obesity hypothyroidism hyperlipidemia gout cad s/p stents a fib copd dm seizure chronic pain syndrome Continue medication for comorbid conditions Time spent 65 minutes Advanced care planning time 20 minutes Patient is full code Plan discussed with: Patient My Orders Orders - LUCERO ROSALES MD Procedure Category Date Status Time * Wound Consult CONS 06/12/24 Transmitted Date of Service: Jun 12, 2024 Billing Provider: LUCERO ROSALES MD Common Visit Codes: [id number] CARE 30-74 MIN LUCERO ROSALES MD Jun 12, 2024 12:18
[2024-06-13] VITALS (7 sets, daily range): BP systolic 98–121; BP diastolic 54–71; PULSE 60–81; RESP 18–20; TEMP 97.6–98.7; O2SAT 90–100
--- NOTE | 2024-06-13 12:04 | DVHPN2 ---
Reviewed: Care Plan, H&P, Labs, Medications, Previous Orders, Radiology Changes from previous H/P or p: No Changes Eyes: No Pain, No Vision change, No Conjunctivae inflammation, No Eyelid inflammation, No Other, No Redness ENT: No Ear pain, No Ear discharge, No Nose pain, No Nose discharge, No Nose congestion, No Mouth pain, No Mouth swelling, No Throat pain, No Throat swelling, No Other Cardiovascular: No Chest Pain, No Palpitations, No Orthopnea, No Paroxysmal Noc. Dyspnea, No Edema, No Lt Headedness, No Other Respiratory: No Cough, No Dry; Shortness of breath, SOB with excertion; No Wheezing, No Hemoptysis, No Pleuritic Pain, No Sputum, No Other Gastrointestinal: No Nausea, No Vomiting, No Abdominal Pain, No Diarrhea, No Constipation, No Melena, No Hematochezia, No Other Genitourinary: No Dysuria, No Frequency, No Incontinence, No Hematuria, No Retention, No Other Musculoskeletal: No other, No neck pain, No shoulder pain, No arm pain, No back pain, No hand pain, No leg pain, No foot pain Skin: No Rash, No Lesions, No Jaundice, No Bruising, No Other Objective Vitals Vital Signs Date Time Temp Pulse Resp B/P (MAP) Pulse Ox O2 Delivery O2 Flow Rate FiO2 06/13/24 11:45 101/60 06/13/24 09:00 97.7 81 18 90 97.7 06/12/24 20:17 Nasal Cannula* 4 36 Intake/Output Intake and Output 06/13/24 07:00 Intake Total 2150 ml Output Total 351 ml Balance 1799 ml Intake Oral 2100 ml IV Total 50 ml Output Urine Total 350 ml Stool Total 1 ml # Voids 4 Medications Current Medications Medications Dose Ordered Sig/Gloria Route Start Time Stop Time Status Last Admin Dose Admin Ceftriaxone Sodium 50 ml @ 100 mls/hr DAILY IV 06/10/24 14:15 06/13/24 11:54 100 MLS/HR Azithromycin 250 ml @ 125 mls/hr DAILY IV 06/10/24 14:15 06/12/24 10:00 125 MLS/HR Furosemide 40 mg BIDD IV 06/10/24 22:00 06/11/24 17:06 40 MG Diagnostic Test (Pha) 1 strip ACHS 06/10/24 17:00 06/13/24 11:51 1 STRIP Insulin Human Regular HS SC 06/10/24 22:00 06/12/24 22:08 4 UNITS Insulin Human Regular AC SC 06/10/24 17:00 06/13/24 06:19 2 UNITS Dextrose 50 ml UD PRN IV 06/10/24 14:15 Amiodarone HCl 200 mg BID PO 06/10/24 22:00 06/13/24 11:51 200 MG Gabapentin 300 mg QID PO 06/10/24 18:00 06/13/24 11:45 300 MG Acetaminophen/ Hydrocodone Bitart 1 tab Q4HP PRN PO 06/10/24 14:15 06/13/24 11:50 1 TAB Levothyroxine Sodium 112 mcg QAM PO 06/11/24 07:00 06/13/24 06:10 112 MCG Metolazone 5 mg DAILY PO 06/11/24 10:00 06/13/24 11:45 5 MG Potassium Chloride 10 meq DAILY PO 06/11/24 10:00 06/13/24 11:51 10 MEQ Rivaroxaban 15 mg QPM PO 06/10/24 18:00 06/12/24 16:43 15 MG Atorvastatin Calcium 40 mg HS PO 06/10/24 22:00 06/12/24 21:56 40 MG Patient Own Medication 15 unit TID SC 06/10/24 22:00 Hold Levetiracetam 1,000 mg BID PO 06/10/24 22:00 06/13/24 11:46 1,000 MG Allopurinol 100 mg DAILY PO 06/11/24 10:00 06/13/24 11:44 100 MG Lorazepam 0.5 mg Q6HP PRN PO 06/10/24 17:45 Al Hydrox/Mg Hydrox/Simethicone 30 ml Q6HP PRN PO 06/10/24 17:45 Docusate Sodium 100 mg BIDPRN PRN PO 06/10/24 17:45 Acetaminophen 650 mg Q6HP PRN PO 06/10/24 17:45 Ondansetron HCl 4 mg Q4HP PRN IV 06/10/24 17:45 06/11/24 06:44 4 MG Levalbuterol HCl 0.625 mg Q4HPRN PRN NEB 06/10/24 20:00 Ipratropium [place] 0.5 mg Q4HPRN PRN NEB 06/10/24 20:00 Baclofen 10 mg Q8HP PRN PO 06/11/24 11:00 06/13/24 05:43 10 MG Laboratory Results Laboratory Tests 06/11/24 05:55 Urinalysis Test 06/10/24 14:06 Urine Color Light-yellow (Yellow) Urine Clarity Clear (Clear) Urine pH 5.0 (5.0-9.0) Urine Specific [place] 1.012 (1.001-1.035) Urine Protein Negative (Negative) Urine Ketones Negative (Negative) Urine Blood Negative /uL (Negative) Urine Nitrite Negative (Negative) Urine Bilirubin Negative (Negative) Urine Urobilinogen Normal mg/dL (Negative) Urine Leukocyte Esterase Negative /uL (Negative) Urine RBC <1 /hpf (0 - 4) Urine WBC 3 /hpf (0 - 5) Urine Squamous Epithelial Cells None seen /hpf (<5) Urine Bacteria None seen /hpf (None Seen) Urine Glucose Normal mg/dL (Normal) Microbiology Microbiology Date/Time Source Procedure Growth Status 06/10/24 14:06 Urine - [place] Urine Culture - Final Complete Labs and/or images reviewed: Labs reviewed by me, Image(s) reviewed by me Assessment/Plan Assessment/Plan Acute hypoglycemia Possible syncopal episode Chest x-ray negative CT head negative acute on chronic systolic heart failure chronic resp failure ckd stage 3b morbid obesity hypothyroidism hyperlipidemia gout cad s/p stents a fib copd dm seizure chronic pain syndrome Continue medication for comorbid conditions Time spent 55 minutes Advanced care planning time 20 minutes Patient is full code We will DC Tomorrow Plan discussed with: Patient My Orders Orders - LUCERO ROSALES MD Procedure Category Date Status Time Code Status CODE 06/12/24 Transmitted 12:29 Mrsa Screen ARNULFO 06/13/24 In Process 06:18 * Size Marker CONS 06/12/24 Transmitted Consult Apply: [place] 06/12/24 In Process 13:30 * Dietary Consult CONS 06/12/24 Transmitted 17:56 Date of Service: Jun 13, 2024 Billing Provider: LUCERO ROSALES MD Common Visit Codes: [id number] INP/OBS CARE(HIGH) LUCERO ROSALES MD Jun 13, 2024 12:04
[2024-06-13] MEDS: DOCUSATE SOD 100 MG CAP PO PRN (17:35)
[2024-06-14 05:00] VITALS: BP 108/65; PULSE 78; RESP 17; TEMP 97.8; O2SAT 94
[2024-06-14 08:07] VITALS: O2SAT 95
[2024-06-14 09:00] VITALS: BP 99/59; PULSE 77; RESP 18; TEMP 98.4; O2SAT 95
[2024-06-14] MEDS ORDERED: AZIT500T66 PO (09:54)
--- NOTE | 2024-06-14 10:04 | DVHPN2 ---
Reviewed: Care Plan, H&P, Labs, Medications, Previous Orders, Radiology Changes from previous H/P or p: No Changes Eyes: No Pain, No Vision change, No Conjunctivae inflammation, No Eyelid inflammation, No Other, No Redness ENT: No Ear pain, No Ear discharge, No Nose pain, No Nose discharge, No Nose congestion, No Mouth pain, No Mouth swelling, No Throat pain, No Throat swelling, No Other Cardiovascular: No Chest Pain, No Palpitations, No Orthopnea, No Paroxysmal Noc. Dyspnea, No Edema, No Lt Headedness, No Other Respiratory: No Cough, No Dry; Shortness of breath, SOB with excertion; No Wheezing, No Hemoptysis, No Pleuritic Pain, No Sputum, No Other Gastrointestinal: No Nausea, No Vomiting, No Abdominal Pain, No Diarrhea, No Constipation, No Melena, No Hematochezia, No Other Genitourinary: No Dysuria, No Frequency, No Incontinence, No Hematuria, No Retention, No Other Musculoskeletal: No other, No neck pain, No shoulder pain, No arm pain, No back pain, No hand pain, No leg pain, No foot pain Skin: No Rash, No Lesions, No Jaundice, No Bruising, No Other Objective Vitals Vital Signs Date Time Temp Pulse Resp B/P (MAP) Pulse Ox O2 Delivery O2 Flow Rate FiO2 06/14/24 09:00 98.4 77 18 99/59 (72) 95 98.4 06/14/24 08:07 Nasal Cannula 2.0 06/14/24 08:07 28 Intake/Output Intake and Output 06/14/24 07:00 Intake Total 1250 ml Output Total 1425 ml Balance -175 ml Intake Oral 950 ml IV Total 300 ml Output Urine Total 1425 ml Medications Current Medications Medications Dose Ordered Sig/Gloria Route Start Time Stop Time Status Last Admin Dose Admin Ceftriaxone Sodium 50 ml @ 100 mls/hr DAILY IV 06/10/24 14:15 06/13/24 11:54 100 MLS/HR Azithromycin 250 ml @ 125 mls/hr DAILY IV 06/10/24 14:15 06/13/24 13:03 125 MLS/HR Furosemide 40 mg BIDD IV 06/10/24 22:00 06/14/24 05:29 40 MG Diagnostic Test (Pha) 1 strip ACHS 06/10/24 17:00 06/14/24 05:30 1 STRIP Insulin Human Regular HS SC 06/10/24 22:00 06/13/24 22:21 4 UNITS Insulin Human Regular AC SC 06/10/24 17:00 06/14/24 06:13 2 UNITS Dextrose 50 ml UD PRN IV 06/10/24 14:15 Amiodarone HCl 200 mg BID PO 06/10/24 22:00 06/13/24 22:02 200 MG Gabapentin 300 mg QID PO 06/10/24 18:00 06/14/24 05:29 300 MG Acetaminophen/ Hydrocodone Bitart 1 tab Q4HP PRN PO 06/10/24 14:15 06/13/24 20:29 1 TAB Levothyroxine Sodium 112 mcg QAM PO 06/11/24 07:00 06/14/24 06:13 112 MCG Metolazone 5 mg DAILY PO 06/11/24 10:00 06/13/24 11:45 5 MG Potassium Chloride 10 meq DAILY PO 06/11/24 10:00 06/13/24 11:51 10 MEQ Rivaroxaban 15 mg QPM PO 06/10/24 18:00 06/13/24 17:36 15 MG Atorvastatin Calcium 40 mg HS PO 06/10/24 22:00 06/13/24 22:02 40 MG Patient Own Medication 15 unit TID SC 06/10/24 22:00 Hold Levetiracetam 1,000 mg BID PO 06/10/24 22:00 06/13/24 22:02 1,000 MG Allopurinol 100 mg DAILY PO 06/11/24 10:00 06/13/24 11:44 100 MG Lorazepam 0.5 mg Q6HP PRN PO 06/10/24 17:45 Al Hydrox/Mg Hydrox/Simethicone 30 ml Q6HP PRN PO 06/10/24 17:45 Docusate Sodium 100 mg BIDPRN PRN PO 06/10/24 17:45 06/13/24 17:35 100 MG Acetaminophen 650 mg Q6HP PRN PO 06/10/24 17:45 Ondansetron HCl 4 mg Q4HP PRN IV 06/10/24 17:45 06/11/24 06:44 4 MG Levalbuterol HCl 0.625 mg Q4HPRN PRN NEB 06/10/24 20:00 Ipratropium [place] 0.5 mg Q4HPRN PRN NEB 06/10/24 20:00 Baclofen 10 mg Q8HP PRN PO 06/11/24 11:00 06/13/24 17:36 10 MG Laboratory Results Laboratory Tests 06/11/24 05:55 Urinalysis Test 06/10/24 14:06 Urine Color Light-yellow (Yellow) Urine Clarity Clear (Clear) Urine pH 5.0 (5.0-9.0) Urine Specific [place] 1.012 (1.001-1.035) Urine Protein Negative (Negative) Urine Ketones Negative (Negative) Urine Blood Negative /uL (Negative) Urine Nitrite Negative (Negative) Urine Bilirubin Negative (Negative) Urine Urobilinogen Normal mg/dL (Negative) Urine Leukocyte Esterase Negative /uL (Negative) Urine RBC <1 /hpf (0 - 4) Urine WBC 3 /hpf (0 - 5) Urine Squamous Epithelial Cells None seen /hpf (<5) Urine Bacteria None seen /hpf (None Seen) Urine Glucose Normal mg/dL (Normal) Microbiology Microbiology Date/Time Source Procedure Growth Status 06/13/24 06:15 Nose MRSA Screen - Final Complete 06/10/24 14:06 Urine - [place] Urine Culture - Final Complete Labs and/or images reviewed: Labs reviewed by me, Image(s) reviewed by me Assessment/Plan Assessment/Plan Acute hypoglycemia resolved Possible syncopal episode Chest x-ray negative CT head negative acute on chronic systolic heart failure chronic resp failure ckd stage 3b morbid obesity hypothyroidism hyperlipidemia gout cad s/p stents a fib copd dm seizure chronic pain syndrome Physical therapy ordered Home health arranged Plan discussed with: Patient My Orders Orders - LUCERO ROSALES MD Procedure Category Date Status Time * [employer]oelect[employer]ics Engineer CONS 06/14/24 Transmitted Consult Physical Therapy REFER 06/14/24 Transmitted Outpatient 09:58 Date of Service: Jun 14, 2024 Billing Provider: LUCERO ROSALES MD Common Visit Codes: [id number] INP/OBS CARE(HIGH) LUCERO ROSALES MD Jun 14, 2024 10:04
--- NOTE | 2024-06-14 10:08 | DVHDS2 ---
Discharge Summary Date of Admission Jun 10, 2024 at 17:35 Date of Discharge: Jun 14, 2024 Admitting Diagnosis Hypoglycemia Wounds: None Labs/Diagnostic Data: Laboratory Results Test 06/14/24 05:27 06/11/24 05:55 06/10/24 14:06 06/10/24 11:06 POC Glucose 132 mg/dl (70-106) White Blood Count 11.3 10^3/uL (4.4-10.8) Red Blood Count 4.01 10^6/uL (4.0-5.20) Hemoglobin 11.4 g/dL (12.2-16.2) Hematocrit 35.7 % (36.0-46.0) Mean Corpuscular Volume 88.9 fL (80.0-100.0) Mean Corpuscular Hemoglobin 28.4 pg (28.0-32.0) Mean Corpuscular Hemoglobin Concent 32.0 g/dL (32.0-36.0) Red Cell Distribution Width 16.6 % (11.8-14.3) Platelet Count 502 10^3/uL (140-450) Mean Platelet Volume 8.2 fL (6.9-10.8) Neutrophils (%) (Auto) 79.7 % (37.0-80.0) Lymphocytes (%) (Auto) 8.4 % (10.0-50.0) Monocytes (%) (Auto) 7.0 % (0.0-12.0) Eosinophils (%) (Auto) 4.6 % (0.0-7.0) Basophils (%) (Auto) 0.3 % (0.0-2.0) Neutrophils # (Auto) 9.0 10 ^3/uL (1.6-8.6) Lymphocytes # (Auto) 1.0 10 ^3/uL (0.4-5.4) Monocytes # (Auto) 0.8 10 ^3/uL (0-1.3) Eosinophils # (Auto) 0.5 10 ^3/uL (0-0.8) Basophils # (Auto) 0 10 ^3/uL (0-0.2) Nucleated Red Blood Cells 0.0 % Sodium Level 146 mmol/L (136-145) Potassium Level 3.2 mmol/L (3.5-5.1) Chloride Level 100 mmol/L (98-107) Carbon Dioxide Level 38 mmol/L (20-31) Anion Gap 8 (5-15) Blood Urea Nitrogen 44 mg/dL (9-23) Creatinine 1.53 mg/dL (0.550-1.02) Glomerular Filtration Rate Calc 37 mL/min (>90) BUN/Creatinine Ratio 28.8 (10.0-20.0) Serum Glucose 122 mg/dL (74-106) Uric Acid 7.1 mg/dL (3.1-7.8) Calcium Level 9.4 mg/dL (8.7-10.4) Urine Color Light-yellow (Yellow) Urine Clarity Clear (Clear) Urine pH 5.0 (5.0-9.0) Urine Specific [place] 1.012 (1.001-1.035) Urine Protein Negative (Negative) Urine Ketones Negative (Negative) Urine Blood Negative /uL (Negative) Urine Nitrite Negative (Negative) Urine Bilirubin Negative (Negative) Urine Urobilinogen Normal mg/dL (Negative) Urine Leukocyte Esterase Negative /uL (Negative) Urine RBC <1 /hpf (0 - 4) Urine WBC 3 /hpf (0 - 5) Urine Squamous Epithelial Cells None seen /hpf (<5) Urine Bacteria None seen /hpf (None Seen) Urine Glucose Normal mg/dL (Normal) Urine Opiates Screen Neg (NEGATIVE) Urine Fentanyl Screen Neg (NEGATIVE) Urine Barbiturates Screen Neg (NEGATIVE) Urine Phencyclidine Screen Neg (NEGATIVE) Urine Amphetamines Screen Neg (NEGATIVE) Urine Benzodiazepines Screen Neg (NEGATIVE) Urine Cocaine Screen Neg (NEGATIVE) Urine Cannabinoids Screen Neg (NEGATIVE) Troponin I High Sensitivity 8 ng/L (</=34) B-Type Natriuretic Peptide 458.38 pg/mL (0-100) Other Laboratory Tests 06/11/24 05:55 Brief Hx & Hospital Course: 68-year-old female with a recurrent admissions came in for possible syncope secondary to hypoglycemia which has since been resolved chest x-ray negative CT head negative patient has history of acute on chronic systolic congestive heart failure chronic respiratory failure wheelchair-bound for the last three months morbidly obese hypothyroidism hyperlipidemia gout CAD with stents AFib COPD diabetes seizures and chronic pain syndrome. Patient was treated with Rocephin and azithromycin Physical therapy ordered patient being discharged home on home health for physical therapy at the time of discharge vital signs are stable patient is tolerating awake oriented x3. He will continue all her home medications follow up with the primary Dr Consults/Reason for consult None Operations or Procedures None Condition at Discharge: Fair Final Diagnosis/Problems List Acute hypoglycemia resolved Possible syncopal episode Chest x-ray negative CT head negative acute on chronic systolic heart failure chronic resp failure ckd stage 3b morbid obesity hypothyroidism hyperlipidemia gout cad s/p stents a fib copd dm seizure chronic pain syndrome Discharge Disposition: Home with Health Services Discharge Instruct/Medications Diet: Cardiac 2g Na,low cholest Activity: Light activity Follow Up/Referral: Resume all your previous home medications Follow up with your primary doctor Medications: Azithromycin Transmitted to the pharmacy 39 (Time taken for discharge summary 39 minutes) Discharge Statement: "Patient was advised to return to the ER or call 911 if any headaches, dizziness, shortness of breath, chest pain, abdominal pain, bleeding, fevers, or worsening of medical condition. Patient was counseled about treatment plan, medications, possible side effects, patientverbalized understanding. All questions were answered to the best of my ability. This discharge took greater then 30 minutes in planning, reviewing documentation, counseling the patient, and discussing with other team members." ASSESSMENT ASSESSMENT Hospital Course Uneventful Assessment Acute hypoglycemia resolved Possible syncopal episode Chest x-ray negative CT head negative acute on chronic systolic heart failure chronic resp failure ckd stage 3b morbid obesity hypothyroidism hyperlipidemia gout cad s/p stents a fib copd dm seizure chronic pain syndrome Date of Service: Jun 14, 2024 Billing Provider: LUCERO ROSALES MD Common Visit Codes: 23550-HGX/OBS DISCH DAY >30min LUCERO ROSALES MD Jun 14, 2024 10:08
[2024-06-14 13:00] VITALS: BP 111/57; PULSE 84; RESP 18; TEMP 98.6; O2SAT 96
[2024-06-14 17:00] VITALS: BP 101/56; PULSE 85; RESP 20; TEMP 97.9; O2SAT 95
[2024-06-14 21:00] VITALS: BP 111/45; PULSE 86; RESP 19; TEMP 98.3; O2SAT 96
[2024-06-15 01:00] VITALS: BP 106/61; PULSE 92; RESP 17; TEMP 97.9; O2SAT 94
[2024-06-15 05:00] VITALS: BP 96/47; PULSE 91; RESP 18; TEMP 97.8; O2SAT 94
[2024-06-15 08:00] VITALS: PULSE 91
[2024-06-15 09:00] VITALS: BP 95/58; PULSE 95; RESP 19; TEMP 97.2; O2SAT 92
--- NOTE | 2024-06-15 11:36 | DVHPN2 ---
Reviewed: Care Plan, H&P, Labs, Medications, Previous Orders, Radiology Changes from previous H/P or p: No Changes Eyes: No Pain, No Vision change, No Conjunctivae inflammation, No Eyelid inflammation, No Other, No Redness ENT: No Ear pain, No Ear discharge, No Nose pain, No Nose discharge, No Nose congestion, No Mouth pain, No Mouth swelling, No Throat pain, No Throat swelling, No Other Cardiovascular: No Chest Pain, No Palpitations, No Orthopnea, No Paroxysmal Noc. Dyspnea, No Edema, No Lt Headedness, No Other Respiratory: No Cough, No Dry; Shortness of breath, SOB with excertion; No Wheezing, No Hemoptysis, No Pleuritic Pain, No Sputum, No Other Gastrointestinal: No Nausea, No Vomiting, No Abdominal Pain, No Diarrhea, No Constipation, No Melena, No Hematochezia, No Other Genitourinary: No Dysuria, No Frequency, No Incontinence, No Hematuria, No Retention, No Other Musculoskeletal: No other, No neck pain, No shoulder pain, No arm pain, No back pain, No hand pain, No leg pain, No foot pain Skin: No Rash, No Lesions, No Jaundice, No Bruising, No Other Objective Vitals Vital Signs Date Time Temp Pulse Resp B/P (MAP) Pulse Ox O2 Delivery O2 Flow Rate FiO2 06/15/24 10:00 95/58 06/15/24 09:00 97.2 95 19 92 97.2 06/14/24 20:00 Nasal Cannula* 3 32 Intake/Output Intake and Output 06/15/24 07:00 Intake Total 1000 ml Output Total 1200 ml Balance -200 ml Intake Oral 700 ml IV Total 300 ml Output Urine Total 1200 ml Medications Current Medications Medications Dose Ordered Sig/Gloria Route Start Time Stop Time Status Last Admin Dose Admin Ceftriaxone Sodium 50 ml @ 100 mls/hr DAILY IV 06/10/24 14:15 06/14/24 11:21 100 MLS/HR Azithromycin 250 ml @ 125 mls/hr DAILY IV 06/10/24 14:15 06/14/24 13:25 125 MLS/HR Furosemide 40 mg BIDD IV 06/10/24 22:00 06/14/24 05:29 40 MG Diagnostic Test (Pha) 1 strip ACHS 06/10/24 17:00 06/15/24 05:57 1 STRIP Insulin Human Regular HS SC 06/10/24 22:00 06/14/24 22:21 3 UNITS Insulin Human Regular AC SC 06/10/24 17:00 06/15/24 06:03 2 UNITS Dextrose 50 ml UD PRN IV 06/10/24 14:15 Amiodarone HCl 200 mg BID PO 06/10/24 22:00 06/15/24 10:07 200 MG Gabapentin 300 mg QID PO 06/10/24 18:00 06/15/24 05:47 300 MG Acetaminophen/ Hydrocodone Bitart 1 tab Q4HP PRN PO 06/10/24 14:15 06/15/24 10:07 1 TAB Levothyroxine Sodium 112 mcg QAM PO 06/11/24 07:00 06/15/24 05:47 112 MCG Metolazone 5 mg DAILY PO 06/11/24 10:00 06/13/24 11:45 5 MG Potassium Chloride 10 meq DAILY PO 06/11/24 10:00 06/15/24 10:07 10 MEQ Rivaroxaban 15 mg QPM PO 06/10/24 18:00 06/14/24 17:47 15 MG Atorvastatin Calcium 40 mg HS PO 06/10/24 22:00 06/14/24 22:11 40 MG Patient Own Medication 15 unit TID SC 06/10/24 22:00 Hold Levetiracetam 1,000 mg BID PO 06/10/24 22:00 06/15/24 10:06 1,000 MG Allopurinol 100 mg DAILY PO 06/11/24 10:00 06/15/24 10:08 100 MG Lorazepam 0.5 mg Q6HP PRN PO 06/10/24 17:45 Al Hydrox/Mg Hydrox/Simethicone 30 ml Q6HP PRN PO 06/10/24 17:45 Docusate Sodium 100 mg BIDPRN PRN PO 06/10/24 17:45 06/14/24 11:17 100 MG Acetaminophen 650 mg Q6HP PRN PO 06/10/24 17:45 Ondansetron HCl 4 mg Q4HP PRN IV 06/10/24 17:45 06/11/24 06:44 4 MG Levalbuterol HCl 0.625 mg Q4HPRN PRN NEB 06/10/24 20:00 Cancel Ipratropium [place] 0.5 mg Q4HPRN PRN NEB 06/10/24 20:00 Cancel Baclofen 10 mg Q8HP PRN PO 06/11/24 11:00 06/15/24 10:22 10 MG Laboratory Results Laboratory Tests 06/11/24 05:55 Urinalysis Test 06/10/24 14:06 Urine Color Light-yellow (Yellow) Urine Clarity Clear (Clear) Urine pH 5.0 (5.0-9.0) Urine Specific [place] 1.012 (1.001-1.035) Urine Protein Negative (Negative) Urine Ketones Negative (Negative) Urine Blood Negative /uL (Negative) Urine Nitrite Negative (Negative) Urine Bilirubin Negative (Negative) Urine Urobilinogen Normal mg/dL (Negative) Urine Leukocyte Esterase Negative /uL (Negative) Urine RBC <1 /hpf (0 - 4) Urine WBC 3 /hpf (0 - 5) Urine Squamous Epithelial Cells None seen /hpf (<5) Urine Bacteria None seen /hpf (None Seen) Urine Glucose Normal mg/dL (Normal) Microbiology Microbiology Date/Time Source Procedure Growth Status 06/13/24 06:15 Nose MRSA Screen - Final Complete 06/10/24 14:06 Urine - [place] Urine Culture - Final Complete Assessment/Plan Assessment/Plan Acute hypoglycemia resolved Possible syncopal episode Chest x-ray negative CT head negative acute on chronic systolic heart failure chronic resp failure ckd stage 3b morbid obesity hypothyroidism hyperlipidemia gout cad s/p stents a fib copd dm seizure chronic pain syndrome Physical therapy ordered Home health arranged Patient was discharged home on home health on 06/14/2024 Awaiting home health to supervisor picking crew the patient Plan discussed with: Patient My Orders Orders - LUCERO ROSALES MD Procedure Category Date Status Time D/C [place] 06/14/24 In Process 16:41 * Carry All Driver CONS 06/15/24 Verified Consult Date of Service: Jun 15, 2024 Billing Provider: LUCERO ROSALES MD Common Visit Codes: [id number] INP/OBS CARE(HIGH) LUCERO ROSALES MD Jun 15, 2024 11:36
[2024-06-15 12:47] VITALS: BP 111/64; PULSE 91; RESP 21; TEMP 97.6; O2SAT 93
[2024-06-15] MEDS: LACTULOSE 20Gm/30ML SOLN PO ONE (15:23)
[2024-06-15 17:00] VITALS: BP 111/66; PULSE 93; RESP 19; TEMP 97.3; O2SAT 97
== END 2024-06-15 20:37 | DRG 637 ==
LOC: ER 10:34 → EDBD 10:34 → OVERFLOW 17:35 → WEST WING 06-12 11:31
PROVIDERS: ADMIT Hospitalist; ATTEND Family Medicine
DX: E11.649 Type 2 diabetes mellitus with hypoglycemia without coma (principal); I50.23 Acute on chronic systolic (congestive) heart failure; I13.2 Hypertensive heart and chronic kidney disease with heart failure and with stage 5 chronic kidney disease, or end stage renal disease; J44.1 Chronic obstructive pulmonary disease with (acute) exacerbation; J96.10 Chronic respiratory failure, unspecified whether with hypoxia or hypercapnia; Z68.41 Body mass index [BMI] 40.0-44.9, adult; N17.9 Acute kidney failure, unspecified; N18.5 Chronic kidney disease, stage 5; E03.9 Hypothyroidism, unspecified; E11.22 Type 2 diabetes mellitus with diabetic chronic kidney disease; E66.01 Morbid (severe) obesity due to excess calories; E78.5 Hyperlipidemia, unspecified; I25.10 Atherosclerotic heart disease of native coronary artery without angina pectoris; G89.4 Chronic pain syndrome; I48.91 Unspecified atrial fibrillation; M10.9 Gout, unspecified; R56.9 Unspecified convulsions; Z88.5 Allergy status to narcotic agent; Z88.6 Allergy status to analgesic agent; Z95.5 Presence of coronary angioplasty implant and graft; Z99.3 Dependence on wheelchair; Z79.4 Long term (current) use of insulin; Z79.899 Other long term (current) drug therapy; Z91.018 Allergy to other foods
CPT/HCPCS: 36415; 70450; 71045; 80048; 80307; 81001; 82962; 83880; 84484; 84550; 85025; 87081; 87086; 93005; 94640; 97110; 97116; 97163; 97530; 99291; G0378; J1815; J2405